=== PATIENT | female | born 1960 | race Caucasian/White ===

== ENCOUNTER → 2021-09-24 08:05 | Outpatient (BNVA) | payer OTHER, SELFPAY | PROVIDERS: PCP Internal Medicine; Visit Provider Psychiatry & Neurology Neurology | DX: G43.909 Migraine, unspecified, not intractable, without status migrainosus (principal) ==

== ENCOUNTER 2022-12-31 13:06 | Outpatient (AMB) | payer OTHER, SELFPAY ==
--- NOTE | 2022-12-31 13:08 | A.OFFVIS_ITS ---
Intake Vital Signs 12/31/22 13:09 Height 5 ft 7 in Weight 225 lb BMI 35.2 BP 108/82 Blood Pressure Location Rt brachial Position Sitting Pulse 104 H Pulse Source Pulse Oximeter Pulse Oximetry (%) 95 Oxygen Delivery Method Room Air Intake Visit Reasons: follow up migraines Intake Note: Patient presents for follow up migraines. 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 Allergies acetaminophen [From Percocet] Allergy (Verified 12/31/22 13:14) Hives morphine Allergy (Verified 12/31/22 13:14) Hypotension oxycodone Allergy (Verified 12/31/22 13:14) Hives Sulfa (Sulfonamide Antibiotics) Allergy (Verified 12/31/22 13:14) Hives Tetanus Vaccines and Toxoid Allergy (Verified 12/31/22 13:14) Headache Medication List - Last Reconciled 12/31/22 by OLGA Lehman citalopram 30 mg PO DAILY cyanocobalamin (vitamin B-12) (Vitamin B-12) 100 mcg PO DAILY lorazepam (Ativan) 0.5 mg PO DAILY PRN magnesium oxide 250 mg PO DAILY propranolol 20 mg (2 x 10 mg) PO BID 30 days riboflavin (vitamin B2) (Vitamin B-2) 400 mg PO QAM HPI HPI Comments History of Present Illness Details 62-yr-old female presents for f/u visit. Pt denies any significant interval medical changes. Pt reports she is having 1-2 typical migraines days per week. She has a couple of ocular migraines w/o headache a month. 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 She can work, but cannot do focused work- such as inerting an IV or PICC line. She complaint w/ Propranolol 20mg bid. In the past, she has tried Topiramate- not tolerated and has a h/o kidney stones. She has never tried a tripatn. She continues to have BLE neuropathy s/s- stable LE spasms. [facility] Medical History Anxiety Chemotherapy-induced neuropathy Colon cancer Depression Diabetes Endometrial cancer Kidney stone Obesity Surgical History Gastric bypass status for obesity H/O colectomy H/O: hysterectomy Hx of carpal tunnel repair Family History Maternal Aunt Carcinoma in situ of breast Unknown No problems noted. Social History Household Members: None Patient Tobacco Use Status: Former Tobacco user Quit Date: 10 YEARS Review of Systems Const All systems reviewed & are unremarkable except as noted in HPI and below Physical Exam Vital Signs: Last Vital Signs Pulse 104 H 12/31/22 13:09 BP 108/82 12/31/22 13:09 Pulse Ox 95 12/31/22 13:09 Oxygen Delivery Method Room Air 12/31/22 13:09 BMI result Body Mass Index 35.2 Const General: cooperative and no acute distress Orientation/consciousness: patient oriented x3 HEENT Head: Yes normocephalic Resp Effort & Inspection: normal respiratory effort and able to speak in complete sentences Neuro General: patient oriented x3, gait normal and CN's II-XI intact bilaterally Cognition (Neuro): normal cognition Motor exam (neuro): 5/5 motor strength present throughout Psych Appearance: grossly normal Mental Status: mental status grossly normal Speech and movement: Normal speech and movement present Affect: normal affect Attitude: cooperative Thought process: Normal thought process present Thought content: Normal thought content present Insight: Good insight present (Psych) Judgement: Good judgement present (Psych) Assessment & Plan Assessment & Plan (1) Migraine: Code(s): G43.909 - Migraine, unspecified, not intractable, without status migrainosus (2) Chemotherapy-induced neuropathy: Code(s): G62.0 - Drug-induced polyneuropathy; T45.1X5A - Adverse effect of antineoplastic and immunosuppressive drugs, initial encounter Plan For acute migraine tx: May use Excedrin prn sparingly. Trial Sumatriptan 100mg tab, 1/2 - 1 tab (50-100mg) at onset of headache, may repeat in 2 hours. Max of 2 tabs (200mg) per 24 hours. May adjunct with OTC Tylenol 650mg q 4 hours, Ibuprofen 600mg q 6 hours, or Naproxen 440mg q 12 hrs prn. For migraine prevention: Continue Vit B 2 400mg qam Magnesium 400mg qhs Continue Propranolol 20mg bid. Previous tx trials- Topiramate- not tolerated and has a h/o kidney stones. For anxiety: Continue Citalopram 30mg qd. Medications: New sumatriptan succinate (0.5 - 1 x 100 mg) 50 - 100 mg orally at onset of headache, may repeat in 2 hrs PRN; max 2 tabs per day or 4 tabs/week (may take with Ibuprofen) 30 days 12 tabs 6RF migraine headache Changed From citalopram 30 mg (1.5 x 20 mg) PO DAILY 45 tabs 6RF To citalopram 30 mg PO DAILY Coding Level of Care Code Est Pt Level 4 (25102) Diagnoses Migraine G43.909 Chemotherapy-induced neuropathy G62.0; T45.1X5A
[2022-12-31 13:09] VITALS: BP 108/82; PULSE 104; O2SAT 95; BMI 35.2
== END 2022-12-31 13:56 | disposition home or self-care (01) ==
PROVIDERS: Visit Provider Nurse Practitioner Family
DX: G43.909 Migraine, unspecified, not intractable, without status migrainosus (principal); G62.0 Drug-induced polyneuropathy; T45.1X5A Adverse effect of antineoplastic and immunosuppressive drugs, initial encounter
CPT/HCPCS: 99214

== ENCOUNTER → 2022-12-31 13:06 | Outpatient (BNVA) | payer OTHER, SELFPAY | PROVIDERS: Visit Provider Nurse Practitioner Family ==

== ENCOUNTER 2023-07-08 09:21 | Outpatient (AMB) | payer OTHER, SELFPAY ==
[2023-07-08 09:34] VITALS: BP 114/82; PULSE 67; BMI 31.6
--- NOTE | 2023-07-08 09:34 | MHC.OFFVIS ---
Intake Vital Signs 07/08/23 09:34 Height 5 ft 7 in Weight 202 lb BMI 31.6 BP 114/82 Blood Pressure Location Rt brachial Position Sitting Pulse 67 Pulse Source Pulse Oximeter Intake Visit Reasons: follow up migraines-Conf Intake Note: Patient presents for follow up migraines. migraines are still there,but lee's life Allergies acetaminophen [From Percocet] Allergy (Verified 07/08/23 09:38) Hives morphine Allergy (Verified 07/08/23 09:38) Hypotension oxycodone Allergy (Verified 07/08/23 09:38) Hives Sulfa (Sulfonamide Antibiotics) Allergy (Verified 07/08/23 09:38) Hives Tetanus Vaccines and Toxoid Allergy (Verified 07/08/23 09:38) Headache HPI HPI Comments History of Present Illness Details 62-yr-old female presents for f/u visit. Pt denies any significant interval medical changes. She has started Wegovy for wt loss, which so far has been effective. She is trying to eat healthier. She tried Sumatriptan- caused profuse sweating and it knocked her out. 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 She is using Excedrin migraine prn. Having 2 migraine attacks per week, which respond to Excedrin. Also migraine ice cap is helpful. Baseline headache characteristics: Start above right eye, sometimes may see white lights raining down in bilateral vision, a/w becoming pale, photophobia, phonophobia, osmophobia, nausea, rarely vomiting. Has ocular migraine w/o headache- seeing blurred line- moves into partial or visual solitario- lasts about 15 min. Frequency vary- can be 2 in a week, and then not have an attack for weeks. She continues to have BLE neuropathy s/s- can have some burning pain- worse if cold, BLE spasms- towards the end of the day. Not interested in meds at this time. She is slow on stairs- because she cannot feel the stairs. She does take Vit B complex, Turmeric, Mag. [facility] Medical History Chemotherapy-induced neuropathy Kidney stone Depression Anxiety Colon cancer Endometrial cancer Obesity Diabetes Surgical History H/O: hysterectomy H/O colectomy Gastric bypass status for obesity Hx of carpal tunnel repair Family History Maternal Aunt Carcinoma in situ of breast Unknown No problems noted. Social History Household Members: None Patient Tobacco Use Status: Former Tobacco user Quit Date: 10 YEARS Physical Exam Vital Signs: Last Vital Signs Pulse 67 07/08/23 09:34 BP 114/82 07/08/23 09:34 BMI result Body Mass Index 31.6 Const General: cooperative and no acute distress Orientation/consciousness: patient oriented x3 Resp Effort & Inspection: normal respiratory effort and able to speak in complete sentences Neuro General: patient oriented x3 Cranial nerves: Yes CN's II-XII intact bilaterally Cognition (Neuro): normal cognition Psych Appearance: grossly normal Mental Status: mental status grossly normal Speech and movement: Normal speech and movement present Affect: normal affect Attitude: cooperative Assessment & Plan Assessment & Plan (1) Migraine: Code(s): G43.909 - Migraine, unspecified, not intractable, without status migrainosus (2) Anxiety: Code(s): F41.9 - Anxiety disorder, unspecified (3) Chemotherapy-induced neuropathy: Code(s): G62.0 - Drug-induced polyneuropathy; T45.1X5A - Adverse effect of antineoplastic and immunosuppressive drugs, initial encounter Plan For acute migraine tx: May use Excedrin prn sparingly. Stop Sumatriptan 100mg tab- not tolerated. For migraine prevention: Continue Vit B 2 400mg qam Magnesium 400mg qhs Continue Propranolol 20mg bid. Previous tx trials- Topiramate- not tolerated and has a h/o kidney stones. Preventive migraine tx contraindications- Topiramate d/t h/o kidney stones. For anxiety: Continue Citalopram 30mg qd. For BLE neuropathy- Continue vit B, turmeric, mag. f/u in 6 months or sooner prn. Coding Level of Care Code Est Pt Level 4 (99987) Diagnoses Migraine G43.909 Anxiety F41.9 Chemotherapy-induced neuropathy G62.0; T45.1X5A
== END 2023-07-08 10:17 | disposition home or self-care (01) ==
PROVIDERS: PCP Family Medicine; Visit Provider Nurse Practitioner Family
DX: G43.909 Migraine, unspecified, not intractable, without status migrainosus (principal); F41.9 Anxiety disorder, unspecified; G62.0 Drug-induced polyneuropathy; T45.1X5A Adverse effect of antineoplastic and immunosuppressive drugs, initial encounter
CPT/HCPCS: 99214

== ENCOUNTER → 2023-07-08 09:21 | Outpatient (BNVA) | payer OTHER, SELFPAY | PROVIDERS: PCP Family Medicine; Visit Provider Nurse Practitioner Family ==

== ENCOUNTER 2024-01-06 09:27 | Outpatient (AMB) | payer OTHER, SELFPAY ==
--- NOTE | 2024-01-06 09:31 | A.OFFVIS_ITS ---
Vital Signs 01/06/24 09:32 Height 5 ft 7 in Weight 181 lb BMI 28.3 BP 120/70 Blood Pressure Location Rt brachial Position Sitting Intake Visit Reasons: 6 mo f/u Intake Note: Patient presents for follow up. Allergies acetaminophen [From Percocet] Allergy (Verified 01/06/24 09:37) Hives morphine Allergy (Verified 01/06/24 09:37) Hypotension oxycodone Allergy (Verified 01/06/24 09:37) Hives Sulfa (Sulfonamide Antibiotics) Allergy (Verified 01/06/24 09:37) Hives Tetanus Vaccines and Toxoid Allergy (Verified 01/06/24 09:37) Headache HPI Comments Details: 63-yr-old female presents for f/u visit. Pt denies any significant interval medical changes. She has continued to have intentional weight loss. She is having low back pain d/t large residual lower abdominal skin fold. Has plans to discuss surgical options w/ plastic surgery. Having 2-3 mild-moderate migraine attacks per week, which respond to Excedrin. Has been having 3-4 severe migraines per year. Also migraine ice cap is helpful. 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 She is using Excedrin migraine prn. Baseline headache characteristics: Start above right eye, sometimes may see white lights raining down in bilateral vision, a/w becoming pale, photophobia, phonophobia, osmophobia, nausea, rarely vomiting. Has ocular migraine w/o headache- seeing blurred line- moves into partial or visual solitario- lasts about 15 min. Frequency vary- can be 2 in a week, and then not have an attack for weeks. She continues to have BLE neuropathy s/s- can have some burning pain- worse if cold, BLE spasms- towards the end of the day. Not interested in prescription meds at this time. She is slow on stairs- because she cannot feel the stairs. She does take Vit B complex, Turmeric, Mag, co-Q10. [facility] Medical History Chemotherapy-induced neuropathy Kidney stone Depression Anxiety Colon cancer Endometrial cancer Obesity Diabetes Surgical History H/O: hysterectomy H/O colectomy Gastric bypass status for obesity Hx of carpal tunnel repair Family History Maternal Aunt Carcinoma in situ of breast Unknown No problems noted. Social History Household Members: None Patient Tobacco Use Status: Former Tobacco user Physical Exam Vital Signs: Last Vital Signs BP 120/70 01/06/24 09:32 BMI result Body Mass Index 28.3 Const General: cooperative and no acute distress Orientation/consciousness: patient oriented x3 Resp Effort & Inspection: normal respiratory effort and able to speak in complete sentences Neuro General: patient oriented x3 Cranial nerves: Yes CN's II-XII intact bilaterally Cognition (Neuro): normal cognition Psych Appearance: grossly normal Mental Status: mental status grossly normal Speech and movement: Normal speech and movement present Affect: normal affect Attitude: cooperative Assessment & Plan Assessment & Plan (1) Migraine: Code(s): G43.909 - Migraine, unspecified, not intractable, without status migrainosus Category: Medical (2) Chemotherapy-induced neuropathy: Code(s): G62.0 - Drug-induced polyneuropathy; T45.1X5A - Adverse effect of antineoplastic and immunosuppressive drugs, initial encounter Category: Medical (3) Leg muscle spasm: Code(s): M62.838 - Other muscle spasm Category: Medical (4) Anxiety: Code(s): F41.9 - Anxiety disorder, unspecified Category: Medical Plan For acute migraine tx: May use Excedrin prn sparingly. Previous trials- Sumatriptan 100mg tab- not tolerated. ? For migraine prevention: Continue Vit B 2 400mg qam Magnesium 400mg qhs Continue Propranolol 20mg bid. Previous tx trials- Topiramate- not tolerated and has a h/o kidney stones. Preventive migraine tx contraindications- Topiramate d/t h/o kidney stones. Discussed trying a CGRP MaB to reduce risk for migraine and osmophobia- ajovy or emgality- pt will review and let us know. Would avoid aimovig d/t leg cramp s/s. ? For anxiety: Continue Citalopram 30mg qd. ? For BLE neuropathy- Continue vit B, turmeric, mag, co-Q10 Consider trial of OTC Nervive nerve relief. ? f/u in 6 months or sooner prn. Coding Level of Care Code Est Pt Level 4 (23162) Diagnoses Migraine G43.909 Chemotherapy-induced neuropathy G62.0; T45.1X5A Leg muscle spasm M62.838 Anxiety F41.9
[2024-01-06 09:32] VITALS: BP 120/70; BMI 28.3
== END 2024-01-06 10:27 | disposition home or self-care (01) ==
PROVIDERS: PCP Family Medicine; Visit Provider Nurse Practitioner Family
DX: G43.909 Migraine, unspecified, not intractable, without status migrainosus (principal); G62.0 Drug-induced polyneuropathy; T45.1X5A Adverse effect of antineoplastic and immunosuppressive drugs, initial encounter; M62.838 Other muscle spasm; F41.9 Anxiety disorder, unspecified
CPT/HCPCS: 99214

== ENCOUNTER → 2024-01-06 09:27 | Outpatient (BNVA) | payer OTHER, SELFPAY | PROVIDERS: PCP Family Medicine; Visit Provider Nurse Practitioner Family ==

== ENCOUNTER 2024-07-27 09:52 | Outpatient (AMB) | payer OTHER, SELFPAY ==
[2024-07-27 10:03] VITALS: BP 120/84; PULSE 64; O2SAT 98; BMI 27.4
--- NOTE | 2024-07-27 10:03 | A.OFFVIS_ITS ---
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 Accompanied by: Self / Same As Patient Allergies acetaminophen [From Percocet] Allergy (Verified 07/27/24 10:03) Hives morphine Allergy (Verified 07/27/24 10:03) Hypotension oxycodone Allergy (Verified 07/27/24 10:03) Hives Sulfa (Sulfonamide Antibiotics) Allergy (Verified 07/27/24 10:03) Hives Tetanus Vaccines and Toxoid Allergy (Verified 07/27/24 10:03) Headache Medication List - Last Reconciled 07/27/24 by OLGA Lehman citalopram 30 mg PO DAILY cyanocobalamin (vitamin B-12) (Vitamin B-12) 100 mcg PO DAILY lorazepam (Ativan) 0.5 mg PO DAILY PRN magnesium oxide 250 mg PO DAILY propranolol 20 mg (2 x 10 mg) PO BID 30 days riboflavin (vitamin B2) (Vitamin B-2) 400 mg PO QAM sumatriptan succinate 50 - 100 mg orally at onset of headache, may repeat in 2 hrs PRN; max 2 tabs per day or 4 tabs/week (may take with Ibuprofen) 30 days HPI Comments Details: 63-yr-old female presents for f/u visit for migraine with aura and peripheral neuropathy. Patient denies any significant interim history changes. She continues to have intentional weight loss through dietary changes and now increase physical activity, doing water aerobics. Pt reports increased migraine attacks this month which she attributes to increased stress related to the loss pets. If she catches the migraine attack early enough, she can treat it with an excedrin. However, recently missed work for an entire weekend, due to migraine triggered by co-workers strong perfume, as migraine was severe a/w nausea, vomiting- and was not responsive to her usual excedrin. She is rarely having an ocular migraine without headache. Previously did not tolerate sumatriptan. She has taken Zofran in the past, however her current order has . Using a mask at work to help block triggers- though notes that the facial mask can impede her ability to see the floor, which can make her fit more off [facility]. Baseline headache characteristics: Start above right eye, sometimes may see white lights raining down in bilateral vision, a/w becoming pale, photophobia, phonophobia, osmophobia, nausea, rarely vomiting. Has ocular migraine w/o headache- seeing blurred line- moves into partial or visual solitario- lasts about 15 min. Frequency vary- can be 2 in a week, and then not have an attack for weeks. She continues to have stable BLE neuropathy s/s- can have some burning pain in the bottom of feet- worse if cold. May have BLE spasms- towards the end of the day, especially if she had been walking a lot that day. Not interested in prescription meds at this time. She is slow on stairs- because she cannot feel the stairs. She does take Vit B complex, Turmeric, Mag, co-Q10. [facility] Medical History Chemotherapy-induced neuropathy Kidney stone Depression Anxiety Colon cancer Endometrial cancer Obesity Diabetes Surgical History H/O: hysterectomy H/O colectomy Gastric bypass status for obesity Hx of carpal tunnel repair Family History Maternal Aunt Carcinoma in situ of breast Unknown No problems noted. Social History Household Members: None Patient Tobacco Use Status: Former Tobacco user Physical Exam Vital Signs: Last Vital Signs Pulse 64 07/27/24 10:03 BP 120/84 07/27/24 10:03 Pulse Ox 98 07/27/24 10:03 Oxygen Delivery Method Room Air 07/27/24 10:03 BMI result Body Mass Index 27.4 Const General: cooperative and no acute distress Orientation/consciousness: patient oriented x3 Resp Effort & Inspection: normal respiratory effort and able to speak in complete sentences Neuro General: patient oriented x3 Cranial nerves: Yes CN's II-XII intact bilaterally Cognition (Neuro): normal cognition Psych Appearance: grossly normal Mental Status: mental status grossly normal Speech and movement: Normal speech and movement present Affect: normal affect Attitude: cooperative Assessment & Plan Assessment & Plan (1) Migraine: Code(s): G43.909 - Migraine, unspecified, not intractable, without status migrainosus Category: Medical (2) Chemotherapy-induced neuropathy: Code(s): G62.0 - Drug-induced polyneuropathy; T45.1X5A - Adverse effect of antineoplastic and immunosuppressive drugs, initial encounter Category: Medical (3) Leg muscle spasm: Code(s): M62.838 - Other muscle spasm Category: Medical (4) Anxiety: Code(s): F41.9 - Anxiety disorder, unspecified Category: Medical Plan Discussion Notes I discussed with the patient the issues related to her migraines, particularly the impact of scent exposure in her workplace. We reviewed the recent stressors that have exacerbated her condition. I explained the prospects of using a newer class of migraine medications which might carry fewer side effects. I provided reassurance on the management of potential adverse effects and discussed the availability of Zofran for managing nausea. We talked about the ADA implications regarding workplace accommodations for her migraines and the importance of communicating effectively with her supervisors to address scent-related challenges in her work environment. Patient did bring in return to work paperwork-however patient was not kept out of work for a prolonged time. Though form completed to best of my ability today. Discussed that she should request actual FMLA paperwork from her HR department. We agreed on the addition of newer migraine medications and discussed lifestyle modifications and ongoing management strategies. Patient was informed and verbally consented to the use of an ambient scribe for clinic note documentation during this visit. For acute migraine tx: Trial Naratriptan 2.5mg tab, 1/2 - 1 tab (1.25-2.5mg) at onset of headache, may repeat in 4 hours. Max of 2 tabs (5mg) per 24 hours. May adjunct with OTC Tylenol 650mg every 4 hours, Ibuprofen (liquigel) 600mg every 6 hours, or Naproxen (liquigel) 440mg every 12 hrs as needed. Potential adverse effects of triptans, include but are not limited to nausea, fatigue, chest tightness/tingling (usually passes within a few minutes), medication overuse headaches. May use Excedrin prn sparingly. Ondansetron ODT 4-8 mg every 6-8 hours as needed for nausea and vomiting. Previous trials- Sumatriptan 100mg tab- not tolerated. ? For migraine prevention: Continue Vit B 2 400mg qam Magnesium 400mg qhs Continue Propranolol 20mg bid. Previous tx trials- Topiramate- not tolerated and has a h/o kidney stones. Preventive migraine tx contraindications- Topiramate d/t h/o kidney stones. Discussed trying a CGRP MaB to reduce risk for migraine and osmophobia- ajovy or emgality- pt will review and let us know. Would avoid aimovig d/t leg cramp s/s. ? For anxiety: Continue Citalopram 30mg qd. ? For BLE neuropathy- Continue vit B, turmeric, mag, co-Q10 Encourage patient to trial OTC Nervive nerve relief. ? f/u in 6 months or sooner prn. Medications: New naratriptan take 1/2 - 1 tab at onset of headache; if no relief may repeat 1 tab after at least 4 hrs; max = 2 tabs/24 hrs orally PRN; 30 days 12 tabs 6RF migraine headache ondansetron 4 - 8 mg (1 - 2 x 4 mg) PO Q6-8H 30 days PRN 30 tabs 3RF nausea and vomiting MDD 16mg Discontinued sumatriptan succinate Discontinued Reason: Doctor's Order (0.5 - 1 x 100 mg) 50 - 100 mg orally at onset of headache, may repeat in 2 hrs PRN; max 2 tabs per day or 4 tabs/week (may take with Ibuprofen) 30 days 12 tabs 6RF migraine headache Coding Level of Care Code Est Pt Level 4 (75164) Diagnoses Migraine G43.909 Chemotherapy-induced neuropathy G62.0; T45.1X5A Leg muscle spasm M62.838 Anxiety F41.9
--- OUTSIDE RECORDS SUMMARY | 2024-07-27 11:09 | XMS_ITS ---
Author Organization [facility] Address [address] [place] [phone] Care Team Providers Care Medical Education Coordinator Name Role Phone LUIZ ABUNDIO Unavailable [phone] REASON FOR VISIT SECA- MEDICATIONS Medication SIG (Take, Route, Frequency, Duration) Notes Start Date End Date Status Citalopram Hydrobromide 30 MG 1 capsule Orally Once a day Active Wegovy 2.4 MG/0.75ML ADMINISTER 2.4 MG U NDER THE SKIN WEEKLY for 28 Active Magnesium 300 MG 1 capsule with a patrizia l Orally Once a day Active Vitamin B2 Active Wegovy 2.4 MG/0.75ML 2.4mg Subcutaneous weekly for 30 days Not-Taking Propranolol HCl 20 MG 1 tablet Orally Tw ice a day Active Nystatin 724846 UNIT/GM 1 application Ex ternally Twice a day for 30 days Active Encounters Encounter Location Date Provider Diagnosis [place] [address] [address] 06/29/2024 ABUNDIO DEE BMI 27.0-27.9,adult Z68.27 ; Overweight (BMI 25.0-29.9) E66.3 ; Peripheral polyneuropathy G62.9 ; Endometrial cancer C54.1 ; PCOS (polycystic ovarian syndrome) E28.2 ; History of colon cancer Z85.038 and Migraine without aura and without status migrainosus, not intractable G43.009 ASSESSMENTS Encounter Date Diagnosis Assessment Notes Treatment Notes Treatment Clinical Notes Section Notes 06/29/2024 BMI 27.0-27.9,adult (ICD-10 - Z68.27) #Weight Management 06/29/2024 _update comprehensive labs before next visit Happy with progress which has been slow and steady newly calibrated target goal weight 165 pounds Tolerating medication cont Wegovy to 2.4 We did discuss we can refer to plastic surgery to see if she can get potential skin excision when she is done losing weight and on maintenance dosing Nystatin topical Total time spent today was 30 minutes of which greater than 50% was spent on coordinating and counseling Patient has been found to be overweight with a BMI of (27). Patient has overweight class per BMI standards We are a board certified obesity and weight management practice Of note, some information is being carried forward from prior records for informational purposes only and is being cited so that efficiency, safety and quality of the patient's care is not compromised This note was prepared using voice recognition software and direct typing Please excuse inadvertent trimmer sawyer or typing errors, or uncorrected word substitutions Although every attempt has been made by the provider to proofread this document, occasional misspellings and typographical errors may still be present Due to the previous pandemic, and the use of personal protective equipment (PPE) This may decrease voice recognition accuracy Inadvertent trimmer sawyer errors may occur 06/29/2024 Overweight (BMI 25.0-29.9) (ICD-10 - E66.3) #Weight Management 06/29/2024 _update comprehensive labs before next visit Happy with progress which has been slow and steady newly calibrated target goal weight 165 pounds Tolerating medication cont Wegovy to 2.4 We did discuss we can refer to plastic surgery to see if she can get potential skin excision when she is done losing weight and on maintenance dosing Nystatin topical Total time spent today was 30 minutes of which greater than 50% was spent on coordinating and counseling Patient has been found to be overweight with a BMI of (27). Patient has overweight class per BMI standards We are a board certified obesity and weight management practice Of note, some information is being carried forward from prior records for informational purposes only and is being cited so that efficiency, safety and quality of the patient's care is not compromised This note was prepared using voice recognition software and direct typing Please excuse inadvertent trimmer sawyer or typing errors, or uncorrected word substitutions Although every attempt has been made by the provider to proofread this document, occasional misspellings and typographical errors may still be present Due to the previous pandemic, and the use of personal protective equipment (PPE) This may decrease voice recognition accuracy Inadvertent trimmer sawyer errors may occur 06/29/2024 Peripheral polyneuropathy (ICD-10 - G62.9) #Weight Management 06/29/2024 _update comprehensive labs before next visit Happy with progress which has been slow and steady newly calibrated target goal weight 165 pounds Tolerating medication cont Wegovy to 2.4 We did discuss we can refer to plastic surgery to see if she can get potential skin excision when she is done losing weight and on maintenance dosing Nystatin topical Total time spent today was 30 minutes of which greater than 50% was spent on coordinating and counseling Patient has been found to be overweight with a BMI of (27). Patient has overweight class per BMI standards We are a board certified obesity and weight management practice Of note, some information is being carried forward from prior records for informational purposes only and is being cited so that efficiency, safety and quality of the patient's care is not compromised This note was prepared using voice recognition software and direct typing Please excuse inadvertent trimmer sawyer or typing errors, or uncorrected word substitutions Although every attempt has been made by the provider to proofread this document, occasional misspellings and typographical errors may still be present Due to the previous pandemic, and the use of personal protective equipment (PPE) This may decrease voice recognition accuracy Inadvertent trimmer sawyer errors may occur 06/29/2024 Endometrial cancer (ICD-10 - C54.1) #Weight Management 06/29/2024 _update comprehensive labs before next visit Happy with progress which has been slow and steady newly calibrated target goal weight 165 pounds Tolerating medication cont Wegovy to 2.4 We did discuss we can refer to plastic surgery to see if she can get potential skin excision when she is done losing weight and on maintenance dosing Nystatin topical Total time spent today was 30 minutes of which greater than 50% was spent on coordinating and counseling Patient has been found to be overweight with a BMI of (27). Patient has overweight class per BMI standards We are a board certified obesity and weight management practice Of note, some information is being carried forward from prior records for informational purposes only and is being cited so that efficiency, safety and quality of the patient's care is not compromised This note was prepared using voice recognition software and direct typing Please excuse inadvertent trimmer sawyer or typing errors, or uncorrected word substitutions Although every attempt has been made by the provider to proofread this document, occasional misspellings and typographical errors may still be present Due to the previous pandemic, and the use of personal protective equipment (PPE) This may decrease voice recognition accuracy Inadvertent trimmer sawyer errors may occur 06/29/2024 PCOS (polycystic ovarian syndrome) (ICD-10 - E28.2) #Weight Management 06/29/2024 _update comprehensive labs before next visit Happy with progress which has been slow and steady newly calibrated target goal weight 165 pounds Tolerating medication cont Wegovy to 2.4 We did discuss we can refer to plastic surgery to see if she can get potential skin excision when she is done losing weight and on maintenance dosing Nystatin topical Total time spent today was 30 minutes of which greater than 50% was spent on coordinating and counseling Patient has been found to be overweight with a BMI of (27). Patient has overweight class per BMI standards We are a board certified obesity and weight management practice Of note, some information is being carried forward from prior records for informational purposes only and is being cited so that efficiency, safety and quality of the patient's care is not compromised This note was prepared using voice recognition software and direct typing Please excuse inadvertent trimmer sawyer or typing errors, or uncorrected word substitutions Although every attempt has been made by the provider to proofread this document, occasional misspellings and typographical errors may still be present Due to the previous pandemic, and the use of personal protective equipment (PPE) This may decrease voice recognition accuracy Inadvertent trimmer sawyer errors may occur 06/29/2024 History of colon cancer (ICD-10 - Z85.038) #Weight Management 06/29/2024 _update comprehensive labs before next visit Happy with progress which has been slow and steady newly calibrated target goal weight 165 pounds Tolerating medication cont Wegovy to 2.4 We did discuss we can refer to plastic surgery to see if she can get potential skin excision when she is done losing weight and on maintenance dosing Nystatin topical Total time spent today was 30 minutes of which greater than 50% was spent on coordinating and counseling Patient has been found to be overweight with a BMI of (27). Patient has overweight class per BMI standards We are a board certified obesity and weight management practice Of note, some information is being carried forward from prior records for informational purposes only and is being cited so that efficiency, safety and quality of the patient's care is not compromised This note was prepared using voice recognition software and direct typing Please excuse inadvertent trimmer sawyer or typing errors, or uncorrected word substitutions Although every attempt has been made by the provider to proofread this document, occasional misspellings and typographical errors may still be present Due to the previous pandemic, and the use of personal protective equipment (PPE) This may decrease voice recognition accuracy Inadvertent trimmer sawyer errors may occur 06/29/2024 Migraine without aura and without status migrainosus, not intractable (ICD-10 - G43.009) #Weight Management 06/29/2024 _update comprehensive labs before next visit Happy with progress which has been slow and steady newly calibrated target goal weight 165 pounds Tolerating medication cont Wegovy to 2.4 We did discuss we can refer to plastic surgery to see if she can get potential skin excision when she is done losing weight and on maintenance dosing Nystatin topical Total time spent today was 30 minutes of which greater than 50% was spent on coordinating and counseling Patient has been found to be overweight with a BMI of (27). Patient has overweight class per BMI standards We are a board certified obesity and weight management practice Of note, some information is being carried forward from prior records for informational purposes only and is being cited so that efficiency, safety and quality of the patient's care is not compromised This note was prepared using voice recognition software and direct typing Please excuse inadvertent trimmer sawyer or typing errors, or uncorrected word substitutions Although every attempt has been made by the provider to proofread this document, occasional misspellings and typographical errors may still be present Due to the previous pandemic, and the use of personal protective equipment (PPE) This may decrease voice recognition accuracy Inadvertent trimmer sawyer errors may occur PLAN OF TREATMENT Medication Medication Name Sig Start Date Stop Date Notes Nystatin 818132 UNIT/GM 1 application Ex ternally Twice a day for 30 days Next Appt Details Provider Name:ABUNDIO DEE, 08/30/2024 10:30:00 AM, [address] [facility], [facility] [address], [place], [address], Progress Notes * Saúl PAINTEROB: [birth year] (63 yo F)Acc No.[id number]:06/29/2024 Patient:??Laurence PAINTER Provider:??ABUNDIO DEE NP :1960?Age:63 Y?Sex:Fe male Date:06/29/2024 Address:[address] [id number] Subjective: * Chief Complaints: * ?1. SECA-. * HPI: ?Constitutional:? Patient here today for a weight management Follow-up visit ?Patient seen and examined. ?Full past medical history, social history, family history, ?allergies and current medications were reviewed and updated. 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 No SEs ?Enjoying the BRIDGET injections - getting another today ?Injection day: Thursday ?Was previously on saxenda- ?Patient does report some issues (back pain, fungal infections) ? with loose skin folds since the weight loss ?Chronic and ongoing intertriginous fungal infections ?Discussed with her she may be candidate for skin removal and plastic surgery, (contmplating) ? intermittent use of Nystatin powder. ?No breakthrough hunger. Reports losing weight steadily. ?Non-smoker ?ETOH use: rarely ?hx of gastric bypass 2005, Dr. Fowler ?Also history of migraine headaches on prophylaxis with Inderal ?She is also had history of malignancy including colonic cancer with resection history ?As well as endometrial cancer ?Also chemo-therapy induced neuropathy ?06/29/2024, Weight , BMI ?05/19/2024, Weight 175lbs , BMI 27 ?03/30/2024, Weight 174lbs , BMI 27 (-4lbs) ?02/03/2024, Weight 178.57, BMI 28 (-7 lbs) ?12/02/2023, Weight 185.30 lbs, BMI 29.02 (-8 lbs) ?09/02/2023, Weight 194lbs ,BMI 30, (-8lbs) ?07/15/2023, Weight 202, BMI 31, (-7lbs) ?05/27/2023, Weight 209 lbs, BMI 32 (-7lbs) ?04/08/2023: Weight 216, BMI 33 (-10 lbs) ?02/18/2023: Weight 226lbs BMI 35 (+2lbs ) ?12/31/2022: Weight 224lbs, BMI 35 ?10/22/2022: Weight 222lbs, BMI 35 ?07/09/2022: Weight 217lbs, BMI 34, (-1lb) ?05/28/2022: Weight 218, BMI 34(-6lbs) ?04/09/22: Weight 224lbs, BMI 35, (-3lbs) ?03/05/22: Weight rescheduled ?01/29/22: Weight 227, BMI 35, (-13lbs) ?12/25/21: Weight 240lbs, BMI: 37.59 (-4lbs) ?11/20/2021: Weight 244 lbs, BMI 38: ?PCP Dr. 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 ?Metabolic workup: ?Comprehensive labs 05/2023 done by PCP ?CBC stable ?LFTs, renal function and electrolytes are stable ?Total cholesterol 192 HDL 78, ISR953, TG 64 ?TSH 0.59 ?Vitamin D 11, currently on supplements ?Diabetes Last A1c of 5.0%. States it's always been normal ?Has not had an echocardiogram recently. * ROS:?All Other Systems:?Review of Systems (ROS)??All others negative except those mentioned in HPI.? * Medical History:?? * Medications:??Taking Nystati n 698912 UNIT/GM Powder 1 application Externally Twice a [...] ADMINISTER 2.4 MG UNDER THE SKIN WEEKLY , Not-Taking Wegovy 2.4 MG/0.75ML Solution Auto-injector 2.4mg Subcutaneous weekly Objective: * Examination: ?General Examination: ?GENERAL APPEARANCE:??in no acute distress, well developed, well nourished.??HEAD:??normocephalic, atraumatic.??EYES:??pupils equal, round, reactive to light and accommodation.??EARS:??normal.??ORAL CAVITY:??mucosa moist.??THROAT:??clear.??NECK/THYROID:??neck supple, full range of motion, no cervical lymphadenopathy.??SKIN:??no suspicious lesions, warm and dry.??HEART:??no murmurs, regular rate and rhythm, S1, S2 normal.??LUNGS:??clear to auscultation bilaterally.??ABDOMEN:??normal, bowel sounds present, soft, nontender, nondistended.??EXTREMITIES:??no clubbing, cyanosis, or edema.??NEUROLOGIC:??nonfocal, motor strength normal upper and lower extremities, sensory exam intact.? Assessment: * Assessment: 1.??Overweight (BMI 25.0-29. 9) - E66.3 (Primary)??2.??BMI 27.0-27.9,adult - Z68.27??3.??Peripheral polyneuropathy - G62.9??4.??Endometrial cancer - C54.1??5.??PCOS (polycystic ovarian syndrome) - E28.2??6.??History of colon cancer - Z85.038??7.??Migraine without aura and without status migrainosus, not intractable - G43.009?? #Weight Management 06/29/2024 _update comprehensive labs before next visit Happy with progress which has been slow and steady newly calibrated target goal weight 165 pounds Tolerating medication cont Wegovy to 2.4 We did discuss we can refer to plastic surgery to see if she can get potential skin excision when she is done losing weight and on maintenance dosing Nystatin topical Total time spent today was 30 minutes of which greater than 50% was spent on coordinating and counseling Patient has been found to be overweight with a BMI of (27). Patient has overweight class per BMI standards We are a board certified obesity and weight management practice Of note, some information is being carried forward from prior records for informational purposes only and is being cited so that efficiency, safety and quality of the patient's care is not compromised This note was prepared using voice recognition software and direct typing Please excuse inadvertent trimmer sawyer or typing errors, or uncorrected word substitutions Although every attempt has been made by the provider to proofread this document, occasional misspellings and typographical errors may still be present Due to the previous pandemic, and the use of personal protective equipment (PPE) This may decrease voice recognition accuracy Inadvertent trimmer sawyer errors may occur. Plan: * Treatment: * Images: Billing Information: * Visit Code:?? * Procedure Codes:?? * Sign off status: Pending * Provider:??ABUNDIO DEE NP Date:??06/05 History and Physical Notes * HPI (History of Present Illness) Category Sub-Category Detail Notes Category Not es Constitutional Patient here today for a weight management Follow-up visit Patient seen and examined. Full past medical history, social history, family history, allergies and current medications were reviewed and updated. Body composition analysis reviewed today #Weight Management 06/29/2024 labs? 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 No SEs Enjoying the BRIDGET injections - getting another today Injection day: Thursday Was previously on saxenda- Patient does report some issues (back pain, fungal infections) with loose skin folds since the weight loss Chronic and ongoing intertriginous fungal infections Discussed with her she may be candidate for skin removal and plastic surgery, (contmplating) intermittent use of Nystatin powder. No breakthrough hunger. Reports losing weight steadily. Non-smoker ETOH use: rarely hx of gastric bypass 2004, Dr. Fowler Also history of migraine headaches on prophylaxis with Inderal She is also had history of malignancy including colonic cancer with resection history As well as endometrial cancer Also chemo-therapy induced neuropathy 06/29/2024, Weight , BMI 05/19/2024, Weight 175lbs , BMI 27 03/30/2024, Weight 174lbs , BMI 27 (-4lbs) 02/03/2024, Weight 178.57, BMI 28 (-7 lbs) 12/02/2023, Weight 185.30 lbs, BMI 29.02 (-8 lbs) 09/02/2023, Weight 194lbs ,BMI 30, (-8lbs) 07/15/2023, Weight 202, BMI 31, (-7lbs) 05/27/2023, Weight 209 lbs, BMI 32 (-7lbs) 04/08/2023: Weight 216, BMI 33 (-10 lbs) 02/18/2023: Weight 226lbs BMI 35 (+2lbs ) 12/31/2022: Weight 224lbs, BMI 35 10/22/2022: Weight 222lbs, BMI 35 07/09/2022: Weight 217lbs, BMI 34, (-1lb) 05/28/2022: Weight 218, BMI 34(-6lbs) 04/09/22: Weight 224lbs, BMI 35, (-3lbs) 03/05/22: Weight rescheduled 01/29/22: Weight 227, BMI 35, (-13lbs) 12/25/21: Weight 240lbs, BMI: 37.59 (-4lbs) 11/20/2021: Weight 244 lbs, BMI 38: PCP Dr. 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 Metabolic workup: Comprehensive labs 05/2023 done by PCP CBC stable LFTs, renal function and electrolytes are stable Total cholesterol 192 HDL 78, KIV616, TG 64 TSH 0.59 Vitamin D 11, currently on supplements Diabetes Last A1c of 5.0%. States it's always been normal Has not had an echocardiogram recently. Examination Category Sub-Category Detail Notes Category Not es General Examination GENERAL APPEARANCE: in no ac francie distress, well developed, well nourished HEAD: normocephalic, atrau matic EYES: pupils equal, round, reactive to light and accommodation EARS: normal THROAT: clear NECK/THYROID: neck supple, full ra nge of motion, no cervical lymphadenopathy HEART: no murmurs, regular rate and rhythm, S1, S2 normal LUNGS: clear to auscultatio n bilaterally ABDOMEN: normal, bowel sounds present, soft, nontender, nondistended NEUROLOGIC: nonfocal, motor stre ngth normal upper and lower extremities, sensory exam intact SKIN: no suspicious lesion s, warm and dry EXTREMITIES: no clubbing, cyanosi s, or edema ORAL CAVITY: mucosa moist
--- OUTSIDE RECORDS SUMMARY | 2024-07-27 11:09 | XMS_ITS ---
Author Organization [facility] Address [address] [place] [address] Care Team Providers Care Tree And Shrub Technician Name Role Phone ABUNDIO DEE Unavailable [phone] REASON FOR VISIT [facility] MEDICATIONS Medication SIG (Take, Route, Frequency, Duration) [...] a day Active Vitamin B2 Active Nystatin 666040 UNIT/GM 1 application Ex ternally Twice a day for 30 days Active Encounters Encounter Location Date Provider Diagnosis [address] [facility] [address] [place] [address] 07/22/2024 ABUNDIO DEE PLAN OF TREATMENT Next Appt Details Provider Name:ABUNDIO DEE 08/30/2024 10:30:00 AM, [address] [facility], [facility] [address], [place], [address], Progress Notes * Saúl PAINTEROB: [birth year] (63 yo F)Acc No.[id number]:07/22/2024 Progress Note Patient:??Laurence PAINTER Provider:??ABUNDIO DEE NP :1960?Age:63 Y?Sex:Fe male Date:07/22/2024 Address:[address] [place] Subjective: * Chief Complaints: * ?1. MICC. * Medical History:?? * Medications:??Taking Nystati n 950790 UNIT/GM Powder 1 application Externally Twice a [...] 2.4 MG UNDER THE SKIN WEEKLY Objective: Assessment: Plan: * Treatment: Care Plan: * Problems:?? * Images: Billing Information: * Visit Code:?? * Procedure Codes:?? Care Plan Details* * Sign off status: Pending * Provider:??ABUNDIO DEE NP Date:??07/03
--- OUTSIDE RECORDS SUMMARY | 2024-07-27 11:10 | XMS_ITS | Clinical Summary ---
Author Organization [facility], Address [address] [place] [address] Phone Care Team Providers Care Tank Tender Name Role Phone Smitha Mckinnon MD Primary Care Provid er Allergies Active Allergy Reactions Criticality Noted Date Comments Morphine High 02/14/2020 DROP IN BLOOD PRESSURE Oxycodone-Acetaminophen Other (see comments) Low Itchy scalp per patient Pollen Extract Other (see comments) Low 02/14/2020 Sneezing, runny nose Sulfa Antibiotics Hives Medium 02/14/2020 Tetanus Toxoids Other (see comments) High 04/11/2013 Rapid HR, migraine, muscle spasms Medications ondansetron ODT (ZOFRAN-ODT) 8 MG dispersible tablet ondansetron 8 mg disintegrating tablet PRN Active LORazepam (ATIVAN) 0.5 MG tablet 0.5 mg if needed Active citalopram (CeleXA) 20 MG tablet TK 1 T PO D 02/04/20 20 Active Active Problems Problem Noted Date Diagnosed Date Tear of meniscus of knee 02/24/2020 Neuropathy 02/24/2020 Foot-drop 02/24/2020 Cancer of endometrium 02/24/2020 Abdominal mass <Right side; Lower quadrant; Abdominal swelling, mass or lump> 02/14/2020 Malignant neoplasm of colon 02/14/2020 Renal colic 07/25/2019 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 History of malignant neoplasm of colon 7 History of bariatric surgical procedure 09/09/19 17 Persistent insomnia 04/11/2013 Obesity 04/11/2013 Migraine 04/11/2013 Immunization refused 04/11/2013 Fibromyositis 04/11/2013 Anxiety state 04/11/2013 Polycystic ovary 04/11/2013 Social History Tobacco Use Types Packs/Day Years Used Date Smoking Tobacco: Former Cigarettes Alcohol Use Standard Drinks/Week Comments Yes 0 (1 standard drink = 0.6 oz pur e alcohol) occassional Comments Unknown Sex and Gender Information Value Date Recorded Sex Assigned at Not on file Legal Sex Female 2:10 PM EDT Gender Identity Not on file Sexual Orientation Not on file Last Filed Vital Signs Vital Sign Reading Time Taken Comments Blood Pressure 158/96 02/27/2020 12:14 PM EDT Pulse 66 02/27/2020 12:14 PM EDT Temperature 35.9 ??C (96.6 ??F) 02/27/2020 12:14 PM E DT Respiratory Rate 15 02/27/2020 12:14 PM EDT Oxygen Saturation 98% 02/27/2020 12:14 PM EDT Inhaled Oxygen Concentration - - Weight 107 kg (236 lb) 02/27/2020 12:14 PM EDT Height 170.2 cm (5' 7 ) 02/27/2020 12:14 PM EDT Body Mass Index 36.96 02/27/2020 12:14 PM EDT Plan of Treatment Health Maintenance Due Date Last Done Comments Breast Cancer Screening 1960 Pneumococcal Vaccine: Pediatrics (0 to 5 Years) and At-Risk Patients (6 to 64 Years) (1 of 2 - PCV) 07/28/1965 Colorectal Cancer Screening: Annual FOBT 07/28/2008 Colorectal Cancer Screening: Colonoscopy 07/28/2008 Colorectal Cancer Screening: Sigmoidoscopy 07/28/2008 Influenza Vaccine (#1) 2024 9, 03/04/2016, 04/11/2013, Additional history exists Hepatitis B Vaccine Aged Out No longe r eligible based on patient's age to complete this topic Insurance [facility] Care Teams Tank Tender Relationship Specialty Start Date End Date Smitha Mckinnon MD [id number] [facility] [address] [place], [place] PCP - General Internal Medicine 02/14/20
--- OUTSIDE RECORDS SUMMARY | 2024-07-27 11:10 | XMS_ITS ---
Author Organization [facility] Address [address] [place] [id number] Care Team Providers Care Infrastructure Director Name Role Phone ABUNDIO DEE Unavailable [phone] ALLERGIES Allergen (clinical drug ingredient) Drug/Non Drug Allergy documented on EMR Reaction Allergy Type Onset Date Status acetaminophen / oxycodone Percocet Unknown Drug Allergy Active morphine Morphine Unknown Drug Allergy Active Substance with sulfonamide structure and antibacterial mechanism of action (substance) Sulfa Antibiotics Unknown Drug Allergy Active REASON FOR VISIT Pt here for weight management follow up. SECA done. MICC injection given on left deltoid, pt tolerated well with no reaction. MEDICATIONS Medication SIG (Take, Route, Frequency, Duration) Notes Start Date End Date Status Wegovy 2.4 MG/0.75ML ADMINISTER 2.4 MG U NDER THE SKIN WEEKLY for 28 Active Citalopram Hydrobromide 30 MG 1 capsule Orally Once a day Active Propranolol HCl 20 MG 1 tablet Orally Tw ice a day Active Vitamin B2 Active Nystatin 819394 UNIT/GM 1 application Ex ternally Twice a day for 30 days Active Magnesium 300 MG 1 capsule with a patrizia l Orally Once a day Active SOCIAL HISTORY Tobacco Use: Social History Observation Description Date Details (start date - stop date) Former Smoker NA - NA Sex Assigned At : Social History Observation Description Sex Assigned At Unknown Tobacco Use/Smoking Question Answer Notes Are you a former smoker How long has it been since y ou last smoked? > 10 years Additional Findings: Tobacco User Light cigarett e smoker ((1-9 cigs/day) VITAL SIGNS Heart Rate 75 /min 07/22/2024 Blood pressure systolic 122 mm Hg 07/23/19 25 Blood pressure diastolic 78 mm Hg 025 Weight 175 lbs 07/22/2024 BMI 27.41 kg/m2 07/22/2024 Height 67 in 07/22/2024 Oximetry 98 % 07/22/2024 Encounters Encounter Location Date Provider Diagnosis [facility] [address] [facility] [address] [place] [address] 07/22/2024 ABUNDIO DEE BMI 27.0-27.9,adult Z68.27 ; Overweight (BMI 25.0-29.9) E66.3 ; Peripheral polyneuropathy G62.9 ; Endometrial cancer C54.1 ; PCOS (polycystic ovarian syndrome) E28.2 ; History of colon cancer Z85.038 and Migraine without aura and without status migrainosus, not intractable G43.009 ASSESSMENTS Encounter Date Diagnosis Assessment Notes Treatment Notes Treatment Clinical Notes Section Notes 07/22/2024 BMI 27.0-27.9,adult (ICD-10 - Z68.27) #Weight Management 07/22/2024 [facility] today to get labs later this am* will followup Happy with progress newly calibrated target goal weight 165 pounds [...] software and direct typing Please excuse inadvertent pin or clip fastener or typing errors, or uncorrected word substitutions Although every attempt has been made by the provider to proofread this document, occasional misspellings and typographical errors may still be present Due to the previous pandemic, and the use of personal protective equipment (PPE) This may decrease voice recognition accuracy Inadvertent pin or clip fastener errors may occur 07/22/2024 Overweight (BMI 25.0-29.9) (ICD-10 - E66.3) #Weight Management 07/22/2024 [facility] today to get labs later this am* will followup Happy with progress newly calibrated target goal weight 165 pounds [...] software and direct typing Please excuse inadvertent pin or clip fastener or typing errors, or uncorrected word substitutions Although every attempt has been made by the provider to proofread this document, occasional misspellings and typographical errors may still be present Due to the previous pandemic, and the use of personal protective equipment (PPE) This may decrease voice recognition accuracy Inadvertent pin or clip fastener errors may occur 07/22/2024 Peripheral polyneuropathy (ICD-10 - G62.9) #Weight Management 07/22/2024 [facility] today to get labs later this am* will followup Happy with progress newly calibrated target goal weight 165 pounds [...] software and direct typing Please excuse inadvertent pin or clip fastener or typing errors, or uncorrected word substitutions Although every attempt has been made by the provider to proofread this document, occasional misspellings and typographical errors may still be present Due to the previous pandemic, and the use of personal protective equipment (PPE) This may decrease voice recognition accuracy Inadvertent pin or clip fastener errors may occur 07/22/2024 Endometrial cancer (ICD-10 - C54.1) #Weight Management 07/22/2024 [facility] today to get labs later this am* will followup Happy with progress newly calibrated target goal weight 165 pounds [...] software and direct typing Please excuse inadvertent pin or clip fastener or typing errors, or uncorrected word substitutions Although every attempt has been made by the provider to proofread this document, occasional misspellings and typographical errors may still be present Due to the previous pandemic, and the use of personal protective equipment (PPE) This may decrease voice recognition accuracy Inadvertent pin or clip fastener errors may occur 07/22/2024 PCOS (polycystic ovarian syndrome) (ICD-10 - E28.2) #Weight Management 07/22/2024 [facility] today to get labs later this am* will followup Happy with progress newly calibrated target goal weight 165 pounds [...] software and direct typing Please excuse inadvertent pin or clip fastener or typing errors, or uncorrected word substitutions Although every attempt has been made by the provider to proofread this document, occasional misspellings and typographical errors may still be present Due to the previous pandemic, and the use of personal protective equipment (PPE) This may decrease voice recognition accuracy Inadvertent pin or clip fastener errors may occur 07/22/2024 History of colon cancer (ICD-10 - Z85.038) #Weight Management 07/22/2024 [facility] today to get labs later this am* will followup Happy with progress newly calibrated target goal weight 165 pounds [...] software and direct typing Please excuse inadvertent pin or clip fastener or typing errors, or uncorrected word substitutions Although every attempt has been made by the provider to proofread this document, occasional misspellings and typographical errors may still be present Due to the previous pandemic, and the use of personal protective equipment (PPE) This may decrease voice recognition accuracy Inadvertent pin or clip fastener errors may occur 07/22/2024 Migraine without aura and without status migrainosus, not intractable (ICD-10 - G43.009) #Weight Management 07/22/2024 [facility] today to get labs later this am* will followup Happy with progress newly calibrated target goal weight 165 pounds [...] software and direct typing Please excuse inadvertent pin or clip fastener or typing errors, or uncorrected word substitutions Although every attempt has been made by the provider to proofread this document, occasional misspellings and typographical errors may still be present Due to the previous pandemic, and the use of personal protective equipment (PPE) This may decrease voice recognition accuracy Inadvertent pin or clip fastener errors may occur PLAN OF TREATMENT Medication Medication Name Sig Start Date Stop Date Notes Nystatin 070418 UNIT/GM 1 application Ex ternally Twice a day for 30 days Next Appt Details Provider Name:ABUNDIO DEE, 08/30/2024 10:30:00 AM, [address] [facility], [facility] [address], [place], [address], MEDICATIONS ADMINISTERED Medication Instructions Date of Administration Dosage Notes MICC B12 INJECTION 07/22/2024 Progress Notes * Saúl PAINTEROB: [birth year] (63 yo F)Acc No.[id number]:07/22/2024 Patient:??Laurence PAINTER Provider:??ABUNDIO DEE NP :1960?Age:63 Y?Sex:Fe male Date:07/22/2024 Address:[address] [place], [place] [id number] Subjective: * Chief Complaints: * ?1. Pt here for weight management follow up. SECA done. MICC injection given on left deltoid, pt tolerated well with no reaction.. * HPI: ?Constitutional:? Patient here today for a weight management Follow-up visit ?Patient seen and examined. ?Full past medical history, social history, family history, ?allergies and current medications were reviewed and updated. 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 ?Metabolic workup: ?Comprehensive labs 05/2023 done by PCP ?CBC stable ?LFTs, renal function and electrolytes are stable ?Total cholesterol 192 HDL 78, DBT412, TG 64 ?TSH 0.59 ?Vitamin D 11, currently on supplements ?Diabetes Last A1c of 5.0%. States it's always been normal ?Has not had an echocardiogram recently. * ROS:?All Other Systems:?Review of Systems (ROS)??All others negative except those mentioned in HPI.? * Medical History:??Hemorrhoid s, Headache, Arthritis, Kidney stones, Anxiety, Seasonal allergies, Weight gain, Endometrial cancer. * Surgical History:??laminecto my, ruptured lumbar disc , hysterectomy , gastric bypass , bowel resection , colon cancer , rotator cuff . * Family History:??Father: dec eased.??Mother: .?? Patient is adopted and has no knowledge of Family HX. * Social History:?Tobacco Use:??Tobacco Use/Smoking??Are you a??former smoker,??How long has it been since you last smoked???> 10 years,??Additional Findings: Tobacco User??Light cigarette smoker ((1-9 cigs/day).?? * Medications:??Taking Nystati n 617119 UNIT/GM Powder 1 application Externally Twice a [...] 2.4 MG UNDER THE SKIN WEEKLY , Discontinued Wegovy 2.4 MG/0.75ML Solution Auto-injector 2.4mg Subcutaneous weekly , Medication List reviewed and reconciled with the patient * Allergies:??Morphine, Sulfa Antibiotics, Percocet. Objective: * Vitals:??HR:75/min, BP:122/7 8mm Hg, Wt:175lbs, BMI:27.41Index, Ht: 67 in, Oxygen sat %:98%. * Examination: ?General Examination: ?GENERAL APPEARANCE:??in no [...] migrainosus, not intractable - G43.009?? #Weight Management 07/22/2024 [facility] today to get labs later this am* will followup Happy with progress newly calibrated target goal weight 165 pounds [...] software and direct typing Please excuse inadvertent pin or clip fastener or typing errors, or uncorrected word substitutions Although every attempt has been made by the provider to proofread this document, occasional misspellings and typographical errors may still be present Due to the previous pandemic, and the use of personal protective equipment (PPE) This may decrease voice recognition accuracy Inadvertent pin or clip fastener errors may occur. Plan: * Treatment: * Therapeutic Injections:? MICC B12 INJECTION (Route: Intramuscular) given by Aixa Shah on left deltoid * Procedure Codes:??29618 P/M HOT DOG VENDER, INDIV 15 MIN * Images: Billing Information: * Visit Code:?? 03909 Office Visit, Est Pt., Level 4. Modifiers: 25, SA * Procedure Codes:?? 61632 P/M HOT DOG VENDER, INDIV 15 MIN. * Sign off status: Completed true * Provider:??ABUNDIO DEE NP Date:??07/03 History and Physical Notes * HPI (History of Present Illness) Category Sub-Category Detail Notes Category Not es Constitutional Patient here today for a weight management Follow-up visit Patient seen and examined. Full past medical history, social history, family history, allergies and current medications were reviewed and updated. 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 Metabolic workup: Comprehensive labs 05/2023 done by PCP CBC stable LFTs, renal function and electrolytes are stable Total cholesterol 192 HDL 78, VUU337, TG 64 TSH 0.59 Vitamin D 11, currently on supplements Diabetes Last A1c of 5.0%. States it's always been normal Has not had an echocardiogram recently. Examination Category Sub-Category Detail Notes Category Not es General Examination GENERAL APPEARANCE: in no ac [place] distress, well developed, well nourished HEAD: normocephalic, [...]
--- OUTSIDE RECORDS SUMMARY | 2024-07-27 11:10 | XMS_ITS | Data Portability ---
Author Organization [facility], Main Office Address [address] [facility] [address] [place] [address] Care Team Providers Care Night Club Manager Name Role Phone JESUS ALBERTO BRUNSON Mobile Qa Tester AZALIA TERRY Neurologist JOSE LUIS QUIÑONEZ Occupational Therapy Aides Teacher NICOLE CHOI Medical Oncologist AMAURY HEIN Claim Manager [facility] Physical Therapist JOHN DAVEY Primary Care Provider Assessment Encounter Date Assessment Date Assessment LastModified by Organization Details LastModified Time 09/16/2021 09/16/2021 This service was provided using telemedicine. Patient consented to video & audio visit Patient was located in the [facility]. Provider was located in the office. No other persons participated in the telemedicine visit except for the patient unless otherwise indicated here. {{}} Total time of visit was 20 minutes. [email or web address] Not available 09/16/2021 11:44:06 Plan of Treatment Reminders Order Date Submit Date Provider Last Modified By Organization Details Last Modified Time Details Appointments PE EST 2024 10:00A M John Davey MD Not available Not available Not available Lab vitami n D, 25-hyd keyshawn, total, serum 2023 024 [facility], [address], [facility], [place], [address], 05/20/2023 21:34:13 lipid panel, serum 2023 024 [facility], [address], [address], [place], [place], [address], 05/20/2023 21:19:42 CBC w/ auto diff 2023 024 [facility], [address], [address], [place], [address], 05/20/2023 20:27:50 TSH, serum or plasma 2023 024 [facility], [address], [address], [place], [place], [address], 05/20/2023 21:34:12 CMP, serum or plasma 2023 024 [facility], [address], [address], [place], [address], 05/20/2023 21:19:41 hemogl obin A1C, finger stick 2020 021 [email or web address] In-Office Order, Internal Use Only DO Not Attach Compendium DO Not Attach Compendium, Do Not Delete/merge, [id number] 12/19/2020 11:36:29 glucos e, finger stick, blood 2020 021 LILIANA In-Office Order, Internal Use Only DO Not Attach Compendium DO Not Attach Compendium, Do Not Delete/merge, [id number] 12/19/2020 11:47:11 CMP, serum or plasma 2020 021 [facility], [address], [address], [place], [place], [address], 12/19/2020 20:17:44 CBC w/ auto diff 2020 021 [facility], [address], [address], [place], [address], 12/19/2020 14:42:44 Referral physic al medici ne and rehabi litati on referr al 2024 025 LILIANA Murray MD, [address], [place], [address], 07/06/2024 14:20:15 gastro entero logist referr jo galo of [facility] Needs colon cancer screen ing, due 4 2023 024 [facility], [address], [address], [place], [address], 05/15/2023 13:32:59 neurol ogist referr jo - migrai jean worse 2020 021 henry Terry MD, [address] [place] [address], [address], [place], [address], 03/07/2021 16:09:01 Procedures colono scopy screen ing (PROC) 2023 024 In-Office Order, Internal Use Only DO Not Attach Compendium DO Not Attach Compendium, Do Not Delete/merge, [id number] 05/13/2023 13:04:42 Surgeries None record ed. Imaging XR, lumbar spine 2024 025 [facility], [address] [facility], [place], [address], 06/16/2024 08:14:11 bone densit y 2023 024 [email or web address] [facility] (Ct Scan), [address] [place], [address], 08/11/2023 10:38:40 MAMMO, screen ing, bilate ral - Perfor m Diagno stic Mammog sherry and Breast Ultras ound if needed / Perfor m Ultras ound Guided Aspira tion and/or Breast Biopsy if warran bill 2023 024 [email or web address] [facility] (Ct Scan), [address] [place], [address], 05/13/2023 10:13:53 Medication Orders cyclob enzapr ine 5 mg tablet 2024 025 [email or web address] [id number], [address], [place], [id number], 06/15/2024 13:41:09 cyclob enzapr ine 5 mg tablet 2023 024 LILIANA [facility] #[id number], [address], [place], [id number], 07/27/2023 14:54:25 predni sone 20 mg tablet 2020 021 [email or web address] [facility] #[id number], [address], [place], [id number], 09/16/2021 11:23:49 Patient TargetsNo targets recorded. Patient Instructions Encounter Date Encounter Id Patient Instructions Last Modified By Organization Details Last Modified Time 09/16/2021 [id number] anxiety disorder: care instructions [email or web address] Not available 09/16/2021 11:46:41 neuropathic pain: care instructions [email or web address] Not available 09/16/2021 11:46:41 05/13/2023 [id number] well visit, women 50 to 65: care instructions [email or web address] Not available 05/13/2023 10:02:25 When You Want to Lose Weight: Care Instructions [email or web address] Not available 05/13/2023 10:02:24 learning about colon cancer ckokar Not available 05/13/2023 10:02:24 starting a weight loss plan: care instructions [email or web address] Not available 05/13/2023 10:02:24 07/27/2023 [id number] back spasm: care instructions pmadden Not available 07/27/2023 14:53:01 back care and preventing injuries: care instructions pmadden Not available 07/27/2023 14:53:01 acute low back pain: exercises pmadden Not available 07/27/2023 14:53:01 back stretches: exercises pmadden Not available 07/27/2023 14:53:01 Follow up if no improvement or if symptoms worsen. [email or web address] Not available 07/27/2023 14:54:11 06/15/2024 [id number] back spasm: care instructions pmadden Not available 06/15/2024 13:41:09 back care and preventing injuries: care instructions pmadden Not available 06/15/2024 13:41:10 acute low back pain: exercises pmadden Not available 06/15/2024 13:41:10 back stretches: exercises pmadden Not available 06/15/2024 13:41:10 Patient will follow up and keep appointment as scheduled. pmadden Not available 06/15/2024 13:20:37 Reason for Referral Neurologist Referral for Hea dache migraines worse Referring Physician: Symone Ybarra, Family Medicine, Encounter Date: 12/19/2020 Mobile Qa Tester Referral for Screening for malignant neoplasm of colon Established patient of [facility] Needs colon cancer screening, due 01/31/24 Referring Physician: John Davey, Family Medicine, Encounter Date: 05/13/2023 Physical Medicine [facility] Re[facility] l[facility] Referral for Spasm of back muscles Referring Physician: Paxton Sheikh, Internal Medicine, Encounter Date: 06/15/2024 Results Created Date Observation Date Name Description Value Unit Range Abnormal Flag Note LastModifiedBy Organization Detail LastModifiedTime 07/23/1907/22/2024 CBC WITH AUTO DIFFE RENTI AL WBC 5.7 K/mcL 4.8-10 .8 Not Available [address], [address], 07/22/2024 10:09:13 07/23/19 25 07/22/2024 CBC WITH AUTO DIFFE RENTI AL RBC 3.80 M/mcL 3.80-4 .80 Not Available [address], [address], 07/22/2024 10:09:13 07/23/19 25 07/22/2024 CBC WITH AUTO DIFFE RENTI AL hemoglobin 11.7 g/dL 11.5-1 6.0 Not Available [address], [address], 07/22/2024 10:09:13 07/23/19 25 07/22/2024 CBC WITH AUTO DIFFE RENTI AL hematocrit 35.3 % 35.0-4 7.0 Not Available [address], [address], 07/22/2024 10:09:13 07/23/19 25 07/22/2024 CBC WITH AUTO DIFFE RENTI AL MCV 93.1 fL 79.0-9 8.0 Not Available [address], [address], 07/22/2024 10:09:13 07/23/19 25 07/22/2024 CBC WITH AUTO DIFFE RENTI AL MCH 30.9 pcg 27.0-3 2.0 Not Available [address], [address], 07/22/2024 10:09:13 07/23/19 25 07/22/2024 CBC WITH AUTO DIFFE RENTI AL MCHC 33.1 g/dL 32.0-3 7.0 Not Available [address], [address], 07/22/2024 10:09:13 07/23/19 25 07/22/2024 CBC WITH AUTO DIFFE RENTI AL RDW 12.1 % 11.0-1 5.0 Not Available [address], [address], 07/22/2024 10:09:13 07/23/19 25 07/22/2024 CBC WITH AUTO DIFFE RENTI AL platelets 229 K/mcL 130-40 0 Not Available [address], [address], 07/22/2024 10:09:13 07/23/19 25 07/22/2024 CBC WITH AUTO DIFFE RENTI AL MPV 10.9 fL 7.0-11 .0 Not Available [address], [address], 07/22/2024 10:09:13 07/23/19 25 07/22/2024 CBC WITH AUTO DIFFE RENTI AL NRBC 0.0 % <1.0 Not Available [address], [address], 07/22/2024 10:09:13 07/23/19 25 07/22/2024 CBC WITH AUTO DIFFE RENTI AL NRBC absolute 0.00 K/mcL <0.10 Not Available [address], [address], 07/22/2024 10:09:13 07/23/19 25 07/22/2024 CBC WITH AUTO DIFFE RENTI AL neutrophils relative 54.9 % Not Available [address], [address], 07/22/2024 10:09:13 07/23/19 25 07/22/2024 CBC WITH AUTO DIFFE RENTI AL lymphocytes relative 33.1 % Not Available [address], [address], 07/22/2024 10:09:13 07/23/19 25 07/22/2024 CBC WITH AUTO DIFFE RENTI AL monocytes relative 9.4 % Not Available [address], [address], 07/22/2024 10:09:13 07/23/19 25 07/22/2024 CBC WITH AUTO DIFFE RENTI AL eosinophils relative 1.8 % Not Available [address], [address], 07/22/2024 10:09:13 07/23/19 25 07/22/2024 CBC WITH AUTO DIFFE RENTI AL basophils relative 0.4 % Not Available [address], [address], 07/22/2024 10:09:13 07/23/19 25 07/22/2024 CBC WITH AUTO DIFFE RENTI AL immature granulocytes relative 0.4 % Not Available [address], [address], 07/22/2024 10:09:13 07/23/19 25 07/22/2024 CBC WITH AUTO DIFFE RENTI AL neutrophils absolute 3.11 K/mcL 1.50-7 .00 Not Available [address], [address], 07/22/2024 10:09:13 07/23/19 25 07/22/2024 CBC WITH AUTO DIFFE RENTI AL lymphocytes absolute 1.87 K/mcL 1.00-5 .00 Not Available [address], [address], 07/22/2024 10:09:13 07/23/19 25 07/22/2024 CBC WITH AUTO DIFFE RENTI AL monocytes absolute 0.53 K/mcL 0.20-1 .00 Not Available [address], [address], 07/22/2024 10:09:13 07/23/19 25 07/22/2024 CBC WITH AUTO DIFFE RENTI AL eosinophils absolute 0.10 K/mcL 0.00-0 .50 Not Available [address], [address], 07/22/2024 10:09:13 07/23/19 25 07/22/2024 CBC WITH AUTO DIFFE RENTI AL basophils absolute 0.02 K/mcL 0.00-0 .20 Not Available [address], [address], 07/22/2024 10:09:13 07/23/19 25 07/22/2024 CBC WITH AUTO DIFFE RENTI AL immature granulocytes absolute 0.02 K/mcL 0.00-0 .03 Not Available [address], [address], 07/22/2024 10:09:13 07/23/19 25 07/22/2024 CBC WITH AUTO DIFFE RENTI AL note See Report [facility], [address], [place], [place] [address] Not Available [address], [address], 07/22/2024 10:09:13 07/23/19 25 07/22/2024 URINA LYSIS WITH REFLE X MICRO SCOPI C specific gravity urine 1.024 1.003- 1.030 Not Available [address], [address], 07/22/2024 10:47:39 07/23/19 25 07/22/2024 URINA LYSIS WITH REFLE X MICRO SCOPI C pH, urine 5.0 pH 5.0-8. 0 Not Available [address], [address], 07/22/2024 10:47:39 07/23/19 25 07/22/2024 URINA LYSIS WITH REFLE X MICRO SCOPI C leukocytes, urine Negati ve negati ve Not Available [address], [address], 07/22/2024 10:47:39 07/23/19 25 07/22/2024 URINA LYSIS WITH REFLE X MICRO SCOPI C nitrite, urine Negati ve negati ve Not Available [address], [address], 07/22/2024 10:47:39 07/23/19 25 07/22/2024 URINA LYSIS WITH REFLE X MICRO SCOPI C protein, urine Negati ve mg/dL <=trac e Not Available [address], [address], 07/22/2024 10:47:39 07/23/19 25 07/22/2024 URINA LYSIS WITH REFLE X MICRO SCOPI C glucose, urine Negati ve mg/dL negati ve Not Available [address], [address], 07/22/2024 10:47:39 07/23/19 25 07/22/2024 URINA LYSIS WITH REFLE X MICRO SCOPI C ketones, urine Trace mg/dL negati ve abnormal Not Available [address], [address], 07/22/2024 10:47:39 07/23/19 25 07/22/2024 URINA LYSIS WITH REFLE X MICRO SCOPI C urobilinogen , urine 1.0 mg/dL 0.2-1. 0 Not Available [address], [address], 07/22/2024 10:47:39 07/23/19 25 07/22/2024 URINA LYSIS WITH REFLE X MICRO SCOPI C bilirubin, urine Negati ve negati ve Not Available [address], [address], 07/22/2024 10:47:39 07/23/19 25 07/22/2024 URINA LYSIS WITH REFLE X MICRO SCOPI C blood, urine Trace negati ve abnormal Not Available [address], [address], 07/22/2024 10:47:39 07/23/19 25 07/22/2024 URINA LYSIS WITH REFLE X MICRO SCOPI C RBC, urine 75.9 /hpf 0-4 high Not Available [address], [address], 07/22/2024 10:47:39 07/23/19 25 07/22/2024 URINA LYSIS WITH REFLE X MICRO SCOPI C WBC, urine 2.7 /hpf 0-4 Not Available [address], [address], 07/22/2024 10:47:39 07/23/19 25 07/22/2024 URINA LYSIS WITH REFLE X MICRO SCOPI C squamous epithelial, urine 53 /lpf 0-60 Not Available [address], [address], 07/22/2024 10:47:39 07/23/19 25 07/22/2024 URINA LYSIS WITH REFLE X MICRO SCOPI C bacteria, urine Negati ve /hpf negati ve Not Available [address], [address], 07/22/2024 10:47:39 07/23/19 25 07/22/2024 URINA LYSIS WITH REFLE X MICRO SCOPI C hyaline casts, urine 4.0 /lpf 0-3 high Not Available [address], [address], 07/22/2024 10:47:39 07/23/19 25 07/22/2024 URINA LYSIS WITH REFLE X MICRO SCOPI C note See Report [facility], [address], [place], [facility] [place] [address] Not Available [address], [address], 07/22/2024 10:47:39 07/23/19 25 07/22/2024 HEMOG LOBIN A1C hemoglobin A1C 4.8 % <6.5 Not Available [address], [address], 07/22/2024 11:20:25 07/23/19 25 07/22/2024 HEMOG LOBIN A1C mean bld glu estim. 91 mg/dL Not Available [address], [address], 07/22/2024 11:20:25 07/23/19 25 07/22/2024 HEMOG LOBIN A1C note See Report [facility], [address], [place], [place] [address] Not Available [address], [address], 07/22/2024 11:20:25 07/23/19 25 07/22/2024 LIPID PANEL WITH REFLE X TO DIREC T LDL cholesterol 176 mg/dL 0-200 Not Available [address], [address], 07/22/2024 11:28:25 07/23/19 25 07/22/2024 LIPID PANEL WITH REFLE X TO DIREC T LDL triglyceride s 57 mg/dL 0-150 Not Available [address], [address], 07/22/2024 11:28:25 07/23/19 25 07/22/2024 LIPID PANEL WITH REFLE X TO DIREC T LDL HDL 79 mg/dL >=40 Not Available [address], [address], 07/22/2024 11:28:25 07/23/19 25 07/22/2024 LIPID PANEL WITH REFLE X TO DIREC T LDL LDL calculated 86 mg/dL 0-100 Not Available [address], [address], 07/22/2024 11:28:25 07/23/19 25 07/22/2024 LIPID PANEL WITH REFLE X TO DIREC T LDL VLDL cholesterol cyrus 11.4 mg/dL Not Available [address], [address], 07/22/2024 11:28:25 07/23/19 25 07/22/2024 LIPID PANEL WITH REFLE X TO DIREC T LDL non HDL chol. (LDL+VLDL) 97 mg/dL <145 Not Available [address], [address], 07/22/2024 11:28:25 07/23/19 25 07/22/2024 LIPID PANEL WITH REFLE X TO DIREC T LDL chol/HDL ratio 2.2 0.0-4. 4 Not Available [address], [address], 07/22/2024 11:28:25 07/23/19 25 07/22/2024 LIPID PANEL WITH REFLE X TO DIREC T LDL note See Report [facility], [address], [place], [place] [address] Not Available [address], [address], 07/22/2024 11:28:25 07/23/19 25 07/22/2024 COMPR EHENS KARO METAB OLIC PANEL sodium 141 mmol/ L 133-14 5 Not Available [address], [address], 07/22/2024 11:28:34 07/23/19 25 07/22/2024 COMPR EHENS KARO METAB OLIC PANEL potassium 4.2 mmol/ L 3.5-5. 5 Not Available [address], [address], 07/22/2024 11:28:34 07/23/19 25 07/22/2024 COMPR EHENS KARO METAB OLIC PANEL chloride 108 mmol/ L 96-110 Not Available [address], [address], 07/22/2024 11:28:34 07/23/19 25 07/22/2024 COMPR EHENS KARO METAB OLIC PANEL CO2 29 mmol/ L 21-32 Not Available [address], [address], 07/22/2024 11:28:34 07/23/19 25 07/22/2024 COMPR EHENS KARO METAB OLIC PANEL anion gap 4 3-11 Not Available [address], [address], 07/22/2024 11:28:34 07/23/19 25 07/22/2024 COMPR EHENS KARO METAB OLIC PANEL glucose 74 mg/dL 70-100 Not Available [address], [address], 07/22/2024 11:28:34 07/23/19 25 07/22/2024 COMPR EHENS KARO METAB OLIC PANEL BUN 18 mg/dL 5-25 Not Available [address], [address], 07/22/2024 11:28:34 07/23/19 25 07/22/2024 COMPR EHENS KARO METAB OLIC PANEL creatinine 0.80 mg/dL 0.50-1 .10 Not Available [address], [address], 07/22/2024 11:28:34 07/23/19 25 07/22/2024 COMPR EHENS KARO METAB OLIC PANEL eGFR 82 mL/mi n/1.7 3m2 >=60 Calcu latio n based on the?? ?Hand I Tube Bender dalia Kidne y Disea se Epide miolo gy Colla borat ion (CKD- EPI) equat ion refit ???wi thout adjus tment for race. Not Available [address], [address], 07/22/2024 11:28:34 07/23/19 25 07/22/2024 COMPR EHENS KARO METAB OLIC PANEL BUN/creatini ne ratio 22.5 Not Available [address], [address], 07/22/2024 11:28:34 07/23/19 25 07/22/2024 COMPR EHENS KARO METAB OLIC PANEL calcium 8.8 mg/dL 8.5-10 .5 Not Available [address], [address], 07/22/2024 11:28:34 07/23/19 25 07/22/2024 COMPR EHENS KARO METAB OLIC PANEL AST (SGOT) 22 unit/ L 10-42 Not Available [address], [address], 07/22/2024 11:28:34 07/23/19 25 07/22/2024 COMPR EHENS KARO METAB OLIC PANEL ALT (SGPT) 24 unit/ L 10-60 Not Available [address], [address], 07/22/2024 11:28:34 07/23/19 25 07/22/2024 COMPR EHENS KARO METAB OLIC PANEL alkaline phosphatase 136 unit/ L 42-121 high Not Available [address], [address], 07/22/2024 11:28:34 07/23/19 25 07/22/2024 COMPR EHENS KARO METAB OLIC PANEL total protein 6.5 g/dL 6.0-8. 0 Not Available [address], [address], 07/22/2024 11:28:34 07/23/19 25 07/22/2024 COMPR EHENS KARO METAB OLIC PANEL albumin 3.6 g/dL 3.2-5. 0 Not Available [address], [address], 07/22/2024 11:28:34 07/23/19 25 07/22/2024 COMPR EHENS KARO METAB OLIC PANEL total bilirubin 0.5 mg/dL 0.0-1. 4 Not Available [address], [address], 07/22/2024 11:28:34 07/23/19 25 07/22/2024 COMPR EHENS KARO METAB OLIC PANEL note See Report [facility], [address] [facility], [address], [place] [facility] [place] [address] Not Available [address], [address], 07/22/2024 11:28:34 07/23/19 25 07/22/2024 THYRO ID STIMU LATIN G HORMO NE TSH 2.82 mciu/ mL 0.40-4 .00 Not Available [address], [address], 07/22/2024 12:41:13 07/23/19 25 07/22/2024 THYRO ID STIMU LATIN G HORMO NE note See Report [facility], [address] [facility], [address], [facility] [place] [address] Not Available [address], [address], 07/22/2024 12:41:13 07/23/19 25 07/22/2024 VITAM IN D 25 HYDRO XY vit D, 25-hydroxy 26.0 NG/mL 30.0-8 0.0 low Not Available [address], [address], 07/22/2024 12:41:21 07/23/19 25 07/22/2024 VITAM IN D 25 HYDRO XY note See Report low [facility], [address] [facility], [address], [facility] [place] [address] Not Available [address], [address], 07/22/2024 12:41:21 12/20/19 21 12/19/2020 COMPL ETE CBC WITH DIFF WBC 6.0 K/mm3 (4.0-1 1.0) Not Available [facility] (Centralized Electronic Ordering - All Locations) Patient Can Go To The Location Of Their Choice, 12/19/2020 14:42:44 12/20/1912/19/2020 COMPL ETE CBC WITH DIFF RBC 4.47 M/mm3 (4.20- 5.40) Not Available [facility] (Centralized Electronic Ordering - All Locations) Patient Can Go To The Location Of Their Choice, 12/19/2020 14:42:44 12/20/1912/19/2020 COMPL ETE CBC WITH DIFF HGB 13.7 gm/dL (11.7- 15.5) Not Available [facility] (Centralized Electronic Ordering - All Locations) Patient Can Go To The Location Of Their Choice, 12/19/2020 14:42:44 12/20/1912/19/2020 COMPL ETE CBC WITH DIFF HCT 40.5 % (35.7- 45.8) Not Available [facility] (Centralized Electronic Ordering - All Locations) Patient Can Go To The Location Of Their Choice, 12/19/2020 14:42:44 12/20/1912/19/2020 COMPL ETE CBC WITH DIFF MCV 90.6 fL (80.0- 100.0) Not Available [facility] (Centralized Electronic Ordering - All Locations) Patient Can Go To The Location Of Their Choice, 12/19/2020 14:42:44 12/20/1912/19/2020 COMPL ETE CBC WITH DIFF MCH 30.6 pg (27.0- 34.0) Not Available [facility] (Centralized Electronic Ordering - All Locations) Patient Can Go To The Location Of Their Choice, 12/19/2020 14:42:44 12/20/1912/19/2020 COMPL ETE CBC WITH DIFF MCHC 33.8 g/dL (33.0- 37.0) Not Available [facility] (Centralized Electronic Ordering - All Locations) Patient Can Go To The Location Of Their Choice, 12/19/2020 14:42:44 12/20/1912/19/2020 COMPL ETE CBC WITH DIFF plt 216 K/mm3 (150-4 60) Not Available [facility] (Centralized Electronic Ordering - All Locations) Patient Can Go To The Location Of Their Choice, 12/19/2020 14:42:44 12/20/1912/19/2020 COMPL ETE CBC WITH DIFF RDW-SD 39.5 fL (<47.0 ) Not Available [facility] (Centralized Electronic Ordering - All Locations) Patient Can Go To The Location Of Their Choice, 12/19/2020 14:42:44 12/20/1912/19/2020 COMPL ETE CBC WITH DIFF MPV 11.2 fL (9.4-1 2.4) Not Available [facility] (Centralized Electronic Ordering - All Locations) Patient Can Go To The Location Of Their Choice, 12/19/2020 14:42:44 12/20/1912/19/2020 COMPL ETE CBC WITH DIFF automated NRBC 0.0 #/100 _WBC' s Not Available [facility] (Centralized Electronic Ordering - All Locations) Patient Can Go To The Location Of Their Choice, 12/19/2020 14:42:44 12/20/1912/19/2020 COMPL ETE CBC WITH DIFF abs. NRBC 0.0 K/mm3 Not Available [facility] (Centralized Electronic Ordering - All Locations) Patient Can Go To The Location Of Their Choice, 12/19/2020 14:42:44 12/20/1912/19/2020 COMPL ETE CBC WITH DIFF neut # 3.9 K/mm3 (1.3-7 .0) Not Available [facility] (Centralized Electronic Ordering - All Locations) Patient Can Go To The Location Of Their Choice, 12/19/2020 14:42:44 12/20/1912/19/2020 COMPL ETE CBC WITH DIFF lymph # 1.5 K/mm3 (0.8-3 .1) Not Available [facility] (Centralized Electronic Ordering - All Locations) Patient Can Go To The Location Of Their Choice, 12/19/2020 14:42:44 12/20/1912/19/2020 COMPL ETE CBC WITH DIFF mono# 0.5 K/mm3 (0.4-0 .9) Not Available [facility] (Centralized Electronic Ordering - All Locations) Patient Can Go To The Location Of Their Choice, 12/19/2020 14:42:44 12/20/192021 COMPL ETE CBC WITH DIFF eo # 0.1 K/mm3 (0.0-0 .4) Not Available [facility] (Centralized Electronic Ordering - All Locations) Patient Can Go To The Location Of Their Choice, 12/19/2020 14:42:44 12/20/1912/19/2020 COMPL ETE CBC WITH DIFF baso # 0.0 K/mm3 (0.0-0 .1) Not Available [facility] (Centralized Electronic Ordering - All Locations) Patient Can Go To The Location Of Their Choice, 12/19/2020 14:42:44 12/20/1912/19/2020 COMPL ETE CBC WITH DIFF abs. imm gran 0.0 K/mm3 Not Available [facility] (Centralized Electronic Ordering - All Locations) Patient Can Go To The Location Of Their Choice, 12/19/2020 14:42:44 12/20/1912/19/2020 COMPL ETE CBC WITH DIFF neut 64.6 % (44-76 ) Not Available [facility] (Centralized Electronic Ordering - All Locations) Patient Can Go To The Location Of Their Choice, 12/19/2020 14:42:44 12/20/1912/19/2020 COMPL ETE CBC WITH DIFF lymph 25.0 % (15-43 ) Not Available [facility] (Centralized Electronic Ordering - All Locations) Patient Can Go To The Location Of Their Choice, 12/19/2020 14:42:44 12/20/1912/19/2020 COMPL ETE CBC WITH DIFF monocyte 8.4 % (4.5-1 0.5) Not Available [facility] (Centralized Electronic Ordering - All Locations) Patient Can Go To The Location Of Their Choice, 12/19/2020 14:42:44 12/20/1912/19/2020 COMPL ETE CBC WITH DIFF eo 1.0 % (0-6) Not Available [facility] (Centralized Electronic Ordering - All Locations) Patient Can Go To The Location Of Their Choice, 12/19/2020 14:42:44 12/20/1912/19/2020 COMPL ETE CBC WITH DIFF baso 0.7 % (0-2) Not Available [facility] (Centralized Electronic Ordering - All Locations) Patient Can Go To The Location Of Their Choice, 12/19/2020 14:42:44 12/20/1912/19/2020 COMPL ETE CBC WITH DIFF imm gran 0.3 % Not Available [facility] (Centralized Electronic Ordering - All Locations) Patient Can Go To The Location Of Their Choice, 12/19/2020 14:42:44 12/20/1912/19/2020 COMPR EHENS KARO METAB OLIC PANL glucose 97 mg/dL (70-99 ) Not Available [facility] (Centralized Electronic Ordering - All Locations) Patient Can Go To The Location Of Their Choice, 12/19/2020 20:17:44 12/20/1912/19/2020 COMPR EHENS KARO METAB OLIC PANL BUN 18 mg/dL (8-23) Not Available [facility] (Centralized Electronic Ordering - All Locations) Patient Can Go To The Location Of Their Choice, 12/19/2020 20:17:44 12/20/1912/19/2020 COMPR EHENS KARO METAB OLIC PANL creatinine 0.7 mg/dL (0.5-1 .0) Not Available [facility] (Centralized Electronic Ordering - All Locations) Patient Can Go To The Location Of Their Choice, 12/19/2020 20:17:44 12/20/1912/19/2020 COMPR EHENS KARO METAB OLIC PANL sodium 140 mmol/ L (133-1 45) Not Available [facility] (Centralized Electronic Ordering - All Locations) Patient Can Go To The Location Of Their Choice, 12/19/2020 20:17:44 12/20/1912/19/2020 COMPR EHENS KARO METAB OLIC PANL potassium 4.9 mmol/ L (3.6-5 .2) Not Available [facility] (Centralized Electronic Ordering - All Locations) Patient Can Go To The Location Of Their Choice, 12/19/2020 20:17:44 12/20/1912/19/2020 COMPR EHENS KARO METAB OLIC PANL chloride 104 mmol/ L (98-10 7) Not Available [facility] (Centralized Electronic Ordering - All Locations) Patient Can Go To The Location Of Their Choice, 12/19/2020 20:17:44 12/20/19 21 12/19/2020 COMPR EHENS KARO METAB OLIC PANL bicarbonate 26 mmol/ L (22-29 ) Not Available [facility] (Centralized Electronic Ordering - All Locations) Patient Can Go To The Location Of Their Choice, 12/19/2020 20:17:44 12/20/19 21 12/19/2020 COMPR EHENS KARO METAB OLIC PANL anion gap 10 (4-17) Not Available [facility] (Centralized Electronic Ordering - All Locations) Patient Can Go To The Location Of Their Choice, 12/19/2020 20:17:44 12/20/19 21 12/19/2020 COMPR EHENS KARO METAB OLIC PANL albumin 4.2 gm/dL (3.4-4 .8) Not Available [facility] (Centralized Electronic Ordering - All Locations) Patient Can Go To The Location Of Their Choice, 12/19/2020 20:17:44 12/20/1912/19/2020 COMPR EHENS KARO METAB OLIC PANL calcium 9.4 mg/dL (8.6-1 0.5) Not Available [facility] (Centralized Electronic Ordering - All Locations) Patient Can Go To The Location Of Their Choice, 12/19/2020 20:17:44 12/20/1912/19/2020 COMPR EHENS KARO METAB OLIC PANL bilirubin,to mohini 0.7 mg/dL (0-1.2 ) Not Available [facility] (Centralized Electronic Ordering - All Locations) Patient Can Go To The Location Of Their Choice, 12/19/2020 20:17:44 12/20/1912/19/2020 COMPR EHENS KARO METAB OLIC PANL total protein 6.7 gm/dL (6.2-8 .2) Not Available [facility] (Centralized Electronic Ordering - All Locations) Patient Can Go To The Location Of Their Choice, 12/19/2020 20:17:44 12/20/1912/19/2020 COMPR EHENS KARO METAB OLIC PANL Ag ratio 1.7 Not Available [facility] (Centralized Electronic Ordering - All Locations) Patient Can Go To The Location Of Their Choice, 12/19/2020 20:17:44 12/20/19 21 12/19/2020 COMPR EHENS KARO METAB OLIC PANL AST 23 U/L (0-32) Not Available [facility] (Centralized Electronic Ordering - All Locations) Patient Can Go To The Location Of Their Choice, 12/19/2020 20:17:44 12/20/19 21 12/19/2020 COMPR EHENS KARO METAB OLIC PANL alk phos 146 U/L (35-10 4) high Not Available [facility] (Centralized Electronic Ordering - All Locations) Patient Can Go To The Location Of Their Choice, 12/19/2020 20:17:44 12/20/19 21 12/19/2020 COMPR EHENS KAOR METAB OLIC PANL ALT 18 U/L (0-33) Not Available [facility] (Centralized Electronic Ordering - All Locations) Patient Can Go To The Location Of Their Choice, 12/19/2020 20:17:44 12/20/19 21 12/19/2020 COMPR EHENS KARO METAB OLIC PANL est GFR non 95 mL/mi n/1.7 3_M2 Creat inine based estim ated glome rular filtr ation rate (eGFR ) is calcu lated using the Chron ic Kidne y Disea se Epide miolo gy Colla borat ion (CKD- EPI). The CKD-E PI creat inine equat ion has not been valid ated in child luis (<18 years ), pregn ant women or in some racia l or ethni c subgr oups other than Cauca sians and Afric an Ameri cans. Not Available [facility] (Centralized Electronic Ordering - All Locations) Patient Can Go To The Location Of Their Choice, 12/19/2020 20:17:44 12/20/19 21 12/19/2020 COMPR EHENS KARO METAB OLIC PANL est GFR 110 mL/mi n/1.7 3_M2 Creat inine based estim ated glome rular filtr ation rate (eGFR ) is calcu lated using the Chron ic Kidne y Disea se Epide miolo gy Colla borat ion (CKD- EPI). The CKD-E PI creat inine equat ion has not been valid ated in child luis (<18 years ), pregn ant women or in some racia l or ethni c subgr oups other than Cauca siaamber and Afric an Ameri cans. Not Available [facility] (Centralized Electronic Ordering - All Locations) Patient Can Go To The Location Of Their Choice, 12/19/2020 20:17:44 12/20/19 21 12/19/2020 hemog lobin A1C, finge rstic k A1C 4.9 % 4-6 Not Available In-Office Order Internal Use Only DO Not Attach Compendium DO Not Attach Compendium, Do Not Delete/merge, 12/19/2020 11:19:52 12/20/19 21 12/19/2020 gluco se, finge rstic k, blood Blood Glucose: mg/dl 111 Not Available In-Off ice Order Internal Use Only DO Not Attach Compendium DO Not Attach Compendium, Do Not Delete/merge, 12/19/2020 11:19:53 05/20/19 24 05/20/2023 COMPL ETE CBC WITH DIFF WBC 5.8 K/mm3 (4.0-1 1.0) Not Available [facility] (Centralized Electronic Ordering - All Locations) Patient Can Go To The Location Of Their Choice, 05/20/2023 20:27:50 05/20/1905/20/2023 COMPL ETE CBC WITH DIFF RBC 4.29 M/mm3 (4.20- 5.40) Not Available [facility] (Centralized Electronic Ordering - All Locations) Patient Can Go To The Location Of Their Choice, 05/20/2023 20:27:50 05/20/1905/20/2023 COMPL ETE CBC WITH DIFF HGB 12.7 gm/dL (11.7- 15.5) Not Available [facility] (Centralized Electronic Ordering - All Locations) Patient Can Go To The Location Of Their Choice, 05/20/2023 20:27:50 05/20/1905/20/2023 COMPL ETE CBC WITH DIFF HCT 38.7 % (35.7- 45.8) Not Available [facility] (Centralized Electronic Ordering - All Locations) Patient Can Go To The Location Of Their Choice, 05/20/2023 20:27:50 05/20/19 24 05/20/2023 COMPL ETE CBC WITH DIFF MCV 90.2 fL (80.0- 100.0) Not Available [facility] (Centralized Electronic Ordering - All Locations) Patient Can Go To The Location Of Their Choice, 05/20/2023 20:27:50 05/20/19 24 05/20/2023 COMPL ETE CBC WITH DIFF MCH 29.6 pg (27.0- 34.0) Not Available [facility] (Centralized Electronic Ordering - All Locations) Patient Can Go To The Location Of Their Choice, 05/20/2023 20:27:50 05/20/1905/20/2023 COMPL ETE CBC WITH DIFF MCHC 32.8 g/dL (33.0- 37.0) low Not Available [facility] (Centralized Electronic Ordering - All Locations) Patient Can Go To The Location Of Their Choice, 05/20/2023 20:27:50 05/20/1905/20/2023 COMPL ETE CBC WITH DIFF plt 229 K/mm3 (150-4 60) Not Available [facility] (Centralized Electronic Ordering - All Locations) Patient Can Go To The Location Of Their Choice, 05/20/2023 20:27:50 05/20/1905/20/2023 COMPL ETE CBC WITH DIFF RDW-SD 43.7 fL (<47.0 ) Not Available [facility] (Centralized Electronic Ordering - All Locations) Patient Can Go To The Location Of Their Choice, 05/20/2023 20:27:50 05/20/1905/20/2023 COMPL ETE CBC WITH DIFF MPV 11.1 fL (9.4-1 2.4) Not Available [facility] (Centralized Electronic Ordering - All Locations) Patient Can Go To The Location Of Their Choice, 05/20/2023 20:27:50 05/20/1905/20/2023 COMPL ETE CBC WITH DIFF automated NRBC 0.0 #/100 _WBC' s Not Available [facility] (Centralized Electronic Ordering - All Locations) Patient Can Go To The Location Of Their Choice, 05/20/2023 20:27:50 05/20/1905/20/2023 COMPL ETE CBC WITH DIFF abs. NRBC 0.0 K/mm3 Not Available [facility] (Centralized Electronic Ordering - All Locations) Patient Can Go To The Location Of Their Choice, 05/20/2023 20:27:50 05/20/19 24 05/20/2023 COMPL ETE CBC WITH DIFF neut # 3.9 K/mm3 (1.3-7 .0) Not Available [facility] (Centralized Electronic Ordering - All Locations) Patient Can Go To The Location Of Their Choice, 05/20/2023 20:27:50 05/20/19 24 05/20/2023 COMPL ETE CBC WITH DIFF lymph # 1.4 K/mm3 (0.8-3 .1) Not Available [facility] (Centralized Electronic Ordering - All Locations) Patient Can Go To The Location Of Their Choice, 05/20/2023 20:27:50 05/20/1905/20/2023 COMPL ETE CBC WITH DIFF mono# 0.5 K/mm3 (0.4-0 .9) Not Available [facility] (Centralized Electronic Ordering - All Locations) Patient Can Go To The Location Of Their Choice, 05/20/2023 20:27:50 05/20/19 24 05/20/2023 COMPL ETE CBC WITH DIFF eo # 0.1 K/mm3 (0.0-0 .4) Not Available [facility] (Centralized Electronic Ordering - All Locations) Patient Can Go To The Location Of Their Choice, 05/20/2023 20:27:50 05/20/19 24 05/20/2023 COMPL ETE CBC WITH DIFF baso # 0.0 K/mm3 (0.0-0 .1) Not Available [facility] (Centralized Electronic Ordering - All Locations) Patient Can Go To The Location Of Their Choice, 05/20/2023 20:27:50 05/20/19 24 05/20/2023 COMPL ETE CBC WITH DIFF abs. imm gran 0.0 K/mm3 Not Available [facility] (Centralized Electronic Ordering - All Locations) Patient Can Go To The Location Of Their Choice, 05/20/2023 20:27:50 05/20/19 24 05/20/2023 COMPL ETE CBC WITH DIFF neut 66.7 % (44-76 ) Not Available [facility] (Centralized Electronic Ordering - All Locations) Patient Can Go To The Location Of Their Choice, 05/20/2023 20:27:50 05/20/1905/20/2023 COMPL ETE CBC WITH DIFF lymph 23.5 % (15-43 ) Not Available [facility] (Centralized Electronic Ordering - All Locations) Patient Can Go To The Location Of Their Choice, 05/20/2023 20:27:50 05/20/1905/20/2023 COMPL ETE CBC WITH DIFF monocyte 8.2 % (4.5-1 0.5) Not Available [facility] (Centralized Electronic Ordering - All Locations) Patient Can Go To The Location Of Their Choice, 05/20/2023 20:27:50 05/20/1905/20/2023 COMPL ETE CBC WITH DIFF eo 1.0 % (0-6) Not Available [facility] (Centralized Electronic Ordering - All Locations) Patient Can Go To The Location Of Their Choice, 05/20/2023 20:27:50 05/20/1905/20/2023 COMPL ETE CBC WITH DIFF baso 0.3 % (0-2) Not Available [facility] (Centralized Electronic Ordering - All Locations) Patient Can Go To The Location Of Their Choice, 05/20/2023 20:27:50 05/20/1905/20/2023 COMPL ETE CBC WITH DIFF imm gran 0.3 % Not Available [facility] (Centralized Electronic Ordering - All Locations) Patient Can Go To The Location Of Their Choice, 05/20/2023 20:27:50 05/20/1905/20/2023 COMPR EHENS KARO METAB OLIC PANL glucose 76 mg/dL (70-99 ) Not Available [facility] (Centralized Electronic Ordering - All Locations) Patient Can Go To The Location Of Their Choice, 05/20/2023 21:19:41 05/20/1905/20/2023 COMPR EHENS KARO METAB OLIC PANL BUN 18 mg/dL (8-23) Not Available [facility] (Centralized Electronic Ordering - All Locations) Patient Can Go To The Location Of Their Choice, 05/20/2023 21:19:41 05/20/192024 COMPR EHENS KARO METAB OLIC PANL creatinine 0.9 mg/dL (0.5-1 .0) Not Available [facility] (Centralized Electronic Ordering - All Locations) Patient Can Go To The Location Of Their Choice, 05/20/2023 21:19:41 05/20/19 24 05/20/2023 COMPR EHENS KARO METAB OLIC PANL sodium 142 mmol/ L (133-1 45) Not Available [facility] (Centralized Electronic Ordering - All Locations) Patient Can Go To The Location Of Their Choice, 05/20/2023 21:19:41 05/20/19 24 05/20/2023 COMPR EHENS KARO METAB OLIC PANL potassium 4.6 mmol/ L (3.6-5 .2) Not Available [facility] (Centralized Electronic Ordering - All Locations) Patient Can Go To The Location Of Their Choice, 05/20/2023 21:19:41 05/20/19 24 05/20/2023 COMPR EHENS KARO METAB OLIC PANL chloride 106 mmol/ L (98-10 7) Not Available [facility] (Centralized Electronic Ordering - All Locations) Patient Can Go To The Location Of Their Choice, 05/20/2023 21:19:41 05/20/19 24 05/20/2023 COMPR EHENS KARO METAB OLIC PANL bicarbonate 27 mmol/ L (22-29 ) Not Available [facility] (Centralized Electronic Ordering - All Locations) Patient Can Go To The Location Of Their Choice, 05/20/2023 21:19:41 05/20/1905/20/2023 COMPR EHENS KARO METAB OLIC PANL anion gap 9 (4-17) Not Available [facility] (Centralized Electronic Ordering - All Locations) Patient Can Go To The Location Of Their Choice, 05/20/2023 21:19:41 05/20/1905/20/2023 COMPR EHENS KARO METAB OLIC PANL albumin 4.3 gm/dL (3.4-4 .8) Not Available [facility] (Centralized Electronic Ordering - All Locations) Patient Can Go To The Location Of Their Choice, 05/20/2023 21:19:41 05/20/19 24 05/20/2023 COMPR EHENS KARO METAB OLIC PANL calcium 9.4 mg/dL (8.6-1 0.5) Not Available [facility] (Centralized Electronic Ordering - All Locations) Patient Can Go To The Location Of Their Choice, 05/20/2023 21:19:41 05/20/19 24 05/20/2023 COMPR EHENS KARO METAB OLIC PANL bilirubin,to mohini 0.8 mg/dL (0-1.2 ) Not Available [facility] (Centralized Electronic Ordering - All Locations) Patient Can Go To The Location Of Their Choice, 05/20/2023 21:19:41 05/20/19 24 05/20/2023 COMPR EHENS KARO METAB OLIC PANL total protein 6.7 gm/dL (6.2-8 .2) Not Available [facility] (Centralized Electronic Ordering - All Locations) Patient Can Go To The Location Of Their Choice, 05/20/2023 21:19:41 05/20/1905/20/2023 COMPR EHENS KARO METAB OLIC PANL Ag ratio 1.8 Not Available [facility] (Centralized Electronic Ordering - All Locations) Patient Can Go To The Location Of Their Choice, 05/20/2023 21:19:41 05/20/19 24 05/20/2023 COMPR EHENS KARO METAB OLIC PANL AST 18 U/L (0-32) Not Available [facility] (Centralized Electronic Ordering - All Locations) Patient Can Go To The Location Of Their Choice, 05/20/2023 21:19:41 05/20/19 24 05/20/2023 COMPR EHENS KARO METAB OLIC PANL alk phos 136 U/L (35-10 4) high Not Available [facility] (Centralized Electronic Ordering - All Locations) Patient Can Go To The Location Of Their Choice, 05/20/2023 21:19:41 05/20/19 24 05/20/2023 COMPR EHENS KARO METAB OLIC PANL ALT 13 U/L (0-33) Not Available [facility] (Centralized Electronic Ordering - All Locations) Patient Can Go To The Location Of Their Choice, 05/20/2023 21:19:41 05/20/19 24 05/20/2023 COMPR EHENS KARO METAB OLIC PANL estimated GFR creatinine 76 mL/mi n/1.7 3_M2 Creat inine based estim ated glome pingr shonda ation (eGFR ) in adult s is calcu lated using the Natio nal Kidne y Found ation recom rosa elena d 2020 CKD-E PI equat ion. Estim ates GFR from serum creat inine , age and sex. Not Available [facility] (Centralized Electronic Ordering - All Locations) Patient Can Go To The Location Of Their Choice, 05/20/2023 21:19:41 05/20/1905/20/2023 LIPID PANEL cholesterol, total 192 mg/dL (<200) Not Available [facility] ([facility] Ordering - All Locations) Patient Can Go To The Location Of Their Choice, 05/20/2023 21:19:42 05/20/1905/20/2023 LIPID PANEL triglyceride 64 mg/dL (<150) Not Available [facility] (Central[facility] Ordering - All Locations) Patient Can Go To The Location Of Their Choice, 05/20/2023 21:19:42 05/20/1905/20/2023 LIPID PANEL HDL chol 78 mg/dL (>39) Not Available [facility] (Centralized Electronic Ordering - All Locations) Patient Can Go To The Location Of Their Choice, 05/20/2023 21:19:42 05/20/1905/20/2023 LIPID PANEL LDL cholesterol, calculated 101 mg/dL (0-130 ) Not Available [facility] (Centralized Electronic Ordering - All Locations) Patient Can Go To The Location Of Their Choice, 05/20/2023 21:19:42 05/20/1905/20/2023 LIPID PANEL non HDL cholesterol (calc) 114 mg/dL (<160) Not Available [facility] (Centralized Electronic Ordering - All Locations) Patient Can Go To The Location Of Their Choice, 05/20/2023 21:19:42 05/20/1905/20/2023 TSH WITH REFLE X TO FT4 TSH 0.59 uIU/m L (0.4-4 .2) Not Available [facility] (Centralized Electronic Ordering - All Locations) Patient Can Go To The Location Of Their Choice, 05/20/2023 21:34:12 05/20/19 24 05/20/2023 25OH VITAM IN D 25OH vitamin D 11.0 NG/mL (20-50 ) low Serum 25OHD : Less than 12 ng/ml : at risk of vitam in D defic iency . Not Available [facility] (Centralized Electronic Ordering - All Locations) Patient Can Go To The Location Of Their Choice, 05/20/2023 21:34:13 05/20/19 24 05/21/2023 GGTP ggtp 8 U/L (5-36) Not Available [facility] (Centralized Electronic Ordering - All Locations) Patient Can Go To The Location Of Their Choice, 05/21/2023 12:52:10 05/20/1905/24/2023 ALK PHOS ISO alkaline phos, total for iso 129 high Refer ence range : 44 to 121 Unit: IU/L Test perfo rmed by [facility], [address], [place] [address] Not Available [facility] (Centralized Electronic Ordering - All Locations) Patient Can Go To The Location Of Their Choice, 05/24/2023 02:05:58 05/20/19 24 05/24/2023 ALK PHOS ISO bone fraction, alk phos isoenz 54 Refer ence range : 14 to 68 Unit: % Not Available [facility] (Centralized Electronic Ordering - All Locations) Patient Can Go To The Location Of Their Choice, 05/24/2023 02:05:58 05/20/19 24 05/24/2023 ALK PHOS ISO intestinal frac alk phos isoen 2 Refer ence range : 0 to 18 Unit: % Not Available [facility] (Centralized Electronic Ordering - All Locations) Patient Can Go To The Location Of Their Choice, 05/24/2023 02:05:58 05/20/19 24 05/24/2023 ALK PHOS ISO liver fraction alk phos isoenz 44 Refer ence range : 18 to 85 Unit: % Test perfo rmed at [facility] [place] , [facility] [address] , [place] [address] Not Available [facility] (Centralized Electronic Ordering - All Locations) Patient Can Go To The Location Of Their Choice, 05/24/2023 02:05:58 01/03/20 21 01/02/2021 CT, head + brain , w/o contr ast CT Head/B rain W/O Contra st CLINIC AL INDICA TION: Reason : R51.9 HEADAC HE UNSPEC IFIED; Clinic al Questi on(s): Other: . PRIOR EXAMS: No prior exam. Examin ation perfor med withou t contra st from the skull base to the vertex . CTDIvo l Head: 39.49 mGy, DLP Head: 711 mGy*cm . FINDIN GS: BRAIN: There is no infarc t. There is no intrac erebra l hemorr anuradha. There is no mass. VENTRI CLES, SULCI, AND CISTER NS: The ventri cles and sulci are symmet rical and normal for age. WHITE MATTER : No white matter abnorm ality. EXTRA AXIAL SPACES : There is no abnorm al epidur al, subdur al, or subara chnoid blood or fluid. SKULL: There is no skull fractu re.. PARANA OLAF SINUSE S: Clear. TEMPOR AL BONES: The mastoi d air cells are clear, as are the middle ear caviti es. IMPRES YUNIER: 1. No acute intrac ranial abnorm ality. 2. No skull fractu re. WSN: [id number] Orderi ng Physic mehran: Meenakshi ladd MACHINE PAINT MIXER, Symone L Dictat ed By: Fercho Pham MD Dictat ed Date/T karen: 12:48 p Review ed By: Fercho Pham MD Signed By: Fercho Pham MD Signed Date/T karen: 12:48 pm Transc ribed By: BRAULIO Transc ribed Date/T karen: 12:45 pm Patien t Class: Outpat ient [id number] [facility] (Outpt Imaging) [address] [facility], [place], [address], 01/02/2021 16:08:09 10/25/19 22 10/24/2021 MAMMO , scree radha, digit al, bilat eral PROCED URE: MM Digita l Mammo Screen ing INDICA TION: Screen ing for breast cancer . No known palpab le abnorm alitie s. COMPAR YUSUF: BBWC dating back to 018. TECHNI QUE: Full-f ield digita l CC and MLO 3D tomosy nthesi s images of both breast s were acquir ed. Comput er-aid ed detect ion (CAD) was utiliz ed in the interp retati on of this study. DENSIT Y: The breast tissue is hetero geneou sly dense, which may obscur e masses . FINDIN GS: No suspic ious masses , suspic ious microc alcifi cation s, or areas of jacquelyn ectura l distor tion are seen in either breast to sugges t malign keysha. Stable tiny benign -appea ring oval focal asymme try is seen in the inferi or subare olar right breast best on CC projec tion. IMPRES YUNIER: No mammog raphic eviden ce of malign keysha. RECOMM ENDATI ON: Annual mammog raphic screen ing BI-RAD S: 2 (Benig n) Lay letter mailed to nicolemarlon clover WSN: [id number] Orderi ng Physic mehran: Nikki combs MD, Mainor galo Class: Outpat ient [email or web address] [facility] (Outpt Imaging) [address] [place] [address], [address], 10/24/2021 14:10:42 11/13/19 24 11/04/2023 DEXA, axial skele ton Name:Bernie galo ID: [id number] Age:63 years Sex:Fe male Ethnic ity:Wh ite Date of : 9[birth year] Reason : M85.89 other specif ied disord ers of bone densit y and struct ure, multip le sites; Clinic al Questi on(s): Other: Referr ing Provid er:Mary Ellen Davey MD Study: Dexa Bone Densit y (Axial ) Bone Densit y: Region BMD T-Scor e Z-Scor e Classi ficati on AP Spine 0.812 -1.9 -0.2 Osteop enia TOTAL HIP 0.554 -3.2 -2.0 Osteop orosis FEM NECK 0.412 -3.9 -2.5 Osteop orosis 10-yea r Fractu re Risk: Fractu re Risk Not Report ed: FRAX not report ed becaus e: Some T-scor e for Spine Total or Hip Total or Femora l Neck at or below -2.5 RATE OF CHANGE (SPINE ): BMD values have decrea sed11. 3% from previo us RATE OF CHANGE (TOTAL HIP): BMD values have decrea sed 20.4% from previo us RATE OF CHANGE (FEMOR AL NECK): BMD values have decrea sed 24.2% from previo us Impres yunier: The patien t has osteop orosis as determ ined by WHO criter ia. WSN: [id number] Orderi Physic mehran: Hemant Davey Dictat ed By: Sina Parish MD Dictat ed Date/T karen: 12:38 p Review ed By: Sina Parish MD Signed By: Sina Parish MD Signed Date/T karen: 12:38 pm Transc ribed By: BRAULIO Transc ribed Date/T karen: 12:36 pm Patien t Class: Outpat ient [facility] (Outpt Imaging) [address] [place], [address], 11/13/2023 19:06:21 11/13/19 24 11/04/2023 bone densi ty No observ ation record ed. [facility] [address], [place], [address], 11/13/2023 12:47:17 06/16/19 25 06/15/2024 XR, lumba r spine Lumbar Spine 2 or 3 Views Reason : muscle spasm of back COMPAR YUSUF: None. FINDIN GS: No bone lesion s or fractu res. There is modera te disc space narrow ing L4-L5 with L4 approx imatel y 8 mm forwar d relati ve to L5 verteb ra. There is marked disc space narrow ing at L5-S1. Mild degene rative change s are presen t in the upper lumbar spine. Alignm ent elsewh ere is satisf actory . No spondy lolysi s. There is facet arthro marisela L4-L5, milder at L5-S1. Severa l suture lines are presen t in the upper abdome n along with a couple of surgic al clips. There is a 9 mm somewh at ovoid calcif icatio n overly ing the expect ed locati on of the lower pole of the left kidney . IMPRES YUNIER: 1. Degene rative change s, most advanc ed L4-L5 and L5-S1 with a grade 1 spondy lolist hesis L4-L5. 2. 9 mm calcif icatio n left mid to upper abdome n and cannot exclud e this being a renal calcul us. WSN: [id number] Orderi ng Physic mehran: Scott Sheikh Dictat ed By: Morena allen MD, Cynthia Fry Dictat ed Date/T karen: 8:10 am Review ed By: Morena allen MD, Cynthia wray Signed By: Cynthia Smith MD Signed Date/T karen: 8:10 am Transc ribed By: BRAULIO Transc ribed Date/T karen: 8:03 am Patien t Class: Outpat ient [facility] (Outpt Imaging) [address] [place], [address], 06/18/2024 06:06:54 Result Notes None recorded. Problems Name Problem SNOMED Code Status Onset Date Resolution Date Notes Provider Name and Address Organization Details Recorded Time Acute secretor y otitis media 436971411 Completed 200711/22/2013 RECORDED 12/31/19 08 8:54AM BY MILY TRINIDAD, VIDAATI ON/ADDMARLON Sheikh PA-C [address] [facility] [address], [place], [address] , [facility] 6 14:07:55 Acute pharyngi tis [id number] Completed 200711/22/2013 RECORDED 12/31/19 08 8:54AM BY RYAN LESLIE ON/ADDEN DUM Lauren Sheikh PA-C [address] [facility] [address], [place], [address] , [facility] 6 14:07:55 Acute sinusiti s [id number] Completed 200811/22/2013 IMPRESSI ON: NEW SINUSITI S, WITH BASELINE ALLERGIE S, TTREAT WITH AMOX, NEEDS TO TAKE HOT SHOWERS, NASAL SALINE; RECORDED 07/27/19 09 9:32AM BY RYAN LESLIE ON/ADDEN DUM MILY Sarmiento, [facility] 7 14:46:44 Acute upper respirat ory infectio n [id number] Completed 201209/08/2016 IMPRESSI ON: VIRAL. WINTER MED SINUS RINSE WITH STERILE WATER; RECORDED 04/11/20 13 9:36AM BY JOCELYNE MORRIS, OFFICE VISIT MILY Sarmiento [facility] 7 14:47:10 Anxiety state [id number] Active 2012 RECORDED 04/11/20 13 9:36AM BY JOCELYNE MORRIS, OFFICE VISIT Nicole raygoza [facility] 0 14:33:14 Patient status finding [id number] Completed 201209/08/2016 RECORDED 04/11/20 13 9:46AM BY JOCELYNE MORRIS, OFFICE VISIT MILY Sarmiento, [facility] 7 14:46:40 Screenin g for malignan t neoplasm of breast Completed 201309/08/2016 RECORDED 05/13/19 14 4:21PM BY JESSY Moseley, HISTORIC AL SUMMARY MILY Sarmiento [facility] 7 14:46:56 Screenin g for malignan t neoplasm of breast Completed 201111/22/2013 RECORDED 04/12/20 12 2:13PM BY NICOLE BENOIT MA, VIDAATI ON/ADDEN DUM MILY Sarmiento [facility] 7 14:46:56 Disorder of intestin e [id number] Completed 201209/08/2016 IMPRESSI ON: SEEN ON CT SCAN, HAD HEAVY GI BLEEDING , PT TO GET SURGERY NEXT WEEK, SEES DR BRANCH TODAY AND HE CAN DO PREOP PREPARAT ION. NO ACITVE BLEEDING NOW PER PT; RECORDED 04/11/20 13 9:36AM BY JOCELYNE MORRIS, [facility] 15:16:40 Screenin g for malignan t neoplasm of cervix Completed 201309/08/2016 RECORDED 07/26/19 14 3:22PM BY DYLON HAYS MA, PHONE ENCOUNTE R [facility] 7 15:17[facility]23 Screenin g for malignan t neoplasm of cervix Completed 201211/22/2013 RECORDED 10/08/19 13 2:15PM BY RYAN SARMIENTO ON/ADDEN DUM Mainor davalos [facility] 7 15:17:23 Primary malignan t neoplasm of colon [id number] Completed 201209/30/2017 IMPRESSI ON: ON CHEMOTHE RAPY, DOING OK, HAVING SOME SIDE EFFECTS BUT GOOD ATTITUDE ; RECORDED 04/11/20 13 10:08AM BY MAINOR Barbour MD, OFFICE VISIT Mainor raygoza [facility] 8 14:26:20 Screenin g for malignan t neoplasm of colon Completed 201211/22/2013 RECORDED 10/08/19 13 2:15PM BY RYAN SARMIENTO ON/ADDEN DUM [facility] 7 14:47:01 Screenin g for malignan t neoplasm of colon Completed 201309/08/2016 RECORDED 09/22/19 14 11:10AM BY ZOE ADAMIC AL SUMMARY MILY Sarmiento, [facility] 7 14:47:01 Cough [id number] Completed 200711/22/2013 RECORDED 12/31/19 08 8:53AM BY MILY TRINIDAD, RYAN ON/ADDEN DUM [facility] [address] [facility], [place], [address] , [facility] 6 14:07:55 Depressi ve disorder [id number] Completed 201204/04/2014 IMPRESSI ON: STABLE ON CELEXA; RECORDED 04/11/20 13 9:36AM BY JOCELYNE MORRIS, OFFICE VISIT Lauren Sheikh [facility] [address] [facility], [place], [address] , [facility] 6 14:07:55 Measurem ent finding [id number] Completed 201111/22/2013 IMPRESSI ON: SEE NOTE, PT NEVER SAW GI DOC OR GOT US IT WAS ORDERED, I WILL RECHECK LEVEL ADN HAVE GI EVALUATE IF STILL ELEVATED , PT NOTES ON ONE US FOR NAOTHER REASON SHE WAS TOLD SHE HAD FATTY LIVER; RECORDED 04/12/20 12 2:13PM BY NICOLE BENOIT MA, RYAN ON/ADDEN DUM Lauren Sheikh [facility] [address] [facility], [place], [address] , [facility] 6 14:07:55 Malaise and fatigue [id number] Completed 201111/22/2013 IMPRESSI ON: CHECK SUGAR; RECORDED 04/12/20 12 2:13PM BY NICOLE BENOIT MA, ANNOTATI ON/ADDEN DUM [facility] [address] [facility], [place], [address] , [facility] 6 14:07:55 Influenz a vaccine needed [id number] 06 Completed 201211/22/2013 RECORDED 04/11/20 13 9:46AM BY JOCELYNE MORRIS, OFFICE VISIT Lauren Sheikh PA-C [address], [place], [address] , [facility] 6 14:07:55 Adult health examinat ion Completed 201209/08/2016 IMPRESSI ON: PAP WILL BE DUE BUT CAN WAIT UNTIL AFTER CHEMO, SEES DR QUIÑONEZ, COLONOSC OPY UTD; RECORDED 04/11/20 13 9:36AM BY JOCELYNE MORRIS, OFFICE VISIT Jocelyne Morris MA null, [facility] 7 14:46:59 General examinat ion of patient Completed 200711/22/2013 IMPRESSI ON: GAINED WEIGHT DUE TO OVERWORK ING, STRESS AT HOME, START EXERCISI NG,; RECORDED 12/31/19 08 8:54AM BY MILY TRINIDAD, VIDAATI ON/ADDEN DUM Lauren Sheikh PA-C [address], [place], [address] , [facility] 6 14:07:55 Pure hypercho lesterol emia [id number] Completed 201209/30/2017 IMPRESSI ON: CHECK FASTING; RECORDED 04/11/20 13 9:36AM BY JOCELYNE MORRIS, OFFICE VISIT [facility] 8 14:26:37 Persiste nt insomnia [id number] Completed 201205/13/2023 IMPRESSI ON: NOT ON MEDS, SLEEPING BETTER, ADD EXERCISE ; RECORDED 04/11/20 13 9:36AM BY JOCELYNE MORRIS, OFFICE VISIT John Davey MD [address], [place], [address] , [facility] 4 09:50:09 Kidney stone [id number] Completed 201011/22/2013 RECORDED 04/30/20 11 3:43PM BY NICOLE BENOIT MA, ANNOTATI ON/ADDEN DUM Lauren Sheikh PA-C [address] [facility], [place], [address] , [facility] 6 14:07:55 Laborato ry procedur e performe d [id number] Completed 201209/08/2016 RECORDED 04/11/20 13 9:36AM BY JOCELYNE MORRIS, OFFICE VISIT [facility] 7 14:46:47 Localize d superfic ial swelling of skin 430671724 Completed 201111/22/2013 IMPRESSI ON: SPOKE TO PT, SURGEON SAID ALL NORMAL, PT WILL SET UP APPTHWIT H ENDO DUE TO ABNORMAL THYROID ON CT, WILL BRING CT TO APPT, TATEN ASHLY WRAY; RECORDED 04/12/20 12 2:13PM BY NICOLE BENOIT MA, ANNOTATI ON/ADDEN DUM Lauren Sheikh PA-C [address] [facility], [place], [address] , [facility] 6 14:07:55 Low back pain [id number] Completed 201111/22/2013 IMPRESSI ON: BETTER, CONTINUE WALKING; RECORDED 04/12/20 12 2:13PM BY NICOLE BENOIT MA, ANNOTATI ON/ADDEN LETTY Sheikh PA-C [address] [address], [place], [address] , [facility] 6 14:07:55 Migraine [id number] Active 2012 IMPRESSI ON: BETTER ON TOPAMAX, NOT THAT MANY HEADACHE S; RECORDED 04/11/20 13 10:08AM BY MAINOR Barbour MD, OFFICE VISIT [facility] 0 14:33:15 Fibromyo sitis 81122213 Active 2012 IMPRESSI ON: FOR MONTHS, MOSTLY UPPER SHOULDER S, HANDS FEEL ACHEY BUT NOT SPECIFIC JOINTS, [facility], QUESTION OF MYOSITIS VS FIBROMYA LGIA BEGINNIN G, ENCOURAG ED ALEVE BID, STRETCHI NG YOGA; RECORDED 04/11/20 13 9:36AM BY JOCELYNE MORRIS, OFFICE VISIT Patient not convince d. John Davey MD [address] [facility], [place], [address] , [facility] 4 09:46:46 Mononeur itis [id number] Completed 201209/08/2016 IMPRESSI ON: HANDS AND LEGS FROM CHEMOTHE RAPY, IS ON NEURONTI N, CHECK FEET EVERY DAY.; RECORDED 04/11/20 13 10:08AM BY MAINOR Barbour MD, OFFICE VISIT [facility] 7 15:17:31 Obesity 104110991 Active 2012 RECORDED 04/11/20 13 9:36AM BY JOCELYNE MORRIS, OFFICE VISIT Nicole raygoza, [facility] 0 14:33:14 Polycyst ic ovaries Active 2012 RECORDED 04/11/20 13 9:36AM BY JOCELYNE MORRIS, OFFICE VISIT Nicole raygoza [facility] 0 14:33:15 Active or passive immuniza tion Completed 201211/22/2013 RECORDED 04/11/20 13 10:06AM BY MAINOR Barbour MD, OFFICE VISIT Lauren Sheikh PA-C [address] [facility], [place], [address] , [facility] 6 14:07:55 Disorder of rotator cuff 041935785 Completed 201111/22/2013 RECORDED 04/12/20 12 2:13PM BY NICOLE BENOIT MA, ANNOTATI ON/ADDEN DUM Lauren Sheikh PA-C [address] [facility], [place], [address] , [facility] 6 14:07:55 Adult health examinat ion Completed 201111/22/2013 IMPRESSI ON: MAMMO TODAY, WILL GET COLONOSC OPY AT 49, PAP UTD, INCREASE EXERCISE AND GO FOR WEIGHT LOSS; RECORDED 04/12/20 12 2:13PM BY NICOLE BENOIT MA, ANNOTATI ON/ADDEN DUM MILY Sarmiento, [facility] 7 14:46:59 Disorder of thyroid gland 40015760 Completed 201111/22/2013 IMPRESSI ON: WILL GET BIOPSY, NODULE ON CT; RECORDED 04/12/20 12 2:13PM BY NICOLE BENOIT MA, VIDAATI ON/ADDEN DUM Lauren [facility]-C [address], [place], [address] , [facility] 6 14:07:55 Otitis media 28120476 Completed 200711/22/2013 IMPRESSI ON: BETTER, MILD EFFUSION ; RECORDED 12/31/19 08 9:27AM BY MILY COTTER, RYAN ON/ADDEN DUM Lauren [facility] [address], [place], [address] , [facility] 6 14:07:55 Immuniza tion refused Active 2012 RECORDED 04/11/20 13 9:36AM BY JOCELYNE MORRIS, OFFICE VISIT Nicole raygoza, [facility] 0 14:33:14 Acute secretor y otitis media 251328169 Completed 200712/12/2013 RECORDED 12/31/19 08 8:54AM BY RYAN LESLIE ON/ADDEN DUM Lauren [facility] [address], [place], [address] , [facility] 6 14:07:55 Acute pharyngi tis 535103799 Completed 200712/12/2013 RECORDED 12/31/19 08 8:54AM BY RYAN LESLIE ON/ADDEN DUM Lauren Sheikh PA-C [address], [place], [address] , [facility] 6 14:07:55 Acute sinusiti s [id number] Completed 200812/12/2013 IMPRESSI ON: NEW SINUSITI S, WITH BASELINE ALLERGIE S, TTREAT WITH AMOX, NEEDS TO TAKE HOT SHOWERS, NASAL SALINE; RECORDED 07/27/19 09 9:32AM BY RYAN LESLIE ON/ADDEN DUM MILY Sarmiento, [facility] 7 14:46:44 Screenin g for malignan t neoplasm of colon Completed 201212/12/2013 RECORDED 10/08/19 13 2:15PM BY RYAN SARMIENTO ON/ADDEN DUM MILY Sarmiento, [facility] 7 14:47:01 Cough [id number] Completed 200712/12/2013 RECORDED 12/31/19 08 8:53AM BY RYAN LESLIE ON/ADDEN DUM Lauren Sheikh PA-C [address], [place], [address] , [facility] 6 14:07:55 Measurem ent finding [id number] Completed 201112/12/2013 IMPRESSI ON: SEE NOTE, PT NEVER SAW GI DOC OR GOT US IT WAS ORDERED, I WILL RECHECK LEVEL ADN HAVE GI EVALUATE IF STILL ELEVATED , PT NOTES ON ONE US FOR NAOTHER REASON SHE WAS TOLD SHE HAD FATTY LIVER; RECORDED 04/12/20 12 2:13PM BY NICOLE BENOIT MA, RYAN ON/HAZEL Sheikh PA-C [address], [place], [address] , [facility] 6 14:07:55 Malaise and fatigue [id number] Completed 201112/12/2013 IMPRESSI ON: CHECK SUGAR; RECORDED 04/12/20 12 2:13PM BY NICOLE BENOIT MA, VIDAATI ON/ADDEN DUM Lauren [facility] [address], [place], [address] , [facility] 6 14:07:55 Influenz a vaccine needed [id number] 06 Completed 201212/12/2013 RECORDED 04/11/20 13 9:46AM BY JOCELYNE MORRIS, OFFICE VISIT Lauren MORENOC [address], [place], [address] , [facility] 6 14:07:55 General examinat ion of patient Completed 200712/12/2013 IMPRESSI ON: GAINED WEIGHT DUE TO OVERWORK ING, STRESS AT HOME, START EXERCISI NG,; RECORDED 12/31/19 08 8:54AM BY MILY TRINIDAD, RYAN ON/ADDEN DUM Lauren [facility] [address], [place], [address] , [facility] 6 14:07:55 Kidney stone [id number] Completed 201012/12/2013 RECORDED 04/30/20 11 3:43PM BY NICOLE BENOIT MA, RYAN ON/ADDEN DUM Lauren MORENOC [address], [place], [address] , [facility] 6 14:07:55 Localize d superfic ial swelling of skin [id number] Completed 201112/12/2013 IMPRESSI ON: SPOKE TO PT, SURGEON SAID ALL NORMAL, PT WILL SET UP APPTHWIT H ENDO DUE TO ABNORMAL THYROID ON CT, WILL BRING CT TO APPT, UNDERSTN ASHLY WRAY; RECORDED 04/12/20 12 2:13PM BY NICOLE BENOIT MA, ANNOTATI ON/ADDEN DUM Lauren [facility] [address], [place], [address] , [facility] 6 14:07:55 Low back pain [id number] Completed 201112/12/2013 IMPRESSI ON: BETTER, CONTINUE WALKING; RECORDED 04/12/20 12 2:13PM BY NICOLE BENOIT MA, RYAN ON/ADDEN DUM Lauren Sheikh PA-C [address] [facility], [place], [address] , [facility] 6 14:07:55 Active or passive immuniza tion Completed 201212/12/2013 RECORDED 04/11/20 13 10:06AM BY MAINOR Barbour MD, OFFICE VISIT Lauren Sheikh PA-C [address] [address], [place], [address] , [facility] 6 14:07:55 Disorder of rotator cuff 971251386 Completed 201112/12/2013 RECORDED 04/12/20 12 2:13PM BY NICOLE BENOIT MA, RYAN ON/ADDEN DUM Lauren Sheikh PA-C [address] [address], [place], [address] , [facility] 6 14:07:55 Adult health examinat ion Completed 201112/12/2013 IMPRESSI ON: PT OT SET UP PAP, MAMMO AND COLONSCO PY, UNDERSTA NDS THEY ARE IMPORTAN T. WILL START TO EXERCISE AND CONTINUE WITH WEIGHT LOSS; RECORDED 04/12/20 12 2:13PM BY NICOLE BENOIT MA, RYAN ON/ADDEN DUM [facility] 7 14:46:59 Disorder of thyroid gland 22083385 Completed 201112/12/2013 IMPRESSI ON: WILL GET BIOPSY, NODULE ON CT; RECORDED 04/12/20 12 2:13PM BY NICOLE BENOIT MA, RYAN ON/ADDEN DUM Lauren Sheikh PA-C [address], [place], [address] , [facility] 6 14:07:55 Otitis media 41258105 Completed 200712/12/2013 IMPRESSI ON: BETTER, MILD EFFUSION ; RECORDED 12/31/19 08 9:27AM BY MILY COTTER, RYAN ON/ADDEN DUM Laurenmaty Sheikh PA-C [address], [place], [address] , [facility] 6 14:07:55 Major depressi ve disorder 498520766 Completed 08/19/2019 Mainor raygoza, [facility] 0 15:57:27 Neuropat hy 595467972 Active Nicole Turpinmindy raygoza, [facility] 0 14:33:15 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, [place], [address] , [facility] 4 09:51:17 Magnetic resonanc e imaging of brain abnormal 897526565 Completed 09/08/2016 Mainor raygoza, [facility] 7 15:16:33 Cat bite - wound 649916668 Completed 09/08/2016 Mainor raygoza [facility] 7 15:16:17 Cellulit is 721345169 Completed 09/08/2016 Mainor raygoza [facility] 7 15:17:16 Acute sinusiti s 30214010 Completed 09/08/2016 MILY Sarmiento, [facility] 7 14:46:44 Hip pain 19636473 Completed 201609/08/2016 Mainor raygoza [facility] 7 15:16:37 History of bariatri c surgical procedur e 370086135 Active 2016 Nicole raygoza [facility] 0 14:33:14 History of malignan t neoplasm of colon 483347010 Active 2016 Nicole raygoza [facility] 0 14:33:14 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 Nicole raygoza [facility] 0 14:33:15 Renal colic 4333138 Completed 201905/13/2023 John Davey MD [address], [place], [address] , [facility] 4 09:50:05 Abdomina l mass 118087092 Completed 201211/24/2019 Mainor raygoza [facility] 0 15:32:17 Body mass index 30+ - obesity 656536547 Active 2023 John Davey MD [address], [place], [address] , [facility] 4 09:44:16 Tear of meniscus of knee 544979382 Active John Davey MD [address], [place], [address] , [facility] 4 09:51:17 Ex-smoke r 2410022 Active 2023 John Davey MD [address], [place], [address] , [facility] 4 09:52:21 Problem Notes None recorded. Procedures Surgical History Date Name Laterality Status Provider Name and Address Organization Details Recorded Time 10/25/19 22 Most Recent Mammogram completed Yoselyn Sales [facility] 10/24/2021 14:10:34 10/25/19 22 Mammogram both breasts completed Yoselyn Sales [facility] 10/24/2021 14:10:23 01/31/20 21 Date of Last Colonoscopy completed Sapphire Nelson [facility] 01/30/2021 14:20:59 01/31/20 21 Colonoscopy completed Sapphire Nelson [facility] 01/30/2021 14:20:49 06/04/19 16 Cancer Surgery completed Jocelyne Morris MA [facility] 09/06/2015 11:10:44 11/02/19 04 Bariatric Surgery completed Jocelyne Morris MA [facility] 09/06/2015 11:10:44 10/03/19 01 Hysterectomy completed Jocelyne Morris MA [facility] 09/06/2015 11:10:44 10/03/19 01 [employer] Surgery completed Jocelyne Morris MA [facility] 09/06/2015 11:10:44 12/02/18 79 Back Surgery completed Jocelyne Morris MA [facility] 09/06/2015 11:10:44 [employer] Research Scientist Surgery completed Jocelyne Morris MA [facility] 09/06/2015 11:10:44 Endometrial Biopsy completed Jocelyne Morris MA [facility] 09/06/2015 11:10:44 Hysterectomy completed Jocelyne Morris MA [facility] 09/06/2015 11:10:44 Orthopedic Surgery [facility] 09/06/2015 11:10:44 Carpal tunnel surgery completed Jocelyne Morris [facility] 07/06/2019 14:03:06 Imaging Results Imaging Date Name Status LastModified by Organiz ation Details LastModified Time 01/02/2021 CT, head + brain, w/o contrast completed [email or web address] [facility] ([facility] [address] [place], [address], 01/02/2021 16:08:09 10/24/2021 MAMMO, screening, digital, bilateral completed [email or web address] [facility] ([facility] [address] [place], [address], 10/24/2021 14:10:42 11/04/2023 DEXA, axial skeleton completed [facility] ([facility]) [address] [place], [address], 11/13/2023 19:06:21 11/04/2023 bone density completed [facility] [address], [place], [address], 11/13/2023 12:47:17 06/15/2024 XR, lumbar spine completed [facility] ([facility]) [address] [place], [address], 06/18/2024 06:06:54 Procedure Notes None recorded. Medical Equipment None Reported. Allergies Allergen ID Allergen Name Allergen Category Reaction Reaction Severity Criticality Documentation Date Start Date Code Code System Note Provider Name and Address Organization Details Recorded Time 55885 Substance with sulfonami de structure and antibacte rial mechanism of action (substanc e) medicatio n hives Not available Not available 04/04/2014 54295 2751 SNOMED Мария Cao, [facility] [address], [place], [address], [facility] 4 10:09:04 8334 morphine sulfate medicatio n Not available Not available Not available 11/15/20132012 16011 RxNorm REACT ION: HYPOT ENSIO N; COMME NT: RECOR DED 04/11 9:36A M BY JOCELYNE WRAY, OFFIC E VISIT ; Not Available [facility] 4 13:25:22 8335 oxycodone hydrochlo ride medicatio n Not available Not available Not available 11/15/20132012 03947 RxNorm MILY Sarmiento, [facility] 4 09:37:18 8336 acetamino phen / oxycodone medicatio n Not available Not available Not available 11/15/20132012 50626 3 RxNorm MILY Sarmiento, [facility] 4 09:37:18 8337 Vaccine product containin g only Clostridi um tetani antigen (medicina l product) medicatio n Not available Not available Not available 11/15/20132012 19857 2003 SNOMED REACT ION: MUSCL E TWITC MICHAEL, HEADA LIONEL AND PALPI TATIO NS; COMME NT: RECOR DED 04/11 9:36A M BY JOCELYNE WRAY, OFFIC E VISIT ; Not Available [facility] 4 13:25:22 Medications Name Sig Start Date Stop Date Status Note LastModified by Organization Details LastModified Time compact space chamber/a nti-stati c/l arge mask adan 05/13 completed Not Available Not Available Not Available cyclobenz aprine 10 mg tablet TAKE 1 TABLET BY MOUTH THREE TIMES DAILY FOR 5 DAYS NEEDED FOR SPASM. CAN CAUSE DROWSINE SS. DO NOT DRIVE OR OPERATE HEAVY MACHINER Y WHILE TAKING 05/13 completed Not Available Not Available Not Available Vitamin B-2 100 mg tablet TAKE 4 TABLETS BY MOUTH EVERY MORNING active Not Available Not Available No t Available Augmentin 875 mg-125 mg tablet Take 1 tablet every 12 hours by oral route as directed for 7 days. 03/21 completed Not Available Not Available Not Available prednison e 10 mg tablet DIRECTED 05/13 completed RECORDED 05/19/19 08 3:09PM BY STEF RAMOS MD, MEDICATI ON AUTO-CHARLENE CTIVATIO N;TAKE 4QD FOR 3 DAYS, THEN 3QD FOR 3 DAYS, THEN 2 QD FOR 3 DAYS, THEN 1 QD FOR 3 DAYS. Not Available Not Available Not Available pantothen ic acid (vit B5) 500 mg tablet active RECORDED 04/11/20 13 9:38AM BY JOCELYNE MORRIS, OFFICE VISIT; Not Available Not Available Not Available citalopra m 40 mg tablet take 1 tablet by mouth once daily 2013 active Not Available Not Available Not Avai lable fluconazo le 150 mg tablet Take 1 tablet every 72 hours by oral route for 3 days. 03/21 completed Not Available Not Available Not Available benzonata te 200 mg capsule TAKE 1 CAPSULE BY MOUTH THREE TIMES DAILY FOR 7 DAYS NEEDED FOR COUGH 05/13 completed Not Available Not Available Not Available citalopra m 10 mg tablet TAKE 3 TABLETS BY MOUTH EVERY DAY 07/19 completed Not Available Not Available Not Available sumatript an 100 mg tablet 05/13 completed Not Available Not Available Not Available hydrocodo ne 5 mg-acetam inophen 325 mg tablet 07/05 completed Not Available Not Available Not Available Nystop 100,000 unit/gram topical powder APPLY EXTERNAL LY TWICE DAILY DIRECTED FOR 30 DAYS active Not Available Not Available No t Available Phenergan -Codeine 6.25 mg-10 mg/5 mL oral syrup Q 4 HOURS PRN COUGH 12/30 completed RECORDED 12/31/19 08 10:20AM BY MILY COTTER, OFFICE VISIT; Not Available Not Available Not Available ondansetr on HCl 4 mg tablet 12/23 completed Not Available Not Available Not Available prednison e 20 mg tablet TAKE 2 TABLETS BY MOUTH EVERY DAY FOR 5 DAYS 09/16 completed Not Available Not Available Not Available Compazine 10 mg tablet PRN NAUSEA active RECORDED 04/11/20 13 9:36AM BY JOCELYNE MORRIS, OFFICE VISIT; Not Available Not Available Not Available Vitamin B-6 200 mg tablet QD active RECORDED 04/11/20 13 9:41AM BY JOCELYNE MORRIS, OFFICE VISIT; Not Available Not Available Not Available Excedrin Migraine 250 mg-250 mg-65 mg tablet Take 1 tablet as needed by oral route. active Not Available Not Available No t Available Zithromax Z-Dave 250 mg tablet QD 04/22 completed RECORDED 05/01/20 07 10:35AM BY LUDIVINA GALARZA MD, MEDICATI ON AUTO-CHARLENE CTIVATIO N;2PO QD FOR 1 DAY, THEN 1 QD FOR 4 DAYS. Not Available Not Available Not Available topiramat e 25 mg tablet take 1 tablet by mouth every morning and 2 tablets by mouth IN THE EVENING 2013 active Not Available Not Available Not Avai lable meclizine 12.5 mg tablet one to two po q 8 hours as needed for vertigo 12/18 completed Not Available Not Available Not Available tramadol 50 mg tablet Take 1 tablet every 6 hours by oral route as needed for 5 days. 09/08 completed Not Available Not Available Not Available acetamino phen 500 mg tablet active RECORDED 04/11/20 13 9:36AM BY JOCELYNE MORRIS, OFFICE VISIT; Not Available Not Available Not Available ondansetr on 8 mg disintegr ating tablet PRN active RECORDED 04/11/20 13 9:37AM BY JOCELYNE MORRIS, OFFICE VISIT; Not Available Not Available Not Available magnesium gluconate 12.5 mg magnesium (250 mg) tablet QD active RECORDED 04/11/20 13 9:40AM BY JOCELYNE MORRIS, OFFICE VISIT; Not Available Not Available Not Available Motrin 800 mg tablet Q 6HRS PRN PAIN 10/07 completed RECORDED 10/08/19 13 2:25PM BY JOCELYNE MORRIS, OFFICE VISIT; Not Available Not Available Not Available propranol ol 10 mg tablet TAKE 2 TABLETS BY MOUTH TWICE DAILY active Not Available Not Available No t Available amoxicill in 875 mg tablet Take 1 tablet every 12 hours by oral route for 10 days. 01/07 completed Not Available Not Available Not Available citalopra m 20 mg tablet TAKE 1 AND 1/2 TABLETS BY MOUTH DAILY active Not Available Not Available No t Available lorazepam 0.5 mg tablet TAKE 1 TABLET BY MOUTH EVERY DAY NEEDED active Not Available Not Available No t Available tamsulosi n 0.4 mg capsule 12/23 completed Not Available Not Available Not Available phenazopy ridine 100 mg tablet 12/23 completed Not Available Not Available Not Available cephalexi n 500 mg capsule 12/23 completed Not Available Not Available Not Available gabapenti n 300 mg capsule Take 2 capsules twice a week by oral route. 01/07 completed 1 po prn Not Available Not Available Not Available isomethep tene-dich loralphen -acetamin ophen 65 mg-100 mg-325 mg capsule PRN MIGRAINE 04/30 completed RECORDED 04/30/20 11 3:53PM BY NICOLE BENOIT MA, OFFICE VISIT; Not Available Not Available Not Available gabapenti n 100 mg capsule 1 tab po tid 12/23 completed Not Available Not Available Not Available lorazepam 1 mg tablet QHS PRN INSOMNIA 03/16 completed RECORDED 03/19/20 08 7:45PM BY MILY COTTER, OFFICE VISIT; Not Available Not Available Not Available methylpre dnisolone 4 mg tablets in a dose pack FOLLOW PACKAGE DIRECTIO NS. TAKE WITH FOOD 05/13 completed Not Available Not Available Not Available albuterol sulfate HFA 90 mcg/actua tion aerosol inhaler INHALE 2 PUFFS BY MOUTH EVERY 4-6 HOURS NEEDED FOR WHEEZING /CHEST TIGHTNES S/ SHORTNES S OF BREATH 05/13 completed Not Available Not Available Not Available ondansetr on 4 mg disintegr ating tablet 12/23 completed Not Available Not Available Not Available fluticaso ne propionat e 50 mcg/actua tion nasal spray,maddie pension Inhale 2 sprays every day by intranas al route for 30 days. 2015 active Not Available Not Available Not Avai lable doxycycli ne hyclate 100 mg tablet Take 1 tablet twice a day by oral route for 10 days. 2015 active Not Available Not Available Not Avai lable thiamine HCl (vitamin B1) 50 mg tablet QD active RECORDED 04/11/20 13 9:41AM BY JOCELYNE MORRIS, OFFICE VISIT; Not Available Not Available Not Available magnesium 250 mg (as magnesium oxide) tablet TAKE 1 TABLET BY MOUTH EVERY DAY active Not Available Not Available No t Available Decadron 0.25 mg tablet MG 04/11 completed RECORDED 04/11/20 13 9:37AM BY JOCELYNE MORRIS, OFFICE VISIT; Not Available Not Available Not Available albuterol (refill) 90 mcg/actua tion aerosol inhaler EVERY 4 HRS NEEDED FOR COUGH 05/12 completed RECORDED 06/01/19 13 3:24PM BY PRISCILLA QUIROZ, MEDICATI ON AUTO-CHARLENE CTIVATIO N; Not Available Not Available Not Available codeine-g uaifenesi n oral syrup Q 4 HOURS PRN 04/20 completed RECORDED 04/29/20 12 3:31PM BY PRISCILLA QUIROZ, MEDICATI ON AUTO-CHARLENE CTIVATIO N;CAUTIO N DROWSINE SS Not Available Not Available Not Available cyclobenz aprine 5 mg tablet TAKE 1 TABLET BY MOUTH AT BEDTIME NEEDED active Not Available Not Available No t Available magnesium 1 daily 09/16 completed Not Available Not Available Not Available calcium active RECORDED 04/11/20 13 9:39AM BY JOCELYNE MORRIS, OFFICE VISIT; Not Available Not Available Not Available vitamin E active RECORDED 04/11/20 13 9:39AM BY JOCELYNE MORRIS, OFFICE VISIT; Not Available Not Available Not Available B Complex 1 po qd active Not Available Not Av ailable Not Available Amoxil BID 03/30 completed RECORDED 04/20/20 08 3:00PM BY MAINOR Barbour MD, MEDICATI ON AUTO-CHARLENE CTIVATIO N; Not Available Not Available Not Available iron 2 po qd active Not Available Not Avail able Not Available Citracal DAILY 04/11 completed RECORDED 04/11/20 13 9:37AM BY JOCELYNE MORRIS, OFFICE VISIT; Not Available Not Available Not Available multivita min po daily active RECORDED 04/11/20 13 9:36AM BY JOCELYNE MORRIS, OFFICE VISIT; Not Available Not Available Not Available cholecalc iferol (vitamin D3) 25 mcg (1,000 unit) tablet po qd 12/23 completed RECORDED 04/11/20 13 9:40AM BY JOCELYNE MORRIS, OFFICE VISIT; Not Available Not Available Not Available cholecalc iferol (vitamin D3) 1,250 mcg (50,000 unit) capsule TAKE 1 CAPSULE EVERY WEEK BY MOUTH FOR 90 DAYS. 06/15 completed Not Available Not Available Not Available diclofena c 1 % topical gel 05/13 completed Not Available Not Available Not Available GaviLyte- G 236 gram-22.7 4 gram-6.74 gram-5.86 gram oral solution TAKE 8 OZ BY MOUTH DIRECTED 06/15 completed Not Available Not Available Not Available Probiotic active RECORDED 04/11/20 13 9:42AM BY JOCELYNE MORRIS, OFFICE VISIT; Not Available Not Available Not Available Saxenda 3 mg/0.5 mL (18 mg/3 mL) subcutane ous pen injector 05/13 completed Not Available Not Available Not Available Compact Space Chamber-L rg Mask USE WITH INHALER 05/13 completed Not Available Not Available Not Available Plenvu 140 gram-9 gram-5.2 gram powder packs USE 3 PACKETS AND DRINK BY MOUTH DIRECTED 09/16 completed Not Available Not Available Not Available Wegovy 2.4 mg/0.75 mL subcutane ous pen injector ADMINIST ER 2.4 MG UNDER THE SKIN WEEKLY active Not Available Not Available No t Available Wegovy 1.7 mg/0.75 mL subcutane ous pen injector INJECT 1.7 MG SUBCUTAN EOUSLY ONCE A WEEK DIRECTED 07/26 completed Not Available Not Available Not Available Wegovy 0.5 mg/0.5 mL subcutane ous pen injector INJECT 0.5 MG UNDER THE SKIN ONCE WEEKLY 05/13 completed Not Available Not Available Not Available Vitals Date Recorded Body height Body mass index (BMI) Body weight Oxygen saturation Oxygen saturation in Arterial blood by Pulse oximetry Heart rate Body temperature Systolic blood pressure Diastolic blood pressure Provider Name and Address Organization Details Last Updated DateTime 1 170.18 cm 36.8 kg/m2 286887. 21 g 98 % 98 % 67 /min 98.06 [degF] 127 mm[Hg] 78 mm[Hg] Jocelyne Morris [facility] 1 11:07:09 Date Recorded Body height Provider Name an d Address Organization Details Last Updated DateTime 09/16/2021 170.18 cm Celeste Cotter MA [facility] 09/16/2021 11:21:57 Date Recorded Body height Body mass index (BMI) Body weight Oxygen saturation Oxygen saturation in Arterial blood by Pulse oximetry Heart rate Body temperature Systolic blood pressure Diastolic blood pressure Provider Name and Address Organization Details Last Updated DateTime 4 170.18 cm 33.3 kg/m2 47582.3 8 g 98 % 98 % 79 /min 97.8 [degF] 127 mm[Hg] 79 mm[Hg] Jocelyne Morris MA [facility] 4 09:37:01 Date Recorded Body height Body mass index (BMI) Body weight Oxygen saturation Oxygen saturation in Arterial blood by Pulse oximetry Heart rate Body temperature Systolic blood pressure Diastolic blood pressure Provider Name and Address Organization Details Last Updated DateTime 4 170.18 cm 31.2 kg/m2 81310.6 8 g 98 % 98 % 69 /min 97.9 [degF] 129 mm[Hg] 77 mm[Hg] Jocelyne Morris MA [facility] 4 14:00:57 Date Recorded Body height Body mass index (BMI) Body weight Heart rate Oxygen saturation Oxygen saturation in Arterial blood by Pulse oximetry Body temperature Systolic blood pressure Diastolic blood pressure Provider Name and Address Organization Details Last Updated DateTime 5 170.18 cm 26.9 kg/m2 53082.8 9 g 86 /min 99 % 99 % 97.9 [degF] 104 mm[Hg] 62 mm[Hg] Trang Ramírez MA [facility] 5 13:16:02 Social History Question Answer Notes LastModified by Organizat ion Details LastModified Time Tobacco Smoking Status [facility] 10:06:23 Do You Have An Advance Directive? No Information not available 09/16/2021 What Is Your Level Of Alcohol Consumption? Occasional [email or web address] Information not available 09/06/2015 Is Blood Transfusion Acceptable In An Emergency? Yes [email or web address] Information not available 09/06/2015 What Is Your Level Of Caffeine Consumption? Occasional [email or web address] Information not available 12/19/2020 How Much Tobacco Do You Chew? None [email or web address] Information not available 09/06/2015 In The 14 Days Before Symptom Onset, Have You Had Close Contact With A Laboratory-confir med COVID-19 While That Case Was Ill? No Information not available 09/16/2021 In The 14 Days Before Symptom Onset, Have You Had Close Contact With A Person Who Is Under Investigation For COVID-19 While That Person Was Ill? No Information not available 09/16/2021 Have You Been To An Area Known To Be High Risk For COVID-19? No Information not available 09/16/2021 Are You Currently Employed? Yes [email or web address] Information not available 09/06/2015 What Type Of Diet Are You Following? REGULAR [email or web address] Information not available 09/06/2015 Which Illicit Or Recreational Drugs Have You Used? None [email or web address] Information not available 09/06/2015 Do You Or Have You Ever Used E-cigarettes Or Vape? 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 16+yearssincel astcigarette [email or web address] Information not available 12/19/2020 Live Alone Or With Others? Alone Information not available 09/16/2021 Do You Take Precautions To Prevent Distracted Driving? Yes Information not available 09/06/2015 How Often Do You Need To Have Someone Help You When You Read Instructions, Pamphlets, Or Other Written Material From Your Doctor Or Pharmacy? Never [email or web address] Information not available 09/06/2015 Have You Served In The ? No [email or web address] Information not available 09/08/2016 Have You Or Anyone In Your Household Had Any Of The Following Symptoms In The Last 14 Days: Sore Throat, Cough, Chills, Body Aches For Unknown Reasons, Shortness Of Breath For Unknown Reasons, Loss Of Smell, Loss Of Taste, Fever At Or Greater Than 100 Degrees Fahrenheit? No Information not available 11/10/2019 Are You Or Anyone In Your Household A Health Care Provider Or Emergency Responder? Yes Rn In Nicu [email or web address] Information not available 12/19/2020 To The Best Of Your Knowledge Have You Been In Close Proximity To Any Individual Who Tested Positive For COVID-19? No [email or web address] Information not available 11/10/2019 Have You Recently Traveled To A COVID-19 High Risk Area Or Gathering In The Last 10 Days? No [email or web address] Information not available 05/16/2020 What Was The Date Of Your Most Recent Tobacco Screening? 05/13/2023 [email or web address] Information not available 05/13/2023 How Many Children Do You Have? 0 [email or web address] Information not available 12/19/2020 Do You Use Your Seat Belt Or Car Seat Routinely? Yes [email or web address] Information not available 12/19/2020 Seat Belts Used Routinely Yes Information not available 09/16/2021 Are You Sexually Active? No [email or web address] Information not available 09/06/2015 Smoke Alarm In Home Yes Information not available 09/16/2021 Do You Have Smoke And Carbon Monoxide Detectors In Your Home? Yes [email or web address] Information not available 12/19/2020 Are You Passively Exposed To Smoke? No [email or web address] Information no t available 09/06/2015 Do You Or Have You Ever Used Smokeless Tobacco? Never Used Smokeless Tobacco Information not available 07/06/2019 How Much Tobacco Do You Smoke? 1 PPW [email or web address] Information not available 07/06/2019 Do You Use Sunscreen Routinely? Yes [email or web address] Information not available 09/06/2015 How Many Years Have You Smoked Tobacco? 10 [email or web address] Information not available 07/06/2019 Sex: Unknown Functional Status Question Answer Note LastModified by Organizat ion Details LastModified Time Are you able to walk? YESWOREST [email or web address] Information not available 05/13/2023 Are you able to care for yourself? Yes [email or web address] Information not available 09/06/2015 What is your exercise level? Occasional [email or web address] Information not available 09/06/2015 Mental Status None recorded. Family History Relationship Description Onset Age of this Age Resolved Age Notes LastModified by Organization Details LastModified Time Maternal Aunt Carcinoma in situ of breast [email or web address] Not available 07/05 14:01:25 Notes:pt was adopted/ no FH known Medical History Condition Response Gout N Other N Kidney Stones N Blood Diseases N Hyperthyroidism N Breast Cancer N Hypothyroidism N Lung Disease N Depression N COPD N Defects or Inherited Disease N Anesthesia Complications N Headaches/Migraines Y Anxiety Disorder N Varicose Veins N Obesity Y Vision or Eye Problems Y Arthritis Y Head Injury/Concussion N Infertility N Polyps N Congenital Anomalies N Acid Reflux (GERD) N Cancer Y Stroke N ADHD N Endometriosis N High Cholesterol N Liver Disease N Fibromyalgia N Kidney Disease N Heart Problems N Ear or Hearing Problems N Hospitalizations N Thyroid Problems Y GI Problems N Acne N Eating Disorder N Skin Problems N Anemia N Constipation N Bladder Problems N Mental Illness N Diabetes N Ovarian Cancer N Blood Transfusions N Seizures/Epilepsy N Tuberculosis N AIDS/HIV N Congestive Heart Failure (CHF) N Eczema N Abuse/Domestic Violence N Diverticulitis N Asthma N Allergies N Reflux/GERD N Hepatitis N Pulmonary Embolism N Hypertension N Chicken Pox N Autism Spectrum Disorder (ASD) N Osteoporosis N Gynecological History Statement/Question Response Date of Last Pap Smear Date of Last Colonoscopy 01/30/2021 Most Recent Mammogram 10/24/2021 Obstetrics History GPAL:G 0 P 0 0 0 0 Immunizations Vaccine Type Date Status Note Provider Nam e and Address Organization Details Recorded Time Influenza, split virus, quadrivalent, preservative 6 completed Nicole Turpin [facility] 10/12/2019 14:33:08 Influenza, split virus, quadrivalent, preservative 9 completed Nicole Turpin [facility] 10/12/2019 14:33:08 RIG 6 completed Nicole Turpin [facility] 10/12/2019 14:30:59 Rabies - IM Diploid cell culture 6 [facility] 14:30:59 COVID-19, mRNA, LNP-S, PF, 30 mcg/0.3 mL dose 0 completed MILY Sarmiento [facility] 05/13/2023 09:31:26 COVID-19, mRNA, LNP-S, PF, 30 mcg/0.3 mL dose 1 completed MILY Sarmiento [facility] 05/13/2023 09:31:26 Influenza, MDCK, quadrivalent, PF 8 completed Jocelyne Morris, MA null, [facility] 05/13/2023 09:31:26 COVID-19, mRNA, LNP-S, PF, 30 mcg/0.3 mL dose 1 completed Jocelyne Morris, MA null, [facility] 05/13/2023 09:31:26 Tdap 3 completed Jocelyne Morris, MA null, [facility] 05/13/2023 09:31:26 Influenza, split virus, quadrivalent, PF 0 completed Jocelyne Ernesto MA null, [facility] 05/13/2023 09:31:26 Influenza, split virus, quadrivalent, PF 7 completed Jocelyne Ernesto MA null, [facility] 05/13/2023 09:31:26 Influenza, split virus, quadrivalent, PF 1 completed Jocelyne Ernesto, MA null, [facility] 05/13/2023 09:31:26 influenza nasal, unspecified formulation 3 completed Jocelyne Morris MA null, [facility] 05/13/2023 09:39:31 COVID-19, mRNA, LNP-S, PF, 30 mcg/0.3 mL dose, hali-sucrose 2 completed Jocelynebrendon Morris MA idalmis, [facility] 07/27/2023 13:51:43 Influenza, split virus, quadrivalent, PF 2 completed Jocelyne Morris, MA null, [facility] 07/27/2023 13:51:43 Influenza, split virus, quadrivalent, PF 3 completed Jocelyne Morris, MA null, [facility] 07/27/2023 13:51:43 Tdap 7 completed Nicole Turpin idalmis, [facility] 10/12/2019 14:33:08 Influenza, split virus, trivalent, preservative 1 completed Nicole raygoza, [facility] 10/12/2019 14:33:08 Influenza, split virus, trivalent, preservative 2 completed Nicole raygoza, [facility] 10/12/2019 14:33:08 influenza, seasonal, intradermal, preservative free 3 completed Nicole raygoza, [facility] 10/12/2019 14:33:08 Past Encounters Encounter ID Performer Location Encounter Start Date Encounter Closed Date Diagnosis/Indication Diagnosis SNOMED-CT Code Diagnosis ICD10 Code Diagnosis Note [id number] [facility] [address] [facility] [place] [address] 09/23/2006 00:00:00 [id number] auto[facility]Comm erce [facility] [facility] [place] [address] 10/02/2006 00:00:00 [id number] auto[facility] erce [address] [facility] [place] [address] 03/24/2007 00:00:00 [id number] auto[facility] erce [address] [facility] [place] [address] 04/17/2007 00:00:00 [id number] auto[facility] erce [address] [facility] [place] [address] 05/10/2007 00:00:00 [id number] auto[facility]Comm erce [address] [facility] [place] [address] 10/09/2007 00:00:00 [id number] auto[facility]Comm erce [address] [facility] [place] [address] 12/31/2007 00:00:00 [id number] auto[facility]Comm erce [address] [facility] [place] [address] 02/09/2008 00:00:00 [id number] auto[facility]Comm erce [address] [facility] [place] [address] 03/16/2008 00:00:00 [id number] auto[facility]Comm erce [address] [facility] [place], [place] [address] 07/26/2008 00:00:00 [id number] auto[facility] erce [address] [place], [place] [address] 03/23/2009 00:00:00 [id number] auto[facility]Comm erce [address] [facility] [place], [place] [address] 04/30/2011 00:00:00 [id number] auto[facility]Comm erce [address] [place], [place] [address] 04/12/2012 00:00:00 [id number] auto[facility]Comm erce [address] [place], [place] [address] 06/30/2012 00:00:00 [id number] auto[facility]Comm erce [address] [facility] [place], [place] [address] 10/07/2012 00:00:00 [id number] autoEComm erce [address] [place], [place] [address] 04/11/2013 00:00:00 [id number] Main Office [address] [facility] [address] [place] [address] 04/04/2014 09:41:13 04/04/2014 10:32:30 Knee pain 58926347 Patient c/o left upper knee pain since thursday, no injury or trauma that she can recall. She has a hx of endometria l and colon cancer, finished chemo 1 year ago and has been in remission as far as she knows. Sees Dr. Choi every 4 months, will see him in Jun 2014. Will get knee XR. Recommend sx treatment- if heat helps use heat lso try to stayactive . Ibuprofen 800mg TID with food. Foot-drop 3339021 Fibromyositis 06804473 Neuropathy 546385735 Primary ma lignant neoplasm of colon 67791853 Primary ma lignant neoplasm of endometrium 52694104 [id number] Josiane Fowler MS Main Office [address] [facility] [address] [place] [address] 10/17/2014 14:14:14 10/17/2014 15:10:10 Knee pain 09498829 Will get knee XR. Recommend sx treatment- ice, elevate, compress, anti-infla mmatory- ibuprofen 800mg tid with food. Knee XR today. Call/ return for worsening. Neurological deficit 992522692 Patient presents with neuropathy sx, clumsiness , legs giving out on her, frequent headaches. Had chemo- finished about 2 years ago and has had neuropathy since, she has had more frequent legs giving out/ falling episodes- up to about 3 times per week now. She is trying to be very careful when walking but feels her legs give out. Will get head CT. [id number] Jesus maya Main Office [address] [address] [place] [address] 06/02/2015 11:29:41 06/02/2015 12:30:02 Cat bite - wound 771004403 W55.01XD pt was seen at [facility]/ rec'd Augmentin and pt will go to ED again if her left calf becomes more red/swolle n. continue current abx [id number] Mainor PeteStylefinchKelsey anoop Main Office [address] [place] [address] [place] [address] 06/06/2015 08:59:51 06/06/2015 09:47:18 Cellulitis 065886452 L03.119 see hx, finish 8 more days of augmentin, elevated to treat edema, out of work until 06/10. Cat bite - wound 9961388 04 W55.01XD pt had rabies shots putinto wound, cat was caught, euthanized and tested negative for rabies. [id number] Mainor davalos Main Office [address] [place] [address] [place] [address] 06/06/2015 14:07:07 06/06/2015 14:27:10 [id number] Mainor Vásquez anoop Main Office [address] [place] [address] [place] [address] 08/10/2015 13:32:18 08/10/2015 14:12:32 Acute sinusitis 64575036 J01.90 Start Abx for 10 days, Flonase, nasal saline BID, warm facial compresses and steam inhalation s. [id number] [facility] [address] [facility] [address] [place] [address] 09/06/2015 11:00:39 09/06/2015 11:52:49 Adult health examination 597209971 Z00.00 all screening is utd, continue walking for exercise History of malignant neoplasm of colon 048358317 Z85.038 utd on her colonoscop y Neuropathy 195229478 G62 .9 pt quite bothered by neuropathy from chemo [id number] Ludivina Lee MD Main Office [address] [address] [place] [address] 05/12/2016 10:16:23 05/12/2016 11:27:40 Hip pain 72079831 M25.552 [id number] [facility] Main Office [address] [place] [address] [place] [address] 09/08/2016 14:20:45 09/08/2016 15:33:30 Adult health examination 344835990 Z00.00 all screening is utd, continue walking for exercise, pt lost weight, pt does not need pap anymore and mammo is utd. Neuropathy 549561552 G62 .9 pt quite bothered by neuropathy from chemo. pt with very minimal sensation in her feet, keeps good eye on her feet for infection History of malignant neoplasm of colon 280749060 Z85.038 utd on her colonoscop y, s/p chemo with residual neuropathy Primary ma lignant neoplasm of endometrium 78103351 C54.1 she had a TAHBSO, malignancy was found on hysterecto my incidental ly Iron defic iency anemia 00939477 D50.9 anemic in the past, takes 3 iron OTC pills a day but hx of gastric byspass so some poor absorption , pt takes MVI once a day too History of bariatric surgical procedure 255568433 Z98.84 hx of gastric bypass years ago, some hx ot iron defiency anemia [id number] Stef Ramos MD Main Office [address] [address] [place] [address] 01/07/2017 09:52:41 01/07/2017 11:20:29 Bone pain 77169528 M89.8X9 h/o CRC and endometria l CA, fol by hem/onc. if evidence of bony met (also checking alk phos) - then will refer back to hem/onc - may need PET scan Iron defic iency anemia 50812550 D50.9 cbc NL in 5.17 and 8.17, cont iron supp as dir History of malignant neoplasm of colon 418266931 Z85.038 cont f/u c hem/onc - next in 2.18 Primary ma lignant neoplasm of endometrium 68397067 C54.1 Multiple joint pain 3567 8005 M25.50 h/o lyme dz remotely, will get rheum eval - if has + w/u for others (see above), dougie refer back to hem/onc (ie., cancel rheum eval if lyme neg) Alkaline p hosphatase above reference range 014527353 R74.8 h/o elevated 12.11 - will compare -- ? met. [id number] Mainor Thalia galindoenzo Main Office [address] [facility] [address] [place] [address] 01/12/2017 08:48:59 01/12/2017 10:16:51 Bone pain 13868710 M89.8X9 h/o CRC and endometria l CA, fol by hem/onc. no evidence of bony met c neg xrays of ribs and femur. advised pt overall alk phos has only increased by 4 pts - can wait to discuss further c hem/onc in 2.18 - cont to monitor, doubt needs pet scan for this indication but can further discuss c them Multiple joint pain 3567 8005 M25.50 neg. lyme dz, pending rheum eval 25 minute office visit with greater than 50% of the visit face-to-fa ce with the patient and/or family providing counseling and/or coordinati on of care. Neuropathy 369257326 G62 .9 chemo induced per neur, no king marce 300mg hs prn - advised to try 100mg - see below, encouraged pt to cont to f/u c neurology [id number] Mainor galindoenzo Main Office [address] [facility] [address] [place] [address] 09/30/2017 13:48:43 09/30/2017 14:51:38 Adult health examination 243072901 Z00.00 all screening is utd, continue walking for exercise, pt lost weight, pt does not need pap anymore and mammo is utd. History of malignant neoplasm of colon [id number] Z85.038 utd on her colonoscop y, s/p chemo with residual neuropathy History of bariatric surgical procedure 626336667 Z98.84 hx of gastric bypass years ago, some hx of iron defiency anemia pt will see Dr Li Epistaxis 21035697 R04.0 pt to see ENT, had a few Primary ma lignant neoplasm of endometrium 48577696 C54.1 she had a KYLE, malignancy was found on hysterecto my incidental ly History of thyroid disorder 568330460 Z86.39 check labs Anxiety 21025034 F41.9 would like to restart med, helped in past, work stress [id number] Mainor HeadplayaleKelsey anoop Main Office [address] 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 [id number] Mainorlorelei PeteKelsey anoop Main Office [address] [facility] [address] [facility] [place] [address] 07/06/2019 13:49:19 07/06/2019 14:45:31 Adult health examination 643155326 Z00.00 all screening is utd, weight gain since last visit, will work on healthy eating, stress eats. Anxiety state 663078584 F41.1 on citalopram 20mg, pt is not interested in changing meds. will increase to 30mg a day and I strongly recc counseling . History of bariatric surgical procedure 700395282 Z98.84 hx of gastric bypass years ago History of malignant neoplasm of colon 578451343 Z85.038 utd on her colonoscop y, due on 03/2020, s/p chemo with residual neuropathy of her legs [id number] Lauren Sheikh PA-C Main Office [address] [facility] [address] [place] [address] 07/25/2019 11:17:26 07/25/2019 15:38:34 Renal colic 9463014 N23 Pt. was advised to go to the ER due to acute pain not responding to OTC pain meds and no current imaging. Pt. wants to call her urologist first and will consider ER visit. Continue hydration , but needs labs, imaging and pain management . Pt. agrees with the plan. [id number] Mainor Thalia anoop Main Office [address] [facility] [address] [place] [address] 08/11/2019 09:23:46 08/11/2019 16:48:48 Anxiety state 632266094 F41.1 on citalopram 20mg, pt is not interested in changing meds. will increase to 30mg a day and I strongly recc counseling . [id number] Mainor Thalia davalos Main Office [address] [facility] [address] [place] [address] 08/19/2019 14:48:32 08/19/2019 16:07:42 Anxiety state 534137415 F41.1 on citalopram 20mg, will start lorazepam to use as needed, a lot of unrest witht he Covid virus Major depr ession single episode, in partial remission 09344597 F32.4 will continue citalopram and check in in 1 month, if not better will change meds [id number] Ludivina Lee MD Main Office [address] [facility] [address] [place] [address] 11/10/2019 15:18:26 11/10/2019 16:04:27 Hyperlipidemia 89438296 E78.5 Fatigue 43521847 R53.83 Which check labs to look for a medical etiology. Must also consider stress and deconditio radha. Anemia due to unknown mechanism 98784382 D64.9 Possible iron deficiency secondary to low absorption since her gastric bypass. [id number] Mainor Thalia davalos Main Office [address] 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 Fatigue 85300895 R53.83 all recent labs normal, some nights not great sleep. Anxiety state F41.1 on citalopram 20mg, mood is decent but still anxious [id number] Lis Hammondo [facility] [address] [facility] [address] [place] [address] 12/02/2019 21:00:50 12/05/2019 06:52:08 Cat bite - wound 845755110 W55.01XA She is UTD with tetanus. Instructed to wash the wound of soap and water and to use an antiseptic on the area. Open wound of lower leg 161079155 S80.871A [id number] Lis Pinon Main Office [address] [facility] [address] [place] [address] 12/09/2019 13:47:54 12/09/2019 14:49:41 Cat bite - wound 439930689 W55.01XD happened on friday 12/01. still has swelling, bruising, and scratch on her avila. Cellulitis of lower leg 191788304 L03.115 will extend augmentin for 7 days. 14 days total, keep areas clean and dry. use heat/ ice as tolerated, elevate leg. Call/ return if no improvemen stacey yusuf injury of lower limb 020233188 S80.871D [id number] Mamaherbenzo Main Office [address] [facility] [address] [place] [address] 03/21/2020 14:19:25 03/21/2020 15:02:34 Anxiety state F41.1 on citalopram 20mg, anxiety is pretty well treated. History of malignant neoplasm of colon 500204965 Z85.038 will get colonoscop y in 2 years. has her port out. Body mass index 30+ - obesity 807564822 E66.9 Z68.35 [id number] [facility] anoop Telehe[facility] [address] [facility] [address] [place] [address] 05/16/2020 13:46:28 05/17/2020 08:51:55 Migraine 70266017 G43.909 flare since second covid vaccine, no concerning signs of illness, we discussed rest, hydration, stay out of work tomorrow if any headache when wakes up, avoid prednisone course due to recent covid vaccine,ca ll if worsens [id number] Mainor Thalia anoop Telehealt h [address] [facility] [address] [place] [address] 06/20/2020 06:43:44 06/26/2020 14:59:06 Vertigo 186875059 R42 new onset, see hpi, no need for ENT referral unless pt notes any change in hearing, will refer for vestibular rehab and give meclizine if flares so can function at home. call if need work note no evidence of CVA by hx. [id number] Lis Pinon Main Office [address] [facility] [address] [place] [address] 12/19/2020 10:28:14 12/19/2020 11:52:47 Headache 48516077 R51.9 Pt with post covid headache vs rebound headache from daily excedrin. Agrees to try prednisone burst, stop otc meds and if DE SOUZA persists consider migraine prophalaxi sis and would do head CT with hx of endometria l and colon cancer. Adult heal th examination 474792857 Z00.00 Pt is in stable health. Social and family history reviewed. Immunizati ons reviewed, advised annual flu shot, tdap due 2022, had covid vaccines. Shingles vaccine after headache resolves. She is upt to date on dental and eye providers, mammogram up to date, colon upcoming surveillen ce colon, Reviewed diet and exercise. History of malignant neoplasm of colon 222711885 Z85.038 pt had surgery and chemo, 2012, due for repeat colon has upcoming appt this Fall Migraine 94790039 G43.90 9 suggested predinsone burst, stop excedrin and start propanolol if headache returns., see above Hyperglycemia 27607189 R 73.9 non fasting BS 111 , hgba1c 4.9 Generalize d anxiety disorder 12222559 F41.1 pt taking citalopram daily, uses lorazepam rarely. Stable, declines changes or therapy. History of malignant neoplasm of uterine body 090283461 Z85.42 had Total hyst, ovaries remain, suggested rn medication eval for pelvic and breast check. [id number] Celeste Cotter [place] Telehe[facility] [address] [facility] [address] [facility] [address] 09/16/2021 08:39:07 09/16/2021 13:33:27 Anxiety state 885557636 F41.1 on citalopram 20mg, anxiety is up a bit due to work stress History of bariatric surgical procedure 581565835 Z98.84 hx of gastric bypass years ago. will be seeing an [facility] History of malignant neoplasm of colon 265128780 Z85.038 utd with colonoscop y. 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 pt with very minimal sensation in her feet, keeps good eye on her feet for infection and needs to be careful with walking on uneven surfaces. Migraine 08697388 G43.90 9 sees neurology. will continue meds [id number] John Davey MD Main Office [address] [facility] [address] 05/13/2023 09:27:04 05/13/2023 10:13:53 Adult health examination 030369217 Z00.00 Patient was counseled on healthy diet, exercise and nutrition due to Body mass index is 33.3 kg/m??. Last Colonoscop y:Date: 01/30/21Res ult: wnlPlan: Per GI repeat 3yrs due to hx of colon ca. Last Mammogram: Date: 10/24/21Res ult: Birad-2Pla n: ordered Last Pap smearDate: Result:Alie n: s/p hysterecto my Bone density scanDate: 07/02/14Resu lt: osteoporos isPlan: will repeat Vaccines:T dAP: apparently allergic.Z odell rec: script [id number] : not dueInfluen za: 02/15/23Co vid: 04/22/2020 , 05/14/20, 02/20/2021 , encouraged updated vaccineRSV : Discussed Routine labs today Immunizati on status reviewed. Will screen based on risk factors. Regular dental and ophtho care advised as well as seat belt and sunscreen use. Distracted driving discussed. Medication reconciled . Varicella vaccination 68 875518 Z23 Fatigue 92470730 R53.83 Z00.00 Hyperlipidemia 17028219 E78.5 Z00.00 Body mass index 30+ - obesity 145621183 Z68.30 E66.9 On wegovy. Obesity 838979922 E66.9 Screening for malignant neoplasm of colon 229663119 Z12.11 Bone density finding 385 729668 M85.89 Screening for malignant neoplasm of breast 897494900 Z12.39 [id number] Paxton Sheikh PA-C Main Office [address] [facility] [address] [place] [address] 07/27/2023 13:47:15 07/27/2023 14:59:39 Spasm of back muscles 208342661 M62.830 rec cont moist heat, hep, nsaids - consider exercise ball as wellbut add prn m relaxerrtc in 3-4 wks if no better / worse - consider PT, PMR and/or xray [id number] Paxton Sheikh PA-C Main Office [address] [facility] [address] [place] [place] [address] 06/15/2024 12:42:52 06/15/2024 13:41:34 Spasm of back muscles 246374514 M62.830 rec cont moist heat, hep, nsaids - consider exercise ball as wellbut add prn m relaxerrtc in 3-4 wks if no better / worse - consider PT, PMR and/or xray 2.25 - will refill prn m relaxer, get xray and pmr evalcont nsaids, swimming Health Concerns Section Related Observation LastModified by Organization Detai ls LastModified Time None Recorded Concern Status LastModified by Organization Details LastModified Time None Recorded Advance Directives Directive N: Payers Encounter Date Sequence Insurance Name Policy Number Policy Rowell Covered Member ID Rowell Member ID Guarantor Name 12/19/2020 1 [facility] [id number] Laurence Zuñiga [id number] Laurence Zuñiga 09/16/2021 1 [facility] [id number] Laurence Yogesh [id number] Laurence Yogesh 05/13/2023 1 [facility] [id number] 3 Laurence Yogesh [id number] Laurence Yogesh 07/27/2023 1 [facility] [id number] Laurence Yogesh [id number] Laurence Yogesh 06/15/2024 1 [facility] ([facility]) [id number] Laurence Yogesh [id number] Laurence Yogesh Notes Date Note Type Note Provider Name and Address Organization Details Recorded Time 12/19/2020 text/html Pt here for ongoing headaches since covid vaccine in late April. DE SOUZA frontal and temporal, daily, some nausea, no reg vomiting. Eyes strained, no focal neuro sx. Hx of migraines, taking otc med daily for many months. 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 Lis raygoza [facility] 12/24/2020 12:43:50 09/16/2021 text/html Telehealth visit . Pt has a migraine today. Pt is on propanolol 10mg bid and magnesium and B complex. Pt sees neurology. Pt is on citalopram, has stress with work, lots of gossip. PT will see someone to help with her weight, hx of bariatric surgery. MILY Gomes, [facility] 09/19/2021 13:05:42 05/13/2023 text/html Patient present for well adult visit Complaints: Is not using ASA. OTC/Herbal supplements use: per med list. PATIENT TRANSPORT ORDERLY Hx:LMP: 2000Menopause: cannot recall, had [id number] Sex hx: Not activeSTI: deniesDrug use: tried marijuana in collegeEtoh use: social, raretobacco use: former smoker on, off for 6 yrs 4-5 cig/day, stopped in 29'sspf/derm: spf use advised, has 1 mole on back Dental: follows every 6mo, up to dateEye: Follows yearly, up to dateDiet: no restrictions. limite dairy and gluten.Activity: walk dog John Davey MD [address] [facility] [address], [place], [address], [facility] 05/13/2023 10:09:17 07/27/2023 text/html Pt is having triston k spasms,long history of back issues - surgery at age 18prog worse over past wk p lifting/twisting at hometaking advil, doing hep, walking c little helpnot sleeping well Paxton Sheikh PA-C [address] [facility] [address], [place], [address], [facility] 07/27/2023 15:01:05 06/15/2024 text/html recurring back pain all across the lower back. x6 days. reviewed chart - seen for similar 3.25.24 ===Pt is having back spasms,long history of back issues - surgery at age 18prog worse over past wk p lifting/twisting at hometaking advil, doing hep, walking c little helpnot sleeping well still able to work in [employer] Triptrotting on m relaxerjust started swimming Paxton Sheikh PA-C [address] [facility] [address], [place], [address], [facility] 06/15/2024 13:50:12 OBGyn Episode No OBEpisode recorded.
--- OUTSIDE RECORDS SUMMARY | 2024-07-27 11:10 | XMS_ITS | Patient Health Record ---
Author Organization [facility] Address [address] [place] [address] Care Team Providers Care Color Control Supervisor Name Role Phone ABUNDIO DEE Unavailable [phone] ALLERGIES Allergen (clinical drug ingredient) Drug/Non Drug Allergy documented on EMR Reaction Allergy Type Onset Date Status acetaminophen / oxycodone Percocet Unknown Drug Allergy Active morphine Morphine Unknown Drug Allergy Active Substance with sulfonamide structure and antibacterial mechanism of action (substance) Sulfa Antibiotics Unknown Drug Allergy Active RESULTS Component Value Reference Range Notes CBC WITH AUTO DIFFERENTIAL Reviewed date:07/22/2024 10:33:36 AM Interpretation: Performing Lab: Notes/Report: WBC 5.7 4.8-10.8 K/mcL RBC 3.80 3.80-4.80 M/mcL Hemoglobin 11.7 11.5-16.0 g/dL Hematocrit 35.3 35.0-47.0 % MCV 93.1 79.0-98.0 FL MCH 30.9 27.0-32.0 pcg MCHC 33.1 32.0-37.0 g/dL RDW 12.1 11.0-15.0 % Platelets 229 130-400 K/mcL MPV 10.9 7.0-11.0 FL NRBC 0.0 <1.0 % NRBC Absolute 0.00 <0.10 K/mcL Neutrophils Relative 54.9 Lymphocytes Relative 33.1 Monocytes Relative 9.4 Eosinophils Relative 1.8 Basophils Relative 0.4 Immature Granulocytes Relative 0.4 Neutrophils Absolute 3.11 1.50-7.00 K/mcL Lymphocytes Absolute 1.87 1.00-5.00 K/mcL Monocytes Absolute 0.53 0.20-1.00 K/mcL Eosinophils Absolute 0.10 0.00-0.50 K/mcL Basophils Absolute 0.02 0.00-0.20 K/mcL Immature Granulocytes Absolute 0.02 0.00-0.03 K/mcL LIPID PANEL WITH REFLEX TO D IRECT LDL Reviewed date:07/22/2024 11:40:25 AM Interpretation: Performing Lab: Notes/Report: Cholesterol 176 0-200 mg/dL Triglycerides 57 0-150 mg/dL HDL 79 >=40 mg/dL LDL Calculated 86 0-100 mg/dL VLDL Cholesterol Akash 11.4 Non HDL Chol. (LDL+VLDL) 97 <145 mg/dL Chol/HDL Ratio 2.2 0.0-4.4 VITAMIN D 25 HYDROXY Reviewed date:07/22/2024 06:04:50 PM Interpretation: Performing Lab: Notes/Report: Vit D, 25-Hydroxy 26.0 30.0-80.0 ng/mL THYROID STIMULATING HORMONE Reviewed date:07/22/2024 06:04:50 PM Interpretation: Performing Lab: Notes/Report: TSH 2.82 0.40-4.00 mcIU/mL COMPREHENSIVE METABOLIC PANE L Reviewed date:07/22/2024 11:40:25 AM Interpretation: Performing Lab: Notes/Report: Sodium 141 133-145 mmol/L Potassium 4.2 3.5-5.5 mmol/L Chloride 108 96-110 mmol/L CO2 29 21-32 mmol/L Anion Gap 4 3-11 Glucose 74 70-100 mg/dL BUN 18 5-25 mg/dL Creatinine 0.80 0.50-1.10 mg/dL eGFR 82 >=60 mL/min/1.73m2 Calculati on based on the?Chronic Kidney Disease Epidemiology Collaboration (CKD-EPI) equation refit?without adjustment for race. BUN/Creatinine Ratio 22.5 Calcium 8.8 8.5-10.5 mg/dL AST (SGOT) 22 10-42 unit/L ALT (SGPT) 24 10-60 unit/L Alkaline Phosphatase 136 42-121 unit/L Total Protein 6.5 6.0-8.0 g/dL Albumin 3.6 3.2-5.0 g/dL Total Bilirubin 0.5 0.0-1.4 mg/dL HEMOGLOBIN A1C Reviewed date:07/22/2024 11:40:25 AM Interpretation: Performing Lab: Notes/Report: Hemoglobin A1C 4.8 <6.5 % Mean Bld Glu Estim. 91 URINALYSIS WITH REFLEX MICRO SCOPIC Reviewed date:07/22/2024 11:40:25 AM Interpretation: Performing Lab: Notes/Report: Specific [place] Urine 1.024 1.003-1.030 pH, Urine 5.0 5.0-8.0 pH Leukocytes, Urine Negative Negative Nitrite, Urine Negative Negative Protein, Urine Negative <=Trace mg/dL Glucose, Urine Negative Negative mg/dL Ketones, Urine Trace Negative mg/dL Urobilinogen, Urine 1.0 0.2-1.0 mg/dL Bilirubin, Urine Negative Negative Blood, Urine Trace Negative REASON FOR REFERRAL No Information MEDICATIONS Medication SIG (Take, Route, Frequency, Duration) [...] patrizia l Orally Once a day Active Nystatin 775206 UNIT/GM 1 application Ex ternally Twice a day for 30 days Active Vitamin B2 Active SOCIAL HISTORY Tobacco Use: Social History [...] User Light cigarett e smoker ((1-9 cigs/day) Alcohol Screen (Audit-C) Question Answer Notes Did you have a drink contain ing alcohol in the past year? Yes How often did you have a dri nk containing alcohol in the past year? Monthly or less (1 point) Points 1 Interpretation Negative PROBLEMS Problem Type ICD Code Onset Dates Problem Status W/U Status Risk SNOMED Code Notes Problem Other obesity due to excess calories (E66.09) Active confirmed 336606811 Problem Encounter for screening for lipoid disorders (Z13.220) Active confirmed Lipid screening (723351942) Problem Adult general medical exam (Z00.00) Active confirmed Adult health examination (144969106) Problem Obesity (BMI 30.0-34.9) (E66.9) Active confirmed [id number] Problem Diabetes mellitus screening (Z13.1) Active confirmed Diabetes m ellitus screening (381259018) Problem Peripheral polyneuropathy (G62.9) Active confirmed 73795448 Problem Body mass index [BMI] 35.0-35.9, adult (Z68.35) Active confirmed 024716445 Problem Body mass index [BMI] 38.0-38.9, adult (Z68.38) Active confirmed 914679596 Problem Migraine without aura and without status migrainosus, not intractable (G43.009) Active confirmed 637077797 Problem Endometrial cancer (C54.1) Active confirmed 856431272 Problem History of colon cancer (Z85.038) Active confirmed 473025072 Problem BMI 32.0-32.9,adult (Z68.32) Active confirmed 688841106 Problem PCOS (polycystic ovarian syndrome) (E28.2) Active confirmed 578390770 Problem BMI 31.0-31.9,adult (Z68.31) Active confirmed 877899946 Problem BMI 30.0-30.9,adult (Z68.30) Active confirmed 714310718 Problem Overweight (BMI 25.0-29.9) (E66.3) Active confirmed Overweight (449492335) Problem Avitaminosis D (E55.9) Active confirmed Avitaminosis D (13893825) Problem Encounter for screening for endocrine disorder (Z13.29) Active confirmed Endocrine/ metaboli c screening (641575947) VITAL SIGNS Heart Rate 75 /min 07/22/2024 Oximetry 98 % 07/22/2024 Blood pressure diastolic 78 mm Hg 07/22/2024 Height 67 in 07/22/2024 Blood pressure systolic 122 mm Hg 07/22/2024 Weight 175 lbs 07/22/2024 BMI 27.41 kg/m2 07/22/2024 Encounters Encounter Location Date Provider Diagnosis [place] [address] [address] 10/28/2023 ABUNDIO DEE [facility] [address] [address] 06/29/2024 ABUNDIO DEE BMI 27.0-27.9,adult Z68.27 ; Overweight (BMI 25.0-29.9) E66.3 ; Peripheral polyneuropathy G62.9 ; Endometrial cancer C54.1 ; PCOS (polycystic ovarian syndrome) E28.2 ; History of colon cancer Z85.038 and Migraine without aura and without status migrainosus, not intractable G43.009 [address] [address] 07/22/2024 [facility] [address] [address] [facility] Other obesity due to excess calories E66.09 ; Peripheral polyneuropathy G62.9 ; Endometrial cancer C54.1 ; PCOS (polycystic ovarian syndrome) E28.2 ; History of colon cancer Z85.038 ; Migraine without aura and without status migrainosus, not intractable G43.009 and BMI 30.0-30.9,adult Z68.30 [place] [address] [address] 12/02/2023 [facility] Overweight (BMI 25.0-29.9) E66.3 ; BMI 29.0-29.9,adult Z68.29 ; Peripheral polyneuropathy G62.9 ; Endometrial cancer C54.1 ; PCOS (polycystic ovarian syndrome) E28.2 ; History of colon cancer Z85.038 and Migraine without aura and without status migrainosus, not intractable G43.009 [place] [address] [address] 02/03/2024 [facility] Overweight (BMI 25.0-29.9) E66.3 ; BMI 27.0-27.9,adult Z68.27 ; Peripheral polyneuropathy G62.9 ; Endometrial cancer C54.1 ; PCOS (polycystic ovarian syndrome) E28.2 ; History of colon cancer Z85.038 and Migraine without aura and without status migrainosus, not intractable G43.009 [place] [address] [address] 03/30/2024 [facility] BMI 27.0-27.9,adult Z68.27 ; Overweight (BMI 25.0-29.9) E66.3 ; Peripheral polyneuropathy G62.9 ; Endometrial cancer C54.1 ; PCOS (polycystic ovarian syndrome) E28.2 ; History of colon cancer Z85.038 and Migraine without aura and without status migrainosus, not intractable G43.009 [facility] [address] [address] 05/19/2024 ABUNDIO DEE BMI 27.0-27.9,adult Z68.27 ; Overweight (BMI 25.0-29.9) E66.3 ; Peripheral polyneuropathy G62.9 ; Endometrial cancer C54.1 ; PCOS (polycystic ovarian syndrome) E28.2 ; History of colon cancer Z85.038 and Migraine without aura and without status migrainosus, not intractable G43.009 [facility] [address] [address] 07/22/2024 ABUNDIO DEE BMI 27.0-27.9,adult Z68.27 ; Overweight (BMI 25.0-29.9) E66.3 ; Peripheral polyneuropathy G62.9 ; Endometrial cancer C54.1 ; PCOS (polycystic ovarian syndrome) E28.2 ; History of colon cancer Z85.038 and Migraine without aura and without status migrainosus, not intractable G43.009 [facility] [address] [address] 09/03/2023 [place] [address] [address] 09/24/2023 [place] [address] [address] 05/02/2024 ABUNDIO DEE ASSESSMENTS Encounter Date Diagnosis Assessment Notes Treatment Notes Treatment Clinical Notes Section Notes 09/02/2023 Other obesity due to excess calories (ICD-10 - E66.09) #Weight Management 09/02/2023 Happy with progress which has been slow and steady Tolerating medication cont Wegovy to 2.4 We did discuss we can refer to plastic surgery to see if she can get potential skin excision when she is done losing weight and on maintenance dosing For recurrent fungal infections We discussed her body composition analysis today Improving parameters throughout and she is thriving on GLP-1 I would likely shy away from phnetermine given her history, age, and borderline blood pressure Metabolic unremarkable for prediabetic state or hyperinsulinemia Normal thyroid function Discussed importance of protein consumption for muscle maintenance, strength and resistance training as well as probiotics, B12 complex biotin , iron and other nutrients, To also help avoid telogen effluvium while on weight loss medications such as GLP-1 Total time spent today was 30 minutes of which greater than 50% was spent on coordinating and counseling Patient has been found to be obese with a BMI of (30). Patient has class (1) obesity. We are a board certified obesity and weight management practice Patient has trialed behavioral modification, dietary restrictions and exercise for a minimum of 6 months The most recent [place] [employer]ocrinologists and [place] [employer] guidelines recommend patients who have overweight BMI or obesity BMI, who also have metabolic syndrome, prediabetes, HLD, and other comorbidities or at risk of developing type 2 diabetes should aim for a weight loss goal of at least 10% of the baseline body weight Patient counseled regarding effects of GLP/GIP-1 agonists, and other FDA approved wgt loss meds with regards to a multifactorial approach of weight loss as mentioned above and not solely appetite suppression. We have discussed the mechanism of GLP-1's/GIP, dual incretins, appetitite suppressants I think this would be fantastic option for her given her metabolic workup and body composition We have discussed the risks and benefits and side effects including/and not limited to Sarcopenia, intestinal obstruction, constipation, nausea, lethargy, headache Discussed importance of protein consumption for muscle maintenance as well as strength and resistance training ,probiotics, B12 complex biotin , iron and other nutrients, To help avoid telogen effluvium We have discussed the lifelong requirement of nutritional supplementation And adherence to an exercise regimen as well as importance of follow-up We did discuss the neurohormonal changes that are occurring with these medications and Need for long-term Continued usage The patient understands and agrees There is no history of medullary thyroid cancer or multiple endocrine neoplasia There is also no history of cardiovascular disease, hypertension, palpitations, or arrhythmias In the setting of potential stimulant/amphetami ne use such as phentermine We have also discussed risks and benefits, and the use of compounded medications to help offset the national shortages as well as financial implications vs trade name drugs Patient was reassured and welcomed to the practice. We discussed that we stress a hollistic medical approach with emphasis on lifestyle modification. Patient was informed that a healthy lifestyle with exercise and good eating habits can help reduce his risk of medical complications. He is explained that obesity increases his risk of diabetes, cardiovascular disease, or organ damage. We spent a lot of time discussing the relationship between food, exercise, sleep, mental health and obesity. Patient was counseled on the importance EATING local, organic food when possible. Patient was educated on clean 15 and dirty dozen. I provided information about reading books called The Food Rules by Marky Johnson and Eat Fat Get Lean by Dr Deejay Sloan. Self education is important in the journey for weight management. Patient was offered diagnostic testing. We want to measure visceral adiposity, advanced body composition, adverse lipids, fatty acid balance, risk for heart disease and atherosclerosis, markers of inflammation and genetic susceptibility. Patient was counseled on weight management and was advised to lose weight using A. Meal Replacement Products We discussed the lifelong requirement of nutritional supplementation and adherence to an exercise regimen as well as importance of dietary follow-up Patient was educated on the replacement products called optifast. This is a good way of taking fixed amount of calories. It has been shown in studies to be ineffective weight management tool. We also recommend maintaining adequate protein intake and muscle composition, 1.5mg/kg This however has to be coupled with lifestyle intervention as well as laboratory data and EKG monitoring. It is impossible to know how a person will tolerate complete meal replacement. The side effects of meal replacement and weight loss could include syncopal attacks, dizziness, gallstones, potential cholecystectomy, possible heart attack and even . The benefits of meal replacement would be potential weight loss but no guarantees can be made. Meal replacement products are not covered by insurance. Once the patient has bought these products we cannot return them B. Lifestyle management which includes several strategies as below 1. Eat a low carbohydrate good fat good protein diet. Eliminate refined carbohydrates from the diet. Continue blood sugar and sugared beverages. Eat local organic when possible. Cook your own meals. Read food labels. None about healthy snacks. Portion control and food with low glycemic index 2. Exercise regularly. Try to get at least 6000 steps a day. Use a predominant to track activity level. Consider using apps like Innov[employer], Fabulepal, lose it, stick as needed for self-monitoring and weight management. Consider group exercises. Consider hiring a personal shopper. Regular exercise is arias to sustainable health and prevents as a buffer against weight regain 3. Sleep is most important for healing. Tried to sleep at least 8 hours a night. A good quality sleep needs a sleep ritual with ideal room temperature of around 68. It might help to take a shower and have no electronics in the room and sleep in a very dark room without artificial light. Start her sleep routine and get up early in the morning and go to bed on time 4. Make a social connection. Surround yourself with positive people with positive energy. Connect with friends and family. 5. Get into the habit of meditating and mindfulness while doing everything. 6. Go outside and connect with nature. C. Prescription medications Patient was educated on the use of prescription medications for medical weight loss. This is a growing list and includes phentermine, Topamax,Qsymia, contrave, belviq and saxenda. All prescription medications could have side effects including but not limited to kidney stones, seizure disorder cardiac arrhythmias heart attack pancreatitis etc. etc.. Patient was encouraged to read the prescription insert and have coaching with their pharmacist and make an informed decision about taking medication and know that these medications are being prescribed with good intentions and we do not know how a patient would react to her medication. Sudden medications are FDA approved for weight loss and there is also off label use depending on patient's inability to afford medications in an attempt to lose weight D. Behavioral counseling was done to establish a relationship between food and an mood. Patient was provided information about local counseling and psychiatry and Dr Novoa at [facility]. We would like to cover regular topics and build on low glycemic eating exercise mindful eating, using yoga and meditation along with deep breathing and connecting with friends and family. E. MASS PAT reviewed, Patient's current medications were reviewed and opinion was given on medication that can cause weight gain and can be substituted F. Patient was assessed for risk with obesity including and not limiting to atherosclerosis heart disease stroke kidney disease, restrictive lung disease, irritable bowel syndrome and overall mortality. Risk of developing prediabetes diabetes and metabolic syndrome was discussed G. Therapeutic plan: We have decided to make therapeutic plan which would include choosing wisely on calories restricting portion getting active, tracking weight, getting good quality sleep and working on time management H. Patient will follow up in (4) weeks for weight management Of note, some information is being carried forward from prior records for informational purposes only and is being cited so that efficiency, safety and quality of the patient's care is not compromised This note was prepared using voice recognition software and direct typing Please excuse inadvertent site identification specialist or typing errors, or uncorrected word substitutions Although every attempt has been made by the provider to proofread this document, occasional misspellings and typographical errors may still be present Due to the previous pandemic, and the use of personal protective equipment (PPE) This may decrease voice recognition accuracy Inadvertent site identification specialist errors may occur 09/02/2023 Peripheral polyneuropathy (ICD-10 - G62.9) #Weight Management 09/02/2023 Happy with progress which has been slow and steady Tolerating medication cont Wegovy to 2.4 We did discuss we can refer to plastic surgery to see if she can get potential skin excision when she is done losing weight and on maintenance dosing For recurrent fungal infections We discussed her body composition analysis today Improving parameters throughout and she is thriving on GLP-1 I would likely shy away from phnetermine given her history, age, and borderline blood pressure Metabolic unremarkable for prediabetic state or hyperinsulinemia Normal thyroid function Discussed importance of protein consumption for muscle maintenance, strength and resistance training as well as probiotics, B12 complex biotin , iron and other nutrients, To also help avoid telogen effluvium while on weight loss medications such as GLP-1 Total time spent today was 30 minutes of which greater than 50% was spent on coordinating and counseling Patient has been found to be obese with a BMI of (30). Patient has class (1) obesity. We are a board certified obesity and weight management practice Patient has trialed behavioral modification, dietary restrictions and exercise for a minimum of 6 months The most recent [place] [employer]ocrinologists and [place] [employer] guidelines recommend patients who have overweight BMI or obesity BMI, who also have metabolic syndrome, prediabetes, HLD, and other comorbidities or at risk of developing type 2 diabetes should aim for a weight loss goal of at least 10% of the baseline body weight Patient counseled regarding effects of GLP/GIP-1 agonists, and other FDA approved wgt loss meds with regards to a multifactorial approach of weight loss as mentioned above and not solely appetite suppression. We have discussed the mechanism of GLP-1's/GIP, dual incretins, appetitite suppressants I think this would be fantastic option for her given her metabolic workup and body composition We have discussed the risks and benefits and side effects including/and not limited to Sarcopenia, intestinal obstruction, constipation, nausea, lethargy, headache Discussed importance of protein consumption for muscle maintenance as well as strength and resistance training ,probiotics, B12 complex biotin , iron and other nutrients, To help avoid telogen effluvium We have discussed the lifelong requirement of nutritional supplementation And adherence to an exercise regimen as well as importance of follow-up We did discuss the neurohormonal changes that are occurring with these medications and Need for long-term Continued usage The patient understands and agrees There is no history of medullary thyroid cancer or multiple endocrine neoplasia There is also no history of cardiovascular disease, hypertension, palpitations, or arrhythmias In the setting of potential stimulant/amphetami ne use such as phentermine We have also discussed risks and benefits, and the use of compounded medications to help offset the national shortages as well as financial implications vs trade name drugs Patient was reassured and welcomed to the practice. We discussed that we stress a hollistic medical approach with emphasis on lifestyle modification. Patient was informed that a healthy lifestyle with exercise and good eating habits can help reduce his risk of medical complications. He is explained that obesity increases his risk of diabetes, cardiovascular disease, or organ damage. We spent a lot of time discussing the relationship between food, exercise, sleep, mental health and obesity. Patient was counseled on the importance EATING local, organic food when possible. Patient was educated on clean 15 and dirty dozen. I provided information about reading books called The Food Rules by Marky Johnson and Eat Fat Get Lean by Dr Deejay Sloan. Self education is important in the journey for weight management. Patient was offered diagnostic testing. We want to measure visceral adiposity, advanced body composition, adverse lipids, fatty acid balance, risk for heart disease and atherosclerosis, markers of inflammation and genetic susceptibility. Patient was counseled on weight management and was advised to lose weight using A. Meal Replacement Products We discussed the lifelong requirement of nutritional supplementation and adherence to an exercise regimen as well as importance of dietary follow-up Patient was educated on the replacement products called optifast. This is a good way of taking fixed amount of calories. It has been shown in studies to be ineffective weight management tool. We also recommend maintaining adequate protein intake and muscle composition, 1.5mg/kg This however has to be coupled with lifestyle intervention as well as laboratory data and EKG monitoring. It is impossible to know how a person will tolerate complete meal replacement. The side effects of meal replacement and weight loss could include syncopal attacks, dizziness, gallstones, potential cholecystectomy, possible heart attack and even . The benefits of meal replacement would be potential weight loss but no guarantees can be made. Meal replacement products are not covered by insurance. Once the patient has bought these products we cannot return them B. Lifestyle management which includes several strategies as below 1. Eat a low carbohydrate good fat good protein diet. Eliminate refined carbohydrates from the diet. Continue blood sugar and sugared beverages. Eat local organic when possible. Cook your own meals. Read food labels. None about healthy snacks. Portion control and food with low glycemic index 2. Exercise regularly. Try to get at least 6000 steps a day. Use a predominant to track activity level. Consider using apps like Innovate2, Fabulepal, lose it, stick as needed for self-monitoring and weight management. Consider group exercises. Consider hiring a personal shopper. Regular exercise is arias to sustainable health and prevents as a buffer against weight regain 3. Sleep is most important for healing. Tried to sleep at least 8 hours a night. A good quality sleep needs a sleep ritual with ideal room temperature of around 68. It might help to take a shower and have no electronics in the room and sleep in a very dark room without artificial light. Start her sleep routine and get up early in the morning and go to bed on time 4. Make a social connection. Surround yourself with positive people with positive energy. Connect with friends and family. 5. Get into the habit of meditating and mindfulness while doing everything. 6. Go outside and connect with nature. C. Prescription medications Patient was educated on the use of prescription medications for medical weight loss. This is a growing list and includes phentermine, Topamax,Qsymia, contrave, belviq and saxenda. All prescription medications could have side effects including but not limited to kidney stones, seizure disorder cardiac arrhythmias heart attack pancreatitis etc. etc.. Patient was encouraged to read the prescription insert and have coaching with their pharmacist and make an informed decision about taking medication and know that these medications are being prescribed with good intentions and we do not know how a patient would react to her medication. Sudden medications are FDA approved for weight loss and there is also off label use depending on patient's inability to afford medications in an attempt to lose weight D. Behavioral counseling was done to establish a relationship between food and an mood. Patient was provided information about local counseling and psychiatry and Dr Novoa at [facility]. We would like to cover regular topics and build on low glycemic eating exercise mindful eating, using yoga and meditation along with deep breathing and connecting with friends and family. E. MASS PAT reviewed, Patient's current medications were reviewed and opinion was given on medication that can cause weight gain and can be substituted F. Patient was assessed for risk with obesity including and not limiting to atherosclerosis heart disease stroke kidney disease, restrictive lung disease, irritable bowel syndrome and overall mortality. Risk of developing prediabetes diabetes and metabolic syndrome was discussed G. Therapeutic plan: We have decided to make therapeutic plan which would include choosing wisely on calories restricting portion getting active, tracking weight, getting good quality sleep and working on time management H. Patient will follow up in (4) weeks for weight management Of note, some information is being carried forward from prior records for informational purposes only and is being cited so that efficiency, safety and quality of the patient's care is not compromised This note was prepared using voice recognition software and direct typing Please excuse inadvertent site identification specialist or typing errors, or uncorrected word substitutions Although every attempt has been made by the provider to proofread this document, occasional misspellings and typographical errors may still be present Due to the previous pandemic, and the use of personal protective equipment (PPE) This may decrease voice recognition accuracy Inadvertent site identification specialist errors may occur 12/02/2023 BMI 29.0-29.9,adult (ICD-10 - Z68.29) #Weight Management 12/02/2023 Happy with progress which has been slow and steady Tolerating medication cont Wegovy to 2.4 We did discuss we can refer to plastic surgery to see if she can get potential skin excision when she is done losing weight and on maintenance dosing For recurrent fungal infections Nystatin topical We discussed her body composition analysis today Improving parameters throughout and she is thriving on GLP-1 I would likely shy away from phnetermine given her history, age, and borderline blood pressure Metabolic unremarkable for prediabetic state or hyperinsulinemia Normal thyroid function Discussed importance of protein consumption for muscle maintenance, strength and resistance training as well as probiotics, B12 complex biotin , iron and other nutrients, To also help avoid telogen effluvium while on weight loss medications such as GLP-1 Total time spent today was 30 minutes of which greater than 50% was spent on coordinating and counseling Patient has been found to be overweight with a BMI of (29). Patient has overweight class per BMI standards We are a board certified obesity and weight management practice Patient has trialed behavioral modification, dietary restrictions and exercise for a minimum of 6 months The most recent [place] [employer]ocrin[employer] and [place] [employer] guidelines recommend patients who have overweight BMI or obesity BMI, who also have metabolic syndrome, prediabetes, HLD, and other comorbidities or at risk of developing type 2 diabetes should aim for a weight loss goal of at least 10% of the baseline body weight Patient counseled regarding effects of GLP/GIP-1 agonists, and other FDA approved wgt loss meds with regards to a multifactorial approach of weight loss as mentioned above and not solely appetite suppression. We have discussed the mechanism of GLP-1's/GIP, dual incretins, appetitite suppressants I think this would be fantastic option for her given her metabolic workup and body composition We have discussed the risks and benefits and side effects including/and not limited to Sarcopenia, intestinal obstruction, constipation, nausea, lethargy, headache Discussed importance of protein consumption for muscle maintenance as well as strength and resistance training ,probiotics, B12 complex biotin , iron and other nutrients, To help avoid telogen effluvium We have discussed the lifelong requirement of nutritional supplementation And adherence to an exercise regimen as well as importance of follow-up We did discuss the neurohormonal changes that are occurring with these medications and Need for long-term Continued usage The patient understands and agrees There is no history of medullary thyroid cancer or multiple endocrine neoplasia There is also no history of cardiovascular disease, hypertension, palpitations, or arrhythmias In the setting of potential stimulant/amphetami ne use such as phentermine We have also discussed risks and benefits, and the use of compounded medications to help offset the national shortages as well as financial implications vs trade name drugs Patient was reassured and welcomed to the practice. We discussed that we stress a hollistic medical approach with emphasis on lifestyle modification. Patient was informed that a healthy lifestyle with exercise and good eating habits can help reduce his risk of medical complications. He is explained that obesity increases his risk of diabetes, cardiovascular disease, or organ damage. We spent a lot of time discussing the relationship between food, exercise, sleep, mental health and obesity. Patient was counseled on the importance EATING local, organic food when possible. Patient was educated on clean 15 and dirty dozen. I provided information about reading books called The Food Rules by Marky Johnson and Eat Fat Get Lean by Dr Deejay Sloan. Self education is important in the journey for weight management. Patient was offered diagnostic testing. We want to measure visceral adiposity, advanced body composition, adverse lipids, fatty acid balance, risk for heart disease and atherosclerosis, markers of inflammation and genetic susceptibility. Patient was counseled on weight management and was advised to lose weight using A. Meal Replacement Products We discussed the lifelong requirement of nutritional supplementation and adherence to an exercise regimen as well as importance of dietary follow-up Patient was educated on the replacement products called optifast. This is a good way of taking fixed amount of calories. It has been shown in studies to be ineffective weight management tool. We also recommend maintaining adequate protein intake and muscle composition, 1.5mg/kg This however has to be coupled with lifestyle intervention as well as laboratory data and EKG monitoring. It is impossible to know how a person will tolerate complete meal replacement. The side effects of meal replacement and weight loss could include syncopal attacks, dizziness, gallstones, potential cholecystectomy, possible heart attack and even . The benefits of meal replacement would be potential weight loss but no guarantees can be made. Meal replacement products are not covered by insurance. Once the patient has bought these products we cannot return them B. Lifestyle management which includes several strategies as below 1. Eat a low carbohydrate good fat good protein diet. Eliminate refined carbohydrates from the diet. Continue blood sugar and sugared beverages. Eat local organic when possible. Cook your own meals. Read food labels. None about healthy snacks. Portion control and food with low glycemic index 2. Exercise regularly. Try to get at least 6000 steps a day. Use a predominant to track activity level. Consider using apps like Innovate2, myfitnesspal, lose it, stick as needed for self-monitoring and weight management. Consider group exercises. Consider hiring a personal shopper. Regular exercise is arias to sustainable health and prevents as a buffer against weight regain 3. Sleep is most important for healing. Tried to sleep at least 8 hours a night. A good quality sleep needs a sleep ritual with ideal room temperature of around 68. It might help to take a shower and have no electronics in the room and sleep in a very dark room without artificial light. Start her sleep routine and get up early in the morning and go to bed on time 4. Make a social connection. Surround yourself with positive people with positive energy. Connect with friends and family. 5. Get into the habit of meditating and mindfulness while doing everything. 6. Go outside and connect with nature. C. Prescription medications Patient was educated on the use of prescription medications for medical weight loss. This is a growing list and includes phentermine, Topamax,Qsymia, contrave, belviq and saxenda. All prescription medications could have side effects including but not limited to kidney stones, seizure disorder cardiac arrhythmias heart attack pancreatitis etc. etc.. Patient was encouraged to read the prescription insert and have coaching with their pharmacist and make an informed decision about taking medication and know that these medications are being prescribed with good intentions and we do not know how a patient would react to her medication. Sudden medications are FDA approved for weight loss and there is also off label use depending on patient's inability to afford medications in an attempt to lose weight D. Behavioral counseling was done to establish a relationship between food and an mood. Patient was provided information about local counseling and psychiatry and Dr Novoa at [facility]. We would like to cover regular topics and build on low glycemic eating exercise mindful eating, using yoga and meditation along with deep breathing and connecting with friends and family. E. MASS PAT reviewed, Patient's current medications were reviewed and opinion was given on medication that can cause weight gain and can be substituted F. Patient was assessed for risk with obesity including and not limiting to atherosclerosis heart disease stroke kidney disease, restrictive lung disease, irritable bowel syndrome and overall mortality. Risk of developing prediabetes diabetes and metabolic syndrome was discussed G. Therapeutic plan: We have decided to make therapeutic plan which would include choosing wisely on calories restricting portion getting active, tracking weight, getting good quality sleep and working on time management H. Patient will follow up in (4) weeks for weight management Of note, some information is being carried forward from prior records for informational purposes only and is being cited so that efficiency, safety and quality of the patient's care is not compromised This note was prepared using voice recognition software and direct typing Please excuse inadvertent site identification specialist or typing errors, or uncorrected word substitutions Although every attempt has been made by the provider to proofread this document, occasional misspellings and typographical errors may still be present Due to the previous pandemic, and the use of personal protective equipment (PPE) This may decrease voice recognition accuracy Inadvertent site identification specialist errors may occur 12/02/2023 Overweight (BMI 25.0-29.9) (ICD-10 - E66.3) #Weight Management 12/02/2023 Happy with progress which has been slow and steady Tolerating medication cont Wegovy to 2.4 We did discuss we can refer to plastic surgery to see if she can get potential skin excision when she is done losing weight and on maintenance dosing For recurrent fungal infections Nystatin topical We discussed her body composition analysis today Improving parameters throughout and she is thriving on GLP-1 I would likely shy away from phnetermine given her history, age, and borderline blood pressure Metabolic unremarkable for prediabetic state or hyperinsulinemia Normal thyroid function Discussed importance of protein consumption for muscle maintenance, strength and resistance training as well as probiotics, B12 complex biotin , iron and other nutrients, To also help avoid telogen effluvium while on weight loss medications such as GLP-1 Total time spent today was 30 minutes of which greater than 50% was spent on coordinating and counseling Patient has been found to be overweight with a BMI of (29). Patient has overweight class per BMI standards We are a board certified obesity and weight management practice Patient has trialed behavioral modification, dietary restrictions and exercise for a minimum of 6 months The most recent [place] [employer]ocrinologists and [place] [employer] guidelines recommend patients who have overweight BMI or obesity BMI, who also have metabolic syndrome, prediabetes, HLD, and other comorbidities or at risk of developing type 2 diabetes should aim for a weight loss goal of at least 10% of the baseline body weight Patient counseled regarding effects of GLP/GIP-1 agonists, and other FDA approved wgt loss meds with regards to a multifactorial approach of weight loss as mentioned above and not solely appetite suppression. We have discussed the mechanism of GLP-1's/GIP, dual incretins, appetitite suppressants I think this would be fantastic option for her given her metabolic workup and body composition We have discussed the risks and benefits and side effects including/and not limited to Sarcopenia, intestinal obstruction, constipation, nausea, lethargy, headache Discussed importance of protein consumption for muscle maintenance as well as strength and resistance training ,probiotics, B12 complex biotin , iron and other nutrients, To help avoid telogen effluvium We have discussed the lifelong requirement of nutritional supplementation And adherence to an exercise regimen as well as importance of follow-up We did discuss the neurohormonal changes that are occurring with these medications and Need for long-term Continued usage The patient understands and agrees There is no history of medullary thyroid cancer or multiple endocrine neoplasia There is also no history of cardiovascular disease, hypertension, palpitations, or arrhythmias In the setting of potential stimulant/amphetami ne use such as phentermine We have also discussed risks and benefits, and the use of compounded medications to help offset the national shortages as well as financial implications vs trade name drugs Patient was reassured and welcomed to the practice. We discussed that we stress a hollistic medical approach with emphasis on lifestyle modification. Patient was informed that a healthy lifestyle with exercise and good eating habits can help reduce his risk of medical complications. He is explained that obesity increases his risk of diabetes, cardiovascular disease, or organ damage. We spent a lot of time discussing the relationship between food, exercise, sleep, mental health and obesity. Patient was counseled on the importance EATING local, organic food when possible. Patient was educated on clean 15 and dirty dozen. I provided information about reading books called The Food Rules by Marky Johnson and Eat Fat Get Lean by Dr Deejay Sloan. Self education is important in the journey for weight management. Patient was offered diagnostic testing. We want to measure visceral adiposity, advanced body composition, adverse lipids, fatty acid balance, risk for heart disease and atherosclerosis, markers of inflammation and genetic susceptibility. Patient was counseled on weight management and was advised to lose weight using A. Meal Replacement Products We discussed the lifelong requirement of nutritional supplementation and adherence to an exercise regimen as well as importance of dietary follow-up Patient was educated on the replacement products called optifast. This is a good way of taking fixed amount of calories. It has been shown in studies to be ineffective weight management tool. We also recommend maintaining adequate protein intake and muscle composition, 1.5mg/kg This however has to be coupled with lifestyle intervention as well as laboratory data and EKG monitoring. It is impossible to know how a person will tolerate complete meal replacement. The side effects of meal replacement and weight loss could include syncopal attacks, dizziness, gallstones, potential cholecystectomy, possible heart attack and even . The benefits of meal replacement would be potential weight loss but no guarantees can be made. Meal replacement products are not covered by insurance. Once the patient has bought these products we cannot return them B. Lifestyle management which includes several strategies as below 1. Eat a low carbohydrate good fat good protein diet. Eliminate refined carbohydrates from the diet. Continue blood sugar and sugared beverages. Eat local organic when possible. Cook your own meals. Read food labels. None about healthy snacks. Portion control and food with low glycemic index 2. Exercise regularly. Try to get at least 6000 steps a day. Use a predominant to track activity level. Consider using apps like Innovate2, Fabulepal, lose it, stick as needed for self-monitoring and weight management. Consider group exercises. Consider hiring a personal shopper. Regular exercise is arias to sustainable health and prevents as a buffer against weight regain 3. Sleep is most important for healing. Tried to sleep at least 8 hours a night. A good quality sleep needs a sleep ritual with ideal room temperature of around 68. It might help to take a shower and have no electronics in the room and sleep in a very dark room without artificial light. Start her sleep routine and get up early in the morning and go to bed on time 4. Make a social connection. Surround yourself with positive people with positive energy. Connect with friends and family. 5. Get into the habit of meditating and mindfulness while doing everything. 6. Go outside and connect with nature. C. Prescription medications Patient was educated on the use of prescription medications for medical weight loss. This is a growing list and includes phentermine, Topamax,Qsymia, contrave, belviq and saxenda. All prescription medications could have side effects including but not limited to kidney stones, seizure disorder cardiac arrhythmias heart attack pancreatitis etc. etc.. Patient was encouraged to read the prescription insert and have coaching with their pharmacist and make an informed decision about taking medication and know that these medications are being prescribed with good intentions and we do not know how a patient would react to her medication. Sudden medications are FDA approved for weight loss and there is also off label use depending on patient's inability to afford medications in an attempt to lose weight D. Behavioral counseling was done to establish a relationship between food and an mood. Patient was provided information about local counseling and psychiatry and Dr Novoa at [facility]. We would like to cover regular topics and build on low glycemic eating exercise mindful eating, using yoga and meditation along with deep breathing and connecting with friends and family. E. MASS PAT reviewed, Patient's current medications were reviewed and opinion was given on medication that can cause weight gain and can be substituted F. Patient was assessed for risk with obesity including and not limiting to atherosclerosis heart disease stroke kidney disease, restrictive lung disease, irritable bowel syndrome and overall mortality. Risk of developing prediabetes diabetes and metabolic syndrome was discussed G. Therapeutic plan: We have decided to make therapeutic plan which would include choosing wisely on calories restricting portion getting active, tracking weight, getting good quality sleep and working on time management H. Patient will follow up in (4) weeks for weight management Of note, some information is being carried forward from prior records for informational purposes only and is being cited so that efficiency, safety and quality of the patient's care is not compromised This note was prepared using voice recognition software and direct typing Please excuse inadvertent site identification specialist or typing errors, or uncorrected word substitutions Although every attempt has been made by the provider to proofread this document, occasional misspellings and typographical errors may still be present Due to the previous pandemic, and the use of personal protective equipment (PPE) This may decrease voice recognition accuracy Inadvertent site identification specialist errors may occur 02/03/2024 BMI 27.0-27.9,adult (ICD-10 - Z68.27) #Weight Management 02/03/2024 Happy with progress which has been slow and steady Tolerating medication cont Wegovy to 2.4 We did discuss we can refer to plastic surgery to see if she can get potential skin excision when she is done losing weight and on maintenance dosing For recurrent fungal infections Nystatin topical We discussed her body composition analysis today Improving parameters throughout and she is thriving on GLP-1 I would likely shy away from phnetermine given her history, age, and borderline blood pressure Metabolic unremarkable for prediabetic state or hyperinsulinemia Normal thyroid function Discussed importance of protein consumption for muscle maintenance, strength and resistance training as well as probiotics, B12 complex biotin , iron and other nutrients, To also help avoid telogen effluvium while on weight loss medications such as GLP-1 Total time spent today was 30 minutes of which greater than 50% was spent on coordinating and counseling Patient has been found to be overweight with a BMI of (27). Patient has overweight class per BMI standards We are a board certified obesity and weight management practice Patient has trialed behavioral modification, dietary restrictions and exercise for a minimum of 6 months The most recent [place] [employer]in[employer] and [place] [employer] guidelines recommend patients who have overweight BMI or obesity BMI, who also have metabolic syndrome, prediabetes, HLD, and other comorbidities or at risk of developing type 2 diabetes should aim for a weight loss goal of at least 10% of the baseline body weight Patient counseled regarding effects of GLP/GIP-1 agonists, and other FDA approved wgt loss meds with regards to a multifactorial approach of weight loss as mentioned above and not solely appetite suppression. We have discussed the mechanism of GLP-1's/GIP, dual incretins, appetitite suppressants I think this would be fantastic option for her given her metabolic workup and body composition We have discussed the risks and benefits and side effects including/and not limited to Sarcopenia, intestinal obstruction, constipation, nausea, lethargy, headache Discussed importance of protein consumption for muscle maintenance as well as strength and resistance training ,probiotics, B12 complex biotin , iron and other nutrients, To help avoid telogen effluvium We have discussed the lifelong requirement of nutritional supplementation And adherence to an exercise regimen as well as importance of follow-up We did discuss the neurohormonal changes that are occurring with these medications and Need for long-term Continued usage The patient understands and agrees There is no history of medullary thyroid cancer or multiple endocrine neoplasia There is also no history of cardiovascular disease, hypertension, palpitations, or arrhythmias In the setting of potential stimulant/amphetami ne use such as phentermine We have also discussed risks and benefits, and the use of compounded medications to help offset the national shortages as well as financial implications vs trade name drugs Patient was reassured and welcomed to the practice. We discussed that we stress a hollistic medical approach with emphasis on lifestyle modification. Patient was informed that a healthy lifestyle with exercise and good eating habits can help reduce his risk of medical complications. He is explained that obesity increases his risk of diabetes, cardiovascular disease, or organ damage. We spent a lot of time discussing the relationship between food, exercise, sleep, mental health and obesity. Patient was counseled on the importance EATING local, organic food when possible. Patient was educated on clean 15 and dirty dozen. I provided information about reading books called The Food Rules by Marky Johnson and Eat Fat Get Lean by Dr Deejay Sloan. Self education is important in the journey for weight management. Patient was offered diagnostic testing. We want to measure visceral adiposity, advanced body composition, adverse lipids, fatty acid balance, risk for heart disease and atherosclerosis, markers of inflammation and genetic susceptibility. Patient was counseled on weight management and was advised to lose weight using A. Meal Replacement Products We discussed the lifelong requirement of nutritional supplementation and adherence to an exercise regimen as well as importance of dietary follow-up Patient was educated on the replacement products called optifast. This is a good way of taking fixed amount of calories. It has been shown in studies to be ineffective weight management tool. We also recommend maintaining adequate protein intake and muscle composition, 1.5mg/kg This however has to be coupled with lifestyle intervention as well as laboratory data and EKG monitoring. It is impossible to know how a person will tolerate complete meal replacement. The side effects of meal replacement and weight loss could include syncopal attacks, dizziness, gallstones, potential cholecystectomy, possible heart attack and even . The benefits of meal replacement would be potential weight loss but no guarantees can be made. Meal replacement products are not covered by insurance. Once the patient has bought these products we cannot return them B. Lifestyle management which includes several strategies as below 1. Eat a low carbohydrate good fat good protein diet. Eliminate refined carbohydrates from the diet. Continue blood sugar and sugared beverages. Eat local organic when possible. Cook your own meals. Read food labels. None about healthy snacks. Portion control and food with low glycemic index 2. Exercise regularly. Try to get at least 6000 steps a day. Use a predominant to track activity level. Consider using apps like Innovate2, Fabulepal, lose it, stick as needed for self-monitoring and weight management. Consider group exercises. Consider hiring a personal shopper. Regular exercise is arias to sustainable health and prevents as a buffer against weight regain 3. Sleep is most important for healing. Tried to sleep at least 8 hours a night. A good quality sleep needs a sleep ritual with ideal room temperature of around 68. It might help to take a shower and have no electronics in the room and sleep in a very dark room without artificial light. Start her sleep routine and get up early in the morning and go to bed on time 4. Make a social connection. Surround yourself with positive people with positive energy. Connect with friends and family. 5. Get into the habit of meditating and mindfulness while doing everything. 6. Go outside and connect with nature. C. Prescription medications Patient was educated on the use of prescription medications for medical weight loss. This is a growing list and includes phentermine, Topamax,Qsymia, contrave, belviq and saxenda. All prescription medications could have side effects including but not limited to kidney stones, seizure disorder cardiac arrhythmias heart attack pancreatitis etc. etc.. Patient was encouraged to read the prescription insert and have coaching with their pharmacist and make an informed decision about taking medication and know that these medications are being prescribed with good intentions and we do not know how a patient would react to her medication. Sudden medications are FDA approved for weight loss and there is also off label use depending on patient's inability to afford medications in an attempt to lose weight D. Behavioral counseling was done to establish a relationship between food and an mood. Patient was provided information about local counseling and psychiatry and Dr Novoa at [facility]. We would like to cover regular topics and build on low glycemic eating exercise mindful eating, using yoga and meditation along with deep breathing and connecting with friends and family. E. MASS PAT reviewed, Patient's current medications were reviewed and opinion was given on medication that can cause weight gain and can be substituted F. Patient was assessed for risk with obesity including and not limiting to atherosclerosis heart disease stroke kidney disease, restrictive lung disease, irritable bowel syndrome and overall mortality. Risk of developing prediabetes diabetes and metabolic syndrome was discussed G. Therapeutic plan: We have decided to make therapeutic plan which would include choosing wisely on calories restricting portion getting active, tracking weight, getting good quality sleep and working on time management H. Patient will follow up in (4) weeks for weight management Of note, some information is being carried forward from prior records for informational purposes only and is being cited so that efficiency, safety and quality of the patient's care is not compromised This note was prepared using voice recognition software and direct typing Please excuse inadvertent site identification specialist or typing errors, or uncorrected word substitutions Although every attempt has been made by the provider to proofread this document, occasional misspellings and typographical errors may still be present Due to the previous pandemic, and the use of personal protective equipment (PPE) This may decrease voice recognition accuracy Inadvertent site identification specialist errors may occur 02/03/2024 Overweight (BMI 25.0-29.9) (ICD-10 - E66.3) #Weight Management 02/03/2024 Happy with progress which has been slow and steady Tolerating medication cont Wegovy to 2.4 We did discuss we can refer to plastic surgery to see if she can get potential skin excision when she is done losing weight and on maintenance dosing For recurrent fungal infections Nystatin topical We discussed her body composition analysis today Improving parameters throughout and she is thriving on GLP-1 I would likely shy away from phnetermine given her history, age, and borderline blood pressure Metabolic unremarkable for prediabetic state or hyperinsulinemia Normal thyroid function Discussed importance of protein consumption for muscle maintenance, strength and resistance training as well as probiotics, B12 complex biotin , iron and other nutrients, To also help avoid telogen effluvium while on weight loss medications such as GLP-1 Total time spent today was 30 minutes of which greater than 50% was spent on coordinating and counseling Patient has been found to be overweight with a BMI of (27). Patient has overweight class per BMI standards We are a board certified obesity and weight management practice Patient has trialed behavioral modification, dietary restrictions and exercise for a minimum of 6 months The most recent [place] [employer]in[employer] and [place] [employer] guidelines recommend patients who have overweight BMI or obesity BMI, who also have metabolic syndrome, prediabetes, HLD, and other comorbidities or at risk of developing type 2 diabetes should aim for a weight loss goal of at least 10% of the baseline body weight Patient counseled regarding effects of GLP/GIP-1 agonists, and other FDA approved wgt loss meds with regards to a multifactorial approach of weight loss as mentioned above and not solely appetite suppression. We have discussed the mechanism of GLP-1's/GIP, dual incretins, appetitite suppressants I think this would be fantastic option for her given her metabolic workup and body composition We have discussed the risks and benefits and side effects including/and not limited to Sarcopenia, intestinal obstruction, constipation, nausea, lethargy, headache Discussed importance of protein consumption for muscle maintenance as well as strength and resistance training ,probiotics, B12 complex biotin , iron and other nutrients, To help avoid telogen effluvium We have discussed the lifelong requirement of nutritional supplementation And adherence to an exercise regimen as well as importance of follow-up We did discuss the neurohormonal changes that are occurring with these medications and Need for long-term Continued usage The patient understands and agrees There is no history of medullary thyroid cancer or multiple endocrine neoplasia There is also no history of cardiovascular disease, hypertension, palpitations, or arrhythmias In the setting of potential stimulant/amphetami ne use such as phentermine We have also discussed risks and benefits, and the use of compounded medications to help offset the national shortages as well as financial implications vs trade name drugs Patient was reassured and welcomed to the practice. We discussed that we stress a hollistic medical approach with emphasis on lifestyle modification. Patient was informed that a healthy lifestyle with exercise and good eating habits can help reduce his risk of medical complications. He is explained that obesity increases his risk of diabetes, cardiovascular disease, or organ damage. We spent a lot of time discussing the relationship between food, exercise, sleep, mental health and obesity. Patient was counseled on the importance EATING local, organic food when possible. Patient was educated on clean 15 and dirty dozen. I provided information about reading books called The Food Rules by Marky Johnsno and Eat Fat Get Lean by Dr Deejay Sloan. Self education is important in the journey for weight management. Patient was offered diagnostic testing. We want to measure visceral adiposity, advanced body composition, adverse lipids, fatty acid balance, risk for heart disease and atherosclerosis, markers of inflammation and genetic susceptibility. Patient was counseled on weight management and was advised to lose weight using A. Meal Replacement Products We discussed the lifelong requirement of nutritional supplementation and adherence to an exercise regimen as well as importance of dietary follow-up Patient was educated on the replacement products called optifast. This is a good way of taking fixed amount of calories. It has been shown in studies to be ineffective weight management tool. We also recommend maintaining adequate protein intake and muscle composition, 1.5mg/kg This however has to be coupled with lifestyle intervention as well as laboratory data and EKG monitoring. It is impossible to know how a person will tolerate complete meal replacement. The side effects of meal replacement and weight loss could include syncopal attacks, dizziness, gallstones, potential cholecystectomy, possible heart attack and even . The benefits of meal replacement would be potential weight loss but no guarantees can be made. Meal replacement products are not covered by insurance. Once the patient has bought these products we cannot return them B. Lifestyle management which includes several strategies as below 1. Eat a low carbohydrate good fat good protein diet. Eliminate refined carbohydrates from the diet. Continue blood sugar and sugared beverages. Eat local organic when possible. Cook your own meals. Read food labels. None about healthy snacks. Portion control and food with low glycemic index 2. Exercise regularly. Try to get at least 6000 steps a day. Use a predominant to track activity level. Consider using apps like Innovate2, Fabulepal, lose it, stick as needed for self-monitoring and weight management. Consider group exercises. Consider hiring a personal shopper. Regular exercise is arias to sustainable health and prevents as a buffer against weight regain 3. Sleep is most important for healing. Tried to sleep at least 8 hours a night. A good quality sleep needs a sleep ritual with ideal room temperature of around 68. It might help to take a shower and have no electronics in the room and sleep in a very dark room without artificial light. Start her sleep routine and get up early in the morning and go to bed on time 4. Make a social connection. Surround yourself with positive people with positive energy. Connect with friends and family. 5. Get into the habit of meditating and mindfulness while doing everything. 6. Go outside and connect with nature. C. Prescription medications Patient was educated on the use of prescription medications for medical weight loss. This is a growing list and includes phentermine, Topamax,Qsymia, contrave, belviq and saxenda. All prescription medications could have side effects including but not limited to kidney stones, seizure disorder cardiac arrhythmias heart attack pancreatitis etc. etc.. Patient was encouraged to read the prescription insert and have coaching with their pharmacist and make an informed decision about taking medication and know that these medications are being prescribed with good intentions and we do not know how a patient would react to her medication. Sudden medications are FDA approved for weight loss and there is also off label use depending on patient's inability to afford medications in an attempt to lose weight D. Behavioral counseling was done to establish a relationship between food and an mood. Patient was provided information about local counseling and psychiatry and Dr Novoa at [facility]. We would like to cover regular topics and build on low glycemic eating exercise mindful eating, using yoga and meditation along with deep breathing and connecting with friends and family. E. MASS PAT reviewed, Patient's current medications were reviewed and opinion was given on medication that can cause weight gain and can be substituted F. Patient was assessed for risk with obesity including and not limiting to atherosclerosis heart disease stroke kidney disease, restrictive lung disease, irritable bowel syndrome and overall mortality. Risk of developing prediabetes diabetes and metabolic syndrome was discussed G. Therapeutic plan: We have decided to make therapeutic plan which would include choosing wisely on calories restricting portion getting active, tracking weight, getting good quality sleep and working on time management H. Patient will follow up in (4) weeks for weight management Of note, some information is being carried forward from prior records for informational purposes only and is being cited so that efficiency, safety and quality of the patient's care is not compromised This note was prepared using voice recognition software and direct typing Please excuse inadvertent site identification specialist or typing errors, or uncorrected word substitutions Although every attempt has been made by the provider to proofread this document, occasional misspellings and typographical errors may still be present Due to the previous pandemic, and the use of personal protective equipment (PPE) This may decrease voice recognition accuracy Inadvertent site identification specialist errors may occur 03/30/2024 BMI 27.0-27.9,adult (ICD-10 - Z68.27) #Weight Management 03/30/2024 Happy with progress which has been slow and steady down additional 6lbs of fat mass Tolerating medication cont Wegovy to 2.4 We did discuss we can refer to plastic surgery to see if she can get potential skin excision when she is done losing weight and on maintenance dosing For recurrent fungal infections Nystatin topical We discussed her body composition analysis today Improving parameters throughout and she is thriving on GLP-1 I would likely shy away from phnetermine given her history, age, and borderline blood pressure Total time spent today was 30 minutes of which greater than 50% was spent on coordinating and counseling Patient has been found to be overweight with a BMI of (27). Patient has overweight class per BMI standards We are a board certified obesity and weight management practice Patient has trialed behavioral modification, dietary restrictions and exercise for a minimum of 6 months The most recent [place] [employer]ocrin[employer] and [place] [employer] guidelines recommend patients who have overweight BMI or obesity BMI, who also have metabolic syndrome, prediabetes, HLD, and other comorbidities or at risk of developing type 2 diabetes should aim for a weight loss goal of at least 10% of the baseline body weight Patient counseled regarding effects of GLP/GIP-1 agonists, and other FDA approved wgt loss meds with regards to a multifactorial approach of weight loss as mentioned above and not solely appetite suppression. Of note, some information is being carried forward from prior records for informational purposes only and is being cited so that efficiency, safety and quality of the patient's care is not compromised This note was prepared using voice recognition software and direct typing Please excuse inadvertent site identification specialist or typing errors, or uncorrected word substitutions Although every attempt has been made by the provider to proofread this document, occasional misspellings and typographical errors may still be present Due to the previous pandemic, and the use of personal protective equipment (PPE) This may decrease voice recognition accuracy Inadvertent site identification specialist errors may occur 05/19/2024 BMI 27.0-27.9,adult (ICD-10 - Z68.27) #Weight Management 05/19/2024 _update comprehensive labs before next visit Happy [...] board certified obesity and weight management practice Patient has trialed behavioral modification, dietary restrictions and exercise for a minimum of 6 months The most recent [place] [employer]ocrinologists and [place] [employer] guidelines recommend patients who have overweight BMI or obesity BMI, who also have metabolic syndrome, prediabetes, HLD, and other comorbidities or at risk of developing type 2 diabetes should aim for a weight loss goal of at least 10% of the baseline body weight Patient counseled regarding effects of GLP/GIP-1 agonists, and other FDA approved wgt loss meds with regards to a multifactorial approach of weight loss as mentioned above and not solely appetite suppression. Of note, some information is being carried forward from prior records for informational purposes only and is being cited so that efficiency, safety and quality of the patient's care is not compromised This note was prepared using voice recognition software and direct typing Please excuse inadvertent site identification specialist or typing errors, or uncorrected word substitutions Although every attempt has been made by the provider to proofread this document, occasional misspellings and typographical errors may still be present Due to the previous pandemic, and the use of personal protective equipment (PPE) This may decrease voice recognition accuracy Inadvertent site identification specialist errors may occur 06/29/2024 BMI 27.0-27.9,adult (ICD-10 - Z68.27) #Weight [...] software and direct typing Please excuse inadvertent site identification specialist or typing errors, or uncorrected word substitutions Although every attempt has been made by the provider to proofread this document, occasional misspellings and typographical errors may still be present Due to the previous pandemic, and the use of personal protective equipment (PPE) This may decrease voice recognition accuracy Inadvertent site identification specialist errors may occur 07/22/2024 BMI 27.0-27.9,adult (ICD-10 - Z68.27) #Weight Management 07/22/2024 [facility] today to get labs later this [...] software and direct typing Please excuse inadvertent site identification specialist or typing errors, or uncorrected word substitutions Although every attempt has been made by the provider to proofread this document, occasional misspellings and typographical errors may still be present Due to the previous pandemic, and the use of personal protective equipment (PPE) This may decrease voice recognition accuracy Inadvertent site identification specialist errors may occur 07/22/2024 Overweight (BMI 25.0-29.9) (ICD-10 - E66.3) #Weight Management 07/22/2024 [facility] today to get labs later this [...] software and direct typing Please excuse inadvertent site identification specialist or typing errors, or uncorrected word substitutions Although every attempt has been made by the provider to proofread this document, occasional misspellings and typographical errors may still be present Due to the previous pandemic, and the use of personal protective equipment (PPE) This may decrease voice recognition accuracy Inadvertent site identification specialist errors may occur 06/29/2024 Overweight (BMI 25.0-29.9) [...] software and direct typing Please excuse inadvertent site identification specialist or typing errors, or uncorrected word substitutions Although every attempt has been made by the provider to proofread this document, occasional misspellings and typographical errors may still be present Due to the previous pandemic, and the use of personal protective equipment (PPE) This may decrease voice recognition accuracy Inadvertent site identification specialist errors may occur 05/19/2024 Overweight (BMI 25.0-29.9) (ICD-10 - E66.3) #Weight Management 05/19/2024 _update comprehensive labs before next visit Happy [...] board certified obesity and weight management practice Patient has trialed behavioral modification, dietary restrictions and exercise for a minimum of 6 months The most recent [place] [employer]in[employer] and [place] [employer] guidelines recommend patients who have overweight BMI or obesity BMI, who also have metabolic syndrome, prediabetes, HLD, and other comorbidities or at risk of developing type 2 diabetes should aim for a weight loss goal of at least 10% of the baseline body weight Patient counseled regarding effects of GLP/GIP-1 agonists, and other FDA approved wgt loss meds with regards to a multifactorial approach of weight loss as mentioned above and not solely appetite suppression. Of note, some information is being carried forward from prior records for informational purposes only and is being cited so that efficiency, safety and quality of the patient's care is not compromised This note was prepared using voice recognition software and direct typing Please excuse inadvertent site identification specialist or typing errors, or uncorrected word substitutions Although every attempt has been made by the provider to proofread this document, occasional misspellings and typographical errors may still be present Due to the previous pandemic, and the use of personal protective equipment (PPE) This may decrease voice recognition accuracy Inadvertent site identification specialist errors may occur 03/30/2024 Overweight (BMI 25.0-29.9) (ICD-10 - E66.3) #Weight Management 03/30/2024 Happy with progress which has been slow and steady down additional 6lbs of fat mass Tolerating medication cont Wegovy to 2.4 We did discuss we can refer to plastic surgery to see if she can get potential skin excision when she is done losing weight and on maintenance dosing For recurrent fungal infections Nystatin topical We discussed her body composition analysis today Improving parameters throughout and she is thriving on GLP-1 I would likely shy away from phnetermine given her history, age, and borderline blood pressure Total time spent today was 30 minutes of which greater than 50% was spent on coordinating and counseling Patient has been found to be overweight with a BMI of (27). Patient has overweight class per BMI standards We are a board certified obesity and weight management practice Patient has trialed behavioral modification, dietary restrictions and exercise for a minimum of 6 months The most recent [place] [employer] and [place] [employer] guidelines recommend patients who have overweight BMI or obesity BMI, who also have metabolic syndrome, prediabetes, HLD, and other comorbidities or at risk of developing type 2 diabetes should aim for a weight loss goal of at least 10% of the baseline body weight Patient counseled regarding effects of GLP/GIP-1 agonists, and other FDA approved wgt loss meds with regards to a multifactorial approach of weight loss as mentioned above and not solely appetite suppression. Of note, some information is being carried forward from prior records for informational purposes only and is being cited so that efficiency, safety and quality of the patient's care is not compromised This note was prepared using voice recognition software and direct typing Please excuse inadvertent site identification specialist or typing errors, or uncorrected word substitutions Although every attempt has been made by the provider to proofread this document, occasional misspellings and typographical errors may still be present Due to the previous pandemic, and the use of personal protective equipment (PPE) This may decrease voice recognition accuracy Inadvertent site identification specialist errors may occur 05/19/2024 Peripheral polyneuropathy (ICD-10 - G62.9) #Weight Management 05/19/2024 _update comprehensive labs before next visit Happy [...] board certified obesity and weight management practice Patient has trialed behavioral modification, dietary restrictions and exercise for a minimum of 6 months The most recent [place] [employer]in[employer] and [place] [employer] guidelines recommend patients who have overweight BMI or obesity BMI, who also have metabolic syndrome, prediabetes, HLD, and other comorbidities or at risk of developing type 2 diabetes should aim for a weight loss goal of at least 10% of the baseline body weight Patient counseled regarding effects of GLP/GIP-1 agonists, and other FDA approved wgt loss meds with regards to a multifactorial approach of weight loss as mentioned above and not solely appetite suppression. Of note, some information is being carried forward from prior records for informational purposes only and is being cited so that efficiency, safety and quality of the patient's care is not compromised This note was prepared using voice recognition software and direct typing Please excuse inadvertent site identification specialist or typing errors, or uncorrected word substitutions Although every attempt has been made by the provider to proofread this document, occasional misspellings and typographical errors may still be present Due to the previous pandemic, and the use of personal protective equipment (PPE) This may decrease voice recognition accuracy Inadvertent site identification specialist errors may occur 02/03/2024 Peripheral polyneuropathy (ICD-10 - G62.9) #Weight Management 02/03/2024 Happy with progress which has been slow and steady Tolerating medication cont Wegovy to 2.4 We did discuss we can refer to plastic surgery to see if she can get potential skin excision when she is done losing weight and on maintenance dosing For recurrent fungal infections Nystatin topical We discussed her body composition analysis today Improving parameters throughout and she is thriving on GLP-1 I would likely shy away from phnetermine given her history, age, and borderline blood pressure Metabolic unremarkable for prediabetic state or hyperinsulinemia Normal thyroid function Discussed importance of protein consumption for muscle maintenance, strength and resistance training as well as probiotics, B12 complex biotin , iron and other nutrients, To also help avoid telogen effluvium while on weight loss medications such as GLP-1 Total time spent today was 30 minutes of which greater than 50% was spent on coordinating and counseling Patient has been found to be overweight with a BMI of (27). Patient has overweight class per BMI standards We are a board certified obesity and weight management practice Patient has trialed behavioral modification, dietary restrictions and exercise for a minimum of 6 months The most recent [place] [employer]in[employer] and [place] [employer] guidelines recommend patients who have overweight BMI or obesity BMI, who also have metabolic syndrome, prediabetes, HLD, and other comorbidities or at risk of developing type 2 diabetes should aim for a weight loss goal of at least 10% of the baseline body weight Patient counseled regarding effects of GLP/GIP-1 agonists, and other FDA approved wgt loss meds with regards to a multifactorial approach of weight loss as mentioned above and not solely appetite suppression. We have discussed the mechanism of GLP-1's/GIP, dual incretins, appetitite suppressants I think this would be fantastic option for her given her metabolic workup and body composition We have discussed the risks and benefits and side effects including/and not limited to Sarcopenia, intestinal obstruction, constipation, nausea, lethargy, headache Discussed importance of protein consumption for muscle maintenance as well as strength and resistance training ,probiotics, B12 complex biotin , iron and other nutrients, To help avoid telogen effluvium We have discussed the lifelong requirement of nutritional supplementation And adherence to an exercise regimen as well as importance of follow-up We did discuss the neurohormonal changes that are occurring with these medications and Need for long-term Continued usage The patient understands and agrees There is no history of medullary thyroid cancer or multiple endocrine neoplasia There is also no history of cardiovascular disease, hypertension, palpitations, or arrhythmias In the setting of potential stimulant/amphetami ne use such as phentermine We have also discussed risks and benefits, and the use of compounded medications to help offset the national shortages as well as financial implications vs trade name drugs Patient was reassured and welcomed to the practice. We discussed that we stress a hollistic medical approach with emphasis on lifestyle modification. Patient was informed that a healthy lifestyle with exercise and good eating habits can help reduce his risk of medical complications. He is explained that obesity increases his risk of diabetes, cardiovascular disease, or organ damage. We spent a lot of time discussing the relationship between food, exercise, sleep, mental health and obesity. Patient was counseled on the importance EATING local, organic food when possible. Patient was educated on clean 15 and dirty dozen. I provided information about reading books called The Food Rules by Marky Johnson and Eat Fat Get Lean by Dr Deejay Sloan. Self education is important in the journey for weight management. Patient was offered diagnostic testing. We want to measure visceral adiposity, advanced body composition, adverse lipids, fatty acid balance, risk for heart disease and atherosclerosis, markers of inflammation and genetic susceptibility. Patient was counseled on weight management and was advised to lose weight using A. Meal Replacement Products We discussed the lifelong requirement of nutritional supplementation and adherence to an exercise regimen as well as importance of dietary follow-up Patient was educated on the replacement products called optifast. This is a good way of taking fixed amount of calories. It has been shown in studies to be ineffective weight management tool. We also recommend maintaining adequate protein intake and muscle composition, 1.5mg/kg This however has to be coupled with lifestyle intervention as well as laboratory data and EKG monitoring. It is impossible to know how a person will tolerate complete meal replacement. The side effects of meal replacement and weight loss could include syncopal attacks, dizziness, gallstones, potential cholecystectomy, possible heart attack and even . The benefits of meal replacement would be potential weight loss but no guarantees can be made. Meal replacement products are not covered by insurance. Once the patient has bought these products we cannot return them B. Lifestyle management which includes several strategies as below 1. Eat a low carbohydrate good fat good protein diet. Eliminate refined carbohydrates from the diet. Continue blood sugar and sugared beverages. Eat local organic when possible. Cook your own meals. Read food labels. None about healthy snacks. Portion control and food with low glycemic index 2. Exercise regularly. Try to get at least 6000 steps a day. Use a predominant to track activity level. Consider using apps like Innov[employer], myCBTecpal, lose it, stick as needed for self-monitoring and weight management. Consider group exercises. Consider hiring a personal shopper. Regular exercise is arias to sustainable health and prevents as a buffer against weight regain 3. Sleep is most important for healing. Tried to sleep at least 8 hours a night. A good quality sleep needs a sleep ritual with ideal room temperature of around 68. It might help to take a shower and have no electronics in the room and sleep in a very dark room without artificial light. Start her sleep routine and get up early in the morning and go to bed on time 4. Make a social connection. Surround yourself with positive people with positive energy. Connect with friends and family. 5. Get into the habit of meditating and mindfulness while doing everything. 6. Go outside and connect with nature. C. Prescription medications Patient was educated on the use of prescription medications for medical weight loss. This is a growing list and includes phentermine, Topamax,Qsymia, contrave, belviq and saxenda. All prescription medications could have side effects including but not limited to kidney stones, seizure disorder cardiac arrhythmias heart attack pancreatitis etc. etc.. Patient was encouraged to read the prescription insert and have coaching with their pharmacist and make an informed decision about taking medication and know that these medications are being prescribed with good intentions and we do not know how a patient would react to her medication. Sudden medications are FDA approved for weight loss and there is also off label use depending on patient's inability to afford medications in an attempt to lose weight D. Behavioral counseling was done to establish a relationship between food and an mood. Patient was provided information about local counseling and psychiatry and Dr Novoa at [facility]. We would like to cover regular topics and build on low glycemic eating exercise mindful eating, using yoga and meditation along with deep breathing and connecting with friends and family. E. MASS PAT reviewed, Patient's current medications were reviewed and opinion was given on medication that can cause weight gain and can be substituted F. Patient was assessed for risk with obesity including and not limiting to atherosclerosis heart disease stroke kidney disease, restrictive lung disease, irritable bowel syndrome and overall mortality. Risk of developing prediabetes diabetes and metabolic syndrome was discussed G. Therapeutic plan: We have decided to make therapeutic plan which would include choosing wisely on calories restricting portion getting active, tracking weight, getting good quality sleep and working on time management H. Patient will follow up in (4) weeks for weight management Of note, some information is being carried forward from prior records for informational purposes only and is being cited so that efficiency, safety and quality of the patient's care is not compromised This note was prepared using voice recognition software and direct typing Please excuse inadvertent site identification specialist or typing errors, or uncorrected word substitutions Although every attempt has been made by the provider to proofread this document, occasional misspellings and typographical errors may still be present Due to the previous pandemic, and the use of personal protective equipment (PPE) This may decrease voice recognition accuracy Inadvertent site identification specialist errors may occur 12/02/2023 Peripheral polyneuropathy (ICD-10 - G62.9) #Weight Management 12/02/2023 Happy with progress which has been slow and steady Tolerating medication cont Wegovy to 2.4 We did discuss we can refer to plastic surgery to see if she can get potential skin excision when she is done losing weight and on maintenance dosing For recurrent fungal infections Nystatin topical We discussed her body composition analysis today Improving parameters throughout and she is thriving on GLP-1 I would likely shy away from phnetermine given her history, age, and borderline blood pressure Metabolic unremarkable for prediabetic state or hyperinsulinemia Normal thyroid function Discussed importance of protein consumption for muscle maintenance, strength and resistance training as well as probiotics, B12 complex biotin , iron and other nutrients, To also help avoid telogen effluvium while on weight loss medications such as GLP-1 Total time spent today was 30 minutes of which greater than 50% was spent on coordinating and counseling Patient has been found to be overweight with a BMI of (29). Patient has overweight class per BMI standards We are a board certified obesity and weight management practice Patient has trialed behavioral modification, dietary restrictions and exercise for a minimum of 6 months The most recent [place] [employer]in[employer] and [place] [employer] guidelines recommend patients who have overweight BMI or obesity BMI, who also have metabolic syndrome, prediabetes, HLD, and other comorbidities or at risk of developing type 2 diabetes should aim for a weight loss goal of at least 10% of the baseline body weight Patient counseled regarding effects of GLP/GIP-1 agonists, and other FDA approved wgt loss meds with regards to a multifactorial approach of weight loss as mentioned above and not solely appetite suppression. We have discussed the mechanism of GLP-1's/GIP, dual incretins, appetitite suppressants I think this would be fantastic option for her given her metabolic workup and body composition We have discussed the risks and benefits and side effects including/and not limited to Sarcopenia, intestinal obstruction, constipation, nausea, lethargy, headache Discussed importance of protein consumption for muscle maintenance as well as strength and resistance training ,probiotics, B12 complex biotin , iron and other nutrients, To help avoid telogen effluvium We have discussed the lifelong requirement of nutritional supplementation And adherence to an exercise regimen as well as importance of follow-up We did discuss the neurohormonal changes that are occurring with these medications and Need for long-term Continued usage The patient understands and agrees There is no history of medullary thyroid cancer or multiple endocrine neoplasia There is also no history of cardiovascular disease, hypertension, palpitations, or arrhythmias In the setting of potential stimulant/amphetami ne use such as phentermine We have also discussed risks and benefits, and the use of compounded medications to help offset the national shortages as well as financial implications vs trade name drugs Patient was reassured and welcomed to the practice. We discussed that we stress a hollistic medical approach with emphasis on lifestyle modification. Patient was informed that a healthy lifestyle with exercise and good eating habits can help reduce his risk of medical complications. He is explained that obesity increases his risk of diabetes, cardiovascular disease, or organ damage. We spent a lot of time discussing the relationship between food, exercise, sleep, mental health and obesity. Patient was counseled on the importance EATING local, organic food when possible. Patient was educated on clean 15 and dirty dozen. I provided information about reading books called The Food Rules by Marky Johnson and Eat Fat Get Lean by Dr Deejay Sloan. Self education is important in the journey for weight management. Patient was offered diagnostic testing. We want to measure visceral adiposity, advanced body composition, adverse lipids, fatty acid balance, risk for heart disease and atherosclerosis, markers of inflammation and genetic susceptibility. Patient was counseled on weight management and was advised to lose weight using A. Meal Replacement Products We discussed the lifelong requirement of nutritional supplementation and adherence to an exercise regimen as well as importance of dietary follow-up Patient was educated on the replacement products called optifast. This is a good way of taking fixed amount of calories. It has been shown in studies to be ineffective weight management tool. We also recommend maintaining adequate protein intake and muscle composition, 1.5mg/kg This however has to be coupled with lifestyle intervention as well as laboratory data and EKG monitoring. It is impossible to know how a person will tolerate complete meal replacement. The side effects of meal replacement and weight loss could include syncopal attacks, dizziness, gallstones, potential cholecystectomy, possible heart attack and even . The benefits of meal replacement would be potential weight loss but no guarantees can be made. Meal replacement products are not covered by insurance. Once the patient has bought these products we cannot return them B. Lifestyle management which includes several strategies as below 1. Eat a low carbohydrate good fat good protein diet. Eliminate refined carbohydrates from the diet. Continue blood sugar and sugared beverages. Eat local organic when possible. Cook your own meals. Read food labels. None about healthy snacks. Portion control and food with low glycemic index 2. Exercise regularly. Try to get at least 6000 steps a day. Use a predominant to track activity level. Consider using apps like Innov[employer], [employer]pal, lose it, stick as needed for self-monitoring and weight management. Consider group exercises. Consider hiring a personal shopper. Regular exercise is arias to sustainable health and prevents as a buffer against weight regain 3. Sleep is most important for healing. Tried to sleep at least 8 hours a night. A good quality sleep needs a sleep ritual with ideal room temperature of around 68. It might help to take a shower and have no electronics in the room and sleep in a very dark room without artificial light. Start her sleep routine and get up early in the morning and go to bed on time 4. Make a social connection. Surround yourself with positive people with positive energy. Connect with friends and family. 5. Get into the habit of meditating and mindfulness while doing everything. 6. Go outside and connect with nature. C. Prescription medications Patient was educated on the use of prescription medications for medical weight loss. This is a growing list and includes phentermine, Topamax,Qsymia, contrave, belviq and saxenda. All prescription medications could have side effects including but not limited to kidney stones, seizure disorder cardiac arrhythmias heart attack pancreatitis etc. etc.. Patient was encouraged to read the prescription insert and have coaching with their pharmacist and make an informed decision about taking medication and know that these medications are being prescribed with good intentions and we do not know how a patient would react to her medication. Sudden medications are FDA approved for weight loss and there is also off label use depending on patient's inability to afford medications in an attempt to lose weight D. Behavioral counseling was done to establish a relationship between food and an mood. Patient was provided information about local counseling and psychiatry and Dr Novoa at [facility]. We would like to cover regular topics and build on low glycemic eating exercise mindful eating, using yoga and meditation along with deep breathing and connecting with friends and family. E. MASS PAT reviewed, Patient's current medications were reviewed and opinion was given on medication that can cause weight gain and can be substituted F. Patient was assessed for risk with obesity including and not limiting to atherosclerosis heart disease stroke kidney disease, restrictive lung disease, irritable bowel syndrome and overall mortality. Risk of developing prediabetes diabetes and metabolic syndrome was discussed G. Therapeutic plan: We have decided to make therapeutic plan which would include choosing wisely on calories restricting portion getting active, tracking weight, getting good quality sleep and working on time management H. Patient will follow up in (4) weeks for weight management Of note, some information is being carried forward from prior records for informational purposes only and is being cited so that efficiency, safety and quality of the patient's care is not compromised This note was prepared using voice recognition software and direct typing Please excuse inadvertent site identification specialist or typing errors, or uncorrected word substitutions Although every attempt has been made by the provider to proofread this document, occasional misspellings and typographical errors may still be present Due to the previous pandemic, and the use of personal protective equipment (PPE) This may decrease voice recognition accuracy Inadvertent site identification specialist errors may occur 09/02/2023 Endometrial cancer (ICD-10 - C54.1) #Weight Management 09/02/2023 Happy with progress which has been slow and steady Tolerating medication cont Wegovy to 2.4 We did discuss we can refer to plastic surgery to see if she can get potential skin excision when she is done losing weight and on maintenance dosing For recurrent fungal infections We discussed her body composition analysis today Improving parameters throughout and she is thriving on GLP-1 I would likely shy away from phnetermine given her history, age, and borderline blood pressure Metabolic unremarkable for prediabetic state or hyperinsulinemia Normal thyroid function Discussed importance of protein consumption for muscle maintenance, strength and resistance training as well as probiotics, B12 complex biotin , iron and other nutrients, To also help avoid telogen effluvium while on weight loss medications such as GLP-1 Total time spent today was 30 minutes of which greater than 50% was spent on coordinating and counseling Patient has been found to be obese with a BMI of (30). Patient has class (1) obesity. We are a board certified obesity and weight management practice Patient has trialed behavioral modification, dietary restrictions and exercise for a minimum of 6 months The most recent [place] [employer] and [place] [employer] guidelines recommend patients who have overweight BMI or obesity BMI, who also have metabolic syndrome, prediabetes, HLD, and other comorbidities or at risk of developing type 2 diabetes should aim for a weight loss goal of at least 10% of the baseline body weight Patient counseled regarding effects of GLP/GIP-1 agonists, and other FDA approved wgt loss meds with regards to a multifactorial approach of weight loss as mentioned above and not solely appetite suppression. We have discussed the mechanism of GLP-1's/GIP, dual incretins, appetitite suppressants I think this would be fantastic option for her given her metabolic workup and body composition We have discussed the risks and benefits and side effects including/and not limited to Sarcopenia, intestinal obstruction, constipation, nausea, lethargy, headache Discussed importance of protein consumption for muscle maintenance as well as strength and resistance training ,probiotics, B12 complex biotin , iron and other nutrients, To help avoid telogen effluvium We have discussed the lifelong requirement of nutritional supplementation And adherence to an exercise regimen as well as importance of follow-up We did discuss the neurohormonal changes that are occurring with these medications and Need for long-term Continued usage The patient understands and agrees There is no history of medullary thyroid cancer or multiple endocrine neoplasia There is also no history of cardiovascular disease, hypertension, palpitations, or arrhythmias In the setting of potential stimulant/amphetami ne use such as phentermine We have also discussed risks and benefits, and the use of compounded medications to help offset the national shortages as well as financial implications vs trade name drugs Patient was reassured and welcomed to the practice. We discussed that we stress a hollistic medical approach with emphasis on lifestyle modification. Patient was informed that a healthy lifestyle with exercise and good eating habits can help reduce his risk of medical complications. He is explained that obesity increases his risk of diabetes, cardiovascular disease, or organ damage. We spent a lot of time discussing the relationship between food, exercise, sleep, mental health and obesity. Patient was counseled on the importance EATING local, organic food when possible. Patient was educated on clean 15 and dirty dozen. I provided information about reading books called The Food Rules by Marky Johnson and Eat Fat Get Lean by Dr Deejay Sloan. Self education is important in the journey for weight management. Patient was offered diagnostic testing. We want to measure visceral adiposity, advanced body composition, adverse lipids, fatty acid balance, risk for heart disease and atherosclerosis, markers of inflammation and genetic susceptibility. Patient was counseled on weight management and was advised to lose weight using A. Meal Replacement Products We discussed the lifelong requirement of nutritional supplementation and adherence to an exercise regimen as well as importance of dietary follow-up Patient was educated on the replacement products called optifast. This is a good way of taking fixed amount of calories. It has been shown in studies to be ineffective weight management tool. We also recommend maintaining adequate protein intake and muscle composition, 1.5mg/kg This however has to be coupled with lifestyle intervention as well as laboratory data and EKG monitoring. It is impossible to know how a person will tolerate complete meal replacement. The side effects of meal replacement and weight loss could include syncopal attacks, dizziness, gallstones, potential cholecystectomy, possible heart attack and even . The benefits of meal replacement would be potential weight loss but no guarantees can be made. Meal replacement products are not covered by insurance. Once the patient has bought these products we cannot return them B. Lifestyle management which includes several strategies as below 1. Eat a low carbohydrate good fat good protein diet. Eliminate refined carbohydrates from the diet. Continue blood sugar and sugared beverages. Eat local organic when possible. Cook your own meals. Read food labels. None about healthy snacks. Portion control and food with low glycemic index 2. Exercise regularly. Try to get at least 6000 steps a day. Use a predominant to track activity level. Consider using apps like Innovate2, myfitnesspal, lose it, stick as needed for self-monitoring and weight management. Consider group exercises. Consider hiring a personal shopper. Regular exercise is arias to sustainable health and prevents as a buffer against weight regain 3. Sleep is most important for healing. Tried to sleep at least 8 hours a night. A good quality sleep needs a sleep ritual with ideal room temperature of around 68. It might help to take a shower and have no electronics in the room and sleep in a very dark room without artificial light. Start her sleep routine and get up early in the morning and go to bed on time 4. Make a social connection. Surround yourself with positive people with positive energy. Connect with friends and family. 5. Get into the habit of meditating and mindfulness while doing everything. 6. Go outside and connect with nature. C. Prescription medications Patient was educated on the use of prescription medications for medical weight loss. This is a growing list and includes phentermine, Topamax,Qsymia, contrave, belviq and saxenda. All prescription medications could have side effects including but not limited to kidney stones, seizure disorder cardiac arrhythmias heart attack pancreatitis etc. etc.. Patient was encouraged to read the prescription insert and have coaching with their pharmacist and make an informed decision about taking medication and know that these medications are being prescribed with good intentions and we do not know how a patient would react to her medication. Sudden medications are FDA approved for weight loss and there is also off label use depending on patient's inability to afford medications in an attempt to lose weight D. Behavioral counseling was done to establish a relationship between food and an mood. Patient was provided information about local counseling and psychiatry and Dr Novoa at [facility]. We would like to cover regular topics and build on low glycemic eating exercise mindful eating, using yoga and meditation along with deep breathing and connecting with friends and family. E. MASS PAT reviewed, Patient's current medications were reviewed and opinion was given on medication that can cause weight gain and can be substituted F. Patient was assessed for risk with obesity including and not limiting to atherosclerosis heart disease stroke kidney disease, restrictive lung disease, irritable bowel syndrome and overall mortality. Risk of developing prediabetes diabetes and metabolic syndrome was discussed G. Therapeutic plan: We have decided to make therapeutic plan which would include choosing wisely on calories restricting portion getting active, tracking weight, getting good quality sleep and working on time management H. Patient will follow up in (4) weeks for weight management Of note, some information is being carried forward from prior records for informational purposes only and is being cited so that efficiency, safety and quality of the patient's care is not compromised This note was prepared using voice recognition software and direct typing Please excuse inadvertent site identification specialist or typing errors, or uncorrected word substitutions Although every attempt has been made by the provider to proofread this document, occasional misspellings and typographical errors may still be present Due to the previous pandemic, and the use of personal protective equipment (PPE) This may decrease voice recognition accuracy Inadvertent site identification specialist errors may occur 09/02/2023 PCOS (polycystic ovarian syndrome) (ICD-10 - E28.2) #Weight Management 09/02/2023 Happy with progress which has been slow and steady Tolerating medication cont Wegovy to 2.4 We did discuss we can refer to plastic surgery to see if she can get potential skin excision when she is done losing weight and on maintenance dosing For recurrent fungal infections We discussed her body composition analysis today Improving parameters throughout and she is thriving on GLP-1 I would likely shy away from phnetermine given her history, age, and borderline blood pressure Metabolic unremarkable for prediabetic state or hyperinsulinemia Normal thyroid function Discussed importance of protein consumption for muscle maintenance, strength and resistance training as well as probiotics, B12 complex biotin , iron and other nutrients, To also help avoid telogen effluvium while on weight loss medications such as GLP-1 Total time spent today was 30 minutes of which greater than 50% was spent on coordinating and counseling Patient has been found to be obese with a BMI of (30). Patient has class (1) obesity. We are a board certified obesity and weight management practice Patient has trialed behavioral modification, dietary restrictions and exercise for a minimum of 6 months The most recent [place] [employer]in[employer] and [place] [employer] guidelines recommend patients who have overweight BMI or obesity BMI, who also have metabolic syndrome, prediabetes, HLD, and other comorbidities or at risk of developing type 2 diabetes should aim for a weight loss goal of at least 10% of the baseline body weight Patient counseled regarding effects of GLP/GIP-1 agonists, and other FDA approved wgt loss meds with regards to a multifactorial approach of weight loss as mentioned above and not solely appetite suppression. We have discussed the mechanism of GLP-1's/GIP, dual incretins, appetitite suppressants I think this would be fantastic option for her given her metabolic workup and body composition We have discussed the risks and benefits and side effects including/and not limited to Sarcopenia, intestinal obstruction, constipation, nausea, lethargy, headache Discussed importance of protein consumption for muscle maintenance as well as strength and resistance training ,probiotics, B12 complex biotin , iron and other nutrients, To help avoid telogen effluvium We have discussed the lifelong requirement of nutritional supplementation And adherence to an exercise regimen as well as importance of follow-up We did discuss the neurohormonal changes that are occurring with these medications and Need for long-term Continued usage The patient understands and agrees There is no history of medullary thyroid cancer or multiple endocrine neoplasia There is also no history of cardiovascular disease, hypertension, palpitations, or arrhythmias In the setting of potential stimulant/amphetami ne use such as phentermine We have also discussed risks and benefits, and the use of compounded medications to help offset the national shortages as well as financial implications vs trade name drugs Patient was reassured and welcomed to the practice. We discussed that we stress a hollistic medical approach with emphasis on lifestyle modification. Patient was informed that a healthy lifestyle with exercise and good eating habits can help reduce his risk of medical complications. He is explained that obesity increases his risk of diabetes, cardiovascular disease, or organ damage. We spent a lot of time discussing the relationship between food, exercise, sleep, mental health and obesity. Patient was counseled on the importance EATING local, organic food when possible. Patient was educated on clean 15 and dirty dozen. I provided information about reading books called The Food Rules by Marky Johnson and Eat Fat Get Lean by Dr Deejay Sloan. Self education is important in the journey for weight management. Patient was offered diagnostic testing. We want to measure visceral adiposity, advanced body composition, adverse lipids, fatty acid balance, risk for heart disease and atherosclerosis, markers of inflammation and genetic susceptibility. Patient was counseled on weight management and was advised to lose weight using A. Meal Replacement Products We discussed the lifelong requirement of nutritional supplementation and adherence to an exercise regimen as well as importance of dietary follow-up Patient was educated on the replacement products called optifast. This is a good way of taking fixed amount of calories. It has been shown in studies to be ineffective weight management tool. We also recommend maintaining adequate protein intake and muscle composition, 1.5mg/kg This however has to be coupled with lifestyle intervention as well as laboratory data and EKG monitoring. It is impossible to know how a person will tolerate complete meal replacement. The side effects of meal replacement and weight loss could include syncopal attacks, dizziness, gallstones, potential cholecystectomy, possible heart attack and even . The benefits of meal replacement would be potential weight loss but no guarantees can be made. Meal replacement products are not covered by insurance. Once the patient has bought these products we cannot return them B. Lifestyle management which includes several strategies as below 1. Eat a low carbohydrate good fat good protein diet. Eliminate refined carbohydrates from the diet. Continue blood sugar and sugared beverages. Eat local organic when possible. Cook your own meals. Read food labels. None about healthy snacks. Portion control and food with low glycemic index 2. Exercise regularly. Try to get at least 6000 steps a day. Use a predominant to track activity level. Consider using apps like Innovate2, Fabulepal, lose it, stick as needed for self-monitoring and weight management. Consider group exercises. Consider hiring a personal shopper. Regular exercise is arias to sustainable health and prevents as a buffer against weight regain 3. Sleep is most important for healing. Tried to sleep at least 8 hours a night. A good quality sleep needs a sleep ritual with ideal room temperature of around 68. It might help to take a shower and have no electronics in the room and sleep in a very dark room without artificial light. Start her sleep routine and get up early in the morning and go to bed on time 4. Make a social connection. Surround yourself with positive people with positive energy. Connect with friends and family. 5. Get into the habit of meditating and mindfulness while doing everything. 6. Go outside and connect with nature. C. Prescription medications Patient was educated on the use of prescription medications for medical weight loss. This is a growing list and includes phentermine, Topamax,Qsymia, contrave, belviq and saxenda. All prescription medications could have side effects including but not limited to kidney stones, seizure disorder cardiac arrhythmias heart attack pancreatitis etc. etc.. Patient was encouraged to read the prescription insert and have coaching with their pharmacist and make an informed decision about taking medication and know that these medications are being prescribed with good intentions and we do not know how a patient would react to her medication. Sudden medications are FDA approved for weight loss and there is also off label use depending on patient's inability to afford medications in an attempt to lose weight D. Behavioral counseling was done to establish a relationship between food and an mood. Patient was provided information about local counseling and psychiatry and Dr Novoa at [facility]. We would like to cover regular topics and build on low glycemic eating exercise mindful eating, using yoga and meditation along with deep breathing and connecting with friends and family. E. MASS PAT reviewed, Patient's current medications were reviewed and opinion was given on medication that can cause weight gain and can be substituted F. Patient was assessed for risk with obesity including and not limiting to atherosclerosis heart disease stroke kidney disease, restrictive lung disease, irritable bowel syndrome and overall mortality. Risk of developing prediabetes diabetes and metabolic syndrome was discussed G. Therapeutic plan: We have decided to make therapeutic plan which would include choosing wisely on calories restricting portion getting active, tracking weight, getting good quality sleep and working on time management H. Patient will follow up in (4) weeks for weight management Of note, some information is being carried forward from prior records for informational purposes only and is being cited so that efficiency, safety and quality of the patient's care is not compromised This note was prepared using voice recognition software and direct typing Please excuse inadvertent site identification specialist or typing errors, or uncorrected word substitutions Although every attempt has been made by the provider to proofread this document, occasional misspellings and typographical errors may still be present Due to the previous pandemic, and the use of personal protective equipment (PPE) This may decrease voice recognition accuracy Inadvertent site identification specialist errors may occur 12/02/2023 Endometrial cancer (ICD-10 - C54.1) #Weight Management 12/02/2023 Happy with progress which has been slow and steady Tolerating medication cont Wegovy to 2.4 We did discuss we can refer to plastic surgery to see if she can get potential skin excision when she is done losing weight and on maintenance dosing For recurrent fungal infections Nystatin topical We discussed her body composition analysis today Improving parameters throughout and she is thriving on GLP-1 I would likely shy away from phnetermine given her history, age, and borderline blood pressure Metabolic unremarkable for prediabetic state or hyperinsulinemia Normal thyroid function Discussed importance of protein consumption for muscle maintenance, strength and resistance training as well as probiotics, B12 complex biotin , iron and other nutrients, To also help avoid telogen effluvium while on weight loss medications such as GLP-1 Total time spent today was 30 minutes of which greater than 50% was spent on coordinating and counseling Patient has been found to be overweight with a BMI of (29). Patient has overweight class per BMI standards We are a board certified obesity and weight management practice Patient has trialed behavioral modification, dietary restrictions and exercise for a minimum of 6 months The most recent [place] [employer]in[employer] and [place] [employer] guidelines recommend patients who have overweight BMI or obesity BMI, who also have metabolic syndrome, prediabetes, HLD, and other comorbidities or at risk of developing type 2 diabetes should aim for a weight loss goal of at least 10% of the baseline body weight Patient counseled regarding effects of GLP/GIP-1 agonists, and other FDA approved wgt loss meds with regards to a multifactorial approach of weight loss as mentioned above and not solely appetite suppression. We have discussed the mechanism of GLP-1's/GIP, dual incretins, appetitite suppressants I think this would be fantastic option for her given her metabolic workup and body composition We have discussed the risks and benefits and side effects including/and not limited to Sarcopenia, intestinal obstruction, constipation, nausea, lethargy, headache Discussed importance of protein consumption for muscle maintenance as well as strength and resistance training ,probiotics, B12 complex biotin , iron and other nutrients, To help avoid telogen effluvium We have discussed the lifelong requirement of nutritional supplementation And adherence to an exercise regimen as well as importance of follow-up We did discuss the neurohormonal changes that are occurring with these medications and Need for long-term Continued usage The patient understands and agrees There is no history of medullary thyroid cancer or multiple endocrine neoplasia There is also no history of cardiovascular disease, hypertension, palpitations, or arrhythmias In the setting of potential stimulant/amphetami ne use such as phentermine We have also discussed risks and benefits, and the use of compounded medications to help offset the national shortages as well as financial implications vs trade name drugs Patient was reassured and welcomed to the practice. We discussed that we stress a hollistic medical approach with emphasis on lifestyle modification. Patient was informed that a healthy lifestyle with exercise and good eating habits can help reduce his risk of medical complications. He is explained that obesity increases his risk of diabetes, cardiovascular disease, or organ damage. We spent a lot of time discussing the relationship between food, exercise, sleep, mental health and obesity. Patient was counseled on the importance EATING local, organic food when possible. Patient was educated on clean 15 and dirty dozen. I provided information about reading books called The Food Rules by Marky Johnson and Eat Fat Get Lean by Dr Deejay Sloan. Self education is important in the journey for weight management. Patient was offered diagnostic testing. We want to measure visceral adiposity, advanced body composition, adverse lipids, fatty acid balance, risk for heart disease and atherosclerosis, markers of inflammation and genetic susceptibility. Patient was counseled on weight management and was advised to lose weight using A. Meal Replacement Products We discussed the lifelong requirement of nutritional supplementation and adherence to an exercise regimen as well as importance of dietary follow-up Patient was educated on the replacement products called optifast. This is a good way of taking fixed amount of calories. It has been shown in studies to be ineffective weight management tool. We also recommend maintaining adequate protein intake and muscle composition, 1.5mg/kg This however has to be coupled with lifestyle intervention as well as laboratory data and EKG monitoring. It is impossible to know how a person will tolerate complete meal replacement. The side effects of meal replacement and weight loss could include syncopal attacks, dizziness, gallstones, potential cholecystectomy, possible heart attack and even . The benefits of meal replacement would be potential weight loss but no guarantees can be made. Meal replacement products are not covered by insurance. Once the patient has bought these products we cannot return them B. Lifestyle management which includes several strategies as below 1. Eat a low carbohydrate good fat good protein diet. Eliminate refined carbohydrates from the diet. Continue blood sugar and sugared beverages. Eat local organic when possible. Cook your own meals. Read food labels. None about healthy snacks. Portion control and food with low glycemic index 2. Exercise regularly. Try to get at least 6000 steps a day. Use a predominant to track activity level. Consider using apps like Innovate2, myfitFlexMinderpal, lose it, stick as needed for self-monitoring and weight management. Consider group exercises. Consider hiring a personal shopper. Regular exercise is arias to sustainable health and prevents as a buffer against weight regain 3. Sleep is most important for healing. Tried to sleep at least 8 hours a night. A good quality sleep needs a sleep ritual with ideal room temperature of around 68. It might help to take a shower and have no electronics in the room and sleep in a very dark room without artificial light. Start her sleep routine and get up early in the morning and go to bed on time 4. Make a social connection. Surround yourself with positive people with positive energy. Connect with friends and family. 5. Get into the habit of meditating and mindfulness while doing everything. 6. Go outside and connect with nature. C. Prescription medications Patient was educated on the use of prescription medications for medical weight loss. This is a growing list and includes phentermine, Topamax,Qsymia, contrave, belviq and saxenda. All prescription medications could have side effects including but not limited to kidney stones, seizure disorder cardiac arrhythmias heart attack pancreatitis etc. etc.. Patient was encouraged to read the prescription insert and have coaching with their pharmacist and make an informed decision about taking medication and know that these medications are being prescribed with good intentions and we do not know how a patient would react to her medication. Sudden medications are FDA approved for weight loss and there is also off label use depending on patient's inability to afford medications in an attempt to lose weight D. Behavioral counseling was done to establish a relationship between food and an mood. Patient was provided information about local counseling and psychiatry and Dr Novoa at [facility]. We would like to cover regular topics and build on low glycemic eating exercise mindful eating, using yoga and meditation along with deep breathing and connecting with friends and family. E. MASS PAT reviewed, Patient's current medications were reviewed and opinion was given on medication that can cause weight gain and can be substituted F. Patient was assessed for risk with obesity including and not limiting to atherosclerosis heart disease stroke kidney disease, restrictive lung disease, irritable bowel syndrome and overall mortality. Risk of developing prediabetes diabetes and metabolic syndrome was discussed G. Therapeutic plan: We have decided to make therapeutic plan which would include choosing wisely on calories restricting portion getting active, tracking weight, getting good quality sleep and working on time management H. Patient will follow up in (4) weeks for weight management Of note, some information is being carried forward from prior records for informational purposes only and is being cited so that efficiency, safety and quality of the patient's care is not compromised This note was prepared using voice recognition software and direct typing Please excuse inadvertent site identification specialist or typing errors, or uncorrected word substitutions Although every attempt has been made by the provider to proofread this document, occasional misspellings and typographical errors may still be present Due to the previous pandemic, and the use of personal protective equipment (PPE) This may decrease voice recognition accuracy Inadvertent site identification specialist errors may occur 03/30/2024 Peripheral polyneuropathy (ICD-10 - G62.9) #Weight Management 03/30/2024 Happy with progress which has been slow and steady down additional 6lbs of fat mass Tolerating medication cont Wegovy to 2.4 We did discuss we can refer to plastic surgery to see if she can get potential skin excision when she is done losing weight and on maintenance dosing For recurrent fungal infections Nystatin topical We discussed her body composition analysis today Improving parameters throughout and she is thriving on GLP-1 I would likely shy away from phnetermine given her history, age, and borderline blood pressure Total time spent today was 30 minutes of which greater than 50% was spent on coordinating and counseling Patient has been found to be overweight with a BMI of (27). Patient has overweight class per BMI standards We are a board certified obesity and weight management practice Patient has trialed behavioral modification, dietary restrictions and exercise for a minimum of 6 months The most recent [place] [employer]in[employer] and [place] [employer] guidelines recommend patients who have overweight BMI or obesity BMI, who also have metabolic syndrome, prediabetes, HLD, and other comorbidities or at risk of developing type 2 diabetes should aim for a weight loss goal of at least 10% of the baseline body weight Patient counseled regarding effects of GLP/GIP-1 agonists, and other FDA approved wgt loss meds with regards to a multifactorial approach of weight loss as mentioned above and not solely appetite suppression. Of note, some information is being carried forward from prior records for informational purposes only and is being cited so that efficiency, safety and quality of the patient's care is not compromised This note was prepared using voice recognition software and direct typing Please excuse inadvertent site identification specialist or typing errors, or uncorrected word substitutions Although every attempt has been made by the provider to proofread this document, occasional misspellings and typographical errors may still be present Due to the previous pandemic, and the use of personal protective equipment (PPE) This may decrease voice recognition accuracy Inadvertent site identification specialist errors may occur 02/03/2024 Endometrial cancer (ICD-10 - C54.1) #Weight Management 02/03/2024 Happy with progress which has been slow and steady Tolerating medication cont Wegovy to 2.4 We did discuss we can refer to plastic surgery to see if she can get potential skin excision when she is done losing weight and on maintenance dosing For recurrent fungal infections Nystatin topical We discussed her body composition analysis today Improving parameters throughout and she is thriving on GLP-1 I would likely shy away from phnetermine given her history, age, and borderline blood pressure Metabolic unremarkable for prediabetic state or hyperinsulinemia Normal thyroid function Discussed importance of protein consumption for muscle maintenance, strength and resistance training as well as probiotics, B12 complex biotin , iron and other nutrients, To also help avoid telogen effluvium while on weight loss medications such as GLP-1 Total time spent today was 30 minutes of which greater than 50% was spent on coordinating and counseling Patient has been found to be overweight with a BMI of (27). Patient has overweight class per BMI standards We are a board certified obesity and weight management practice Patient has trialed behavioral modification, dietary restrictions and exercise for a minimum of 6 months The most recent [place] [employer]ocrinologists and [place] [employer] guidelines recommend patients who have overweight BMI or obesity BMI, who also have metabolic syndrome, prediabetes, HLD, and other comorbidities or at risk of developing type 2 diabetes should aim for a weight loss goal of at least 10% of the baseline body weight Patient counseled regarding effects of GLP/GIP-1 agonists, and other FDA approved wgt loss meds with regards to a multifactorial approach of weight loss as mentioned above and not solely appetite suppression. We have discussed the mechanism of GLP-1's/GIP, dual incretins, appetitite suppressants I think this would be fantastic option for her given her metabolic workup and body composition We have discussed the risks and benefits and side effects including/and not limited to Sarcopenia, intestinal obstruction, constipation, nausea, lethargy, headache Discussed importance of protein consumption for muscle maintenance as well as strength and resistance training ,probiotics, B12 complex biotin , iron and other nutrients, To help avoid telogen effluvium We have discussed the lifelong requirement of nutritional supplementation And adherence to an exercise regimen as well as importance of follow-up We did discuss the neurohormonal changes that are occurring with these medications and Need for long-term Continued usage The patient understands and agrees There is no history of medullary thyroid cancer or multiple endocrine neoplasia There is also no history of cardiovascular disease, hypertension, palpitations, or arrhythmias In the setting of potential stimulant/amphetami ne use such as phentermine We have also discussed risks and benefits, and the use of compounded medications to help offset the national shortages as well as financial implications vs trade name drugs Patient was reassured and welcomed to the practice. We discussed that we stress a hollistic medical approach with emphasis on lifestyle modification. Patient was informed that a healthy lifestyle with exercise and good eating habits can help reduce his risk of medical complications. He is explained that obesity increases his risk of diabetes, cardiovascular disease, or organ damage. We spent a lot of time discussing the relationship between food, exercise, sleep, mental health and obesity. Patient was counseled on the importance EATING local, organic food when possible. Patient was educated on clean 15 and dirty dozen. I provided information about reading books called The Food Rules by Marky Johnson and Eat Fat Get Lean by Dr Deejay Sloan. Self education is important in the journey for weight management. Patient was offered diagnostic testing. We want to measure visceral adiposity, advanced body composition, adverse lipids, fatty acid balance, risk for heart disease and atherosclerosis, markers of inflammation and genetic susceptibility. Patient was counseled on weight management and was advised to lose weight using A. Meal Replacement Products We discussed the lifelong requirement of nutritional supplementation and adherence to an exercise regimen as well as importance of dietary follow-up Patient was educated on the replacement products called optifast. This is a good way of taking fixed amount of calories. It has been shown in studies to be ineffective weight management tool. We also recommend maintaining adequate protein intake and muscle composition, 1.5mg/kg This however has to be coupled with lifestyle intervention as well as laboratory data and EKG monitoring. It is impossible to know how a person will tolerate complete meal replacement. The side effects of meal replacement and weight loss could include syncopal attacks, dizziness, gallstones, potential cholecystectomy, possible heart attack and even . The benefits of meal replacement would be potential weight loss but no guarantees can be made. Meal replacement products are not covered by insurance. Once the patient has bought these products we cannot return them B. Lifestyle management which includes several strategies as below 1. Eat a low carbohydrate good fat good protein diet. Eliminate refined carbohydrates from the diet. Continue blood sugar and sugared beverages. Eat local organic when possible. Cook your own meals. Read food labels. None about healthy snacks. Portion control and food with low glycemic index 2. Exercise regularly. Try to get at least 6000 steps a day. Use a predominant to track activity level. Consider using apps like 7 mionute excercise, myCBTecpal, lose it, stick as needed for self-monitoring and weight management. Consider group exercises. Consider hiring a personal shopper. Regular exercise is arias to sustainable health and prevents as a buffer against weight regain 3. Sleep is most important for healing. Tried to sleep at least 8 hours a night. A good quality sleep needs a sleep ritual with ideal room temperature of around 68. It might help to take a shower and have no electronics in the room and sleep in a very dark room without artificial light. Start her sleep routine and get up early in the morning and go to bed on time 4. Make a social connection. Surround yourself with positive people with positive energy. Connect with friends and family. 5. Get into the habit of meditating and mindfulness while doing everything. 6. Go outside and connect with nature. C. Prescription medications Patient was educated on the use of prescription medications for medical weight loss. This is a growing list and includes phentermine, Topamax,Qsymia, contrave, belviq and saxenda. All prescription medications could have side effects including but not limited to kidney stones, seizure disorder cardiac arrhythmias heart attack pancreatitis etc. etc.. Patient was encouraged to read the prescription insert and have coaching with their pharmacist and make an informed decision about taking medication and know that these medications are being prescribed with good intentions and we do not know how a patient would react to her medication. Sudden medications are FDA approved for weight loss and there is also off label use depending on patient's inability to afford medications in an attempt to lose weight D. Behavioral counseling was done to establish a relationship between food and an mood. Patient was provided information about local counseling and psychiatry and Dr Novoa at [facility]. We would like to cover regular topics and build on low glycemic eating exercise mindful eating, using yoga and meditation along with deep breathing and connecting with friends and family. E. MASS PAT reviewed, Patient's current medications were reviewed and opinion was given on medication that can cause weight gain and can be substituted F. Patient was assessed for risk with obesity including and not limiting to atherosclerosis heart disease stroke kidney disease, restrictive lung disease, irritable bowel syndrome and overall mortality. Risk of developing prediabetes diabetes and metabolic syndrome was discussed G. Therapeutic plan: We have decided to make therapeutic plan which would include choosing wisely on calories restricting portion getting active, tracking weight, getting good quality sleep and working on time management H. Patient will follow up in (4) weeks for weight management Of note, some information is being carried forward from prior records for informational purposes only and is being cited so that efficiency, safety and quality of the patient's care is not compromised This note was prepared using voice recognition software and direct typing Please excuse inadvertent site identification specialist or typing errors, or uncorrected word substitutions Although every attempt has been made by the provider to proofread this document, occasional misspellings and typographical errors may still be present Due to the previous pandemic, and the use of personal protective equipment (PPE) This may decrease voice recognition accuracy Inadvertent site identification specialist errors may occur 05/19/2024 Endometrial cancer (ICD-10 - C54.1) #Weight Management 05/19/2024 _update comprehensive labs before next visit Happy [...] board certified obesity and weight management practice Patient has trialed behavioral modification, dietary restrictions and exercise for a minimum of 6 months The most recent [place] [employer]ocrinologists and [place] [employer] guidelines recommend patients who have overweight BMI or obesity BMI, who also have metabolic syndrome, prediabetes, HLD, and other comorbidities or at risk of developing type 2 diabetes should aim for a weight loss goal of at least 10% of the baseline body weight Patient counseled regarding effects of GLP/GIP-1 agonists, and other FDA approved wgt loss meds with regards to a multifactorial approach of weight loss as mentioned above and not solely appetite suppression. Of note, some information is being carried forward from prior records for informational purposes only and is being cited so that efficiency, safety and quality of the patient's care is not compromised This note was prepared using voice recognition software and direct typing Please excuse inadvertent site identification specialist or typing errors, or uncorrected word substitutions Although every attempt has been made by the provider to proofread this document, occasional misspellings and typographical errors may still be present Due to the previous pandemic, and the use of personal protective equipment (PPE) This may decrease voice recognition accuracy Inadvertent site identification specialist errors may occur 06/29/2024 Peripheral polyneuropathy (ICD-10 [...] software and direct typing Please excuse inadvertent site identification specialist or typing errors, or uncorrected word substitutions Although every attempt has been made by the provider to proofread this document, occasional misspellings and typographical errors may still be present Due to the previous pandemic, and the use of personal protective equipment (PPE) This may decrease voice recognition accuracy Inadvertent site identification specialist errors may occur 07/22/2024 Peripheral polyneuropathy (ICD-10 - G62.9) #Weight Management 07/22/2024 [facility] today to get labs later this [...] software and direct typing Please excuse inadvertent site identification specialist or typing errors, or uncorrected word substitutions Although every attempt has been made by the provider to proofread this document, occasional misspellings and typographical errors may still be present Due to the previous pandemic, and the use of personal protective equipment (PPE) This may decrease voice recognition accuracy Inadvertent site identification specialist errors may occur 07/22/2024 Endometrial cancer (ICD-10 - C54.1) #Weight Management 07/22/2024 [facility] today to get labs later this [...] software and direct typing Please excuse inadvertent site identification specialist or typing errors, or uncorrected word substitutions Although every attempt has been made by the provider to proofread this document, occasional misspellings and typographical errors may still be present Due to the previous pandemic, and the use of personal protective equipment (PPE) This may decrease voice recognition accuracy Inadvertent site identification specialist errors may occur 05/19/2024 PCOS (polycystic ovarian syndrome) (ICD-10 - E28.2) #Weight Management 05/19/2024 _update comprehensive labs before next visit Happy [...] board certified obesity and weight management practice Patient has trialed behavioral modification, dietary restrictions and exercise for a minimum of 6 months The most recent [place] [employer]ocrinologists and [place] [employer] guidelines recommend patients who have overweight BMI or obesity BMI, who also have metabolic syndrome, prediabetes, HLD, and other comorbidities or at risk of developing type 2 diabetes should aim for a weight loss goal of at least 10% of the baseline body weight Patient counseled regarding effects of GLP/GIP-1 agonists, and other FDA approved wgt loss meds with regards to a multifactorial approach of weight loss as mentioned above and not solely appetite suppression. Of note, some information is being carried forward from prior records for informational purposes only and is being cited so that efficiency, safety and quality of the patient's care is not compromised This note was prepared using voice recognition software and direct typing Please excuse inadvertent site identification specialist or typing errors, or uncorrected word substitutions Although every attempt has been made by the provider to proofread this document, occasional misspellings and typographical errors may still be present Due to the previous pandemic, and the use of personal protective equipment (PPE) This may decrease voice recognition accuracy Inadvertent site identification specialist errors may occur 06/29/2024 Endometrial cancer (ICD-10 [...] software and direct typing Please excuse inadvertent site identification specialist or typing errors, or uncorrected word substitutions Although every attempt has been made by the provider to proofread this document, occasional misspellings and typographical errors may still be present Due to the previous pandemic, and the use of personal protective equipment (PPE) This may decrease voice recognition accuracy Inadvertent site identification specialist errors may occur 03/30/2024 Endometrial cancer (ICD-10 - C54.1) #Weight Management 03/30/2024 Happy with progress which has been slow and steady down additional 6lbs of fat mass Tolerating medication cont Wegovy to 2.4 We did discuss we can refer to plastic surgery to see if she can get potential skin excision when she is done losing weight and on maintenance dosing For recurrent fungal infections Nystatin topical We discussed her body composition analysis today Improving parameters throughout and she is thriving on GLP-1 I would likely shy away from phnetermine given her history, age, and borderline blood pressure Total time spent today was 30 minutes of which greater than 50% was spent on coordinating and counseling Patient has been found to be overweight with a BMI of (27). Patient has overweight class per BMI standards We are a board certified obesity and weight management practice Patient has trialed behavioral modification, dietary restrictions and exercise for a minimum of 6 months The most recent [place] [employer]inologists and [place] [employer] guidelines recommend patients who have overweight BMI or obesity BMI, who also have metabolic syndrome, prediabetes, HLD, and other comorbidities or at risk of developing type 2 diabetes should aim for a weight loss goal of at least 10% of the baseline body weight Patient counseled regarding effects of GLP/GIP-1 agonists, and other FDA approved wgt loss meds with regards to a multifactorial approach of weight loss as mentioned above and not solely appetite suppression. Of note, some information is being carried forward from prior records for informational purposes only and is being cited so that efficiency, safety and quality of the patient's care is not compromised This note was prepared using voice recognition software and direct typing Please excuse inadvertent site identification specialist or typing errors, or uncorrected word substitutions Although every attempt has been made by the provider to proofread this document, occasional misspellings and typographical errors may still be present Due to the previous pandemic, and the use of personal protective equipment (PPE) This may decrease voice recognition accuracy Inadvertent site identification specialist errors may occur 12/02/2023 PCOS (polycystic ovarian syndrome) (ICD-10 - E28.2) #Weight Management 12/02/2023 Happy with progress which has been slow and steady Tolerating medication cont Wegovy to 2.4 We did discuss we can refer to plastic surgery to see if she can get potential skin excision when she is done losing weight and on maintenance dosing For recurrent fungal infections Nystatin topical We discussed her body composition analysis today Improving parameters throughout and she is thriving on GLP-1 I would likely shy away from phnetermine given her history, age, and borderline blood pressure Metabolic unremarkable for prediabetic state or hyperinsulinemia Normal thyroid function Discussed importance of protein consumption for muscle maintenance, strength and resistance training as well as probiotics, B12 complex biotin , iron and other nutrients, To also help avoid telogen effluvium while on weight loss medications such as GLP-1 Total time spent today was 30 minutes of which greater than 50% was spent on coordinating and counseling Patient has been found to be overweight with a BMI of (29). Patient has overweight class per BMI standards We are a board certified obesity and weight management practice Patient has trialed behavioral modification, dietary restrictions and exercise for a minimum of 6 months The most recent [place] [employer] and [place] [employer] guidelines recommend patients who have overweight BMI or obesity BMI, who also have metabolic syndrome, prediabetes, HLD, and other comorbidities or at risk of developing type 2 diabetes should aim for a weight loss goal of at least 10% of the baseline body weight Patient counseled regarding effects of GLP/GIP-1 agonists, and other FDA approved wgt loss meds with regards to a multifactorial approach of weight loss as mentioned above and not solely appetite suppression. We have discussed the mechanism of GLP-1's/GIP, dual incretins, appetitite suppressants I think this would be fantastic option for her given her metabolic workup and body composition We have discussed the risks and benefits and side effects including/and not limited to Sarcopenia, intestinal obstruction, constipation, nausea, lethargy, headache Discussed importance of protein consumption for muscle maintenance as well as strength and resistance training ,probiotics, B12 complex biotin , iron and other nutrients, To help avoid telogen effluvium We have discussed the lifelong requirement of nutritional supplementation And adherence to an exercise regimen as well as importance of follow-up We did discuss the neurohormonal changes that are occurring with these medications and Need for long-term Continued usage The patient understands and agrees There is no history of medullary thyroid cancer or multiple endocrine neoplasia There is also no history of cardiovascular disease, hypertension, palpitations, or arrhythmias In the setting of potential stimulant/amphetami ne use such as phentermine We have also discussed risks and benefits, and the use of compounded medications to help offset the national shortages as well as financial implications vs trade name drugs Patient was reassured and welcomed to the practice. We discussed that we stress a hollistic medical approach with emphasis on lifestyle modification. Patient was informed that a healthy lifestyle with exercise and good eating habits can help reduce his risk of medical complications. He is explained that obesity increases his risk of diabetes, cardiovascular disease, or organ damage. We spent a lot of time discussing the relationship between food, exercise, sleep, mental health and obesity. Patient was counseled on the importance EATING local, organic food when possible. Patient was educated on clean 15 and dirty dozen. I provided information about reading books called The Food Rules by Marky Johnson and Eat Fat Get Lean by Dr Deejay Sloan. Self education is important in the journey for weight management. Patient was offered diagnostic testing. We want to measure visceral adiposity, advanced body composition, adverse lipids, fatty acid balance, risk for heart disease and atherosclerosis, markers of inflammation and genetic susceptibility. Patient was counseled on weight management and was advised to lose weight using A. Meal Replacement Products We discussed the lifelong requirement of nutritional supplementation and adherence to an exercise regimen as well as importance of dietary follow-up Patient was educated on the replacement products called optifast. This is a good way of taking fixed amount of calories. It has been shown in studies to be ineffective weight management tool. We also recommend maintaining adequate protein intake and muscle composition, 1.5mg/kg This however has to be coupled with lifestyle intervention as well as laboratory data and EKG monitoring. It is impossible to know how a person will tolerate complete meal replacement. The side effects of meal replacement and weight loss could include syncopal attacks, dizziness, gallstones, potential cholecystectomy, possible heart attack and even . The benefits of meal replacement would be potential weight loss but no guarantees can be made. Meal replacement products are not covered by insurance. Once the patient has bought these products we cannot return them B. Lifestyle management which includes several strategies as below 1. Eat a low carbohydrate good fat good protein diet. Eliminate refined carbohydrates from the diet. Continue blood sugar and sugared beverages. Eat local organic when possible. Cook your own meals. Read food labels. None about healthy snacks. Portion control and food with low glycemic index 2. Exercise regularly. Try to get at least 6000 steps a day. Use a predominant to track activity level. Consider using apps like [employer], my[employer], lose it, stick as needed for self-monitoring and weight management. Consider group exercises. Consider hiring a personal shopper. Regular exercise is arias to sustainable health and prevents as a buffer against weight regain 3. Sleep is most important for healing. Tried to sleep at least 8 hours a night. A good quality sleep needs a sleep ritual with ideal room temperature of around 68. It might help to take a shower and have no electronics in the room and sleep in a very dark room without artificial light. Start her sleep routine and get up early in the morning and go to bed on time 4. Make a social connection. Surround yourself with positive people with positive energy. Connect with friends and family. 5. Get into the habit of meditating and mindfulness while doing everything. 6. Go outside and connect with nature. C. Prescription medications Patient was educated on the use of prescription medications for medical weight loss. This is a growing list and includes phentermine, Topamax,Qsymia, contrave, belviq and saxenda. All prescription medications could have side effects including but not limited to kidney stones, seizure disorder cardiac arrhythmias heart attack pancreatitis etc. etc.. Patient was encouraged to read the prescription insert and have coaching with their pharmacist and make an informed decision about taking medication and know that these medications are being prescribed with good intentions and we do not know how a patient would react to her medication. Sudden medications are FDA approved for weight loss and there is also off label use depending on patient's inability to afford medications in an attempt to lose weight D. Behavioral counseling was done to establish a relationship between food and an mood. Patient was provided information about local counseling and psychiatry and Dr Novoa at [facility]. We would like to cover regular topics and build on low glycemic eating exercise mindful eating, using yoga and meditation along with deep breathing and connecting with friends and family. E. MASS PAT reviewed, Patient's current medications were reviewed and opinion was given on medication that can cause weight gain and can be substituted F. Patient was assessed for risk with obesity including and not limiting to atherosclerosis heart disease stroke kidney disease, restrictive lung disease, irritable bowel syndrome and overall mortality. Risk of developing prediabetes diabetes and metabolic syndrome was discussed G. Therapeutic plan: We have decided to make therapeutic plan which would include choosing wisely on calories restricting portion getting active, tracking weight, getting good quality sleep and working on time management H. Patient will follow up in (4) weeks for weight management Of note, some information is being carried forward from prior records for informational purposes only and is being cited so that efficiency, safety and quality of the patient's care is not compromised This note was prepared using voice recognition software and direct typing Please excuse inadvertent site identification specialist or typing errors, or uncorrected word substitutions Although every attempt has been made by the provider to proofread this document, occasional misspellings and typographical errors may still be present Due to the previous pandemic, and the use of personal protective equipment (PPE) This may decrease voice recognition accuracy Inadvertent site identification specialist errors may occur 02/03/2024 PCOS (polycystic ovarian syndrome) (ICD-10 - E28.2) #Weight Management 02/03/2024 Happy with progress which has been slow and steady Tolerating medication cont Wegovy to 2.4 We did discuss we can refer to plastic surgery to see if she can get potential skin excision when she is done losing weight and on maintenance dosing For recurrent fungal infections Nystatin topical We discussed her body composition analysis today Improving parameters throughout and she is thriving on GLP-1 I would likely shy away from phnetermine given her history, age, and borderline blood pressure Metabolic unremarkable for prediabetic state or hyperinsulinemia Normal thyroid function Discussed importance of protein consumption for muscle maintenance, strength and resistance training as well as probiotics, B12 complex biotin , iron and other nutrients, To also help avoid telogen effluvium while on weight loss medications such as GLP-1 Total time spent today was 30 minutes of which greater than 50% was spent on coordinating and counseling Patient has been found to be overweight with a BMI of (27). Patient has overweight class per BMI standards We are a board certified obesity and weight management practice Patient has trialed behavioral modification, dietary restrictions and exercise for a minimum of 6 months The most recent [place] [employer] and [place] [employer] guidelines recommend patients who have overweight BMI or obesity BMI, who also have metabolic syndrome, prediabetes, HLD, and other comorbidities or at risk of developing type 2 diabetes should aim for a weight loss goal of at least 10% of the baseline body weight Patient counseled regarding effects of GLP/GIP-1 agonists, and other FDA approved wgt loss meds with regards to a multifactorial approach of weight loss as mentioned above and not solely appetite suppression. We have discussed the mechanism of GLP-1's/GIP, dual incretins, appetitite suppressants I think this would be fantastic option for her given her metabolic workup and body composition We have discussed the risks and benefits and side effects including/and not limited to Sarcopenia, intestinal obstruction, constipation, nausea, lethargy, headache Discussed importance of protein consumption for muscle maintenance as well as strength and resistance training ,probiotics, B12 complex biotin , iron and other nutrients, To help avoid telogen effluvium We have discussed the lifelong requirement of nutritional supplementation And adherence to an exercise regimen as well as importance of follow-up We did discuss the neurohormonal changes that are occurring with these medications and Need for long-term Continued usage The patient understands and agrees There is no history of medullary thyroid cancer or multiple endocrine neoplasia There is also no history of cardiovascular disease, hypertension, palpitations, or arrhythmias In the setting of potential stimulant/amphetami ne use such as phentermine We have also discussed risks and benefits, and the use of compounded medications to help offset the national shortages as well as financial implications vs trade name drugs Patient was reassured and welcomed to the practice. We discussed that we stress a hollistic medical approach with emphasis on lifestyle modification. Patient was informed that a healthy lifestyle with exercise and good eating habits can help reduce his risk of medical complications. He is explained that obesity increases his risk of diabetes, cardiovascular disease, or organ damage. We spent a lot of time discussing the relationship between food, exercise, sleep, mental health and obesity. Patient was counseled on the importance EATING local, organic food when possible. Patient was educated on clean 15 and dirty dozen. I provided information about reading books called The Food Rules by Marky Johnson and Eat Fat Get Lean by Dr Deejay Sloan. Self education is important in the journey for weight management. Patient was offered diagnostic testing. We want to measure visceral adiposity, advanced body composition, adverse lipids, fatty acid balance, risk for heart disease and atherosclerosis, markers of inflammation and genetic susceptibility. Patient was counseled on weight management and was advised to lose weight using A. Meal Replacement Products We discussed the lifelong requirement of nutritional supplementation and adherence to an exercise regimen as well as importance of dietary follow-up Patient was educated on the replacement products called optifast. This is a good way of taking fixed amount of calories. It has been shown in studies to be ineffective weight management tool. We also recommend maintaining adequate protein intake and muscle composition, 1.5mg/kg This however has to be coupled with lifestyle intervention as well as laboratory data and EKG monitoring. It is impossible to know how a person will tolerate complete meal replacement. The side effects of meal replacement and weight loss could include syncopal attacks, dizziness, gallstones, potential cholecystectomy, possible heart attack and even . The benefits of meal replacement would be potential weight loss but no guarantees can be made. Meal replacement products are not covered by insurance. Once the patient has bought these products we cannot return them B. Lifestyle management which includes several strategies as below 1. Eat a low carbohydrate good fat good protein diet. Eliminate refined carbohydrates from the diet. Continue blood sugar and sugared beverages. Eat local organic when possible. Cook your own meals. Read food labels. None about healthy snacks. Portion control and food with low glycemic index 2. Exercise regularly. Try to get at least 6000 steps a day. Use a predominant to track activity level. Consider using apps like [employer], [employer], lose it, stick as needed for self-monitoring and weight management. Consider group exercises. Consider hiring a personal shopper. Regular exercise is arias to sustainable health and prevents as a buffer against weight regain 3. Sleep is most important for healing. Tried to sleep at least 8 hours a night. A good quality sleep needs a sleep ritual with ideal room temperature of around 68. It might help to take a shower and have no electronics in the room and sleep in a very dark room without artificial light. Start her sleep routine and get up early in the morning and go to bed on time 4. Make a social connection. Surround yourself with positive people with positive energy. Connect with friends and family. 5. Get into the habit of meditating and mindfulness while doing everything. 6. Go outside and connect with nature. C. Prescription medications Patient was educated on the use of prescription medications for medical weight loss. This is a growing list and includes phentermine, Topamax,Qsymia, contrave, belviq and saxenda. All prescription medications could have side effects including but not limited to kidney stones, seizure disorder cardiac arrhythmias heart attack pancreatitis etc. etc.. Patient was encouraged to read the prescription insert and have coaching with their pharmacist and make an informed decision about taking medication and know that these medications are being prescribed with good intentions and we do not know how a patient would react to her medication. Sudden medications are FDA approved for weight loss and there is also off label use depending on patient's inability to afford medications in an attempt to lose weight D. Behavioral counseling was done to establish a relationship between food and an mood. Patient was provided information about local counseling and psychiatry and Dr Novoa at [facility]. We would like to cover regular topics and build on low glycemic eating exercise mindful eating, using yoga and meditation along with deep breathing and connecting with friends and family. E. MASS PAT reviewed, Patient's current medications were reviewed and opinion was given on medication that can cause weight gain and can be substituted F. Patient was assessed for risk with obesity including and not limiting to atherosclerosis heart disease stroke kidney disease, restrictive lung disease, irritable bowel syndrome and overall mortality. Risk of developing prediabetes diabetes and metabolic syndrome was discussed G. Therapeutic plan: We have decided to make therapeutic plan which would include choosing wisely on calories restricting portion getting active, tracking weight, getting good quality sleep and working on time management H. Patient will follow up in (4) weeks for weight management Of note, some information is being carried forward from prior records for informational purposes only and is being cited so that efficiency, safety and quality of the patient's care is not compromised This note was prepared using voice recognition software and direct typing Please excuse inadvertent site identification specialist or typing errors, or uncorrected word substitutions Although every attempt has been made by the provider to proofread this document, occasional misspellings and typographical errors may still be present Due to the previous pandemic, and the use of personal protective equipment (PPE) This may decrease voice recognition accuracy Inadvertent site identification specialist errors may occur 09/02/2023 History of colon cancer (ICD-10 - Z85.038) #Weight Management 09/02/2023 Happy with progress which has been slow and steady Tolerating medication cont Wegovy to 2.4 We did discuss we can refer to plastic surgery to see if she can get potential skin excision when she is done losing weight and on maintenance dosing For recurrent fungal infections We discussed her body composition analysis today Improving parameters throughout and she is thriving on GLP-1 I would likely shy away from phnetermine given her history, age, and borderline blood pressure Metabolic unremarkable for prediabetic state or hyperinsulinemia Normal thyroid function Discussed importance of protein consumption for muscle maintenance, strength and resistance training as well as probiotics, B12 complex biotin , iron and other nutrients, To also help avoid telogen effluvium while on weight loss medications such as GLP-1 Total time spent today was 30 minutes of which greater than 50% was spent on coordinating and counseling Patient has been found to be obese with a BMI of (30). Patient has class (1) obesity. We are a board certified obesity and weight management practice Patient has trialed behavioral modification, dietary restrictions and exercise for a minimum of 6 months The most recent [place] [employer] and [place] [employer] guidelines recommend patients who have overweight BMI or obesity BMI, who also have metabolic syndrome, prediabetes, HLD, and other comorbidities or at risk of developing type 2 diabetes should aim for a weight loss goal of at least 10% of the baseline body weight Patient counseled regarding effects of GLP/GIP-1 agonists, and other FDA approved wgt loss meds with regards to a multifactorial approach of weight loss as mentioned above and not solely appetite suppression. We have discussed the mechanism of GLP-1's/GIP, dual incretins, appetitite suppressants I think this would be fantastic option for her given her metabolic workup and body composition We have discussed the risks and benefits and side effects including/and not limited to Sarcopenia, intestinal obstruction, constipation, nausea, lethargy, headache Discussed importance of protein consumption for muscle maintenance as well as strength and resistance training ,probiotics, B12 complex biotin , iron and other nutrients, To help avoid telogen effluvium We have discussed the lifelong requirement of nutritional supplementation And adherence to an exercise regimen as well as importance of follow-up We did discuss the neurohormonal changes that are occurring with these medications and Need for long-term Continued usage The patient understands and agrees There is no history of medullary thyroid cancer or multiple endocrine neoplasia There is also no history of cardiovascular disease, hypertension, palpitations, or arrhythmias In the setting of potential stimulant/amphetami ne use such as phentermine We have also discussed risks and benefits, and the use of compounded medications to help offset the national shortages as well as financial implications vs trade name drugs Patient was reassured and welcomed to the practice. We discussed that we stress a hollistic medical approach with emphasis on lifestyle modification. Patient was informed that a healthy lifestyle with exercise and good eating habits can help reduce his risk of medical complications. He is explained that obesity increases his risk of diabetes, cardiovascular disease, or organ damage. We spent a lot of time discussing the relationship between food, exercise, sleep, mental health and obesity. Patient was counseled on the importance EATING local, organic food when possible. Patient was educated on clean 15 and dirty dozen. I provided information about reading books called The Food Rules by Marky Johnson and Eat Fat Get Lean by Dr Deejay Sloan. Self education is important in the journey for weight management. Patient was offered diagnostic testing. We want to measure visceral adiposity, advanced body composition, adverse lipids, fatty acid balance, risk for heart disease and atherosclerosis, markers of inflammation and genetic susceptibility. Patient was counseled on weight management and was advised to lose weight using A. Meal Replacement Products We discussed the lifelong requirement of nutritional supplementation and adherence to an exercise regimen as well as importance of dietary follow-up Patient was educated on the replacement products called optifast. This is a good way of taking fixed amount of calories. It has been shown in studies to be ineffective weight management tool. We also recommend maintaining adequate protein intake and muscle composition, 1.5mg/kg This however has to be coupled with lifestyle intervention as well as laboratory data and EKG monitoring. It is impossible to know how a person will tolerate complete meal replacement. The side effects of meal replacement and weight loss could include syncopal attacks, dizziness, gallstones, potential cholecystectomy, possible heart attack and even . The benefits of meal replacement would be potential weight loss but no guarantees can be made. Meal replacement products are not covered by insurance. Once the patient has bought these products we cannot return them B. Lifestyle management which includes several strategies as below 1. Eat a low carbohydrate good fat good protein diet. Eliminate refined carbohydrates from the diet. Continue blood sugar and sugared beverages. Eat local organic when possible. Cook your own meals. Read food labels. None about healthy snacks. Portion control and food with low glycemic index 2. Exercise regularly. Try to get at least 6000 steps a day. Use a predominant to track activity level. Consider using apps like [employer], [employer], lose it, stick as needed for self-monitoring and weight management. Consider group exercises. Consider hiring a personal shopper. Regular exercise is arias to sustainable health and prevents as a buffer against weight regain 3. Sleep is most important for healing. Tried to sleep at least 8 hours a night. A good quality sleep needs a sleep ritual with ideal room temperature of around 68. It might help to take a shower and have no electronics in the room and sleep in a very dark room without artificial light. Start her sleep routine and get up early in the morning and go to bed on time 4. Make a social connection. Surround yourself with positive people with positive energy. Connect with friends and family. 5. Get into the habit of meditating and mindfulness while doing everything. 6. Go outside and connect with nature. C. Prescription medications Patient was educated on the use of prescription medications for medical weight loss. This is a growing list and includes phentermine, Topamax,Qsymia, contrave, belviq and saxenda. All prescription medications could have side effects including but not limited to kidney stones, seizure disorder cardiac arrhythmias heart attack pancreatitis etc. etc.. Patient was encouraged to read the prescription insert and have coaching with their pharmacist and make an informed decision about taking medication and know that these medications are being prescribed with good intentions and we do not know how a patient would react to her medication. Sudden medications are FDA approved for weight loss and there is also off label use depending on patient's inability to afford medications in an attempt to lose weight D. Behavioral counseling was done to establish a relationship between food and an mood. Patient was provided information about local counseling and psychiatry and Dr Novoa at [facility]. We would like to cover regular topics and build on low glycemic eating exercise mindful eating, using yoga and meditation along with deep breathing and connecting with friends and family. E. MASS PAT reviewed, Patient's current medications were reviewed and opinion was given on medication that can cause weight gain and can be substituted F. Patient was assessed for risk with obesity including and not limiting to atherosclerosis heart disease stroke kidney disease, restrictive lung disease, irritable bowel syndrome and overall mortality. Risk of developing prediabetes diabetes and metabolic syndrome was discussed G. Therapeutic plan: We have decided to make therapeutic plan which would include choosing wisely on calories restricting portion getting active, tracking weight, getting good quality sleep and working on time management H. Patient will follow up in (4) weeks for weight management Of note, some information is being carried forward from prior records for informational purposes only and is being cited so that efficiency, safety and quality of the patient's care is not compromised This note was prepared using voice recognition software and direct typing Please excuse inadvertent site identification specialist or typing errors, or uncorrected word substitutions Although every attempt has been made by the provider to proofread this document, occasional misspellings and typographical errors may still be present Due to the previous pandemic, and the use of personal protective equipment (PPE) This may decrease voice recognition accuracy Inadvertent site identification specialist errors may occur 09/02/2023 Migraine without aura and without status migrainosus, not intractable (ICD-10 - G43.009) #Weight Management 09/02/2023 Happy with progress which has been slow and steady Tolerating medication cont Wegovy to 2.4 We did discuss we can refer to plastic surgery to see if she can get potential skin excision when she is done losing weight and on maintenance dosing For recurrent fungal infections We discussed her body composition analysis today Improving parameters throughout and she is thriving on GLP-1 I would likely shy away from phnetermine given her history, age, and borderline blood pressure Metabolic unremarkable for prediabetic state or hyperinsulinemia Normal thyroid function Discussed importance of protein consumption for muscle maintenance, strength and resistance training as well as probiotics, B12 complex biotin , iron and other nutrients, To also help avoid telogen effluvium while on weight loss medications such as GLP-1 Total time spent today was 30 minutes of which greater than 50% was spent on coordinating and counseling Patient has been found to be obese with a BMI of (30). Patient has class (1) obesity. We are a board certified obesity and weight management practice Patient has trialed behavioral modification, dietary restrictions and exercise for a minimum of 6 months The most recent [place] [employer]in[employer] and [place] [employer] guidelines recommend patients who have overweight BMI or obesity BMI, who also have metabolic syndrome, prediabetes, HLD, and other comorbidities or at risk of developing type 2 diabetes should aim for a weight loss goal of at least 10% of the baseline body weight Patient counseled regarding effects of GLP/GIP-1 agonists, and other FDA approved wgt loss meds with regards to a multifactorial approach of weight loss as mentioned above and not solely appetite suppression. We have discussed the mechanism of GLP-1's/GIP, dual incretins, appetitite suppressants I think this would be fantastic option for her given her metabolic workup and body composition We have discussed the risks and benefits and side effects including/and not limited to Sarcopenia, intestinal obstruction, constipation, nausea, lethargy, headache Discussed importance of protein consumption for muscle maintenance as well as strength and resistance training ,probiotics, B12 complex biotin , iron and other nutrients, To help avoid telogen effluvium We have discussed the lifelong requirement of nutritional supplementation And adherence to an exercise regimen as well as importance of follow-up We did discuss the neurohormonal changes that are occurring with these medications and Need for long-term Continued usage The patient understands and agrees There is no history of medullary thyroid cancer or multiple endocrine neoplasia There is also no history of cardiovascular disease, hypertension, palpitations, or arrhythmias In the setting of potential stimulant/amphetami ne use such as phentermine We have also discussed risks and benefits, and the use of compounded medications to help offset the national shortages as well as financial implications vs trade name drugs Patient was reassured and welcomed to the practice. We discussed that we stress a hollistic medical approach with emphasis on lifestyle modification. Patient was informed that a healthy lifestyle with exercise and good eating habits can help reduce his risk of medical complications. He is explained that obesity increases his risk of diabetes, cardiovascular disease, or organ damage. We spent a lot of time discussing the relationship between food, exercise, sleep, mental health and obesity. Patient was counseled on the importance EATING local, organic food when possible. Patient was educated on clean 15 and dirty dozen. I provided information about reading books called The Food Rules by Marky Johnson and Eat Fat Get Lean by Dr Deejay Sloan. Self education is important in the journey for weight management. Patient was offered diagnostic testing. We want to measure visceral adiposity, advanced body composition, adverse lipids, fatty acid balance, risk for heart disease and atherosclerosis, markers of inflammation and genetic susceptibility. Patient was counseled on weight management and was advised to lose weight using A. Meal Replacement Products We discussed the lifelong requirement of nutritional supplementation and adherence to an exercise regimen as well as importance of dietary follow-up Patient was educated on the replacement products called optifast. This is a good way of taking fixed amount of calories. It has been shown in studies to be ineffective weight management tool. We also recommend maintaining adequate protein intake and muscle composition, 1.5mg/kg This however has to be coupled with lifestyle intervention as well as laboratory data and EKG monitoring. It is impossible to know how a person will tolerate complete meal replacement. The side effects of meal replacement and weight loss could include syncopal attacks, dizziness, gallstones, potential cholecystectomy, possible heart attack and even . The benefits of meal replacement would be potential weight loss but no guarantees can be made. Meal replacement products are not covered by insurance. Once the patient has bought these products we cannot return them B. Lifestyle management which includes several strategies as below 1. Eat a low carbohydrate good fat good protein diet. Eliminate refined carbohydrates from the diet. Continue blood sugar and sugared beverages. Eat local organic when possible. Cook your own meals. Read food labels. None about healthy snacks. Portion control and food with low glycemic index 2. Exercise regularly. Try to get at least 6000 steps a day. Use a predominant to track activity level. Consider using apps like Innovate2, Fabulepal, lose it, stick as needed for self-monitoring and weight management. Consider group exercises. Consider hiring a personal shopper. Regular exercise is arias to sustainable health and prevents as a buffer against weight regain 3. Sleep is most important for healing. Tried to sleep at least 8 hours a night. A good quality sleep needs a sleep ritual with ideal room temperature of around 68. It might help to take a shower and have no electronics in the room and sleep in a very dark room without artificial light. Start her sleep routine and get up early in the morning and go to bed on time 4. Make a social connection. Surround yourself with positive people with positive energy. Connect with friends and family. 5. Get into the habit of meditating and mindfulness while doing everything. 6. Go outside and connect with nature. C. Prescription medications Patient was educated on the use of prescription medications for medical weight loss. This is a growing list and includes phentermine, Topamax,Qsymia, contrave, belviq and saxenda. All prescription medications could have side effects including but not limited to kidney stones, seizure disorder cardiac arrhythmias heart attack pancreatitis etc. etc.. Patient was encouraged to read the prescription insert and have coaching with their pharmacist and make an informed decision about taking medication and know that these medications are being prescribed with good intentions and we do not know how a patient would react to her medication. Sudden medications are FDA approved for weight loss and there is also off label use depending on patient's inability to afford medications in an attempt to lose weight D. Behavioral counseling was done to establish a relationship between food and an mood. Patient was provided information about local counseling and psychiatry and Dr Novoa at [facility]. We would like to cover regular topics and build on low glycemic eating exercise mindful eating, using yoga and meditation along with deep breathing and connecting with friends and family. E. MASS PAT reviewed, Patient's current medications were reviewed and opinion was given on medication that can cause weight gain and can be substituted F. Patient was assessed for risk with obesity including and not limiting to atherosclerosis heart disease stroke kidney disease, restrictive lung disease, irritable bowel syndrome and overall mortality. Risk of developing prediabetes diabetes and metabolic syndrome was discussed G. Therapeutic plan: We have decided to make therapeutic plan which would include choosing wisely on calories restricting portion getting active, tracking weight, getting good quality sleep and working on time management H. Patient will follow up in (4) weeks for weight management Of note, some information is being carried forward from prior records for informational purposes only and is being cited so that efficiency, safety and quality of the patient's care is not compromised This note was prepared using voice recognition software and direct typing Please excuse inadvertent site identification specialist or typing errors, or uncorrected word substitutions Although every attempt has been made by the provider to proofread this document, occasional misspellings and typographical errors may still be present Due to the previous pandemic, and the use of personal protective equipment (PPE) This may decrease voice recognition accuracy Inadvertent site identification specialist errors may occur 02/03/2024 History of colon cancer (ICD-10 - Z85.038) #Weight Management 02/03/2024 Happy with progress which has been slow and steady Tolerating medication cont Wegovy to 2.4 We did discuss we can refer to plastic surgery to see if she can get potential skin excision when she is done losing weight and on maintenance dosing For recurrent fungal infections Nystatin topical We discussed her body composition analysis today Improving parameters throughout and she is thriving on GLP-1 I would likely shy away from phnetermine given her history, age, and borderline blood pressure Metabolic unremarkable for prediabetic state or hyperinsulinemia Normal thyroid function Discussed importance of protein consumption for muscle maintenance, strength and resistance training as well as probiotics, B12 complex biotin , iron and other nutrients, To also help avoid telogen effluvium while on weight loss medications such as GLP-1 Total time spent today was 30 minutes of which greater than 50% was spent on coordinating and counseling Patient has been found to be overweight with a BMI of (27). Patient has overweight class per BMI standards We are a board certified obesity and weight management practice Patient has trialed behavioral modification, dietary restrictions and exercise for a minimum of 6 months The most recent [place] [employer]in[employer] and [place] [employer] guidelines recommend patients who have overweight BMI or obesity BMI, who also have metabolic syndrome, prediabetes, HLD, and other comorbidities or at risk of developing type 2 diabetes should aim for a weight loss goal of at least 10% of the baseline body weight Patient counseled regarding effects of GLP/GIP-1 agonists, and other FDA approved wgt loss meds with regards to a multifactorial approach of weight loss as mentioned above and not solely appetite suppression. We have discussed the mechanism of GLP-1's/GIP, dual incretins, appetitite suppressants I think this would be fantastic option for her given her metabolic workup and body composition We have discussed the risks and benefits and side effects including/and not limited to Sarcopenia, intestinal obstruction, constipation, nausea, lethargy, headache Discussed importance of protein consumption for muscle maintenance as well as strength and resistance training ,probiotics, B12 complex biotin , iron and other nutrients, To help avoid telogen effluvium We have discussed the lifelong requirement of nutritional supplementation And adherence to an exercise regimen as well as importance of follow-up We did discuss the neurohormonal changes that are occurring with these medications and Need for long-term Continued usage The patient understands and agrees There is no history of medullary thyroid cancer or multiple endocrine neoplasia There is also no history of cardiovascular disease, hypertension, palpitations, or arrhythmias In the setting of potential stimulant/amphetami ne use such as phentermine We have also discussed risks and benefits, and the use of compounded medications to help offset the national shortages as well as financial implications vs trade name drugs Patient was reassured and welcomed to the practice. We discussed that we stress a hollistic medical approach with emphasis on lifestyle modification. Patient was informed that a healthy lifestyle with exercise and good eating habits can help reduce his risk of medical complications. He is explained that obesity increases his risk of diabetes, cardiovascular disease, or organ damage. We spent a lot of time discussing the relationship between food, exercise, sleep, mental health and obesity. Patient was counseled on the importance EATING local, organic food when possible. Patient was educated on clean 15 and dirty dozen. I provided information about reading books called The Food Rules by Marky Johnson and Eat Fat Get Lean by Dr Deejay Sloan. Self education is important in the journey for weight management. Patient was offered diagnostic testing. We want to measure visceral adiposity, advanced body composition, adverse lipids, fatty acid balance, risk for heart disease and atherosclerosis, markers of inflammation and genetic susceptibility. Patient was counseled on weight management and was advised to lose weight using A. Meal Replacement Products We discussed the lifelong requirement of nutritional supplementation and adherence to an exercise regimen as well as importance of dietary follow-up Patient was educated on the replacement products called optifast. This is a good way of taking fixed amount of calories. It has been shown in studies to be ineffective weight management tool. We also recommend maintaining adequate protein intake and muscle composition, 1.5mg/kg This however has to be coupled with lifestyle intervention as well as laboratory data and EKG monitoring. It is impossible to know how a person will tolerate complete meal replacement. The side effects of meal replacement and weight loss could include syncopal attacks, dizziness, gallstones, potential cholecystectomy, possible heart attack and even . The benefits of meal replacement would be potential weight loss but no guarantees can be made. Meal replacement products are not covered by insurance. Once the patient has bought these products we cannot return them B. Lifestyle management which includes several strategies as below 1. Eat a low carbohydrate good fat good protein diet. Eliminate refined carbohydrates from the diet. Continue blood sugar and sugared beverages. Eat local organic when possible. Cook your own meals. Read food labels. None about healthy snacks. Portion control and food with low glycemic index 2. Exercise regularly. Try to get at least 6000 steps a day. Use a predominant to track activity level. Consider using apps like Innovate2, myfitnesspal, lose it, stick as needed for self-monitoring and weight management. Consider group exercises. Consider hiring a personal shopper. Regular exercise is arias to sustainable health and prevents as a buffer against weight regain 3. Sleep is most important for healing. Tried to sleep at least 8 hours a night. A good quality sleep needs a sleep ritual with ideal room temperature of around 68. It might help to take a shower and have no electronics in the room and sleep in a very dark room without artificial light. Start her sleep routine and get up early in the morning and go to bed on time 4. Make a social connection. Surround yourself with positive people with positive energy. Connect with friends and family. 5. Get into the habit of meditating and mindfulness while doing everything. 6. Go outside and connect with nature. C. Prescription medications Patient was educated on the use of prescription medications for medical weight loss. This is a growing list and includes phentermine, Topamax,Qsymia, contrave, belviq and saxenda. All prescription medications could have side effects including but not limited to kidney stones, seizure disorder cardiac arrhythmias heart attack pancreatitis etc. etc.. Patient was encouraged to read the prescription insert and have coaching with their pharmacist and make an informed decision about taking medication and know that these medications are being prescribed with good intentions and we do not know how a patient would react to her medication. Sudden medications are FDA approved for weight loss and there is also off label use depending on patient's inability to afford medications in an attempt to lose weight D. Behavioral counseling was done to establish a relationship between food and an mood. Patient was provided information about local counseling and psychiatry and Dr Novoa at [facility]. We would like to cover regular topics and build on low glycemic eating exercise mindful eating, using yoga and meditation along with deep breathing and connecting with friends and family. E. MASS PAT reviewed, Patient's current medications were reviewed and opinion was given on medication that can cause weight gain and can be substituted F. Patient was assessed for risk with obesity including and not limiting to atherosclerosis heart disease stroke kidney disease, restrictive lung disease, irritable bowel syndrome and overall mortality. Risk of developing prediabetes diabetes and metabolic syndrome was discussed G. Therapeutic plan: We have decided to make therapeutic plan which would include choosing wisely on calories restricting portion getting active, tracking weight, getting good quality sleep and working on time management H. Patient will follow up in (4) weeks for weight management Of note, some information is being carried forward from prior records for informational purposes only and is being cited so that efficiency, safety and quality of the patient's care is not compromised This note was prepared using voice recognition software and direct typing Please excuse inadvertent site identification specialist or typing errors, or uncorrected word substitutions Although every attempt has been made by the provider to proofread this document, occasional misspellings and typographical errors may still be present Due to the previous pandemic, and the use of personal protective equipment (PPE) This may decrease voice recognition accuracy Inadvertent site identification specialist errors may occur 12/02/2023 History of colon cancer (ICD-10 - Z85.038) #Weight Management 12/02/2023 Happy with progress which has been slow and steady Tolerating medication cont Wegovy to 2.4 We did discuss we can refer to plastic surgery to see if she can get potential skin excision when she is done losing weight and on maintenance dosing For recurrent fungal infections Nystatin topical We discussed her body composition analysis today Improving parameters throughout and she is thriving on GLP-1 I would likely shy away from phnetermine given her history, age, and borderline blood pressure Metabolic unremarkable for prediabetic state or hyperinsulinemia Normal thyroid function Discussed importance of protein consumption for muscle maintenance, strength and resistance training as well as probiotics, B12 complex biotin , iron and other nutrients, To also help avoid telogen effluvium while on weight loss medications such as GLP-1 Total time spent today was 30 minutes of which greater than 50% was spent on coordinating and counseling Patient has been found to be overweight with a BMI of (29). Patient has overweight class per BMI standards We are a board certified obesity and weight management practice Patient has trialed behavioral modification, dietary restrictions and exercise for a minimum of 6 months The most recent [place] [employer] and [place] [employer] guidelines recommend patients who have overweight BMI or obesity BMI, who also have metabolic syndrome, prediabetes, HLD, and other comorbidities or at risk of developing type 2 diabetes should aim for a weight loss goal of at least 10% of the baseline body weight Patient counseled regarding effects of GLP/GIP-1 agonists, and other FDA approved wgt loss meds with regards to a multifactorial approach of weight loss as mentioned above and not solely appetite suppression. We have discussed the mechanism of GLP-1's/GIP, dual incretins, appetitite suppressants I think this would be fantastic option for her given her metabolic workup and body composition We have discussed the risks and benefits and side effects including/and not limited to Sarcopenia, intestinal obstruction, constipation, nausea, lethargy, headache Discussed importance of protein consumption for muscle maintenance as well as strength and resistance training ,probiotics, B12 complex biotin , iron and other nutrients, To help avoid telogen effluvium We have discussed the lifelong requirement of nutritional supplementation And adherence to an exercise regimen as well as importance of follow-up We did discuss the neurohormonal changes that are occurring with these medications and Need for long-term Continued usage The patient understands and agrees There is no history of medullary thyroid cancer or multiple endocrine neoplasia There is also no history of cardiovascular disease, hypertension, palpitations, or arrhythmias In the setting of potential stimulant/amphetami ne use such as phentermine We have also discussed risks and benefits, and the use of compounded medications to help offset the national shortages as well as financial implications vs trade name drugs Patient was reassured and welcomed to the practice. We discussed that we stress a hollistic medical approach with emphasis on lifestyle modification. Patient was informed that a healthy lifestyle with exercise and good eating habits can help reduce his risk of medical complications. He is explained that obesity increases his risk of diabetes, cardiovascular disease, or organ damage. We spent a lot of time discussing the relationship between food, exercise, sleep, mental health and obesity. Patient was counseled on the importance EATING local, organic food when possible. Patient was educated on clean 15 and dirty dozen. I provided information about reading books called The Food Rules by Mraky Johnson and Eat Fat Get Lean by Dr Deejay Sloan. Self education is important in the journey for weight management. Patient was offered diagnostic testing. We want to measure visceral adiposity, advanced body composition, adverse lipids, fatty acid balance, risk for heart disease and atherosclerosis, markers of inflammation and genetic susceptibility. Patient was counseled on weight management and was advised to lose weight using A. Meal Replacement Products We discussed the lifelong requirement of nutritional supplementation and adherence to an exercise regimen as well as importance of dietary follow-up Patient was educated on the replacement products called optifast. This is a good way of taking fixed amount of calories. It has been shown in studies to be ineffective weight management tool. We also recommend maintaining adequate protein intake and muscle composition, 1.5mg/kg This however has to be coupled with lifestyle intervention as well as laboratory data and EKG monitoring. It is impossible to know how a person will tolerate complete meal replacement. The side effects of meal replacement and weight loss could include syncopal attacks, dizziness, gallstones, potential cholecystectomy, possible heart attack and even . The benefits of meal replacement would be potential weight loss but no guarantees can be made. Meal replacement products are not covered by insurance. Once the patient has bought these products we cannot return them B. Lifestyle management which includes several strategies as below 1. Eat a low carbohydrate good fat good protein diet. Eliminate refined carbohydrates from the diet. Continue blood sugar and sugared beverages. Eat local organic when possible. Cook your own meals. Read food labels. None about healthy snacks. Portion control and food with low glycemic index 2. Exercise regularly. Try to get at least 6000 steps a day. Use a predominant to track activity level. Consider using apps like Innovate2, myfitnesspal, lose it, stick as needed for self-monitoring and weight management. Consider group exercises. Consider hiring a personal shopper. Regular exercise is arias to sustainable health and prevents as a buffer against weight regain 3. Sleep is most important for healing. Tried to sleep at least 8 hours a night. A good quality sleep needs a sleep ritual with ideal room temperature of around 68. It might help to take a shower and have no electronics in the room and sleep in a very dark room without artificial light. Start her sleep routine and get up early in the morning and go to bed on time 4. Make a social connection. Surround yourself with positive people with positive energy. Connect with friends and family. 5. Get into the habit of meditating and mindfulness while doing everything. 6. Go outside and connect with nature. C. Prescription medications Patient was educated on the use of prescription medications for medical weight loss. This is a growing list and includes phentermine, Topamax,Qsymia, contrave, belviq and saxenda. All prescription medications could have side effects including but not limited to kidney stones, seizure disorder cardiac arrhythmias heart attack pancreatitis etc. etc.. Patient was encouraged to read the prescription insert and have coaching with their pharmacist and make an informed decision about taking medication and know that these medications are being prescribed with good intentions and we do not know how a patient would react to her medication. Sudden medications are FDA approved for weight loss and there is also off label use depending on patient's inability to afford medications in an attempt to lose weight D. Behavioral counseling was done to establish a relationship between food and an mood. Patient was provided information about local counseling and psychiatry and Dr Novoa at [employer]. We would like to cover regular topics and build on low glycemic eating exercise mindful eating, using yoga and meditation along with deep breathing and connecting with friends and family. E. MASS PAT reviewed, Patient's current medications were reviewed and opinion was given on medication that can cause weight gain and can be substituted F. Patient was assessed for risk with obesity including and not limiting to atherosclerosis heart disease stroke kidney disease, restrictive lung disease, irritable bowel syndrome and overall mortality. Risk of developing prediabetes diabetes and metabolic syndrome was discussed G. Therapeutic plan: We have decided to make therapeutic plan which would include choosing wisely on calories restricting portion getting active, tracking weight, getting good quality sleep and working on time management H. Patient will follow up in (4) weeks for weight management Of note, some information is being carried forward from prior records for informational purposes only and is being cited so that efficiency, safety and quality of the patient's care is not compromised This note was prepared using voice recognition software and direct typing Please excuse inadvertent site identification specialist or typing errors, or uncorrected word substitutions Although every attempt has been made by the provider to proofread this document, occasional misspellings and typographical errors may still be present Due to the previous pandemic, and the use of personal protective equipment (PPE) This may decrease voice recognition accuracy Inadvertent site identification specialist errors may occur 05/19/2024 History of colon cancer (ICD-10 - Z85.038) #Weight Management 05/19/2024 _update comprehensive labs before next visit Happy [...] board certified obesity and weight management practice Patient has trialed behavioral modification, dietary restrictions and exercise for a minimum of 6 months The most recent [place] [employer]ocrin[employer] and [place] [employer] guidelines recommend patients who have overweight BMI or obesity BMI, who also have metabolic syndrome, prediabetes, HLD, and other comorbidities or at risk of developing type 2 diabetes should aim for a weight loss goal of at least 10% of the baseline body weight Patient counseled regarding effects of GLP/GIP-1 agonists, and other FDA approved wgt loss meds with regards to a multifactorial approach of weight loss as mentioned above and not solely appetite suppression. Of note, some information is being carried forward from prior records for informational purposes only and is being cited so that efficiency, safety and quality of the patient's care is not compromised This note was prepared using voice recognition software and direct typing Please excuse inadvertent site identification specialist or typing errors, or uncorrected word substitutions Although every attempt has been made by the provider to proofread this document, occasional misspellings and typographical errors may still be present Due to the previous pandemic, and the use of personal protective equipment (PPE) This may decrease voice recognition accuracy Inadvertent site identification specialist errors may occur 03/30/2024 PCOS (polycystic ovarian syndrome) (ICD-10 - E28.2) #Weight Management 03/30/2024 Happy with progress which has been slow and steady down additional 6lbs of fat mass Tolerating medication cont Wegovy to 2.4 We did discuss we can refer to plastic surgery to see if she can get potential skin excision when she is done losing weight and on maintenance dosing For recurrent fungal infections Nystatin topical We discussed her body composition analysis today Improving parameters throughout and she is thriving on GLP-1 I would likely shy away from phnetermine given her history, age, and borderline blood pressure Total time spent today was 30 minutes of which greater than 50% was spent on coordinating and counseling Patient has been found to be overweight with a BMI of (27). Patient has overweight class per BMI standards We are a board certified obesity and weight management practice Patient has trialed behavioral modification, dietary restrictions and exercise for a minimum of 6 months The most recent [place] [employer]ocrinologists and [place] [employer] guidelines recommend patients who have overweight BMI or obesity BMI, who also have metabolic syndrome, prediabetes, HLD, and other comorbidities or at risk of developing type 2 diabetes should aim for a weight loss goal of at least 10% of the baseline body weight Patient counseled regarding effects of GLP/GIP-1 agonists, and other FDA approved wgt loss meds with regards to a multifactorial approach of weight loss as mentioned above and not solely appetite suppression. Of note, some information is being carried forward from prior records for informational purposes only and is being cited so that efficiency, safety and quality of the patient's care is not compromised This note was prepared using voice recognition software and direct typing Please excuse inadvertent site identification specialist or typing errors, or uncorrected word substitutions Although every attempt has been made by the provider to proofread this document, occasional misspellings and typographical errors may still be present Due to the previous pandemic, and the use of personal protective equipment (PPE) This may decrease voice recognition accuracy Inadvertent site identification specialist errors may occur 06/29/2024 PCOS (polycystic ovarian [...] software and direct typing Please excuse inadvertent site identification specialist or typing errors, or uncorrected word substitutions Although every attempt has been made by the provider to proofread this document, occasional misspellings and typographical errors may still be present Due to the previous pandemic, and the use of personal protective equipment (PPE) This may decrease voice recognition accuracy Inadvertent site identification specialist errors may occur 07/22/2024 PCOS (polycystic ovarian syndrome) (ICD-10 - E28.2) #Weight Management 07/22/2024 [facility] today to get labs later this [...] software and direct typing Please excuse inadvertent site identification specialist or typing errors, or uncorrected word substitutions Although every attempt has been made by the provider to proofread this document, occasional misspellings and typographical errors may still be present Due to the previous pandemic, and the use of personal protective equipment (PPE) This may decrease voice recognition accuracy Inadvertent site identification specialist errors may occur 07/22/2024 History of colon cancer (ICD-10 - Z85.038) #Weight Management 07/22/2024 [facility] today to get labs later this [...] software and direct typing Please excuse inadvertent site identification specialist or typing errors, or uncorrected word substitutions Although every attempt has been made by the provider to proofread this document, occasional misspellings and typographical errors may still be present Due to the previous pandemic, and the use of personal protective equipment (PPE) This may decrease voice recognition accuracy Inadvertent site identification specialist errors may occur 06/29/2024 History of colon [...] software and direct typing Please excuse inadvertent site identification specialist or typing errors, or uncorrected word substitutions Although every attempt has been made by the provider to proofread this document, occasional misspellings and typographical errors may still be present Due to the previous pandemic, and the use of personal protective equipment (PPE) This may decrease voice recognition accuracy Inadvertent site identification specialist errors may occur 03/30/2024 History of colon cancer (ICD-10 - Z85.038) #Weight Management 03/30/2024 Happy with progress which has been slow and steady down additional 6lbs of fat mass Tolerating medication cont Wegovy to 2.4 We did discuss we can refer to plastic surgery to see if she can get potential skin excision when she is done losing weight and on maintenance dosing For recurrent fungal infections Nystatin topical We discussed her body composition analysis today Improving parameters throughout and she is thriving on GLP-1 I would likely shy away from phnetermine given her history, age, and borderline blood pressure Total time spent today was 30 minutes of which greater than 50% was spent on coordinating and counseling Patient has been found to be overweight with a BMI of (27). Patient has overweight class per BMI standards We are a board certified obesity and weight management practice Patient has trialed behavioral modification, dietary restrictions and exercise for a minimum of 6 months The most recent [place] [employer]ocrinologists and [place] [employer] guidelines recommend patients who have overweight BMI or obesity BMI, who also have metabolic syndrome, prediabetes, HLD, and other comorbidities or at risk of developing type 2 diabetes should aim for a weight loss goal of at least 10% of the baseline body weight Patient counseled regarding effects of GLP/GIP-1 agonists, and other FDA approved wgt loss meds with regards to a multifactorial approach of weight loss as mentioned above and not solely appetite suppression. Of note, some information is being carried forward from prior records for informational purposes only and is being cited so that efficiency, safety and quality of the patient's care is not compromised This note was prepared using voice recognition software and direct typing Please excuse inadvertent site identification specialist or typing errors, or uncorrected word substitutions Although every attempt has been made by the provider to proofread this document, occasional misspellings and typographical errors may still be present Due to the previous pandemic, and the use of personal protective equipment (PPE) This may decrease voice recognition accuracy Inadvertent site identification specialist errors may occur 05/19/2024 Migraine without aura and without status migrainosus, not intractable (ICD-10 - G43.009) #Weight Management 05/19/2024 _update comprehensive labs before next visit Happy [...] board certified obesity and weight management practice Patient has trialed behavioral modification, dietary restrictions and exercise for a minimum of 6 months The most recent [place] [employer]ocrinologists and [place] [employer] guidelines recommend patients who have overweight BMI or obesity BMI, who also have metabolic syndrome, prediabetes, HLD, and other comorbidities or at risk of developing type 2 diabetes should aim for a weight loss goal of at least 10% of the baseline body weight Patient counseled regarding effects of GLP/GIP-1 agonists, and other FDA approved wgt loss meds with regards to a multifactorial approach of weight loss as mentioned above and not solely appetite suppression. Of note, some information is being carried forward from prior records for informational purposes only and is being cited so that efficiency, safety and quality of the patient's care is not compromised This note was prepared using voice recognition software and direct typing Please excuse inadvertent site identification specialist or typing errors, or uncorrected word substitutions Although every attempt has been made by the provider to proofread this document, occasional misspellings and typographical errors may still be present Due to the previous pandemic, and the use of personal protective equipment (PPE) This may decrease voice recognition accuracy Inadvertent site identification specialist errors may occur 02/03/2024 Migraine without aura and without status migrainosus, not intractable (ICD-10 - G43.009) #Weight Management 02/03/2024 Happy with progress which has been slow and steady Tolerating medication cont Wegovy to 2.4 We did discuss we can refer to plastic surgery to see if she can get potential skin excision when she is done losing weight and on maintenance dosing For recurrent fungal infections Nystatin topical We discussed her body composition analysis today Improving parameters throughout and she is thriving on GLP-1 I would likely shy away from phnetermine given her history, age, and borderline blood pressure Metabolic unremarkable for prediabetic state or hyperinsulinemia Normal thyroid function Discussed importance of protein consumption for muscle maintenance, strength and resistance training as well as probiotics, B12 complex biotin , iron and other nutrients, To also help avoid telogen effluvium while on weight loss medications such as GLP-1 Total time spent today was 30 minutes of which greater than 50% was spent on coordinating and counseling Patient has been found to be overweight with a BMI of (27). Patient has overweight class per BMI standards We are a board certified obesity and weight management practice Patient has trialed behavioral modification, dietary restrictions and exercise for a minimum of 6 months The most recent [place] [employer]ocrinologists and [place] [employer] guidelines recommend patients who have overweight BMI or obesity BMI, who also have metabolic syndrome, prediabetes, HLD, and other comorbidities or at risk of developing type 2 diabetes should aim for a weight loss goal of at least 10% of the baseline body weight Patient counseled regarding effects of GLP/GIP-1 agonists, and other FDA approved wgt loss meds with regards to a multifactorial approach of weight loss as mentioned above and not solely appetite suppression. We have discussed the mechanism of GLP-1's/GIP, dual incretins, appetitite suppressants I think this would be fantastic option for her given her metabolic workup and body composition We have discussed the risks and benefits and side effects including/and not limited to Sarcopenia, intestinal obstruction, constipation, nausea, lethargy, headache Discussed importance of protein consumption for muscle maintenance as well as strength and resistance training ,probiotics, B12 complex biotin , iron and other nutrients, To help avoid telogen effluvium We have discussed the lifelong requirement of nutritional supplementation And adherence to an exercise regimen as well as importance of follow-up We did discuss the neurohormonal changes that are occurring with these medications and Need for long-term Continued usage The patient understands and agrees There is no history of medullary thyroid cancer or multiple endocrine neoplasia There is also no history of cardiovascular disease, hypertension, palpitations, or arrhythmias In the setting of potential stimulant/amphetami ne use such as phentermine We have also discussed risks and benefits, and the use of compounded medications to help offset the national shortages as well as financial implications vs trade name drugs Patient was reassured and welcomed to the practice. We discussed that we stress a hollistic medical approach with emphasis on lifestyle modification. Patient was informed that a healthy lifestyle with exercise and good eating habits can help reduce his risk of medical complications. He is explained that obesity increases his risk of diabetes, cardiovascular disease, or organ damage. We spent a lot of time discussing the relationship between food, exercise, sleep, mental health and obesity. Patient was counseled on the importance EATING local, organic food when possible. Patient was educated on clean 15 and dirty dozen. I provided information about reading books called The Food Rules by Marky Johnson and Eat Fat Get Lean by Dr Deejay Sloan. Self education is important in the journey for weight management. Patient was offered diagnostic testing. We want to measure visceral adiposity, advanced body composition, adverse lipids, fatty acid balance, risk for heart disease and atherosclerosis, markers of inflammation and genetic susceptibility. Patient was counseled on weight management and was advised to lose weight using A. Meal Replacement Products We discussed the lifelong requirement of nutritional supplementation and adherence to an exercise regimen as well as importance of dietary follow-up Patient was educated on the replacement products called optifast. This is a good way of taking fixed amount of calories. It has been shown in studies to be ineffective weight management tool. We also recommend maintaining adequate protein intake and muscle composition, 1.5mg/kg This however has to be coupled with lifestyle intervention as well as laboratory data and EKG monitoring. It is impossible to know how a person will tolerate complete meal replacement. The side effects of meal replacement and weight loss could include syncopal attacks, dizziness, gallstones, potential cholecystectomy, possible heart attack and even . The benefits of meal replacement would be potential weight loss but no guarantees can be made. Meal replacement products are not covered by insurance. Once the patient has bought these products we cannot return them B. Lifestyle management which includes several strategies as below 1. Eat a low carbohydrate good fat good protein diet. Eliminate refined carbohydrates from the diet. Continue blood sugar and sugared beverages. Eat local organic when possible. Cook your own meals. Read food labels. None about healthy snacks. Portion control and food with low glycemic index 2. Exercise regularly. Try to get at least 6000 steps a day. Use a predominant to track activity level. Consider using apps like Innovate2, Fabulepal, lose it, stick as needed for self-monitoring and weight management. Consider group exercises. Consider hiring a personal shopper. Regular exercise is arias to sustainable health and prevents as a buffer against weight regain 3. Sleep is most important for healing. Tried to sleep at least 8 hours a night. A good quality sleep needs a sleep ritual with ideal room temperature of around 68. It might help to take a shower and have no electronics in the room and sleep in a very dark room without artificial light. Start her sleep routine and get up early in the morning and go to bed on time 4. Make a social connection. Surround yourself with positive people with positive energy. Connect with friends and family. 5. Get into the habit of meditating and mindfulness while doing everything. 6. Go outside and connect with nature. C. Prescription medications Patient was educated on the use of prescription medications for medical weight loss. This is a growing list and includes phentermine, Topamax,Qsymia, contrave, belviq and saxenda. All prescription medications could have side effects including but not limited to kidney stones, seizure disorder cardiac arrhythmias heart attack pancreatitis etc. etc.. Patient was encouraged to read the prescription insert and have coaching with their pharmacist and make an informed decision about taking medication and know that these medications are being prescribed with good intentions and we do not know how a patient would react to her medication. Sudden medications are FDA approved for weight loss and there is also off label use depending on patient's inability to afford medications in an attempt to lose weight D. Behavioral counseling was done to establish a relationship between food and an mood. Patient was provided information about local counseling and psychiatry and Dr Novoa at [facility]. We would like to cover regular topics and build on low glycemic eating exercise mindful eating, using yoga and meditation along with deep breathing and connecting with friends and family. E. MASS PAT reviewed, Patient's current medications were reviewed and opinion was given on medication that can cause weight gain and can be substituted F. Patient was assessed for risk with obesity including and not limiting to atherosclerosis heart disease stroke kidney disease, restrictive lung disease, irritable bowel syndrome and overall mortality. Risk of developing prediabetes diabetes and metabolic syndrome was discussed G. Therapeutic plan: We have decided to make therapeutic plan which would include choosing wisely on calories restricting portion getting active, tracking weight, getting good quality sleep and working on time management H. Patient will follow up in (4) weeks for weight management Of note, some information is being carried forward from prior records for informational purposes only and is being cited so that efficiency, safety and quality of the patient's care is not compromised This note was prepared using voice recognition software and direct typing Please excuse inadvertent site identification specialist or typing errors, or uncorrected word substitutions Although every attempt has been made by the provider to proofread this document, occasional misspellings and typographical errors may still be present Due to the previous pandemic, and the use of personal protective equipment (PPE) This may decrease voice recognition accuracy Inadvertent site identification specialist errors may occur 09/02/2023 BMI 30.0-30.9,adult (ICD-10 - Z68.30) #Weight Management 09/02/2023 Happy with progress which has been slow and steady Tolerating medication cont Wegovy to 2.4 We did discuss we can refer to plastic surgery to see if she can get potential skin excision when she is done losing weight and on maintenance dosing For recurrent fungal infections We discussed her body composition analysis today Improving parameters throughout and she is thriving on GLP-1 I would likely shy away from phnetermine given her history, age, and borderline blood pressure Metabolic unremarkable for prediabetic state or hyperinsulinemia Normal thyroid function Discussed importance of protein consumption for muscle maintenance, strength and resistance training as well as probiotics, B12 complex biotin , iron and other nutrients, To also help avoid telogen effluvium while on weight loss medications such as GLP-1 Total time spent today was 30 minutes of which greater than 50% was spent on coordinating and counseling Patient has been found to be obese with a BMI of (30). Patient has class (1) obesity. We are a board certified obesity and weight management practice Patient has trialed behavioral modification, dietary restrictions and exercise for a minimum of 6 months The most recent [place] [employer]in[employer] and [place] [employer] guidelines recommend patients who have overweight BMI or obesity BMI, who also have metabolic syndrome, prediabetes, HLD, and other comorbidities or at risk of developing type 2 diabetes should aim for a weight loss goal of at least 10% of the baseline body weight Patient counseled regarding effects of GLP/GIP-1 agonists, and other FDA approved wgt loss meds with regards to a multifactorial approach of weight loss as mentioned above and not solely appetite suppression. We have discussed the mechanism of GLP-1's/GIP, dual incretins, appetitite suppressants I think this would be fantastic option for her given her metabolic workup and body composition We have discussed the risks and benefits and side effects including/and not limited to Sarcopenia, intestinal obstruction, constipation, nausea, lethargy, headache Discussed importance of protein consumption for muscle maintenance as well as strength and resistance training ,probiotics, B12 complex biotin , iron and other nutrients, To help avoid telogen effluvium We have discussed the lifelong requirement of nutritional supplementation And adherence to an exercise regimen as well as importance of follow-up We did discuss the neurohormonal changes that are occurring with these medications and Need for long-term Continued usage The patient understands and agrees There is no history of medullary thyroid cancer or multiple endocrine neoplasia There is also no history of cardiovascular disease, hypertension, palpitations, or arrhythmias In the setting of potential stimulant/amphetami ne use such as phentermine We have also discussed risks and benefits, and the use of compounded medications to help offset the national shortages as well as financial implications vs trade name drugs Patient was reassured and welcomed to the practice. We discussed that we stress a hollistic medical approach with emphasis on lifestyle modification. Patient was informed that a healthy lifestyle with exercise and good eating habits can help reduce his risk of medical complications. He is explained that obesity increases his risk of diabetes, cardiovascular disease, or organ damage. We spent a lot of time discussing the relationship between food, exercise, sleep, mental health and obesity. Patient was counseled on the importance EATING local, organic food when possible. Patient was educated on clean 15 and dirty dozen. I provided information about reading books called The Food Rules by Marky Johnson and Eat Fat Get Lean by Dr Deejay Sloan. Self education is important in the journey for weight management. Patient was offered diagnostic testing. We want to measure visceral adiposity, advanced body composition, adverse lipids, fatty acid balance, risk for heart disease and atherosclerosis, markers of inflammation and genetic susceptibility. Patient was counseled on weight management and was advised to lose weight using A. Meal Replacement Products We discussed the lifelong requirement of nutritional supplementation and adherence to an exercise regimen as well as importance of dietary follow-up Patient was educated on the replacement products called optifast. This is a good way of taking fixed amount of calories. It has been shown in studies to be ineffective weight management tool. We also recommend maintaining adequate protein intake and muscle composition, 1.5mg/kg This however has to be coupled with lifestyle intervention as well as laboratory data and EKG monitoring. It is impossible to know how a person will tolerate complete meal replacement. The side effects of meal replacement and weight loss could include syncopal attacks, dizziness, gallstones, potential cholecystectomy, possible heart attack and even . The benefits of meal replacement would be potential weight loss but no guarantees can be made. Meal replacement products are not covered by insurance. Once the patient has bought these products we cannot return them B. Lifestyle management which includes several strategies as below 1. Eat a low carbohydrate good fat good protein diet. Eliminate refined carbohydrates from the diet. Continue blood sugar and sugared beverages. Eat local organic when possible. Cook your own meals. Read food labels. None about healthy snacks. Portion control and food with low glycemic index 2. Exercise regularly. Try to get at least 6000 steps a day. Use a predominant to track activity level. Consider using apps like Innovate2, Fabulepal, lose it, stick as needed for self-monitoring and weight management. Consider group exercises. Consider hiring a personal shopper. Regular exercise is arias to sustainable health and prevents as a buffer against weight regain 3. Sleep is most important for healing. Tried to sleep at least 8 hours a night. A good quality sleep needs a sleep ritual with ideal room temperature of around 68. It might help to take a shower and have no electronics in the room and sleep in a very dark room without artificial light. Start her sleep routine and get up early in the morning and go to bed on time 4. Make a social connection. Surround yourself with positive people with positive energy. Connect with friends and family. 5. Get into the habit of meditating and mindfulness while doing everything. 6. Go outside and connect with nature. C. Prescription medications Patient was educated on the use of prescription medications for medical weight loss. This is a growing list and includes phentermine, Topamax,Qsymia, contrave, belviq and saxenda. All prescription medications could have side effects including but not limited to kidney stones, seizure disorder cardiac arrhythmias heart attack pancreatitis etc. etc.. Patient was encouraged to read the prescription insert and have coaching with their pharmacist and make an informed decision about taking medication and know that these medications are being prescribed with good intentions and we do not know how a patient would react to her medication. Sudden medications are FDA approved for weight loss and there is also off label use depending on patient's inability to afford medications in an attempt to lose weight D. Behavioral counseling was done to establish a relationship between food and an mood. Patient was provided information about local counseling and psychiatry and Dr Novoa at [facility]. We would like to cover regular topics and build on low glycemic eating exercise mindful eating, using yoga and meditation along with deep breathing and connecting with friends and family. E. MASS PAT reviewed, Patient's current medications were reviewed and opinion was given on medication that can cause weight gain and can be substituted F. Patient was assessed for risk with obesity including and not limiting to atherosclerosis heart disease stroke kidney disease, restrictive lung disease, irritable bowel syndrome and overall mortality. Risk of developing prediabetes diabetes and metabolic syndrome was discussed G. Therapeutic plan: We have decided to make therapeutic plan which would include choosing wisely on calories restricting portion getting active, tracking weight, getting good quality sleep and working on time management H. Patient will follow up in (4) weeks for weight management Of note, some information is being carried forward from prior records for informational purposes only and is being cited so that efficiency, safety and quality of the patient's care is not compromised This note was prepared using voice recognition software and direct typing Please excuse inadvertent site identification specialist or typing errors, or uncorrected word substitutions Although every attempt has been made by the provider to proofread this document, occasional misspellings and typographical errors may still be present Due to the previous pandemic, and the use of personal protective equipment (PPE) This may decrease voice recognition accuracy Inadvertent site identification specialist errors may occur 12/02/2023 Migraine without aura and without status migrainosus, not intractable (ICD-10 - G43.009) #Weight Management 12/02/2023 Happy with progress which has been slow and steady Tolerating medication cont Wegovy to 2.4 We did discuss we can refer to plastic surgery to see if she can get potential skin excision when she is done losing weight and on maintenance dosing For recurrent fungal infections Nystatin topical We discussed her body composition analysis today Improving parameters throughout and she is thriving on GLP-1 I would likely shy away from phnetermine given her history, age, and borderline blood pressure Metabolic unremarkable for prediabetic state or hyperinsulinemia Normal thyroid function Discussed importance of protein consumption for muscle maintenance, strength and resistance training as well as probiotics, B12 complex biotin , iron and other nutrients, To also help avoid telogen effluvium while on weight loss medications such as GLP-1 Total time spent today was 30 minutes of which greater than 50% was spent on coordinating and counseling Patient has been found to be overweight with a BMI of (29). Patient has overweight class per BMI standards We are a board certified obesity and weight management practice Patient has trialed behavioral modification, dietary restrictions and exercise for a minimum of 6 months The most recent [place] [employer]inologists and [place] [employer] guidelines recommend patients who have overweight BMI or obesity BMI, who also have metabolic syndrome, prediabetes, HLD, and other comorbidities or at risk of developing type 2 diabetes should aim for a weight loss goal of at least 10% of the baseline body weight Patient counseled regarding effects of GLP/GIP-1 agonists, and other FDA approved wgt loss meds with regards to a multifactorial approach of weight loss as mentioned above and not solely appetite suppression. We have discussed the mechanism of GLP-1's/GIP, dual incretins, appetitite suppressants I think this would be fantastic option for her given her metabolic workup and body composition We have discussed the risks and benefits and side effects including/and not limited to Sarcopenia, intestinal obstruction, constipation, nausea, lethargy, headache Discussed importance of protein consumption for muscle maintenance as well as strength and resistance training ,probiotics, B12 complex biotin , iron and other nutrients, To help avoid telogen effluvium We have discussed the lifelong requirement of nutritional supplementation And adherence to an exercise regimen as well as importance of follow-up We did discuss the neurohormonal changes that are occurring with these medications and Need for long-term Continued usage The patient understands and agrees There is no history of medullary thyroid cancer or multiple endocrine neoplasia There is also no history of cardiovascular disease, hypertension, palpitations, or arrhythmias In the setting of potential stimulant/amphetami ne use such as phentermine We have also discussed risks and benefits, and the use of compounded medications to help offset the national shortages as well as financial implications vs trade name drugs Patient was reassured and welcomed to the practice. We discussed that we stress a hollistic medical approach with emphasis on lifestyle modification. Patient was informed that a healthy lifestyle with exercise and good eating habits can help reduce his risk of medical complications. He is explained that obesity increases his risk of diabetes, cardiovascular disease, or organ damage. We spent a lot of time discussing the relationship between food, exercise, sleep, mental health and obesity. Patient was counseled on the importance EATING local, organic food when possible. Patient was educated on clean 15 and dirty dozen. I provided information about reading books called The Food Rules by Marky Johnson and Eat Fat Get Lean by Dr Deejay Sloan. Self education is important in the journey for weight management. Patient was offered diagnostic testing. We want to measure visceral adiposity, advanced body composition, adverse lipids, fatty acid balance, risk for heart disease and atherosclerosis, markers of inflammation and genetic susceptibility. Patient was counseled on weight management and was advised to lose weight using A. Meal Replacement Products We discussed the lifelong requirement of nutritional supplementation and adherence to an exercise regimen as well as importance of dietary follow-up Patient was educated on the replacement products called optifast. This is a good way of taking fixed amount of calories. It has been shown in studies to be ineffective weight management tool. We also recommend maintaining adequate protein intake and muscle composition, 1.5mg/kg This however has to be coupled with lifestyle intervention as well as laboratory data and EKG monitoring. It is impossible to know how a person will tolerate complete meal replacement. The side effects of meal replacement and weight loss could include syncopal attacks, dizziness, gallstones, potential cholecystectomy, possible heart attack and even . The benefits of meal replacement would be potential weight loss but no guarantees can be made. Meal replacement products are not covered by insurance. Once the patient has bought these products we cannot return them B. Lifestyle management which includes several strategies as below 1. Eat a low carbohydrate good fat good protein diet. Eliminate refined carbohydrates from the diet. Continue blood sugar and sugared beverages. Eat local organic when possible. Cook your own meals. Read food labels. None about healthy snacks. Portion control and food with low glycemic index 2. Exercise regularly. Try to get at least 6000 steps a day. Use a predominant to track activity level. Consider using apps like Innovate2, myfitnesspal, lose it, stick as needed for self-monitoring and weight management. Consider group exercises. Consider hiring a personal shopper. Regular exercise is arias to sustainable health and prevents as a buffer against weight regain 3. Sleep is most important for healing. Tried to sleep at least 8 hours a night. A good quality sleep needs a sleep ritual with ideal room temperature of around 68. It might help to take a shower and have no electronics in the room and sleep in a very dark room without artificial light. Start her sleep routine and get up early in the morning and go to bed on time 4. Make a social connection. Surround yourself with positive people with positive energy. Connect with friends and family. 5. Get into the habit of meditating and mindfulness while doing everything. 6. Go outside and connect with nature. C. Prescription medications Patient was educated on the use of prescription medications for medical weight loss. This is a growing list and includes phentermine, Topamax,Qsymia, contrave, belviq and saxenda. All prescription medications could have side effects including but not limited to kidney stones, seizure disorder cardiac arrhythmias heart attack pancreatitis etc. etc.. Patient was encouraged to read the prescription insert and have coaching with their pharmacist and make an informed decision about taking medication and know that these medications are being prescribed with good intentions and we do not know how a patient would react to her medication. Sudden medications are FDA approved for weight loss and there is also off label use depending on patient's inability to afford medications in an attempt to lose weight D. Behavioral counseling was done to establish a relationship between food and an mood. Patient was provided information about local counseling and psychiatry and Dr Novoa at [facility]. We would like to cover regular topics and build on low glycemic eating exercise mindful eating, using yoga and meditation along with deep breathing and connecting with friends and family. E. MASS PAT reviewed, Patient's current medications were reviewed and opinion was given on medication that can cause weight gain and can be substituted F. Patient was assessed for risk with obesity including and not limiting to atherosclerosis heart disease stroke kidney disease, restrictive lung disease, irritable bowel syndrome and overall mortality. Risk of developing prediabetes diabetes and metabolic syndrome was discussed G. Therapeutic plan: We have decided to make therapeutic plan which would include choosing wisely on calories restricting portion getting active, tracking weight, getting good quality sleep and working on time management H. Patient will follow up in (4) weeks for weight management Of note, some information is being carried forward from prior records for informational purposes only and is being cited so that efficiency, safety and quality of the patient's care is not compromised This note was prepared using voice recognition software and direct typing Please excuse inadvertent site identification specialist or typing errors, or uncorrected word substitutions Although every attempt has been made by the provider to proofread this document, occasional misspellings and typographical errors may still be present Due to the previous pandemic, and the use of personal protective equipment (PPE) This may decrease voice recognition accuracy Inadvertent site identification specialist errors may occur 03/30/2024 Migraine without aura and without status migrainosus, not intractable (ICD-10 - G43.009) #Weight Management 03/30/2024 Happy with progress which has been slow and steady down additional 6lbs of fat mass Tolerating medication cont Wegovy to 2.4 We did discuss we can refer to plastic surgery to see if she can get potential skin excision when she is done losing weight and on maintenance dosing For recurrent fungal infections Nystatin topical We discussed her body composition analysis today Improving parameters throughout and she is thriving on GLP-1 I would likely shy away from phnetermine given her history, age, and borderline blood pressure Total time spent today was 30 minutes of which greater than 50% was spent on coordinating and counseling Patient has been found to be overweight with a BMI of (27). Patient has overweight class per BMI standards We are a board certified obesity and weight management practice Patient has trialed behavioral modification, dietary restrictions and exercise for a minimum of 6 months The most recent [place] [employer]in[employer] and [place] [employer] guidelines recommend patients who have overweight BMI or obesity BMI, who also have metabolic syndrome, prediabetes, HLD, and other comorbidities or at risk of developing type 2 diabetes should aim for a weight loss goal of at least 10% of the baseline body weight Patient counseled regarding effects of GLP/GIP-1 agonists, and other FDA approved wgt loss meds with regards to a multifactorial approach of weight loss as mentioned above and not solely appetite suppression. Of note, some information is being carried forward from prior records for informational purposes only and is being cited so that efficiency, safety and quality of the patient's care is not compromised This note was prepared using voice recognition software and direct typing Please excuse inadvertent site identification specialist or typing errors, or uncorrected word substitutions Although every attempt has been made by the provider to proofread this document, occasional misspellings and typographical errors may still be present Due to the previous pandemic, and the use of personal protective equipment (PPE) This may decrease voice recognition accuracy Inadvertent site identification specialist errors may occur 06/29/2024 Migraine without aura [...] software and direct typing Please excuse inadvertent site identification specialist or typing errors, or uncorrected word substitutions Although every attempt has been made by the provider to proofread this document, occasional misspellings and typographical errors may still be present Due to the previous pandemic, and the use of personal protective equipment (PPE) This may decrease voice recognition accuracy Inadvertent site identification specialist errors may occur 07/22/2024 Migraine without aura and without status migrainosus, not intractable (ICD-10 - G43.009) #Weight Management 07/22/2024 [facility] today to get labs later this [...] software and direct typing Please excuse inadvertent site identification specialist or typing errors, or uncorrected word substitutions Although every attempt has been made by the provider to proofread this document, occasional misspellings and typographical errors may still be present Due to the previous pandemic, and the use of personal protective equipment (PPE) This may decrease voice recognition accuracy Inadvertent site identification specialist errors may occur PLAN OF TREATMENT Pending Test Test Name Order Date HEMOGLOBIN A1C 11/20/2021 T4, TOTAL 11/20/2021 TSH 11/20/2021 LIPID PANEL, STANDARD 05/19/2024 COMPREHENSIVE METABOLIC PANEL 05/19/2024 CBC (INCLUDES DIFF/PLT) 05/19/2024 URINALYSIS, COMPLETE 05/19/2024 HEMOGLOBIN A1c 05/19/2024 TSH 05/19/2024 VITAMIN D,25-OH,TOTAL,IA 05/19/2024 Next Appt Details Provider Name:ABUNDIO DEE, 08/30/2024 10:30:00 AM, [address] [facility], [facility] [address], [place], [address], Insurance Providers Payer Name Payer Address Payer Phone Subscriber Number Group Number Insured Name Patient Relationship to Insured Coverage Start Date Coverage End Date [facility] [address] [place] [address] [id number] Laurence Sanderson i Self - patient is the insured MEDICATIONS ADMINISTERED Medication Instructions Date of Administration Dosage Notes MICC B12 INJECTION 11/22/2021 1 MICC B12 INJECTION 12/25/2021 MICC B12 INJECTION 12/25/2021 MICC B12 INJECTION 01/29/2022 1 MICC B12 INJECTION 04/09/2022 MICC B12 INJECTION 05/28/2022 1 MICC B12 INJECTION 07/09/2022 1 MICC B12 INJECTION 10/22/2022 MICC B12 INJECTION 12/31/2022 1 mL MICC B12 INJECTION 02/18/2023 1 mL MICC B12 INJECTION 04/08/2023 MICC B12 INJECTION 05/27/2023 MICC B12 INJECTION 07/15/2023 MICC B12 INJECTION 09/02/2023 MICC B12 INJECTION 12/02/2023 1 mg MICC B12 INJECTION 03/30/2024 1 mg MICC B12 INJECTION 05/19/2024 1 mg MICC B12 INJECTION 07/22/2024 Semaglutide 02/18/2023 0.25 mL MEDICAL (GENERAL) HISTORY Medical History History ICD Code hemorrhoids headache Arthritis kidney stones anxiety seasonal allergies weight gain endometrial cancer Surgical History Surgery Date(Month/Year) laminectomy, ruptured lumbar disc hysterectomy gastric bypass bowel resection colon cancer rotator cuff
== END 2024-07-27 10:52 | disposition home or self-care (01) ==
LOC: HO.HSMS 09:52
PROVIDERS: PCP Family Medicine; Visit Provider Nurse Practitioner Family
DX: G43.909 Migraine, unspecified, not intractable, without status migrainosus (principal); G62.0 Drug-induced polyneuropathy; T45.1X5A Adverse effect of antineoplastic and immunosuppressive drugs, initial encounter; M62.838 Other muscle spasm; F41.9 Anxiety disorder, unspecified
CPT/HCPCS: 99214

== ENCOUNTER → 2024-07-27 09:52 | Outpatient (BNVA) | payer OTHER, SELFPAY | PROVIDERS: PCP Family Medicine; Visit Provider Nurse Practitioner Family ==

== ENCOUNTER 2025-02-01 09:21 | Outpatient (AMB) | payer OTHER, SELFPAY ==
--- OUTSIDE RECORDS SUMMARY | 2024-07-22 05:00 | XMS_ITS ---
Author Organization [facility] [address] Address [address] [place] [address] Care Team Providers Care Website Admin Name Role Phone ABUNDIO DEE Unavailable [phone] REASON FOR VISIT [facility] Medications Medication SIG (Take, Route, Frequency, Duration) Notes Start Date End Date Status Citalopram Hydrobromide 30 MG 1 capsule Orally Once a day Active Propranolol HCl 20 MG 1 tablet Orally Tw ice a day Active Wegovy 2.4 MG/0.75ML ADMINISTER 2.4 MG U NDER THE SKIN WEEKLY; Duration: 28 Active Magnesium 300 MG 1 capsule with a patrizia l Orally Once a day Active Vitamin B2 Active Nystatin 541751 UNIT/GM 1 application Ex ternally Twice a day; Duration: 30 days Active Encounters Encounter Location Date Provider Diagnosis [facility] [address] [place] [id number] 07/22/2024 ABUNDIO DEE Plan Of Treatment Next Appt Details Provider Name:ABUNDIO DEE, 03/08/2025 09:45:00 AM, [address] [facility], [facility], [place], [address], Progress Notes * Saúl PAINTEROB: [birth year] (64 yo F)Acc No.[id number]:07/22/2024 Progress Note Patient: Laurence RODRIGUEZ Provider: Lisandra DEE NP :1960 A ge:63 Y S ex:Female Date:07/22/2024 Address:[address] [place], [place] [id number] Subjective: * Chief Complaints: * 1 . MICC. * Medical History: * Medications: T aking Nystatin 268550 UNIT/GM Powder 1 application Externally Twice a day , Taking Magnesium 300 MG Capsule 1 capsule with a meal Orally Once a day , Taking Vitamin B2 , Taking Propranolol HCl 20 MG Tablet 1 tablet Orally Twice a day , Taking Citalopram Hydrobromide 30 MG Capsule 1 capsule Orally Once a day , Taking Wegovy 2.4 MG/0.75ML Solution Auto-injector ADMINISTER 2.4 MG UNDER THE SKIN WEEKLY Objective: * Vitals: Assessment: Plan: * Treatment: Care Plan: * Problems: * Images: Billing Information: * Visit Code: * Procedure Codes: Care Plan Details* * Electronic signature of JULIANNE DEE on 02/01/2025 at 10:11 AM EDT Sign off status: Pending * Provider: Lisandra DEE NP Date: 0 07/22/2024 Generated for Latoya sierra/Mary/Leonarda on: 1 10:11 AM EDT
--- OUTSIDE RECORDS SUMMARY | 2024-08-30 06:30 | XMS_ITS ---
Author Organization [facility] [address] Address [address] [place] [address] Care Team Providers Care Environmental Department Manager Name Role Phone LUIZ ABUNDIO Unavailable [phone] Encounters Encounter Location Date Provider Diagnosis [facility] [address] [place] [address] 08/30/2024 ABUNDIO DEE Plan Of Treatment Next Appt Details Provider Name:ABUNDIO DEE, 03/08/2025 09:45:00 AM, [address], [address], [place], [address], Progress Notes * Saúl PAINTEROB: [birth year] (64 yo F)Acc No.[id number]:08/30/2024 Patient: Andres GARZAEDMUNDJosias SUNSHINEanne Provider: Lisandra DEE NP :1960 A ge:64 Y S ex:Female Date:08/30/2024 Address:[address] [place], [place] [id number] Subjective: * Chief Complaints: * * Medical History: Objective: * Vitals: Assessment: Plan: * Treatment: * Images: Billing Information: * Visit Code: * Procedure Codes: * Electronic signature of JULIANNE DEE on 02/01/2025 at 10:11 AM EDT Sign off status: Pending * Provider: Lisandra DEE NP Date: 0 08/30/2024 Generated for Printi ng/Faxing/eTransmitting on: 1 10:11 AM EDT
[2025-02-01 09:23] VITALS: BP 120/74; PULSE 72; O2SAT 98; BMI 29.0
--- NOTE | 2025-02-01 09:23 | MHC.OFFVIS ---
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 Accompanied by: Self / Same As Patient Allergies acetaminophen (From Percocet) Allergy (Verified 02/01/25 09:24) Hives morphine Allergy (Verified 02/01/25 09:24) Hypotension oxycodone Allergy (Verified 02/01/25 09:24) Hives Sulfa (Sulfonamide Antibiotics) Allergy (Verified 02/01/25 09:24) Hives Tetanus Vaccines and Toxoid Allergy (Verified 02/01/25 09:24) Headache Medication List - Last Reconciled 02/01/25 by OLGA Lehman citalopram 30 mg PO DAILY cyanocobalamin (vitamin B-12) (Vitamin B-12) 100 mcg PO DAILY lorazepam (Ativan) 0.5 mg PO DAILY PRN magnesium oxide 250 mg PO DAILY naratriptan take 1/2 - 1 tab at onset of headache; if no relief may repeat 1 tab after at least 4 hrs; max = 2 tabs/24 hrs orally PRN; 30 days ondansetron 4 - 8 mg (1 - 2 x 4 mg) PO Q6-8H PRN 30 days MDD 16mg propranolol 20 mg (2 x 10 mg) PO BID 30 days riboflavin (vitamin B2) (Vitamin B-2) 400 mg PO QAM HPI Comments Details: 64-yr-old female presents for f/u visit for migraine with aura and peripheral neuropathy. Patient denies any significant interim history changes. She continues to have intentional weight loss through dietary changes and now increase physical activity, doing water aerobics. Pt reports migraine attacks triggered by smells (perfumes, hazelnut coffee, cigarette smoke, less so marijuana smell). Her co-workers try to help by letting her know that someone visiting is wearing a strong scent. If she catches the migraine attack early enough, she can treat it with an excedrin. She tried Naratriptan once, helped the pain, but did cause some nausea. Notes she has zofran for nausea if needed. She is rarely having an ocular migraine without headache. She has taken Zofran in the past, however her current order has . Using a mask at work to help block triggers- though notes that the facial mask can impede her ability to see the floor, which can make her fit more off balance. Baseline headache characteristics: Start above right eye, sometimes may see white lights raining down in bilateral vision, a/w becoming pale, photophobia, phonophobia, osmophobia, nausea, rarely vomiting. Has ocular migraine w/o headache- seeing blurred line- moves into partial or visual solitario- lasts about 15 min. Frequency vary- can be 2 in a week, and then not have an attack for weeks. She continues to have stable BLE neuropathy s/s- can have occasional zapping pain in the bottom of feet- worse if cold. May have occassional BLE spasms- towards the end of the day, especially if she had been walking a lot that day. Not interested in prescription meds at this time. She is slow on stairs- because she cannot feel the stairs. She does take Vit B complex, Turmeric, Mag, co-Q10. Notes that a heating pad applied over her legs is helpful. [facility] Medical History Chemotherapy-induced neuropathy Kidney stone Depression Anxiety Colon cancer Endometrial cancer Obesity Diabetes Surgical History H/O: hysterectomy H/O colectomy Gastric bypass status for obesity Hx of carpal tunnel repair Family History Maternal Aunt Carcinoma in situ of breast Unknown No problems noted. Social History Household Members: None Patient Tobacco Use Status: Former Tobacco user Physical Exam Vital Signs: Last Vital Signs Pulse 72 02/01/25 09:23 BP 120/74 02/01/25 09:23 Pulse Ox 98 02/01/25 09:23 Oxygen Delivery Method Room Air 02/01/25 09:23 BMI result Body Mass Index 29.0 Const General: cooperative and no acute distress Orientation/consciousness: patient oriented x3 Resp Effort & Inspection: normal respiratory effort and able to speak in complete sentences Neuro General: patient oriented x3 Cranial nerves: Yes CN's II-XII intact bilaterally Cognition (Neuro): normal cognition Gait exam (Neuro): Normal gait present Psych Appearance: grossly normal Mental Status: mental status grossly normal Speech and movement: Normal speech and movement present Affect: normal affect Attitude: cooperative Assessment & Plan Assessment & Plan (1) Migraine: Code(s): G43.909 - Migraine, unspecified, not intractable, without status migrainosus Category: Medical Qualifiers: Migraine type: migraine (< 15 days per month) with aura Status migrainosus presence: without status migrainosus Intractability: not intractable Qualified Code(s): G43.109 - Migraine with aura, not intractable, without status migrainosus (2) Chemotherapy-induced neuropathy: Code(s): G62.0 - Drug-induced polyneuropathy; T45.1X5A - Adverse effect of antineoplastic and immunosuppressive drugs, initial encounter Category: Medical (3) Leg muscle spasm: Code(s): M62.838 - Other muscle spasm Category: Medical Plan For acute migraine tx: Continue Naratriptan 2.5mg tab, 1/2 - 1 tab (1.25-2.5mg) at onset of headache, may repeat in 4 hours. Max of 2 tabs (5mg) per 24 hours. May adjunct with OTC Tylenol 650mg every 4 hours, Ibuprofen (liquigel) 600mg every 6 hours, or Naproxen (liquigel) 440mg every 12 hrs as needed. Potential adverse effects of triptans, include but are not limited to nausea, fatigue, chest tightness/tingling (usually passes within a few minutes), medication overuse headaches. May use Excedrin prn sparingly. Ondansetron ODT 4-8 mg every 6-8 hours as needed for nausea and vomiting. Previous trials- Sumatriptan 100mg tab- not tolerated. ? For migraine prevention: Continue Vit B 2 400mg qam Continue Magnesium 400mg qhs Continue Propranolol 20mg bid. Previous tx trials- Topiramate- not tolerated and has a h/o kidney stones. Preventive migraine tx contraindications- Topiramate d/t h/o kidney stones. Discussed trying a CGRP MaB to reduce risk for migraine and osmophobia- ajovy or emgality- pt will review and let us know. Would avoid aimovig d/t leg cramp s/s. ? For anxiety: Continue Citalopram 30mg qd. ? For BLE neuropathy- Continue vit B, turmeric, mag, co-Q10 Encourage patient to trial OTC Nervive nerve relief. May use warm pad x's 20 minutes prn. 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 Previous trials: Gabapentin caused drowsiness/loopiness. ? f/u in 6 months or sooner prn. Medications: New cyclobenzaprine 5 mg PO BEDTIME Refilled ondansetron 4 - 8 mg (1 - 2 x 4 mg) PO Q6-8H PRN 30 tabs 3RF nausea and vomiting 30 days MDD 16mg Coding Level of Care Code Est Pt Level 4 (70720) Diagnoses Migraine with aura and without status migrainosus, not intractable G43.109 Migraine type: migraine (< 15 days per month) with aura Status migrainosus presence: without status migrainosus Intractability: not intractable Chemotherapy-induced neuropathy G62.0; T45.1X5A Leg muscle spasm M62.838
--- OUTSIDE RECORDS SUMMARY | 2025-02-01 10:12 | XMS_ITS | Patient Health Record ---
Author Organization [facility] Address [address] [place] [address] Care Team Providers Care Tour Consultant Name Role Phone ABUNDIO DEE Unavailable [phone] Allergies Allergen (clinical drug ingredient) Drug/Non Drug Allergy documented on EMR Reaction Allergy Type Onset Date Status acetaminophen / oxycodone Percocet Unknown Drug Allergy Active morphine Morphine Unknown Drug Allergy Active Substance with sulfonamide structure and antibacterial mechanism of action (substance) Sulfa Antibiotics Unknown Drug Allergy Active Results Component Value Reference Range Notes URINALYSIS WITH REFLEX MICRO SCOPIC Reviewed date:07/22/2024 11:40:25 AM Interpretation: Performing Lab: Notes/Report: Specific [place] Urine 1.024 1.003-1.030 pH, Urine 5.0 5.0-8.0 pH Leukocytes, Urine Negative Negative Nitrite, Urine Negative Negative Protein, Urine Negative <=Trace mg/dL Glucose, Urine Negative Negative mg/dL Ketones, Urine Trace Negative mg/dL Urobilinogen, Urine 1.0 0.2-1.0 mg/dL Bilirubin, Urine Negative Negative Blood, Urine Trace Negative RBC, Urine 75.9 0-4 /HPF WBC, Urine 2.7 0-4 /HPF Squamous Epithelial, Urine 53 0-60 /LPF Bacteria, Urine Negative Negative /HPF Hyaline Casts, Urine 4.0 0-3 /LPF HEMOGLOBIN A1C Reviewed date:07/22/2024 11:40:25 AM Interpretation: Performing Lab: Notes/Report: Hemoglobin A1C 4.8 <6.5 % Mean Bld Glu Estim. 91 COMPREHENSIVE METABOLIC PANE L Reviewed date:07/22/2024 11:40:25 [...] 3.2-5.0 g/dL Total Bilirubin 0.5 0.0-1.4 mg/dL THYROID STIMULATING HORMONE Reviewed date:07/22/2024 06:04:50 PM Interpretation: Performing Lab: Notes/Report: TSH 2.82 0.40-4.00 mcIU/mL VITAMIN D 25 HYDROXY Reviewed date:07/22/2024 06:04:50 PM Interpretation: Performing Lab: Notes/Report: Vit D, 25-Hydroxy 26.0 30.0-80.0 ng/mL LIPID PANEL WITH REFLEX TO D IRECT LDL Reviewed date:07/22/2024 11:40:25 AM Interpretation: Performing Lab: Notes/Report: Cholesterol 176 0-200 mg/dL Triglycerides 57 0-150 mg/dL HDL 79 >=40 mg/dL LDL Calculated 86 0-100 mg/dL VLDL Cholesterol Akash 11.4 Non HDL Chol. (LDL+VLDL) 97 <145 mg/dL Chol/HDL Ratio 2.2 0.0-4.4 CBC WITH AUTO DIFFERENTIAL Reviewed date:07/22/2024 10:33:36 [...] K/mcL Immature Granulocytes Absolute 0.02 0.00-0.03 K/mcL Reason For Referral No Information Medications Medication SIG (Take, Route, Frequency, Duration) Notes Start Date End Date Status Wegovy 1 MG/0.5ML 1mg Subcutaneous wee kly; Duration: 30 days 12/14/2024 Active Wegovy 2.4 MG/0.75ML ADMINISTER 2.4 MG U NDER THE SKIN WEEKLY Subcutaneous weekly; Duration: 28 days Active Magnesium 300 MG 1 capsule with a patrizia l Orally Once a day Active Citalopram Hydrobromide 30 MG 1 capsule Orally Once a day Active Vitamin B2 Active Propranolol HCl 20 MG 1 tablet Orally Tw ice a day Active Nystatin 812687 UNIT/GM 1 application Ex ternally Twice a day; Duration: 30 days Active Social History Tobacco Use: Social History Observation Description Date Details (start date - stop date) Former Smoker NA - NA Tobacco Use/Smoking Question Answer Notes Are you [...] less (1 point) Points 1 Interpretation Negative Problems Problem Type SNOMED Code ICD Code Onset Dates Problem Status W/U Status Risk Notes Problem Obesity due to excess calories (854009417) Other obesity due to excess calories (E66.09) Active confirmed Problem Lipid screening (305665754) Encounter for screening for lipoid disorders (Z13.220) Active confirmed Problem Adult health examination (390173631) Adult general medical exam (Z00.00) Active confirmed Problem Obese class I (finding) (253724240601350 ) Obesity (BMI 30.0-34.9) (E66.9) Active confirmed Problem Diabetes mellitus screening (471397646) Diabetes mellitus screening (Z13.1) Active confirmed Problem 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) Peripheral polyneuropathy (G62.9) Active confirmed Problem Obese class II (743950492759006 ) Body mass index [BMI] 35.0-35.9, adult (Z68.35) Active confirmed Problem Body mass index 35.00 to 39.99 (574960543178712 ) Body mass index [BMI] 38.0-38.9, adult (Z68.38) Active confirmed Problem Migraine without aura, not refractory (363438190) Migraine without aura and without status migrainosus, not intractable (G43.009) Active confirmed Problem Primary malignant neoplasm of endometrium (20899233) Endometrial cancer (C54.1) Active confirmed Problem History of malignant neoplasm of colon (602642069) History of colon cancer (Z85.038) Active confirmed Problem BMI 30+ - obesity (027429093) BMI 32.0-32.9,adult (Z68.32) Active confirmed Problem Polycystic ovary syndrome (disorder) (827090573) PCOS (polycystic ovarian syndrome) (E28.2) Active confirmed Problem Body mass index 30.00 to 34.99 (810980374593066 ) BMI 31.0-31.9,adult (Z68.31) Active confirmed Problem Body mass index 30+ - obesity (602639696) BMI 30.0-30.9,adult (Z68.30) Active confirmed Problem Overweight (569953438) Overweight (BMI 25.0-29.9) (E66.3) Active confirmed Problem Avitaminosis D (74871205) Avitaminosis D (E55.9) Active confirmed Problem Endocrine/[place] lic screening (480055187) Encounter for screening for endocrine disorder (Z13.29) Active confirmed Vital Signs Heart Rate 78 /min 01/25/2025 Oximetry 97 % 01/25/2025 Blood pressure diastolic 80 mm Hg 01/25/2025 Height 67 in 01/25/2025 Blood pressure systolic 128 mm Hg 01/25/2025 Weight 185.6 lbs 01/25/2025 BMI 29.07 kg/m2 01/25/2025 Encounters Encounter Location Date Provider Diagnosis [facility] [address] [phone] 02/03/2024 [facility] Overweight (BMI 25.0-29.9) E66.3 ; BMI 27.0-27.9,adult Z68.27 ; Peripheral polyneuropathy G62.9 ; Endometrial cancer C54.1 ; PCOS (polycystic ovarian syndrome) E28.2 ; History of colon cancer Z85.038 and Migraine without aura and without status migrainosus, not intractable G43.009 [facility] [address] [phone] 03/30/2024 ABUNDIO BORHO BMI 27.0-27.9,adult Z68.27 ; Overweight (BMI 25.0-29.9) E66.3 ; Peripheral polyneuropathy G62.9 ; Endometrial cancer C54.1 ; PCOS (polycystic ovarian syndrome) E28.2 ; History of colon cancer Z85.038 and Migraine without aura and without status migrainosus, not intractable G43.009 [facility] [address] [phone] 05/19/2024 ABUNDIO BORAndrey BMI 27.0-27.9,adult Z68.27 ; Overweight (BMI 25.0-29.9) E66.3 ; Peripheral polyneuropathy G62.9 ; Endometrial cancer C54.1 ; PCOS (polycystic ovarian syndrome) E28.2 ; History of colon cancer Z85.038 and Migraine without aura and without status migrainosus, not intractable G43.009 [facility] [address] [phone] 07/22/2024 [facility] BMI 27.0-27.9,adult Z68.27 ; Overweight (BMI 25.0-29.9) E66.3 ; Peripheral polyneuropathy G62.9 ; Endometrial cancer C54.1 ; PCOS (polycystic ovarian syndrome) E28.2 ; History of colon cancer Z85.038 and Migraine without aura and without status migrainosus, not intractable G43.009 [facility] [address] 11/03/2024 ABUNDIO DEE BMI 27.0-27.9,adult Z68.27 ; Overweight (BMI 25.0-29.9) E66.3 ; Dietary counseling and surveillance Z71.3 ; Peripheral polyneuropathy G62.9 ; Endometrial cancer C54.1 ; PCOS (polycystic ovarian syndrome) E28.2 ; History of colon cancer Z85.038 ; Migraine without aura and without status migrainosus, not intractable G43.009 and Encounter for examination of blood pressure without abnormal findings Z01.30 [facility] [address] 12/14/2024 ABUNDIO DEE BMI 29.0-29.9,adult Z68.29 ; Overweight (BMI 25.0-29.9) E66.3 ; Dietary counseling and surveillance Z71.3 ; Peripheral polyneuropathy G62.9 ; Endometrial cancer C54.1 ; PCOS (polycystic ovarian syndrome) E28.2 ; History of colon cancer Z85.038 ; Migraine without aura and without status migrainosus, not intractable G43.009 and Encounter for examination of blood pressure without abnormal findings Z01.30 [facility] [address] 01/25/2025 ABUNDIO DEE BMI 29.0-29.9,adult Z68.29 ; Dietary counseling and surveillance Z71.3 ; Overweight (BMI 25.0-29.9) E66.3 ; Peripheral polyneuropathy G62.9 ; Endometrial cancer C54.1 ; PCOS (polycystic ovarian syndrome) E28.2 ; History of colon cancer Z85.038 ; Migraine without aura and without status migrainosus, not intractable G43.009 and Encounter for examination of blood pressure without abnormal findings Z01.30 [facility] [address] 05/02/2024 ABUNDIO DEE [facility] [address] [place] [address] 12/29/2024 ABUNDIO DEE Other obesity due to excess calories E66.09 Assessments Encounter Date Diagnosis (ICD Code) Assessment Notes Treatment Notes Treatment Clinical Notes Section Notes 02/03/2024 BMI 27.0-27.9,adult (ICD-10 - Z68.27) #Weight [...] minimum of 6 months The most recent [place] [employer] of clinical endocrinologists and [place] [employer] guidelines recommend patients who [...] or arrhythmias In the setting of potential stimulant/amphetam ine use such as phentermine We have also [...] track activity level. Consider using apps like Tunespeak, PhoneAndPhonepal, lose it, stick as needed for self-monitoring and weight management. Consider group exercises. Consider hiring a personal development coach. Regular exercise is arias to sustainable health [...] counseling and psychiatry and Dr Novoa at [facility]. We would like to cover regular topics [...] software and direct typing Please excuse inadvertent tiller man or typing errors, or uncorrected word substitutions Although every attempt has been made by the provider to proofread this document, occasional misspellings and typographical errors may still be present Due to the previous pandemic, and the use of personal protective equipment (PPE) This may decrease voice recognition accuracy Inadvertent tiller man errors may occur 02/03/2024 Overweight (BMI 25.0-29.9) [...] minimum of 6 months The most recent [place] [employer] of clinical endocrinologists and [place] [employer] guidelines recommend patients who [...] or arrhythmias In the setting of potential stimulant/amphetam ine use such as phentermine We have also [...] track activity level. Consider using apps like Tunespeak, PhoneAndPhonepal, lose it, stick as needed for self-monitoring and weight management. Consider group exercises. Consider hiring a personal development coach. Regular exercise is arias to sustainable health [...] counseling and psychiatry and Dr Novoa at [facility]. We would like to cover regular topics [...] software and direct typing Please excuse inadvertent tiller man or typing errors, or uncorrected word substitutions Although every attempt has been made by the provider to proofread this document, occasional misspellings and typographical errors may still be present Due to the previous pandemic, and the use of personal protective equipment (PPE) This may decrease voice recognition accuracy Inadvertent tiller man errors may occur 03/30/2024 BMI 27.0-27.9,adult (ICD-10 [...] minimum of 6 months The most recent [place] [employer] of clinical endocrinologists and [place] [employer] guidelines recommend patients who [...] software and direct typing Please excuse inadvertent tiller man or typing errors, or uncorrected word substitutions Although every attempt has been made by the provider to proofread this document, occasional misspellings and typographical errors may still be present Due to the previous pandemic, and the use of personal protective equipment (PPE) This may decrease voice recognition accuracy Inadvertent tiller man errors may occur 05/19/2024 BMI 27.0-27.9,adult (ICD-10 [...] minimum of 6 months The most recent [place] [employer] of clinical endocrinologists and [place] [employer]in[employer] guidelines recommend patients who [...] software and direct typing Please excuse inadvertent tiller man or typing errors, or uncorrected word substitutions Although every attempt has been made by the provider to proofread this document, occasional misspellings and typographical errors may still be present Due to the previous pandemic, and the use of personal protective equipment (PPE) This may decrease voice recognition accuracy Inadvertent tiller man errors may occur 07/22/2024 BMI 27.0-27.9,adult (ICD-10 - Z68.27) #Weight Management 07/22/2024 [facility] today to get labs later this am* [...] software and direct typing Please excuse inadvertent tiller man or typing errors, or uncorrected word substitutions Although every attempt has been made by the provider to proofread this document, occasional misspellings and typographical errors may still be present Due to the previous pandemic, and the use of personal protective equipment (PPE) This may decrease voice recognition accuracy Inadvertent tiller man errors may occur 11/03/2024 BMI 27.0-27.9,adult (ICD-10 - Z68.27) #Weight Management 11/03/2024 Recent stressors including work, life and home moving [facility] today Reinitiate Wegovy newly calibrated target goal weight 165 pounds We did discuss we can refer to [...] software and direct typing Please excuse inadvertent tiller man or typing errors, or uncorrected word substitutions Although every attempt has been made by the provider to proofread this document, occasional misspellings and typographical errors may still be present Due to the previous pandemic, and the use of personal protective equipment (PPE) This may decrease voice recognition accuracy Inadvertent tiller man errors may occur 12/14/2024 BMI 29.0-29.9,adult (ICD-10 - Z68.29) #Weight Management 12/14/2024 Patient has been off medications for 4 months now Will reintroduce Wegovy at a much smaller dose to avoid any side effects Recent stressors including work, life and home moving [facility] today newly calibrated target goal weight 165 pounds We did discuss we can refer to [...] software and direct typing Please excuse inadvertent tiller man or typing errors, or uncorrected word substitutions Although every attempt has been made by the provider to proofread this document, occasional misspellings and typographical errors may still be present Due to the previous pandemic, and the use of personal protective equipment (PPE) This may decrease voice recognition accuracy Inadvertent tiller man errors may occur 01/25/2025 BMI 29.0-29.9,adult (ICD-10 - Z68.29) #Weight Management 01/25/2025 Patient is comfortable on current dosing would like to titrate up to maximum dosing which she was on previously at 2.4 Recent move and stressors The seem to be improving BRIDGET injection today newly calibrated target goal weight 165 pounds We did discuss we can refer to [...] software and direct typing Please excuse inadvertent tiller man or typing errors, or uncorrected word substitutions Although every attempt has been made by the provider to proofread this document, occasional misspellings and typographical errors may still be present Due to the previous pandemic, and the use of personal protective equipment (PPE) This may decrease voice recognition accuracy Inadvertent tiller man errors may occur 01/25/2025 Dietary counseling and surveillance (ICD-10 - Z71.3) #Weight Management 01/25/2025 Patient is comfortable on current dosing would like to titrate up to maximum dosing which she was on previously at 2.4 Recent move and stressors The seem to be improving BRIDGET injection today newly calibrated target goal weight 165 pounds We did discuss we can refer to [...] software and direct typing Please excuse inadvertent tiller man or typing errors, or uncorrected word substitutions Although every attempt has been made by the provider to proofread this document, occasional misspellings and typographical errors may still be present Due to the previous pandemic, and the use of personal protective equipment (PPE) This may decrease voice recognition accuracy Inadvertent tiller man errors may occur 12/14/2024 Dietary counseling and surveillance (ICD-10 - Z71.3) #Weight Management 12/14/2024 Patient has been off medications for 4 months now Will reintroduce Wegovy at a much smaller dose to avoid any side effects Recent stressors including work, life and home moving [facility] today newly calibrated target goal weight 165 pounds We did discuss we can refer to [...] software and direct typing Please excuse inadvertent tiller man or typing errors, or uncorrected word substitutions Although every attempt has been made by the provider to proofread this document, occasional misspellings and typographical errors may still be present Due to the previous pandemic, and the use of personal protective equipment (PPE) This may decrease voice recognition accuracy Inadvertent tiller man errors may occur 12/14/2024 Overweight (BMI 25.0-29.9) (ICD-10 - E66.3) #Weight Management 12/14/2024 Patient has been off medications for 4 months now Will reintroduce Wegovy at a much smaller dose to avoid any side effects Recent stressors including work, life and home moving [facility] today newly calibrated target goal weight 165 pounds We did discuss we can refer to [...] software and direct typing Please excuse inadvertent tiller man or typing errors, or uncorrected word substitutions Although every attempt has been made by the provider to proofread this document, occasional misspellings and typographical errors may still be present Due to the previous pandemic, and the use of personal protective equipment (PPE) This may decrease voice recognition accuracy Inadvertent tiller man errors may occur 12/29/2024 Other obesity due to excess calories (ICD-10 - E66.09) Electronic Prior Authorization was requested for Wegovy 1 MG/0.5ML Solution Auto-injector. Provider can order medication once approval received. 11/03/2024 Overweight (BMI 25.0-29.9) (ICD-10 - E66.3) #Weight Management 11/03/2024 Recent stressors including work, life and home moving [facility] today Reinitiate Wegovy newly calibrated target goal weight 165 pounds We did discuss we can refer to [...] software and direct typing Please excuse inadvertent tiller man or typing errors, or uncorrected word substitutions Although every attempt has been made by the provider to proofread this document, occasional misspellings and typographical errors may still be present Due to the previous pandemic, and the use of personal protective equipment (PPE) This may decrease voice recognition accuracy Inadvertent tiller man errors may occur 07/22/2024 Overweight (BMI 25.0-29.9) (ICD-10 - E66.3) #Weight Management 07/22/2024 [facility] today to get labs later this am* [...] software and direct typing Please excuse inadvertent tiller man or typing errors, or uncorrected word substitutions Although every attempt has been made by the provider to proofread this document, occasional misspellings and typographical errors may still be present Due to the previous pandemic, and the use of personal protective equipment (PPE) This may decrease voice recognition accuracy Inadvertent tiller man errors may occur 11/03/2024 Dietary counseling and surveillance (ICD-10 - Z71.3) #Weight Management 11/03/2024 Recent stressors including work, life and home moving [facility] today Reinitiate Wegovy newly calibrated target goal weight 165 pounds We did discuss we can refer to [...] software and direct typing Please excuse inadvertent tiller man or typing errors, or uncorrected word substitutions Although every attempt has been made by the provider to proofread this document, occasional misspellings and typographical errors may still be present Due to the previous pandemic, and the use of personal protective equipment (PPE) This may decrease voice recognition accuracy Inadvertent tiller man errors may occur 05/19/2024 Overweight (BMI 25.0-29.9) [...] minimum of 6 months The most recent [place] [employer] of clinical endocrinologists and [place] [employer] end[employer]in[employer] guidelines recommend patients who [...] software and direct typing Please excuse inadvertent tiller man or typing errors, or uncorrected word substitutions Although every attempt has been made by the provider to proofread this document, occasional misspellings and typographical errors may still be present Due to the previous pandemic, and the use of personal protective equipment (PPE) This may decrease voice recognition accuracy Inadvertent tiller man errors may occur 03/30/2024 Overweight (BMI 25.0-29.9) [...] minimum of 6 months The most recent [place] [employer] of clinical endocrinologists and [place] [employer]in[employer] guidelines recommend patients who [...] software and direct typing Please excuse inadvertent tiller man or typing errors, or uncorrected word substitutions Although every attempt has been made by the provider to proofread this document, occasional misspellings and typographical errors may still be present Due to the previous pandemic, and the use of personal protective equipment (PPE) This may decrease voice recognition accuracy Inadvertent tiller man errors may occur 05/19/2024 Peripheral polyneuropathy (ICD-10 [...] minimum of 6 months The most recent [place] [employer] of clinical endocrinologists and [place] [employer]in[employer] guidelines recommend patients who [...] software and direct typing Please excuse inadvertent tiller man or typing errors, or uncorrected word substitutions Although every attempt has been made by the provider to proofread this document, occasional misspellings and typographical errors may still be present Due to the previous pandemic, and the use of personal protective equipment (PPE) This may decrease voice recognition accuracy Inadvertent tiller man errors may occur 02/03/2024 Peripheral polyneuropathy (ICD-10 [...] minimum of 6 months The most recent [place] [employer] of clinical endocrinologists and [place] [employer] end[employer]in[employer] guidelines recommend patients who [...] or arrhythmias In the setting of potential stimulant/amphetam ine use such as phentermine We have also [...] track activity level. Consider using apps like [employer], myfitnesspal, lose it, stick as needed for self-monitoring and weight management. Consider group exercises. Consider hiring a personal development coach. Regular exercise is arias to sustainable health [...] counseling and psychiatry and Dr Novoa at [facility]. We would like to cover regular topics [...] software and direct typing Please excuse inadvertent tiller man or typing errors, or uncorrected word substitutions Although every attempt has been made by the provider to proofread this document, occasional misspellings and typographical errors may still be present Due to the previous pandemic, and the use of personal protective equipment (PPE) This may decrease voice recognition accuracy Inadvertent tiller man errors may occur 03/30/2024 Peripheral polyneuropathy (ICD-10 [...] minimum of 6 months The most recent [place] [employer] of clinical endocrinologists and [place] [employer]in[employer] guidelines recommend patients who [...] software and direct typing Please excuse inadvertent tiller man or typing errors, or uncorrected word substitutions Although every attempt has been made by the provider to proofread this document, occasional misspellings and typographical errors may still be present Due to the previous pandemic, and the use of personal protective equipment (PPE) This may decrease voice recognition accuracy Inadvertent tiller man errors may occur 02/03/2024 Endometrial cancer (ICD-10 [...] minimum of 6 months The most recent [place] [employer] of clinical endocrinologists and [place] [employer]in[employer] guidelines recommend patients who [...] or arrhythmias In the setting of potential stimulant/amphetam ine use such as phentermine We have also [...] Eat Fat Get Lean by Dr Deejay lSoan. Self education is important in the journey [...] track activity level. Consider using apps like Tunespeak, myfitnesspal, lose it, stick as needed for self-monitoring and weight management. Consider group exercises. Consider hiring a personal development coach. Regular exercise is arias to sustainable health [...] counseling and psychiatry and Dr Novoa at [facility]. We would like to cover regular topics [...] software and direct typing Please excuse inadvertent tiller man or typing errors, or uncorrected word substitutions Although every attempt has been made by the provider to proofread this document, occasional misspellings and typographical errors may still be present Due to the previous pandemic, and the use of personal protective equipment (PPE) This may decrease voice recognition accuracy Inadvertent tiller man errors may occur 05/19/2024 Endometrial cancer (ICD-10 [...] minimum of 6 months The most recent [place] [employer]in[employer] and [employer] [employer] guidelines recommend patients who [...] software and direct typing Please excuse inadvertent tiller man or typing errors, or uncorrected word substitutions Although every attempt has been made by the provider to proofread this document, occasional misspellings and typographical errors may still be present Due to the previous pandemic, and the use of personal protective equipment (PPE) This may decrease voice recognition accuracy Inadvertent tiller man errors may occur 07/22/2024 Peripheral polyneuropathy (ICD-10 - G62.9) #Weight Management 07/22/2024 [facility] today to get labs later this am* [...] software and direct typing Please excuse inadvertent tiller man or typing errors, or uncorrected word substitutions Although every attempt has been made by the provider to proofread this document, occasional misspellings and typographical errors may still be present Due to the previous pandemic, and the use of personal protective equipment (PPE) This may decrease voice recognition accuracy Inadvertent tiller man errors may occur 11/03/2024 Peripheral polyneuropathy (ICD-10 - G62.9) #Weight Management 11/03/2024 Recent stressors including work, life and home moving [facility] today Reinitiate Wegovy newly calibrated target goal weight 165 pounds We did discuss we can refer to [...] software and direct typing Please excuse inadvertent tiller man or typing errors, or uncorrected word substitutions Although every attempt has been made by the provider to proofread this document, occasional misspellings and typographical errors may still be present Due to the previous pandemic, and the use of personal protective equipment (PPE) This may decrease voice recognition accuracy Inadvertent tiller man errors may occur 12/14/2024 Peripheral polyneuropathy (ICD-10 - G62.9) #Weight Management 12/14/2024 Patient has been off medications for 4 months now Will reintroduce Wegovy at a much smaller dose to avoid any side effects Recent stressors including work, life and home moving [facility] today newly calibrated target goal weight 165 pounds We did discuss we can refer to [...] software and direct typing Please excuse inadvertent tiller man or typing errors, or uncorrected word substitutions Although every attempt has been made by the provider to proofread this document, occasional misspellings and typographical errors may still be present Due to the previous pandemic, and the use of personal protective equipment (PPE) This may decrease voice recognition accuracy Inadvertent tiller man errors may occur 01/25/2025 Overweight (BMI 25.0-29.9) (ICD-10 - E66.3) #Weight Management 01/25/2025 Patient is comfortable on current dosing would like to titrate up to maximum dosing which she was on previously at 2.4 Recent move and stressors The seem to be improving BRIDGET injection today newly calibrated target goal weight 165 pounds We did discuss we can refer to [...] software and direct typing Please excuse inadvertent tiller man or typing errors, or uncorrected word substitutions Although every attempt has been made by the provider to proofread this document, occasional misspellings and typographical errors may still be present Due to the previous pandemic, and the use of personal protective equipment (PPE) This may decrease voice recognition accuracy Inadvertent tiller man errors may occur 01/25/2025 Peripheral polyneuropathy (ICD-10 - G62.9) #Weight Management 01/25/2025 Patient is comfortable on current dosing would like to titrate up to maximum dosing which she was on previously at 2.4 Recent move and stressors The seem to be improving BRIDGET injection today newly calibrated target goal weight 165 pounds We did discuss we can refer to [...] software and direct typing Please excuse inadvertent tiller man or typing errors, or uncorrected word substitutions Although every attempt has been made by the provider to proofread this document, occasional misspellings and typographical errors may still be present Due to the previous pandemic, and the use of personal protective equipment (PPE) This may decrease voice recognition accuracy Inadvertent tiller man errors may occur 12/14/2024 Endometrial cancer (ICD-10 - C54.1) #Weight Management 12/14/2024 Patient has been off medications for 4 months now Will reintroduce Wegovy at a much smaller dose to avoid any side effects Recent stressors including work, life and home moving [facility] today newly calibrated target goal weight 165 pounds We did discuss we can refer to [...] software and direct typing Please excuse inadvertent tiller man or typing errors, or uncorrected word substitutions Although every attempt has been made by the provider to proofread this document, occasional misspellings and typographical errors may still be present Due to the previous pandemic, and the use of personal protective equipment (PPE) This may decrease voice recognition accuracy Inadvertent tiller man errors may occur 11/03/2024 Endometrial cancer (ICD-10 - C54.1) #Weight Management 11/03/2024 Recent stressors including work, life and home moving [facility] today Reinitiate Wegovy newly calibrated target goal weight 165 pounds We did discuss we can refer to [...] software and direct typing Please excuse inadvertent tiller man or typing errors, or uncorrected word substitutions Although every attempt has been made by the provider to proofread this document, occasional misspellings and typographical errors may still be present Due to the previous pandemic, and the use of personal protective equipment (PPE) This may decrease voice recognition accuracy Inadvertent tiller man errors may occur 07/22/2024 Endometrial cancer (ICD-10 - C54.1) #Weight Management 07/22/2024 [facility] today to get labs later this am* [...] software and direct typing Please excuse inadvertent tiller man or typing errors, or uncorrected word substitutions Although every attempt has been made by the provider to proofread this document, occasional misspellings and typographical errors may still be present Due to the previous pandemic, and the use of personal protective equipment (PPE) This may decrease voice recognition accuracy Inadvertent tiller man errors may occur 05/19/2024 PCOS (polycystic ovarian [...] minimum of 6 months The most recent [place] [employer]ocrinologists and [place] [employer] guidelines recommend patients who [...] software and direct typing Please excuse inadvertent tiller man or typing errors, or uncorrected word substitutions Although every attempt has been made by the provider to proofread this document, occasional misspellings and typographical errors may still be present Due to the previous pandemic, and the use of personal protective equipment (PPE) This may decrease voice recognition accuracy Inadvertent tiller man errors may occur 03/30/2024 Endometrial cancer (ICD-10 [...] minimum of 6 months The most recent [place] [employer]ocrinologists and [employer] [employer] guidelines recommend patients who [...] software and direct typing Please excuse inadvertent tiller man or typing errors, or uncorrected word substitutions Although every attempt has been made by the provider to proofread this document, occasional misspellings and typographical errors may still be present Due to the previous pandemic, and the use of personal protective equipment (PPE) This may decrease voice recognition accuracy Inadvertent tiller man errors may occur 02/03/2024 PCOS (polycystic ovarian [...] minimum of 6 months The most recent [place] [employer]ocrinologists and [place] [employer] guidelines recommend patients who [...] or arrhythmias In the setting of potential stimulant/amphetam ine use such as phentermine We have also [...] track activity level. Consider using apps like Tunespeak, [employer]AndPhonepal, lose it, stick as needed for self-monitoring and weight management. Consider group exercises. Consider hiring a personal development coach. Regular exercise is arias to sustainable health [...] counseling and psychiatry and Dr Novoa at [facility]. We would like to cover regular topics [...] software and direct typing Please excuse inadvertent tiller man or typing errors, or uncorrected word substitutions Although every attempt has been made by the provider to proofread this document, occasional misspellings and typographical errors may still be present Due to the previous pandemic, and the use of personal protective equipment (PPE) This may decrease voice recognition accuracy Inadvertent tiller man errors may occur 02/03/2024 History of colon [...] minimum of 6 months The most recent [place] [employer]ocrinologists and [place] [employer] guidelines recommend patients who [...] or arrhythmias In the setting of potential stimulant/amphetam ine use such as phentermine We have also [...] track activity level. Consider using apps like Tunespeak, myfitnesspal, lose it, stick as needed for self-monitoring and weight management. Consider group exercises. Consider hiring a personal development coach. Regular exercise is arias to sustainable health [...] counseling and psychiatry and Dr Novoa at [facility]. We would like to cover regular topics [...] software and direct typing Please excuse inadvertent tiller man or typing errors, or uncorrected word substitutions Although every attempt has been made by the provider to proofread this document, occasional misspellings and typographical errors may still be present Due to the previous pandemic, and the use of personal protective equipment (PPE) This may decrease voice recognition accuracy Inadvertent tiller man errors may occur 05/19/2024 History of colon [...] minimum of 6 months The most recent [place] [employer]ocrinologists and [employer] [employer] guidelines recommend patients who [...] software and direct typing Please excuse inadvertent tiller man or typing errors, or uncorrected word substitutions Although every attempt has been made by the provider to proofread this document, occasional misspellings and typographical errors may still be present Due to the previous pandemic, and the use of personal protective equipment (PPE) This may decrease voice recognition accuracy Inadvertent tiller man errors may occur 03/30/2024 PCOS (polycystic ovarian [...] minimum of 6 months The most recent [place] [employer] clinical endocrinologists and [employer] [employer] guidelines recommend patients who [...] software and direct typing Please excuse inadvertent tiller man or typing errors, or uncorrected word substitutions Although every attempt has been made by the provider to proofread this document, occasional misspellings and typographical errors may still be present Due to the previous pandemic, and the use of personal protective equipment (PPE) This may decrease voice recognition accuracy Inadvertent tiller man errors may occur 07/22/2024 PCOS (polycystic ovarian syndrome) (ICD-10 - E28.2) #Weight Management 07/22/2024 [facility] today to get labs later this am* [...] software and direct typing Please excuse inadvertent tiller man or typing errors, or uncorrected word substitutions Although every attempt has been made by the provider to proofread this document, occasional misspellings and typographical errors may still be present Due to the previous pandemic, and the use of personal protective equipment (PPE) This may decrease voice recognition accuracy Inadvertent tiller man errors may occur 11/03/2024 PCOS (polycystic ovarian syndrome) (ICD-10 - E28.2) #Weight Management 11/03/2024 Recent stressors including work, life and home moving [facility] today Reinitiate Wegovy newly calibrated target goal weight 165 pounds We did discuss we can refer to [...] software and direct typing Please excuse inadvertent tiller man or typing errors, or uncorrected word substitutions Although every attempt has been made by the provider to proofread this document, occasional misspellings and typographical errors may still be present Due to the previous pandemic, and the use of personal protective equipment (PPE) This may decrease voice recognition accuracy Inadvertent tiller man errors may occur 12/14/2024 PCOS (polycystic ovarian syndrome) (ICD-10 - E28.2) #Weight Management 12/14/2024 Patient has been off medications for 4 months now Will reintroduce Wegovy at a much smaller dose to avoid any side effects Recent stressors including work, life and home moving [facility] today newly calibrated target goal weight 165 pounds We did discuss we can refer to [...] software and direct typing Please excuse inadvertent tiller man or typing errors, or uncorrected word substitutions Although every attempt has been made by the provider to proofread this document, occasional misspellings and typographical errors may still be present Due to the previous pandemic, and the use of personal protective equipment (PPE) This may decrease voice recognition accuracy Inadvertent tiller man errors may occur 01/25/2025 Endometrial cancer (ICD-10 - C54.1) #Weight Management 01/25/2025 Patient is comfortable on current dosing would like to titrate up to maximum dosing which she was on previously at 2.4 Recent move and stressors The seem to be improving BRIDGET injection today newly calibrated target goal weight 165 pounds We did discuss we can refer to [...] software and direct typing Please excuse inadvertent tiller man or typing errors, or uncorrected word substitutions Although every attempt has been made by the provider to proofread this document, occasional misspellings and typographical errors may still be present Due to the previous pandemic, and the use of personal protective equipment (PPE) This may decrease voice recognition accuracy Inadvertent tiller man errors may occur 01/25/2025 PCOS (polycystic ovarian syndrome) (ICD-10 - E28.2) #Weight Management 01/25/2025 Patient is comfortable on current dosing would like to titrate up to maximum dosing which she was on previously at 2.4 Recent move and stressors The seem to be improving BRIDGET injection today newly calibrated target goal weight 165 pounds We did discuss we can refer to [...] software and direct typing Please excuse inadvertent tiller man or typing errors, or uncorrected word substitutions Although every attempt has been made by the provider to proofread this document, occasional misspellings and typographical errors may still be present Due to the previous pandemic, and the use of personal protective equipment (PPE) This may decrease voice recognition accuracy Inadvertent tiller man errors may occur 12/14/2024 History of colon cancer (ICD-10 - Z85.038) #Weight Management 12/14/2024 Patient has been off medications for 4 months now Will reintroduce Wegovy at a much smaller dose to avoid any side effects Recent stressors including work, life and home moving [facility] today newly calibrated target goal weight 165 pounds We did discuss we can refer to [...] software and direct typing Please excuse inadvertent tiller man or typing errors, or uncorrected word substitutions Although every attempt has been made by the provider to proofread this document, occasional misspellings and typographical errors may still be present Due to the previous pandemic, and the use of personal protective equipment (PPE) This may decrease voice recognition accuracy Inadvertent tiller man errors may occur 07/22/2024 History of colon cancer (ICD-10 - Z85.038) #Weight Management 07/22/2024 [facility] today to get labs later this am* [...] software and direct typing Please excuse inadvertent tiller man or typing errors, or uncorrected word substitutions Although every attempt has been made by the provider to proofread this document, occasional misspellings and typographical errors may still be present Due to the previous pandemic, and the use of personal protective equipment (PPE) This may decrease voice recognition accuracy Inadvertent tiller man errors may occur 11/03/2024 History of colon cancer (ICD-10 - Z85.038) #Weight Management 11/03/2024 Recent stressors including work, life and home moving [facility] today Reinitiate Wegovy newly calibrated target goal weight 165 pounds We did discuss we can refer to [...] software and direct typing Please excuse inadvertent tiller man or typing errors, or uncorrected word substitutions Although every attempt has been made by the provider to proofread this document, occasional misspellings and typographical errors may still be present Due to the previous pandemic, and the use of personal protective equipment (PPE) This may decrease voice recognition accuracy Inadvertent tiller man errors may occur 03/30/2024 History of colon [...] minimum of 6 months The most recent [place] [employer] clinical endocrinologists and [place] [employer] guidelines recommend patients who [...] software and direct typing Please excuse inadvertent tiller man or typing errors, or uncorrected word substitutions Although every attempt has been made by the provider to proofread this document, occasional misspellings and typographical errors may still be present Due to the previous pandemic, and the use of personal protective equipment (PPE) This may decrease voice recognition accuracy Inadvertent tiller man errors may occur 05/19/2024 Migraine without aura [...] minimum of 6 months The most recent [place] [employer] endocrinologists and [place] [employer] guidelines recommend patients who [...] software and direct typing Please excuse inadvertent tiller man or typing errors, or uncorrected word substitutions Although every attempt has been made by the provider to proofread this document, occasional misspellings and typographical errors may still be present Due to the previous pandemic, and the use of personal protective equipment (PPE) This may decrease voice recognition accuracy Inadvertent tiller man errors may occur 02/03/2024 Migraine without aura [...] minimum of 6 months The most recent [place] [employer] clinical endocrinologists and [place] [employer] guidelines recommend patients who [...] or arrhythmias In the setting of potential stimulant/amphetam ine use such as phentermine We have also [...] track activity level. Consider using apps like Tunespeak, myfitnesspal, lose it, stick as needed for self-monitoring and weight management. Consider group exercises. Consider hiring a personal development coach. Regular exercise is arias to sustainable health [...] counseling and psychiatry and Dr Novoa at [facility]. We would like to cover regular topics [...] software and direct typing Please excuse inadvertent tiller man or typing errors, or uncorrected word substitutions Although every attempt has been made by the provider to proofread this document, occasional misspellings and typographical errors may still be present Due to the previous pandemic, and the use of personal protective equipment (PPE) This may decrease voice recognition accuracy Inadvertent tiller man errors may occur 03/30/2024 Migraine without aura [...] minimum of 6 months The most recent [place] [employer] of clinical endocrinologists and [place] [employer] guidelines recommend patients who [...] software and direct typing Please excuse inadvertent tiller man or typing errors, or uncorrected word substitutions Although every attempt has been made by the provider to proofread this document, occasional misspellings and typographical errors may still be present Due to the previous pandemic, and the use of personal protective equipment (PPE) This may decrease voice recognition accuracy Inadvertent tiller man errors may occur 11/03/2024 Migraine without aura and without status migrainosus, not intractable (ICD-10 - G43.009) #Weight Management 11/03/2024 Recent stressors including work, life and home moving [facility] today Reinitiate Wegovy newly calibrated target goal weight 165 pounds We did discuss we can refer to [...] software and direct typing Please excuse inadvertent tiller man or typing errors, or uncorrected word substitutions Although every attempt has been made by the provider to proofread this document, occasional misspellings and typographical errors may still be present Due to the previous pandemic, and the use of personal protective equipment (PPE) This may decrease voice recognition accuracy Inadvertent tiller man errors may occur 07/22/2024 Migraine without aura and without status migrainosus, not intractable (ICD-10 - G43.009) #Weight Management 07/22/2024 [facility] today to get labs later this am* [...] software and direct typing Please excuse inadvertent tiller man or typing errors, or uncorrected word substitutions Although every attempt has been made by the provider to proofread this document, occasional misspellings and typographical errors may still be present Due to the previous pandemic, and the use of personal protective equipment (PPE) This may decrease voice recognition accuracy Inadvertent tiller man errors may occur 12/14/2024 Migraine without aura and without status migrainosus, not intractable (ICD-10 - G43.009) #Weight Management 12/14/2024 Patient has been off medications for 4 months now Will reintroduce Wegovy at a much smaller dose to avoid any side effects Recent stressors including work, life and home moving [facility] today newly calibrated target goal weight 165 pounds We did discuss we can refer to [...] software and direct typing Please excuse inadvertent tiller man or typing errors, or uncorrected word substitutions Although every attempt has been made by the provider to proofread this document, occasional misspellings and typographical errors may still be present Due to the previous pandemic, and the use of personal protective equipment (PPE) This may decrease voice recognition accuracy Inadvertent tiller man errors may occur 01/25/2025 History of colon cancer (ICD-10 - Z85.038) #Weight Management 01/25/2025 Patient is comfortable on current dosing would like to titrate up to maximum dosing which she was on previously at 2.4 Recent move and stressors The seem to be improving BRIDGET injection today newly calibrated target goal weight 165 pounds We did discuss we can refer to [...] software and direct typing Please excuse inadvertent tiller man or typing errors, or uncorrected word substitutions Although every attempt has been made by the provider to proofread this document, occasional misspellings and typographical errors may still be present Due to the previous pandemic, and the use of personal protective equipment (PPE) This may decrease voice recognition accuracy Inadvertent tiller man errors may occur 01/25/2025 Migraine without aura and without status migrainosus, not intractable (ICD-10 - G43.009) #Weight Management 01/25/2025 Patient is comfortable on current dosing would like to titrate up to maximum dosing which she was on previously at 2.4 Recent move and stressors The seem to be improving BRIDGET injection today newly calibrated target goal weight 165 pounds We did discuss we can refer to [...] software and direct typing Please excuse inadvertent tiller man or typing errors, or uncorrected word substitutions Although every attempt has been made by the provider to proofread this document, occasional misspellings and typographical errors may still be present Due to the previous pandemic, and the use of personal protective equipment (PPE) This may decrease voice recognition accuracy Inadvertent tiller man errors may occur 11/03/2024 Encounter for examination of blood pressure without abnormal findings (ICD-10 - Z01.30) #Weight Management 11/03/2024 Recent stressors including work, life and home moving [facility] today Reinitiate Wegovy newly calibrated target goal weight 165 pounds We did discuss we can refer to [...] software and direct typing Please excuse inadvertent tiller man or typing errors, or uncorrected word substitutions Although every attempt has been made by the provider to proofread this document, occasional misspellings and typographical errors may still be present Due to the previous pandemic, and the use of personal protective equipment (PPE) This may decrease voice recognition accuracy Inadvertent tiller man errors may occur 12/14/2024 Encounter for examination of blood pressure without abnormal findings (ICD-10 - Z01.30) #Weight Management 12/14/2024 Patient has been off medications for 4 months now Will reintroduce Wegovy at a much smaller dose to avoid any side effects Recent stressors including work, life and home moving [facility] today newly calibrated target goal weight 165 pounds We did discuss we can refer to [...] software and direct typing Please excuse inadvertent tiller man or typing errors, or uncorrected word substitutions Although every attempt has been made by the provider to proofread this document, occasional misspellings and typographical errors may still be present Due to the previous pandemic, and the use of personal protective equipment (PPE) This may decrease voice recognition accuracy Inadvertent tiller man errors may occur 01/25/2025 Encounter for examination of blood pressure without abnormal findings (ICD-10 - Z01.30) #Weight Management 01/25/2025 Patient is comfortable on current dosing would like to titrate up to maximum dosing which she was on previously at 2.4 Recent move and stressors The seem to be improving BRIDGET injection today newly calibrated target goal weight 165 pounds We did discuss we can refer to [...] software and direct typing Please excuse inadvertent tiller man or typing errors, or uncorrected word substitutions Although every attempt has been made by the provider to proofread this document, occasional misspellings and typographical errors may still be present Due to the previous pandemic, and the use of personal protective equipment (PPE) This may decrease voice recognition accuracy Inadvertent tiller man errors may occur 06/29/2024 #Weight Management 06/29/2024 _update comprehensive labs before [...] software and direct typing Please excuse inadvertent tiller man or typing errors, or uncorrected word substitutions Although every attempt has been made by the provider to proofread this document, occasional misspellings and typographical errors may still be present Due to the previous pandemic, and the use of personal protective equipment (PPE) This may decrease voice recognition accuracy Inadvertent tiller man errors may occur Plan Of Treatment Pending Test Test Name Order Date HEMOGLOBIN A1C 11/20/2021 T4, TOTAL 11/20/2021 TSH 11/20/2021 LIPID PANEL, STANDARD 05/19/2024 COMPREHENSIVE METABOLIC PANEL 05/19/2024 CBC (INCLUDES DIFF/PLT) 05/19/2024 URINALYSIS, COMPLETE 05/19/2024 HEMOGLOBIN A1c 05/19/2024 TSH 05/19/2024 VITAMIN D,25-OH,TOTAL,IA 05/19/2024 Next Appt Details Provider Name:ABUNDIO DEE, 03/08/2025 09:45:00 AM, [address], [address], [place], [address], Insurance Providers Payer Name Payer Address Payer Phone Subscriber Number Group Number Insured Name Patient Relationship to Insured Coverage Start Date Coverage End Date [facility] [address] [place] [address] [id number] Laurence Sanderson i Self - patient is the insured Medications Administered Medication Instructions Date of Administration Dosage Notes [...] 05/19/2024 1 mg [facility] B12 INJECTION 07/22/2024 [facility] B12 INJECTION 11/03/2024 [facility] B12 INJECTION 01/25/2025 Semaglutide 02/18/2023 0.25 mL Medical (General) History Medical History History ICD Code hemorrhoids headache Arthritis kidney stones anxiety seasonal allergies weight gain endometrial cancer Surgical History Surgery Date(Month/Year) laminectomy, ruptured lumbar disc hysterectomy gastric bypass bowel resection colon cancer rotator cuff
--- OUTSIDE RECORDS SUMMARY | 2025-02-01 10:12 | XMS_ITS | Clinical Summary ---
Author Organization [facility], Address [address] [place] [address] Phone Care Team Providers Care Woodworker Name Role Phone Smitha Mckinnon MD Primary Care Provid er Allergies Active Allergy Reactions Criticality Noted Date Comments Morphine High 02/14/2020 DROP IN BLOOD PRESSURE Oxycodone-Acetaminophen Other (see comments) Low Itchy scalp per patient Pollen Extract Other (see comments) Low 02/14/2020 Sneezing, runny nose Sulfa Antibiotics Hives Medium 02/14/2020 Tetanus Toxoid-Containing Vaccines Other (see comments) High 04/11/2013 Rapid HR, [...] 66 02/27/2020 12:14 PM EDT Temperature 35.9 C (96.6 F) 02/27/2020 12:14 PM EDT Respiratory Rate 15 02/27/2020 12:14 PM EDT Oxygen Saturation 98% 02/27/2020 12:14 PM EDT Inhaled Oxygen Concentration - - Weight 107 kg (236 lb) 02/27/2020 12:14 PM EDT Height 170.2 cm (5' 7 ) 02/27/2020 12:14 PM EDT Body Mass Index 36.96 02/27/2020 12:14 PM EDT Plan of Treatment Health Maintenance Due Date Last Done Comments Breast Cancer Screening 1960 Pneumococcal Vaccine: 50+ Years (1 of 2 - PCV) 07/28/1978 Colorectal Cancer Screening: Annual FOBT 07/28/2008 Colorectal Cancer Screening: Colonoscopy 07/28/2008 Colorectal Cancer Screening: Sigmoidoscopy 07/28/2008 Influenza Vaccine (#1) 2025 9, 03/04/2016, 04/11/2013, Additional history exists Hepatitis B Vaccine Aged Out No longe r eligible based on patient's age to complete this topic Insurance [facility] Care Teams Woodworker Relationship Specialty Start Date End Date Smitha Mckinnon MD [id number] [facility] [address] [place], [place] PCP - General Internal Medicine 02/14/20
== END 2025-02-01 10:34 | disposition home or self-care (01) ==
LOC: HO.HSMS 09:22
PROVIDERS: PCP Family Medicine; Visit Provider Nurse Practitioner Family
DX: G43.109 Migraine with aura, not intractable, without status migrainosus (principal); G62.0 Drug-induced polyneuropathy; T45.1X5A Adverse effect of antineoplastic and immunosuppressive drugs, initial encounter; M62.838 Other muscle spasm
CPT/HCPCS: 99214